=== PATIENT | female | born 1965 | race Caucasian/White ===

== ENCOUNTER → 2020-12-12 14:15 | Outpatient (BNVA) | payer MEDICARE, MEDICAID, SELFPAY | PROVIDERS: PCP Internal Medicine; Visit Provider Internal Medicine Cardiovascular Disease | DX: I48.0 Paroxysmal atrial fibrillation (principal); I50.9 Heart failure, unspecified | CPT/HCPCS: 93005; 99212 ==

== ENCOUNTER → 2021-03-08 13:00 | Outpatient (BNVA) | payer MEDICARE, MEDICAID, SELFPAY | PROVIDERS: PCP Internal Medicine; Visit Provider Nurse Practitioner Family | DX: R00.2 Palpitations (principal); I48.0 Paroxysmal atrial fibrillation; I50.9 Heart failure, unspecified | CPT/HCPCS: 93005; 99212 ==

== ENCOUNTER 2021-05-09 12:01 | Emergency (ER) | payer MEDICARE, MEDICAID, SELFPAY ==
--- NOTE | ~2021-05-09 | XR_ITS ---
EXAMINATION: XR CHEST CLINICAL INFORMATION: Fever. COMPARISON: None TECHNIQUE: Frontal view of the chest was obtained. FINDINGS: No significant abnormality is noted involving the heart, lungs, mediastinum, bony thorax or soft tissues. XR/XR chest 1V IMPRESSION: Unremarkable chest examination.
[2021-05-09 13:03] VITALS: BP 111/55; PULSE 89; RESP 16; TEMP 36.1; O2SAT 98; BMI 25.2
[2021-05-09 13:39] LABS: MANUAL DIFF FLAG NO
[2021-05-09 13:41] LABS: Basophils Percent Auto 0.2 % (0-2); Eosinophils Absolute Auto 0.1 X10*3/uL (0.0-0.4); Hematocrit 41.3 % (37-47); Hemoglobin 13.4 g/dl (12.0-16.0); Imm Gran Abs Auto 0.05 X10*3/uL (0.00-0.03); Imm Gran Pct Auto 0.5 % (0.0-0.4); Lymphocytes Absolute Auto 1.8 X10*3/uL (1.2-4.9); Lymphocytes Percent Auto 18.3 % (20-40); Mean Corpuscular HGB Conc 32.4 g/dl (31.0-35.0); Mean Corpuscular Hemoglobin 31.8 pg (27.0-33.0); Mean Corpuscular Volume 97.9 fL (80-98); Mean Platelet Volume 10.8 fL (9.4-12.3); Monocytes Absolute Auto 0.5 X10*3/uL (0.1-1.2); Monocytes Percent Auto 5.5 % (2-11); Neutrophils Absolute Auto 7.4 X10*3/uL (2.0-8.3); Neutrophils Percent Auto 74.5 % (45-73); Platelet Count 234 X10*3/uL (160-400); Red Blood Count 4.22 X10*6/uL (4.20-5.50); Red Cell Distribution Width 14.5 % (11.0-16.0); White Blood Count 9.9 X10*3/uL (4.8-10.8)
[2021-05-09 14:12] LABS: Anion Gap 14 (12-20); Blood Urea Nitrogen 9 mg/dL (9-16); Calcium 8.9 mg/dL (8.4-10.2); Carbon Dioxide 23 mmol/L (22-29); Chloride 105 mmol/L (96-108); Creatinine Clr Calc Pharmacy 64.6; Estimated Glomerular Filt Rate > 60; Glucose Random 230 mg/dL (60-115); Potassium 4.1 mmol/L (3.3-5.1); Sodium 138 mmol/L (135-145)
[2021-05-09 14:43] LABS: Alanine Aminotransferase 20 U/L (0-31); Albumin Level 3.9 g/dL (3.5-5.0); Alkaline Phosphatase 60 U/L (39-117); Aspartate Amino Transferase 26 U/L (5-31); Bilirubin Direct 0.2 mg/dL (0.0-0.5); Bilirubin Total 0.4 mg/dL (0.0-1.0); Total Protein 7.6 g/dL (6.5-8.0)
--- NOTE | 2021-05-09 15:15 | ED_ITS ---
HPI - Fever General Chief Complaint: Fever Stated Complaint: fever Time Seen by Provider: 05/09/21 14:20 Source: patient Mode of arrival: ambulatory Limitations: no limitations History of Present Illness HPI Narrative: 56 y/o female with history of DM, paroxysmal afib on Xarelto, CHF, hypothyroidism who presents to the ER with on/off fevers for the last 3 weeks. She reports a longstanding cyst on her left upper chest wall for the last 30 years. About 3 weeks ago it got bigger and her was able to squeeze and express large amounts of pus from it. She had low grade fevers for a few days followed by higher grade fevers for the next few days, up to 103.8. She has had no other symptoms other than some fatigue, generalized weakness and generally not feeling well. She has no SOB, chest pain, cough, rash, abdominal pain, N/V/D, or urinary symptoms. She is fully vaccinated against COVID. MD elicited complaint: fever, malaise and weakness Pertinent past history: diabetes Onset (ago): week(s) (3) Exacerbating factors: nothing Relieving factors: acetaminophen and ibuprofen Associated symptoms: denies other symptoms Treatments prior to arrival fever: acetaminophen Related Data Home Medications Medication Instructions Recorded Confirmed albuterol sulfate 90 mcg/actuation 0 mcg INHALATION 12/12/20 03/08/21 aerosol inhaler atenolol 50 mg tablet 50 mg PO BID tab 12/12/20 03/08/21 bupropion HCl 300 mg 24 hr tablet, 300 mg PO DAILY 12/12/20 03/08/21 extended release citalopram 40 mg tablet 40 mg PO DAILY 12/12/20 03/08/21 colestipol 1 gram tablet 1 g PO TID 12/12/20 03/08/21 cyclobenzaprine 10 mg tablet 10 mg PO BID PRN 12/12/20 03/08/21 famotidine 20 mg tablet 20 mg PO BID 12/12/20 03/08/21 fluticasone furoate 200 1 ea PO DAILY 12/12/20 03/08/21 mcg-vilanterol 25 mcg/dose inhalation powder levothyroxine 100 mcg tablet 100 mcg PO DAILY 12/12/20 03/08/21 lorazepam 1 mg tablet 1 mg PO TID PRN 12/12/20 03/08/21 oxycodone 10 mg tablet mg PO 12/12/20 03/08/21 trazodone 50 mg tablet 150 mg PO BEDTIME 12/12/20 03/08/21 potassium chloride 10 mEq 20 meq PO DAILY 03/08/21 03/08/21 capsule,extended release Previous Rx's Medication Instructions Recorded rivaroxaban 20 mg tablet (Xarelto) 20 mg PO DAILY 90 Days #90 tab 08/09/20 flecainide 100 mg tablet 100 mg PO Q12H 90 Days #180 tab 11/04/20 furosemide 40 mg tablet 40 mg PO DAILY 90 Days #110 tab 01/13/21 Allergies Allergy/AdvReac Type Severity Reaction Status Date / Time amoxicillin [From AUGMENTIN] Allergy Mild SWELLING Unverified 06/02/20 16:40 clavulanic acid Allergy Mild SWELLING Unverified 06/02/20 16:40 [From AUGMENTIN] etodolac [From LODINE] Allergy Mild SWELLING Unverified 06/02/20 16:40 gabapentin [GABAPENTIN] Allergy Mild SWELLING Unverified 06/02/20 16:40 pregabalin [From LYRICA] Allergy Mild SWELLING Unverified 06/02/20 16:40 clarithromycin [From Biaxin] Allergy Unknown ANGIOEDEMA Unverified 06/02/20 16:40 Penicillins Allergy Unknown UNKNOWN Unverified 06/02/20 16:40 sulfamethoxazole Allergy Unknown ANAPHYLAXIS Unverified 06/02/20 16:40 [From Bactrim] fluticasone AdvReac Mild MUSCLE PAIN Unverified 06/02/20 16:40 [From FLOVENT DISKUS] Eliquis Allergy Unknown fatigue, Uncoded 03/28/20 00:00 GI, tongue swell Review of Systems Constitutional: Constitutional: Denies chills, Reports fever(s), Denies headache(s), Reports lethargy, Reports malaise, Denies night sweats and Reports poor appetite Eyes: Eyes: Reports no additional eye complaints ENT: Reports Normal hearing present, Denies headache(s), Denies nasal congestion, Denies neck pain and Denies sore throat Cardiovascular: Cardiovascular: Denies chest pain, Denies lightheadedness, Denies dyspnea and Denies dyspnea on exertion Respiratory: Respiratory: Denies chest congestion, Denies cough, Denies dyspnea, Denies dyspnea on exertion and Denies wheezing Gastrointestinal: Gastrointestinal: Denies abdominal pain, Denies diarrhea, Denies nausea and Denies vomiting Genitourinary: Genitourinary: Denies dysuria Musculoskeletal: Musculoskeletal: Denies back pain, Denies myalgias and Denies neck pain Integumentary/Breasts: Skin/Breast: Reports furuncle and Denies rash Neurologic: Reports Normal hearing present and Denies headache(s) Hematologic/Lymphatic: Hematologic/Lymphatic: Denies easy bleeding, Denies easy bruising and Denies lymphadenopathy Allergic/Immunologic: Allergic/Immunologic: Denies urticaria, Denies seasonal rhinorrhea and Denies wheezing PMFSH Past Medical History Attestation statement: The following information was validated with the patient. Medical History Congestive heart failure Diabetes PAF (paroxysmal atrial fibrillation) Surgical History History of back surgery History of radiofrequency ablation (RFA) procedure for cardiac arrhythmia Family History Family History Father No problems noted. Mother CVD (cardiovascular disease) Social History Social History Patient Tobacco Use Status: Current everyday Tobacco user Cigarettes Per Day: 10 Advance Directives: Yes Advance Directives Information Provided: Yes Advance Directives on File: No Patient : No Physical Exam Vital Signs: Vital Signs: Last Vital Signs Temp 97 F 05/09/21 13:03 Pulse 89 05/09/21 13:03 Resp 16 05/09/21 13:03 BP 111/55 L 05/09/21 13:03 Pulse Ox 98 05/09/21 13:03 Body Mass Index 25.2 Appearance: Alert. Oriented X3. No acute distress. Appears chornically ill Eyes: Pupils equal, round and reactive to light. ENT: Pharynx normal. tonsils normal, uvula midline Neck: Normal inspection. Neck supple. No LAD CVS: Normal heart rate and rhythm. Pulses normal. Respiratory: No respiratory distress. Breath sounds normal. Abdomen: Soft and nontender. +BS x4 Skin: Skin warm and dry. Normal skin color. Normal skin turgor. No rash. Left upper chest wall with small area of erythema with induration and ecchymosis surroudning it, no fluctance, no drainage. mildly warm. Extremities: No lower extremity edema. Neuro: Oriented X 3. No motor deficit. No sensory deficit. Neuro: Cranial nerves: Yes Normal hearing present Course Course Course Narrative: 56 yo female presenting with fevers and left chest inflamed c yst for the last 3 weeks. Fevers as high as 103.8 at home about 2 weeks ago. Denies all other complaints aside from some generalized malaise and not feeling well. Will dorado culture, check viral PCR and basic labs. She is currently hemodyanmically stable, afebrile. Chest wall cyst has no area that is amenable to I&D at this time. Reevaluation(s) Reevaluation #1: Lab workup is unremarkable. Lyme and Erlichia sent. Viral PCR p ending. Awaiting UA and lactic acid. Reevaluation #2: Patient eloped. MDM - Fever Lab Data Result diagrams: 05/09/21 13:22 05/09/21 13:22 Labs: Lab Results 05/09/21 05/09/21 05/09/21 Range/Units 13:22 13:22 15:03 WBC 9.9 (4.8-10.8) X10*3/uL RBC 4.22 (4.20-5.50) X10*6/uL Hgb 13.4 (12.0-16.0) g/dl Hct 41.3 (37-47) % MCV 97.9 (80-98) fL MCH 31.8 (27.0-33.0) pg MCHC 32.4 (31.0-35.0) g/dl RDW 14.5 (11.0-16.0) % Plt Count 234 (160-400) X10*3/uL MPV 10.8 (9.4-12.3) fL Immature Gran % (Auto) 0.5 H (0.0-0.4) % Neut % (Auto) 74.5 H (45-73) % Lymph % (Auto) 18.3 L (20-40) % [place] % (Auto) 5.5 (2-11) % Eos % (Auto) 1.0 (0-4) % Baso % (Auto) 0.2 (0-2) % Lymph # (Auto) 1.8 (1.2-4.9) X10*3/uL [place] # (Auto) 0.5 (0.1-1.2) X10*3/uL Eos # (Auto) 0.1 (0.0-0.4) X10*3/uL Baso # (Auto) 0.0 (0.0-0.2) X10*3/uL Abs Immat Gran (auto) 0.05 H (0.00-0.03) X10*3/uL Absolute Neuts (auto) 7.4 (2.0-8.3) X10*3/uL Absolute Nucleated RBC 0.000 (0.0-0.012) X10*3/uL Nucleated RBC % (auto) 0.0 (0.0-0.2) /100WBC Sodium 138 (135-145) mmol/L Potassium 4.1 (3.3-5.1) mmol/L Chloride 105 (96-108) mmol/L Carbon Dioxide 23 (22-29) mmol/L Anion Gap 14 (12-20) BUN 9 (9-16) mg/dL Creatinine 0.91 (0.5-1.4) mg/dL Estim Creat Clear Calc 64.6 Estimated GFR > 60 Random Glucose 230 H (60-115) mg/dL Lactic Acid (0.5-2.0) mmol/L Calcium 8.9 (8.4-10.2) mg/dL Total Bilirubin 0.4 (0.0-1.0) mg/dL Direct Bilirubin 0.2 (0.0-0.5) mg/dL AST 26 (5-31) U/L ALT 20 (0-31) U/L Alkaline Phosphatase 60 (39-117) U/L Total Protein 7.6 (6.5-8.0) g/dL Albumin 3.9 (3.5-5.0) g/dL Coronavirus (PCR) Cancelled Influenza Type A (PCR) Cancelled Influenza Type B (PCR) Cancelled RSV RNA Qual (PCR) Cancelled 05/09/21 05/09/21 Range/Units 15:03 15:22 WBC (4.8-10.8) X10*3/uL RBC (4.20-5.50) X10*6/uL Hgb (12.0-16.0) g/dl Hct (37-47) % MCV (80-98) fL MCH (27.0-33.0) pg MCHC (31.0-35.0) g/dl RDW (11.0-16.0) % Plt Count (160-400) X10*3/uL MPV (9.4-12.3) fL Immature Gran % (Auto) (0.0-0.4) % Neut % (Auto) (45-73) % Lymph % (Auto) (20-40) % [place] % (Auto) (2-11) % Eos % (Auto) (0-4) % Baso % (Auto) (0-2) % Lymph # (Auto) (1.2-4.9) X10*3/uL [place] # (Auto) (0.1-1.2) X10*3/uL Eos # (Auto) (0.0-0.4) X10*3/uL Baso # (Auto) (0.0-0.2) X10*3/uL Abs Immat Gran (auto) (0.00-0.03) X10*3/uL Absolute Neuts (auto) (2.0-8.3) X10*3/uL Absolute Nucleated RBC (0.0-0.012) X10*3/uL Nucleated RBC % (auto) (0.0-0.2) /100WBC Sodium (135-145) mmol/L Potassium (3.3-5.1) mmol/L Chloride (96-108) mmol/L Carbon Dioxide (22-29) mmol/L Anion Gap (12-20) BUN (9-16) mg/dL Creatinine (0.5-1.4) mg/dL Estim Creat Clear Calc Estimated GFR Random Glucose (60-115) mg/dL Lactic Acid 1.4 (0.5-2.0) mmol/L Calcium (8.4-10.2) mg/dL Total Bilirubin (0.0-1.0) mg/dL Direct Bilirubin (0.0-0.5) mg/dL AST (5-31) U/L ALT (0-31) U/L Alkaline Phosphatase (39-117) U/L Total Protein (6.5-8.0) g/dL Albumin (3.5-5.0) g/dL Coronavirus (PCR) NEGATIVE Influenza Type A (PCR) NEGATIVE Influenza Type B (PCR) NEGATIVE RSV RNA Qual (PCR) NEGATIVE Critical Care Time Critical Care Time Critical Care Time: No Discharge Plan Discharge Clinical Impression: Cyst, Cellulitis Patient Disposition: Elopement Prescriptions: No Action Xarelto 20 mg tablet 20 mg PO DAILY 90 Days Qty: 90 RF: 3 flecainide 100 mg tablet 100 mg PO Q12H 90 Days Qty: 180 RF: 0 furosemide 40 mg tablet 40 mg PO DAILY 90 Days Qty: 110 RF: 1 famotidine 20 mg tablet 20 mg PO BID RF: 0 Breo Ellipta 200-25 mcg/dose blister with device 1 ea PO DAILY RF: 0 bupropion HCl 300 mg tablet extended release 24 hr 300 mg PO DAILY RF: 0 citalopram 40 mg tablet 40 mg PO DAILY RF: 0 colestipol 1 gram tablet 1 g PO TID RF: 0 oxycodone 10 mg tablet PO RF: 0 lorazepam 1 mg tablet 1 mg PO TID PRN (Reason: anxiety) RF: 0 cyclobenzaprine 10 mg tablet 10 mg PO BID PRNRF: 0 albuterol sulfate 90 mcg/actuation HFA aerosol inhaler 0 mcg inhalation RF: 0 levothyroxine 100 mcg tablet 100 mcg PO DAILY RF: 0 trazodone 50 mg tablet 150 mg PO BEDTIME RF: 0 atenolol 50 mg tablet 50 mg PO BID RF: 0 potassium chloride 10 mEq capsule, extended release 20 meq PO DAILY RF: 0 Discharge Date/Time: 05/09/21 16:37
[2021-05-09 15:47] LABS: Lactic Acid 1.4 mmol/L (0.5-2.0)
[2021-05-09 16:22] LABS: Influenza A PCR NEGATIVE (Negative); Influenza B PCR NEGATIVE (Negative); Resp Syncy Virus RNA Qual PCR NEGATIVE (Negative); SARS COV2 PCR INHOUSE NEGATIVE (Negative)
--- NOTE | 2021-05-09 16:38 | PC.NURSE ---
pt was instructed to provide a urine spec nad plan was to d/c after po abx and follow up with lab work. pt left urine spec at bedside adn elopued. pt was in no distress, resps were = and nonlabored.
[2021-05-11 01:21] LABS: Lyme Abs Screen <0.90 index
[2021-05-12 06:56] LABS: A. Phagocytophilum Ab IgG <1:64 (<1:64); A. Phagocytophilum Ab IgM <1:20 (<1:20); E. Chaffeensis Ab IgG <1:64 (<1:64); E. Chaffeensis Ab IgM <1:20 (<1:20)
== END 2021-05-09 16:37 | disposition left against medical advice (07) ==
PROVIDERS: Physician Assistant; Emergency Provider Emergency Medicine; PCP Internal Medicine
DX: R22.2 Localized swelling, mass and lump, trunk (principal); L03.313 Cellulitis of chest wall; Z20.822 Contact with and (suspected) exposure to COVID-19; R50.9 Fever, unspecified; E11.9 Type 2 diabetes mellitus without complications; I48.0 Paroxysmal atrial fibrillation; F17.210 Nicotine dependence, cigarettes, uncomplicated; Z79.01 Long term (current) use of anticoagulants; Z79.899 Other long term (current) drug therapy
CPT/HCPCS: 0241U; 36415; 71045; 80048; 80076; 83605; 85025; 86617; 86618; 86666; 87040; 99283

== ENCOUNTER 2021-06-20 19:13 | Emergency (ER) | payer MEDICARE, MEDICAID, SELFPAY ==
--- NOTE | 2021-06-20 | ECG_ITS ---
Test Reason : SOB Blood Pressure : / mmHG Vent. Rate : 085 BPM Atrial Rate : 085 BPM P-R Int : 184 ms QRS Dur : 096 ms QT Int : 414 ms P-R-T Axes : 051 -09 038 degrees QTc Int : 492 ms Normal sinus rhythm Possible Left atrial enlargement Nonspecific T wave abnormality Prolonged QT Abnormal ECG When compared with ECG of 18-DEC-2019 06:04, No significant change was found Referred By: Generic ED Physician Electronically Signed By:MEL HERNANDEZ
--- NOTE | ~2021-06-20 | XR_ITS ---
EXAMINATION: XR CHEST CLINICAL INFORMATION: Shortness of breath. COMPARISON: Chest radiograph dated from 05/09/2021. TECHNIQUE: 2 views of the chest were obtained. FINDINGS: Unchanged appearance of the cardiomediastinal silhouette. Partial visualization of cervical and lumbar fusion hardware. There are hazy and patchy opacities bilaterally within the lower lobes. No pleural effusion. No pneumothorax. No acute osseous findings. XR/XR chest 2V IMPRESSION: Patchy and hazy opacities in the lower lobes bilaterally which could be seen in the setting of an atypical multifocal infection. Correlate clinically and follow-up to ensure resolution.
[2021-06-20 20:04] VITALS: PULSE 86; RESP 20; TEMP 36.8; O2SAT 83; BMI 22.6
[2021-06-20 20:11] VITALS: BP 103/35
--- NOTE | 2021-06-20 20:16 | PC.NURSE ---
PT PLACED ON 2L O2 VIA NC SAO2 INCREASED TO 88% IN TRIAGE. BROUGHT TO RM 1 FOR TREATMENT, PRIMARY RN ROSALINA NOTIFIED. PT HOOKED TO ROOM O2 INCREASED TO 3L.
--- NOTE | 2021-06-20 20:18 | ED.SOB ---
HPI - SOB/Dyspnea General Chief Complaint: Dyspnea <Naveed Nñuez MD - Last Filed: 06/20/21:> Stated Complaint: SOB <Naveed Nuñez MD - Last Filed: 06/20/21:> Time Seen by Provider: 06/20/21 20:18 <Naveed Nuñez MD - Last Filed: 06/20/21:> Source: patient <Naveed Nuñez MD - Last Filed: 06/20/21:> Mode of arrival: ambulatory <Naveed Nuñez MD - Last Filed: 06/20/21:> Limitations: no limitations <Naveed Nuñez MD - Last Filed: 06/20/21:> History of Present Illness HPI Narrative: patient with increasing shortness of breath. she has a history of COPD, she is concerned about pneumonia. Patient is vaccinated against COVID. Patient is still smoking. <Naveed Nuñez MD - Last Filed: 06/20/21:26> MD elicited complaint: shortness of breath and cough <Naveed Nuñez MD - Last Filed: 06/20/21:26> Pertinent past history: COPD <Naveed Nuñez MD - Last Filed: 06/20/21:> Onset (ago): day(s) <aNveed Nuñez MD - Last Filed: 06/20/21:> Timing: intermittent <Naveed Nuñez MD - Last Filed: 06/20/21:> Severity: moderate <Naveed Nuñez MD - Last Filed: 06/20/21:26> Exacerbating factors: exertion and movement <Naveed Nuñez MD - Last Filed: 06/20/21:> Relieving factors: bronchodilators <Naveed Nuñez MD - Last Filed: 06/20/21:> Known history of: COPD <Naveed Nuñez MD - Last Filed: 06/20/21:26> Associated symptoms: cough and wheezing <Naveed Nuñez MD - Last Filed: 06/20/21:26> Treatment prior to arrival: bronchodilator <Navede Nuñez MD - Last Filed: 06/20/21 21:26> Related Data Home Medications: Home Medications Medication Instructions Recorded Confirmed albuterol sulfate 90 mcg/actuation 0 mcg INHALATION 12/12/20 03/08/21 aerosol inhaler atenolol 50 mg tablet 50 mg PO BID tab 12/12/20 03/08/21 bupropion HCl 300 mg 24 hr tablet, 300 mg PO DAILY 12/12/20 03/08/21 extended release citalopram 40 mg tablet 40 mg PO DAILY 12/12/20 03/08/21 colestipol 1 gram tablet 1 g PO TID 12/12/20 03/08/21 cyclobenzaprine 10 mg tablet 10 mg PO BID PRN 12/12/20 03/08/21 famotidine 20 mg tablet 20 mg PO BID 12/12/20 03/08/21 fluticasone furoate 200 1 ea PO DAILY 12/12/20 03/08/21 mcg-vilanterol 25 mcg/dose inhalation powder levothyroxine 100 mcg tablet 100 mcg PO DAILY 12/12/20 03/08/21 lorazepam 1 mg tablet 1 mg PO TID PRN 12/12/20 03/08/21 oxycodone 10 mg tablet mg PO 12/12/20 03/08/21 trazodone 50 mg tablet 150 mg PO BEDTIME 12/12/20 03/08/21 potassium chloride 10 mEq 20 meq PO DAILY 03/08/21 03/08/21 capsule,extended release Previous Rx's Medication Instructions Recorded rivaroxaban 20 mg tablet (Xarelto) 20 mg PO DAILY 90 Days #90 tab 08/09/20 furosemide 40 mg tablet 40 mg PO DAILY 90 Days #110 tab 01/13/21 flecainide 100 mg tablet 100 mg PO Q12H 90 Days #180 tab 05/15/21 levofloxacin 500 mg tablet 500 mg PO DAILY #7 tab 06/20/21 <Naveed Nuñez MD - Last Filed: 06/20/21 21:26> Allergies/Adverse Reactions: Allergies Allergy/AdvReac Type Severity Reaction Status Date / Time amoxicillin [From AUGMENTIN] Allergy Mild SWELLING Verified 06/20/21 21:34 clavulanic acid Allergy Mild SWELLING Verified 06/20/21 21:34 [From AUGMENTIN] etodolac [From LODINE] Allergy Mild SWELLING Verified 06/20/21 21:34 gabapentin [GABAPENTIN] Allergy Mild SWELLING Verified 06/20/21 21:34 pregabalin [From LYRICA] Allergy Mild SWELLING Verified 06/20/21 21:34 clarithromycin [From Biaxin] Allergy Unknown ANGIOEDEMA Verified 06/20/21 21:34 Penicillins Allergy Unknown UNKNOWN Verified 06/20/21 21:34 sulfamethoxazole Allergy Unknown ANAPHYLAXIS Verified 06/20/21 21:34 [From Bactrim] fluticasone AdvReac Mild MUSCLE PAIN Verified 06/20/21 21:34 [From FLOVENT DISKUS] Eliquis Allergy Unknown fatigue, Uncoded 06/20/21 21:34 GI, tongue swell <Naveed Nuñez MD - Last Filed: 06/20/21 21:26> Review of Systems Constitutional: Constitutional: Reports no additional constitutional complaints <Naveed Nuñez MD - Last Filed: 06/20/21 21:26> Eyes: Eyes: Reports no additional eye complaints <Naveed Nuñez MD - Last Filed: 06/20/21 21:26> ENT: Denies dizziness <Naveed Nuñez MD - Last Filed: 06/20/21 21:26> Cardiovascular: Cardiovascular: Reports no additional cardiovascular complaints <Naveed Nuñez MD - Last Filed: 06/20/21 21:26> Respiratory: Respiratory: Reports as per HPI <Naveed Nuñez MD - Last Filed: 06/20/21 21:26> Gastrointestinal: Gastrointestinal: Reports no additional gastrointestinal complaints <Naveed Nuñez MD - Last Filed: 06/20/21 21:26> Genitourinary: Genitourinary: Reports no additional female genitourinary complaints <Naveed Nuñez MD - Last Filed: 06/20/21 21:26> Musculoskeletal: Musculoskeletal: Reports no additional musculoskeletal complaints <Naveed Nuñez MD - Last Filed: 06/20/21 21:26> Integumentary/Breasts: Skin/Breast: Denies rash <Naveed Nuñez MD - Last Filed: 06/20/21 21:26> Neurologic: Reports system reviewed and no additional complaints, except as documented, Denies dizziness and Denies Sensory deficit (Neuro) <Naveed Nuñez MD - Last Filed: 06/20/21 21:26> Psychiatric: Psychiatric: Denies anxiety <Naveed Nuñez MD - Last Filed: 06/20/21 21:26> FOR[facility]LY [facility] Past Medical History Medical History: Medical History Congestive heart failure Diabetes PAF (paroxysmal atrial fibrillation) <Naveed Nuñez MD - Last Filed: 06/20/21 21:26> Surgical History: Surgical History History of back surgery History of radiofrequency ablation (RFA) procedure for cardiac arrhythmia <Naveed Nuñez MD - Last Filed: 06/20/21 21:26> Family History Family History: Family History Father No problems noted. Mother CVD (cardiovascular disease) <Naveed Nuñez MD - Last Filed: 06/20/21 21:26> Social History Social History: Social History Alcohol intake: unknown Patient Tobacco Use Status: Current everyday Tobacco user Cigarettes Per Day: 10 Use of substances other than those prescribed or required for medical reasons: Unknown Advance Directives: No Advance Directives Information Provided: No Patient : No <Naveed Nuñez MD - Last Filed: 06/20/21 21:26> Physical Exam Vital Signs: Vital Signs: Last Vital Signs Temp 98.2 F 06/20/21 20:04 Pulse 86 06/20/21 21:31 Resp 26 H 06/20/21 21:31 BP 112/32 L 06/20/21 21:31 Pulse Ox 92 06/20/21 21:31 Body Mass Index 22.6 <Naveed Nuñez MD - Last Filed: 06/20/21 21:26> Vital Signs: Last Vital Signs Temp 98.2 F 06/20/21 20:04 Pulse 86 06/20/21 21:31 Resp 26 H 06/20/21 21:31 BP 112/32 L 06/20/21 21:31 Pulse Ox 92 06/20/21 21:31 Body Mass Index 22.6 <James Hernandez MD - Last Filed: 06/21/21 00:16> Const: Other: female looking older than stated age <Naveed Nuñez MD - Last Filed: 06/20/21 21:26> Nutritional Appearance: average body habitus <Naveed Nuñez MD - Last Filed: 06/20/21 21:26> Orientation/consciousness: oriented to person and patient oriented x3 <Naveed Nuñez MD - Last Filed: 06/20/21 21:26> Limitations: no limitations <Naveed Nuñez MD - Last Filed: 06/20/21 21:26> HENMT: Head: Yes normal to inspection <Naveed Nuñez MD - Last Filed: 06/20/21 21:26> Ears: external ears normal <Naveed Nuñez MD - Last Filed: 06/20/21 21:26> General nose exam: Normal external nose present <Naveed Nuñez MD - Last Filed: 06/20/21 21:26> Mouth: Normal oral and palatal mucosa present and oropharynx normal <Naveed Nuñez MD - Last Filed: 06/20/21 21:26> Throat: Yes posterior oropharynx normal <Naveed Nuñez MD - Last Filed: 06/20/21 21:26> Eyes: General: appearance normal, both eyes and all related structures <Naveed Nuñez MD - Last Filed: 06/20/21 21:26> Neck: Other: supple <Naveed Nuñez MD - Last Filed: 06/20/21 21:26> Neck: Yes normal visual inspection <Naveed Nuñez MD - Last Filed: 06/20/21 21:26> Chest: Chest palpation & inspection: normal inspection of the chest <Naveed Nuñez MD - Last Filed: 06/20/21 21:26> Resp: Other: no wheezing <Naveed Nuñez MD - Last Filed: 06/20/21 21:26> Auscultation: clear to auscultation bilaterally <Naveed Nuñez MD - Last Filed: 06/20/21 21:26> Cardio: Jugular venous distension: no JVD <Naveed Nuñez MD - Last Filed: 10/05/21 21:26> Rate: regular rate <Naveed Nuñez MD - Last Filed: 06/20/21:> Rhythm: regular rhythm <Naveed Nuñez MD - Last Filed: 06/20/21:> Heart sounds: S1 normal heart sound present and S2 normal heart sound present <Naveed Nuñez MD - Last Filed: 06/20/21:26> GI: Inspection: Yes normal to inspection <Naveed Nuñez MD - Last Filed: 06/20/21:26> Palpation (GI): Soft to palpation, nontender and No hepatosplenomegaly present <Naveed Nuñez MD - Last Filed: 06/20/21:26> Auscultation: normal bowel sounds <Naveed Nuñez MD - Last Filed: 06/20/21:> : General: Yes no CVA tenderness <Naveed Nuñez MD - Last Filed: 06/20/21 21:26> Back/Spine/Pelvis: Back: no CVA tenderness <Naveed Nuñez MD - Last Filed: 06/20/21:26> Skin: General skin exam: no rashes or lesions noted <Naveed Nuñez MD - Last Filed: 06/20/21:26> Neuro: General: oriented to person and patient oriented x3 <Naveed Nuñez MD - Last Filed: 06/20/21:26> Cranial nerves: Yes CN's II-XII intact bilaterally <Naveed Nuñez MD - Last Filed: 06/20/21 21:26> Motor exam (neuro): 5/5 motor strength present throughout <Naveed Nuñez MD - Last Filed: 06/20/21 21:26> Sensory Exam: No Sensory deficit (Neuro) <Naveed Nuñez MD - Last Filed: 06/20/21:26> Extrem: General: Yes normal to inspection <Naveed Nuñez MD - Last Filed: 06/20/21 21:26> Psych: Appearance: grossly normal <Naveed Nuñez MD - Last Filed: 06/20/21 21:26> Course Reevaluation(s) Reevaluation #1: patient afebrile, no tachycardia, no hypoxia, COVID negative. Will give Azithromycin for atypical pneumonia and bring her glucose down and dishcarge <Naveed Nuñez MD - Last Filed: 06/20/21 21:26> Time: 21:26 <Naveed Nuñez MD - Last Filed: 06/20/21 21:26> Reevaluation #2: I assumed care of this patient from my colleague, Dr. Naveed Nuñez at 9:45 a.m. patient's point of care glucose was elevated above 400 and the patient was treated with normal saline x1 L and regular insulin 10 units subQ. Patient's repeat point of care glucose was 301. Patient was discharged home. <James Hernandez MD - Last Filed: 06/21/21 00:16> Time: 00:15 <James Hernandez MD - Last Filed: 06/21/21 00:16> MDM - SOB/Dyspnea Lab Data Result diagrams: : 06/20/21 20:38 06/20/21 20:38 <Naveed Nuñez MD - Last Filed: 06/20/21 21:26> Labs: Lab Results 06/20/21 06/20/21 06/20/21 Range/Units 20:38 20:38 20:38 WBC 12.3 H (4.8-10.8) X10*3/uL RBC 3.70 L (4.20-5.50) X10*6/uL Hgb 12.3 (12.0-16.0) g/dl Hct 36.2 L (37-47) % MCV 97.8 (80-98) fL MCH 33.2 H (27.0-33.0) pg MCHC 34.0 (31.0-35.0) g/dl RDW 14.4 (11.0-16.0) % Plt Count 204 (160-400) X10*3/uL MPV 10.3 (9.4-12.3) fL Immature Gran % (Auto) 0.6 H (0.0-0.4) % Neut % (Auto) 80.1 H (45-73) % Lymph % (Auto) 13.8 L (20-40) % [place] % (Auto) 4.8 (2-11) % Eos % (Auto) 0.6 (0-4) % Baso % (Auto) 0.1 (0-2) % Lymph # (Auto) 1.7 (1.2-4.9) X10*3/uL [place] # (Auto) 0.6 (0.1-1.2) X10*3/uL Eos # (Auto) 0.1 (0.0-0.4) X10*3/uL Baso # (Auto) 0.0 (0.0-0.2) X10*3/uL Abs Immat Gran (auto) 0.07 H (0.00-0.03) X10*3/uL Absolute Neuts (auto) 9.9 H (2.0-8.3) X10*3/uL Absolute Nucleated RBC 0.000 (0.0-0.012) X10*3/uL Nucleated RBC % (auto) 0.0 (0.0-0.2) /100WBC Sodium 135 (135-145) mmol/L Potassium 4.2 (3.3-5.1) mmol/L Chloride 99 (96-108) mmol/L Carbon Dioxide 24 (22-29) mmol/L Anion Gap 16 (12-20) BUN 14 D (9-16) mg/dL Creatinine 1.03 (0.5-1.4) mg/dL Estim Creat Clear Calc 57.0 Estimated GFR 55 POC Glucose (60-115) mg/dL Random Glucose 446 H* (60-115) mg/dL Calcium 8.1 L D (8.4-10.2) mg/dL Total Bilirubin 0.4 (0.0-1.0) mg/dL AST 22 (5-31) U/L ALT 15 (0-31) U/L Alkaline Phosphatase 64 (39-117) U/L Troponin I High Sens (<3.5-17.0) ng/L Total Protein 7.2 (6.5-8.0) g/dL Albumin 3.7 (3.5-5.0) g/dL COVID-19 ([facility]) Negative (Negative) COVID-19 Clin Com See Note 06/20/21 06/20/21 Range/Units 20:38 22:20 WBC (4.8-10.8) X10*3/uL RBC (4.20-5.50) X10*6/uL Hgb (12.0-16.0) g/dl Hct (37-47) % MCV (80-98) fL MCH (27.0-33.0) pg MCHC (31.0-35.0) g/dl RDW (11.0-16.0) % Plt Count (160-400) X10*3/uL MPV (9.4-12.3) fL Immature Gran % (Auto) (0.0-0.4) % Neut % (Auto) (45-73) % Lymph % (Auto) (20-40) % [place] % (Auto) (2-11) % Eos % (Auto) (0-4) % Baso % (Auto) (0-2) % Lymph # (Auto) (1.2-4.9) X10*3/uL [place] # (Auto) (0.1-1.2) X10*3/uL Eos # (Auto) (0.0-0.4) X10*3/uL Baso # (Auto) (0.0-0.2) X10*3/uL Abs Immat Gran (auto) (0.00-0.03) X10*3/uL Absolute Neuts (auto) (2.0-8.3) X10*3/uL Absolute Nucleated RBC (0.0-0.012) X10*3/uL Nucleated RBC % (auto) (0.0-0.2) /100WBC Sodium (135-145) mmol/L Potassium (3.3-5.1) mmol/L Chloride (96-108) mmol/L Carbon Dioxide (22-29) mmol/L Anion Gap (12-20) BUN (9-16) mg/dL Creatinine (0.5-1.4) mg/dL Estim Creat Clear Calc Estimated GFR POC Glucose 429 H* (60-115) mg/dL Random Glucose (60-115) mg/dL Calcium (8.4-10.2) mg/dL Total Bilirubin (0.0-1.0) mg/dL AST (5-31) U/L ALT (0-31) U/L Alkaline Phosphatase (39-117) U/L Troponin I High Sens < 3.5 (<3.5-17.0) ng/L Total Protein (6.5-8.0) g/dL Albumin (3.5-5.0) g/dL COVID-19 ([facility]) (Negative) COVID-19 Clin Com <Naveed Nuñez MD - Last Filed: 06/20/21 21:26> Lab Results 06/20/21 06/20/21 06/20/21 Range/Units 20:38 20:38 20:38 WBC 12.3 H (4.8-10.8) X10*3/uL RBC 3.70 L (4.20-5.50) X10*6/uL Hgb 12.3 (12.0-16.0) g/dl Hct 36.2 L (37-47) % MCV 97.8 (80-98) fL MCH 33.2 H (27.0-33.0) pg MCHC 34.0 (31.0-35.0) g/dl RDW 14.4 (11.0-16.0) % Plt Count 204 (160-400) X10*3/uL MPV 10.3 (9.4-12.3) fL Immature Gran % (Auto) 0.6 H (0.0-0.4) % Neut % (Auto) 80.1 H (45-73) % Lymph % (Auto) 13.8 L (20-40) % [place] % (Auto) 4.8 (2-11) % Eos % (Auto) 0.6 (0-4) % Baso % (Auto) 0.1 (0-2) % Lymph # (Auto) 1.7 (1.2-4.9) X10*3/uL [place] # (Auto) 0.6 (0.1-1.2) X10*3/uL Eos # (Auto) 0.1 (0.0-0.4) X10*3/uL Baso # (Auto) 0.0 (0.0-0.2) X10*3/uL Abs Immat Gran (auto) 0.07 H (0.00-0.03) X10*3/uL Absolute Neuts (auto) 9.9 H (2.0-8.3) X10*3/uL Absolute Nucleated RBC 0.000 (0.0-0.012) X10*3/uL Nucleated RBC % (auto) 0.0 (0.0-0.2) /100WBC Sodium 135 (135-145) mmol/L Potassium 4.2 (3.3-5.1) mmol/L Chloride 99 (96-108) mmol/L Carbon Dioxide 24 (22-29) mmol/L Anion Gap 16 (12-20) BUN 14 D (9-16) mg/dL Creatinine 1.03 (0.5-1.4) mg/dL Estim Creat Clear Calc 57.0 Estimated GFR 55 POC Glucose (60-115) mg/dL Random Glucose 446 H* (60-115) mg/dL Calcium 8.1 L D (8.4-10.2) mg/dL Total Bilirubin 0.4 (0.0-1.0) mg/dL AST 22 (5-31) U/L ALT 15 (0-31) U/L Alkaline Phosphatase 64 (39-117) U/L Troponin I High Sens (<3.5-17.0) ng/L Total Protein 7.2 (6.5-8.0) g/dL Albumin 3.7 (3.5-5.0) g/dL COVID-19 ([facility]) Negative (Negative) COVID-19 Clin Com See Note 06/20/21 06/20/21 Range/Units 20:38 22:20 WBC (4.8-10.8) X10*3/uL RBC (4.20-5.50) X10*6/uL Hgb (12.0-16.0) g/dl Hct (37-47) % MCV (80-98) fL MCH (27.0-33.0) pg MCHC (31.0-35.0) g/dl RDW (11.0-16.0) % Plt Count (160-400) X10*3/uL MPV (9.4-12.3) fL Immature Gran % (Auto) (0.0-0.4) % Neut % (Auto) (45-73) % Lymph % (Auto) (20-40) % [place] % (Auto) (2-11) % Eos % (Auto) (0-4) % Baso % (Auto) (0-2) % Lymph # (Auto) (1.2-4.9) X10*3/uL [place] # (Auto) (0.1-1.2) X10*3/uL Eos # (Auto) (0.0-0.4) X10*3/uL Baso # (Auto) (0.0-0.2) X10*3/uL Abs Immat Gran (auto) (0.00-0.03) X10*3/uL Absolute Neuts (auto) (2.0-8.3) X10*3/uL Absolute Nucleated RBC (0.0-0.012) X10*3/uL Nucleated RBC % (auto) (0.0-0.2) /100WBC Sodium (135-145) mmol/L Potassium (3.3-5.1) mmol/L Chloride (96-108) mmol/L Carbon Dioxide (22-29) mmol/L Anion Gap (12-20) BUN (9-16) mg/dL Creatinine (0.5-1.4) mg/dL Estim Creat Clear Calc Estimated GFR POC Glucose 429 H* (60-115) mg/dL Random Glucose (60-115) mg/dL Calcium (8.4-10.2) mg/dL Total Bilirubin (0.0-1.0) mg/dL AST (5-31) U/L ALT (0-31) U/L Alkaline Phosphatase (39-117) U/L Troponin I High Sens < 3.5 (<3.5-17.0) ng/L Total Protein (6.5-8.0) g/dL Albumin (3.5-5.0) g/dL COVID-19 ([facility]) (Negative) COVID-19 Clin Com <James Hernandez MD - Last Filed: 06/21/21 00:16> Imaging Data Chest x-ray: Radiologist's impression: IMPRESSION: Patchy and hazy opacities in the lower lobes bilaterally which could be seen in the setting of an atypical multifocal infection. Correlate clinically and follow-up to ensure resolution. <Naveed Nuñez MD - Last Filed: 06/20/21 21:26> Discharge Plan Discharge Clinical Impression: Atypical pneumonia, Acute hyperglycemia <Naveed Nuñez MD - Last Filed: 06/20/21 21:26> Patient Disposition: Home, Self-Care <Naveed Nuñez MD - Last Filed: 06/20/21 21:26> Instructions: Pneumonia (ED), Diabetic Hyperglycemia (ED) <Naveed Nuñez MD - Last Filed: 06/20/21 21:26> Prescriptions: New levofloxacin 500 mg tablet 500 mg PO DAILY Qty: 7 RF: 0 No Action Xarelto 20 mg tablet 20 mg PO DAILY 90 Days Qty: 90 RF: 3 furosemide 40 mg tablet 40 mg PO DAILY 90 Days Qty: 110 RF: 1 flecainide 100 mg tablet 100 mg PO Q12H 90 Days Qty: 180 RF: 1 famotidine 20 mg tablet 20 mg PO BID RF: 0 Breo Ellipta 200-25 mcg/dose blister with device 1 ea PO DAILY RF: 0 bupropion HCl 300 mg tablet extended release 24 hr 300 mg PO DAILY RF: 0 citalopram 40 mg tablet 40 mg PO DAILY RF: 0 colestipol 1 gram tablet 1 g PO TID RF: 0 oxycodone 10 mg tablet PO RF: 0 lorazepam 1 mg tablet 1 mg PO TID PRN (Reason: anxiety) RF: 0 cyclobenzaprine 10 mg tablet 10 mg PO BID PRNRF: 0 albuterol sulfate 90 mcg/actuation HFA aerosol inhaler 0 mcg inhalation RF: 0 levothyroxine 100 mcg tablet 100 mcg PO DAILY RF: 0 trazodone 50 mg tablet 150 mg PO BEDTIME RF: 0 atenolol 50 mg tablet 50 mg PO BID RF: 0 potassium chloride 10 mEq capsule, extended release 20 meq PO DAILY RF: 0 <Naveed Nuñez MD - Last Filed: 06/20/21 21:26> Referrals: Toño Newman MD [Primary Care Provider] - 3 days <Naveed Nuñez MD - Last Filed: 06/20/21 21:26>
[2021-06-20 20:46] LABS: MANUAL DIFF FLAG NO
[2021-06-20 20:48] LABS: Basophils Percent Auto 0.1 % (0-2); Eosinophils Absolute Auto 0.1 X10*3/uL (0.0-0.4); Eosinophils Percent Auto 0.6 % (0-4); Hematocrit 36.2 % (37-47); Hemoglobin 12.3 g/dl (12.0-16.0); Imm Gran Abs Auto 0.07 X10*3/uL (0.00-0.03); Imm Gran Pct Auto 0.6 % (0.0-0.4); Lymphocytes Absolute Auto 1.7 X10*3/uL (1.2-4.9); Lymphocytes Percent Auto 13.8 % (20-40); Mean Corpuscular Hemoglobin 33.2 pg (27.0-33.0); Mean Corpuscular Volume 97.8 fL (80-98); Mean Platelet Volume 10.3 fL (9.4-12.3); Monocytes Absolute Auto 0.6 X10*3/uL (0.1-1.2); Monocytes Percent Auto 4.8 % (2-11); Neutrophils Absolute Auto 9.9 X10*3/uL (2.0-8.3); Neutrophils Percent Auto 80.1 % (45-73); Platelet Count 204 X10*3/uL (160-400); Red Cell Distribution Width 14.4 % (11.0-16.0); White Blood Count 12.3 X10*3/uL (4.8-10.8)
[2021-06-20 21:03] LABS: COVID-19 Test Negative (Negative)
[2021-06-20 21:07] LABS: Alanine Aminotransferase 15 U/L (0-31); Albumin Level 3.7 g/dL (3.5-5.0); Alkaline Phosphatase 64 U/L (39-117); Anion Gap 16 (12-20); Aspartate Amino Transferase 22 U/L (5-31); Bilirubin Total 0.4 mg/dL (0.0-1.0); Blood Urea Nitrogen 14 mg/dL (9-16); Calcium 8.1 mg/dL (8.4-10.2); Carbon Dioxide 24 mmol/L (22-29); Chloride 99 mmol/L (96-108); Estimated Glomerular Filt Rate 55; Glucose Random 446 mg/dL (60-115); Potassium 4.2 mmol/L (3.3-5.1); Sodium 135 mmol/L (135-145); Total Protein 7.2 g/dL (6.5-8.0)
[2021-06-20 21:09] LABS: Troponin-I High Sensitivity < 3.5 ng/L (<3.5-17.0)
[2021-06-20 21:31] VITALS: BP 112/32; PULSE 86; RESP 26; O2SAT 92
[2021-06-20] MEDS: Insulin Glargine,Hum.rec.anlog 100 UNIT/ML 10 ML VIAL 10 UNIT SUBCUT (21:34)
[2021-06-20] MEDS: 0.9 % Sodium Chloride 1,000 ML 999 ML IVCONT ×2 (21:35→22:31)
[2021-06-20] MEDS: levoFLOXacin 500 MG TABLET PO (21:45)
[2021-06-20 22:25] LABS: Glucose, Whole Blood 429 mg/dL (60-115)
[2021-06-21 00:16] LABS: Glucose, Whole Blood 301 mg/dL (60-115)
[2021-06-21 00:21] LABS: Glucose, Whole Blood 324 mg/dL (60-115)
[2021-06-22 07:47] LABS: Glucose, Whole Blood 279 mg/dL (60-115)
== END 2021-06-21 00:32 | disposition home or self-care (01) ==
PROVIDERS: Emergency Medicine; Emergency Provider Emergency Medicine Emergency Medical Services; PCP Internal Medicine
DX: J18.9 Pneumonia, unspecified organism (principal); R06.02 Shortness of breath; E11.65 Type 2 diabetes mellitus with hyperglycemia; J44.9 Chronic obstructive pulmonary disease, unspecified; F17.210 Nicotine dependence, cigarettes, uncomplicated; Z20.822 Contact with and (suspected) exposure to COVID-19; Z71.6 Tobacco abuse counseling; Z79.899 Other long term (current) drug therapy; Z79.01 Long term (current) use of anticoagulants
CPT/HCPCS: 36415; 71046; 80053; 82947; 84484; 85025; 87635; 93005; 96360; 99284

== ENCOUNTER 2021-11-09 12:05 | Emergency (ER) | payer MEDICARE, MEDICAID, SELFPAY ==
--- NOTE | ~2021-11-09 | XR_ITS ---
EXAMINATION: XR RIBS, RIGHT CLINICAL INFORMATION: Right rib injury COMPARISON: Chest x-ray of June 20, 2021 TECHNIQUE: PA chest and 3 views of the right ribs FINDINGS: There is no evidence of acute parenchymal disease, pneumothorax, or pleural effusion. Heart normal size. No evidence of pulmonary edema. Status post previous cervical spine surgery. Status post pedicle screw and tigre fixation within the lumbar spine. No acute displaced right rib fractures are identified. There appear to be old healed anterior right seventh and eighth rib fractures. XR/XR ribs RT min 3V w CXR1V IMPRESSION: No acute parenchymal disease. No acute displaced right rib fracture or destructive bony lesion identified.
[2021-11-09 12:38] VITALS: BP 104/33; PULSE 78; RESP 18; TEMP 36; O2SAT 98; BMI 23.3
--- NOTE | 2021-11-09 13:28 | ED_ITS ---
HPI - General Adult General Chief complaint: Extremity Problem Stated complaint: rib pain Time Seen by Provider: 11/09/21 13:28 Source: patient Mode of arrival: ambulatory Limitations: no limitations History of Present Illness HPI narrative: 56 yo female with history of COPD, Afib on Xarelto, chronic pain on chronic opiates, anxiety, COPD, HTN, GERD who presents to the ER with 1 week of persistent posterior right rib pain that started after she was using eye drops. She states she looked up to use her eyedrops she heard a pop in her right middle back and had immediate pain. She states that feels the exact same way when she cracked ribs in the past. She reports pain is worse with deep inspiration, movement and palpation. She also reports pain on her right upper back and fell asleep on a heating pad and sustained some valentin in the area about a week ago as well. She denies any chest pain or shortness of breath. MD complaint: right posterior back pain Onset (ago): week(s) (1) Location: back Radiation: non-radiation Severity: severe Severity scale (1-10): 8 Quality: stabbing and sharp Pain Consistency: constant Relieving factors: none Exacerbating factors: movement Associated symptoms: rash Treatments prior to arrival: none Related Data Home Medications Medication Instructions Recorded Confirmed albuterol sulfate 90 mcg/actuation 0 mcg INHALATION 12/12/20 03/08/21 aerosol inhaler atenolol 50 mg tablet 50 mg PO BID tab 12/12/20 03/08/21 bupropion HCl 300 mg 24 hr tablet, 300 mg PO DAILY 12/12/20 03/08/21 extended release citalopram 40 mg tablet 40 mg PO DAILY 12/12/20 03/08/21 colestipol 1 gram tablet 1 g PO TID 12/12/20 03/08/21 cyclobenzaprine 10 mg tablet 10 mg PO BID PRN 12/12/20 03/08/21 famotidine 20 mg tablet 20 mg PO BID 12/12/20 03/08/21 fluticasone furoate 200 1 ea PO DAILY 12/12/20 03/08/21 mcg-vilanterol 25 mcg/dose inhalation powder levothyroxine 100 mcg tablet 100 mcg PO DAILY 12/12/20 03/08/21 lorazepam 1 mg tablet 1 mg PO TID PRN 12/12/20 03/08/21 oxycodone 10 mg tablet mg PO 12/12/20 03/08/21 trazodone 50 mg tablet 150 mg PO BEDTIME 12/12/20 03/08/21 potassium chloride 10 mEq 20 meq PO DAILY 03/08/21 03/08/21 capsule,extended release Previous Rx's Medication Instructions Recorded flecainide 100 mg tablet 100 mg PO Q12H 90 Days #180 tab 05/15/21 levofloxacin 500 mg tablet 500 mg PO DAILY #7 tab 06/20/21 furosemide 40 mg tablet 40 mg PO DAILY 90 Days #110 tab 09/07/21 rivaroxaban 20 mg tablet (Xarelto) 20 mg PO DAILY 90 Days #90 tab 09/07/21 cyclobenzaprine 10 mg tablet 10 mg PO TID PRN #10 tab 11/09/21 lidocaine 5 % topical patch 1 patch TOPICAL DAILY #15 ea 11/09/21 tramadol 50 mg tablet 50 mg PO Q8H PRN #8 tab 11/09/21 Allergies Allergy/AdvReac Type Severity Reaction Status Date / Time amoxicillin [From AUGMENTIN] Allergy Mild SWELLING Verified 06/20/21 21:34 clavulanic acid Allergy Mild SWELLING Verified 06/20/21 21:34 [From AUGMENTIN] etodolac [From LODINE] Allergy Mild SWELLING Verified 06/20/21 21:34 gabapentin [GABAPENTIN] Allergy Mild SWELLING Verified 06/20/21 21:34 pregabalin [From LYRICA] Allergy Mild SWELLING Verified 06/20/21 21:34 clarithromycin [From Biaxin] Allergy Unknown ANGIOEDEMA Verified 06/20/21 21:34 Penicillins Allergy Unknown UNKNOWN Verified 06/20/21 21:34 sulfamethoxazole Allergy Unknown ANAPHYLAXIS Verified 06/20/21 21:34 [From Bactrim] fluticasone AdvReac Mild MUSCLE PAIN Verified 06/20/21 21:34 [From FLOVENT DISKUS] Eliquis Allergy Unknown fatigue, Uncoded 06/20/21 21:34 GI, tongue swell Review of Systems Review of Systems: Constitutional: No Fever, No Chills Cardiovascular: No Chest Pain, No SOB Respiratory: No Cough, No Sputum Gastrointestinal: No Nausea, No Vomiting, No Diarrhea, No abdominal Pain Musculoskeletal: + joint pain, + Myalgias Skin: + Skin Lesions, No rash Neuro: No Weakness, No Numbness, No Dizziness, No Headache Psych: No Anxiety/Panic, No Depression Heme/Lymph: No Bruising, No Lymphadenopathy [facility] Past Medical History Medical History Congestive heart failure Diabetes PAF (paroxysmal atrial fibrillation) Surgical History History of back surgery History of radiofrequency ablation (RFA) procedure for cardiac arrhythmia Family History Family History Father No problems noted. Mother CVD (cardiovascular disease) Social History Social History Alcohol intake: unknown Patient Tobacco Use Status: Current everyday Tobacco user Cigarettes Per Day: 10 Advance Directives: Yes Advance Directives Information Provided: Yes Advance Directives on File: No Physical Exam ED Vital Signs: Vital Signs - 24 hr 11/09/21 12:38 11/09/21 14:18 Temperature 96.8 F 98.1 F Pulse Rate 78 78 Respiratory Rate 18 16 Blood Pressure 104/33 L 117/54 L Pulse Oximetry 98 97 BMI result Body Mass Index 23.3 Appearance: Alert. Oriented X3. No acute distress. Eyes: Pupils equal, round and reactive to light. ENT: Pharynx normal. Neck: Normal inspection. Neck supple. CVS: Normal heart rate and rhythm. Pulses normal. Respiratory: No respiratory distress. Breath sounds normal. Right middle posterior ribs with tenderness and soft tissue tenderness, palpable spasm in the area over posterior ribs 9-12 Abdomen: Soft and nontender. +BS x4 Skin: Skin warm and dry. Normal skin color. Normal skin turgor. No rashes. Extremities: No lower extremity edema. Right posterior shoulder with 4cm square area with yellowing scab and trace erythema surrounding, no drainage, minimally tender Neuro: Oriented X 3. No motor deficit. No sensory deficit. Course Course Course Narrative: 56-year-old female presenting with bright middle thoracic back pain that started about a week ago after using eyedrops. She reports hearing a ?snap? sensation in it feels just like similar episodes when she broke her ribs. Denies any fall or direct trauma. She reports pain is worse with deep breath, movement and palpation. She has been compliant with her Xarelto and denies any chest pain or shortness of breath. Doubt PE. She is tender in that area with palpable muscle spasm over the lower posterior right ribs. X-rays are pending. Lidoderm patche is applied. Reevaluation(s) Reevaluation #1: X-rays are normal, no acute rib fractures are visible. Pain is most likely due to muscle strain or spasm. Less likely contusion given there was no direct trauma. Will prescribed short course of muscle relaxers and Lidoderm patches as well as alternative for her chronic opiate oxycodone and will give trial of tramadol given her no relief with oxycodone at home. She was encourage follow- up with her primary care doctor for further management. Stable for discharge home. Critical Care Time Critical Care Time Critical Care Time: No Discharge Plan Discharge Clinical Impression: Acute right-sided thoracic back pain, Partial thickness burn of back Patient Disposition: Home, Self-Care Instructions: Muscle Strain (DC), Second Degree Burn (ED), Rib Contusion (ED) Additional Instructions: Your x-rays today were normal. Your pain is most likely due to muscle strain or spasm or possible contusion of the rib. Recommend rest. Continue deep breathing exercises to prevent pneumonia. Take the prescribed medication as needed for severe pain and muscle spasm. Do NOT take your prescribed oxycodone while taking Tramadol - they are the same class and can be dangerous if combined. Recommend Tylenol 975 mg every 6 hours around the clock. Use ice and/or heat several times per day. No bending, lifting or twisting movements. Follow up with your PCP IRENE. If you develop new or worsening symptoms call 911 or come back to the ER for further evaluation. Prescriptions: New tramadol 50 mg tablet 50 mg PO Q8H PRN (Reason: pain) Qty: 8 0RF cyclobenzaprine 10 mg tablet 10 mg PO TID PRN (Reason: muscle spasm) Qty: 10 0RF lidocaine 5 % adhesive patch,medicated 1 patch topical DAILY Qty: 15 0RF Rx Instructions: leave on most painful area for up to 12 hrs No Action flecainide 100 mg tablet 100 mg PO Q12H 90 Days Qty: 180 1RF Xarelto 20 mg tablet 20 mg PO DAILY 90 Days Qty: 90 3RF Rx Instructions: must administer with evening meal furosemide 40 mg tablet 40 mg PO DAILY 90 Days Qty: 110 3RF Rx Instructions: take 1 day, additional tablet if needed for shortness of breath, swelling levofloxacin 500 mg tablet 500 mg PO DAILY Qty: 7 0RF famotidine 20 mg tablet 20 mg PO BID 0RF Breo Ellipta 200-25 mcg/dose blister with device 1 ea PO DAILY 0RF bupropion HCl 300 mg tablet extended release 24 hr 300 mg PO DAILY 0RF citalopram 40 mg tablet 40 mg PO DAILY 0RF colestipol 1 gram tablet 1 g PO TID 0RF oxycodone 10 mg tablet PO 0RF lorazepam 1 mg tablet 1 mg PO TID PRN (Reason: anxiety) 0RF cyclobenzaprine 10 mg tablet 10 mg PO BID PRN0RF albuterol sulfate 90 mcg/actuation HFA aerosol inhaler 0 mcg inhalation 0RF levothyroxine 100 mcg tablet 100 mcg PO DAILY 0RF trazodone 50 mg tablet 150 mg PO BEDTIME 0RF atenolol 50 mg tablet 50 mg PO BID 0RF potassium chloride 10 mEq capsule, extended release 20 meq PO DAILY 0RF Interventions: ED Discharge Assessment Last Done: 11/09/21 15:06 Discharge Date/Time: 11/09/21 15:08
[2021-11-09] MEDS: Lidocaine 4 % Patch ADH..PATCH 1 PATCH TRANSDERMA (14:02)
[2021-11-09 14:18] VITALS: BP 117/54; PULSE 78; RESP 16; TEMP 36.7; O2SAT 97
== END 2021-11-09 15:08 | disposition home or self-care (01) ==
PROVIDERS: Emergency Provider Emergency Medicine; PCP Internal Medicine
DX: M54.6 Pain in thoracic spine (principal); T22.251A Burn of second degree of right shoulder, initial encounter; T31.0 Burns involving less than 10% of body surface; X19.XXXA Contact with other heat and hot substances, initial encounter; Y93.89 Activity, other specified; Y92.019 Unspecified place in single-family (private) house as the place of occurrence of the external cause; Y99.9 Unspecified external cause status
CPT/HCPCS: 71101; 99283; 99284

== ENCOUNTER 2021-11-22 11:34 | Emergency (ER) | payer MEDICARE, MEDICAID, SELFPAY ==
--- NOTE | ~2021-11-22 | XR_ITS ---
EXAMINATION: XR CHEST CLINICAL INFORMATION: Fever COMPARISON: 11/09/2021 TECHNIQUE: Frontal view of the chest was obtained. FINDINGS: Cervical fusion hardware. The lungs are well expanded. There is no focal consolidation, edema, or effusion. No pneumothorax. Mild bronchial wall thickening. The cardiomediastinal silhouette is within normal limits. No acute osseous abnormality. XR/XR chest 1V IMPRESSION: No consolidation. Bronchial wall thickening can be seen with a small airways process such as asthma or atypical/viral infection.
[2021-11-22 11:36] VITALS: BP 105/50; PULSE 89; RESP 15; TEMP 36.9; O2SAT 98; BMI 23.1
[2021-11-22 11:46] VITALS: BP 110/44; PULSE 90; RESP 19; TEMP 37.1; O2SAT 96
--- NOTE | 2021-11-22 11:48 | ED.GENADULT ---
HPI - General Adult General Chief complaint: General Medical Stated complaint: burn on shoulder/fever Time Seen by Provider: 11/22/21 11:47 Source: patient Mode of arrival: ambulatory Limitations: no limitations History of Present Illness HPI narrative: 56 y/o female with the below medical history presenting for evaluation of fever x8 days with a healing burn from a heating pad to her right shoulder that occurred a few weeks ago. She reports when some of the scabbing came off of the wound she noticed there was quan pus that came out. She reports ongoing pain in that area. She states she has been having daily fevers for the last 8 days, up to 102.2. She has been taking tylenol for the fevers with improvement. She has been taking her temperature orally for 5 times per day. She denies any cough, URI symptoms, abdominal pain, nausea, vomiting, diarrhea. No dysuria. She denies any known sick contacts. She is vaccinated for COVID and flu. She reports poor p.o. intake and dizziness. No presyncope or syncope, No chest pain or shortness of breath. MD complaint: fevers x8 days Onset (ago): day(s) (8) Radiation: non-radiation Severity: moderate Quality: aching Pain Consistency: intermittent Relieving factors: medication Exacerbating factors: none Associated symptoms: fever/chills, headaches, malaise and weakness Treatments prior to arrival: none Related Data Home Medications Medication Instructions Recorded Confirmed albuterol sulfate 90 mcg/actuation 0 mcg INHALATION 12/12/20 03/08/21 aerosol inhaler atenolol 50 mg tablet 50 mg PO BID tab 12/12/20 03/08/21 bupropion HCl 300 mg 24 hr tablet, 300 mg PO DAILY 12/12/20 03/08/21 extended release citalopram 40 mg tablet 40 mg PO DAILY 12/12/20 03/08/21 colestipol 1 gram tablet 1 g PO TID 12/12/20 03/08/21 cyclobenzaprine 10 mg tablet 10 mg PO BID PRN 12/12/20 03/08/21 famotidine 20 mg tablet 20 mg PO BID 12/12/20 03/08/21 fluticasone furoate 200 1 ea PO DAILY 12/12/20 03/08/21 mcg-vilanterol 25 mcg/dose inhalation powder levothyroxine 100 mcg tablet 100 mcg PO DAILY 12/12/20 03/08/21 lorazepam 1 mg tablet 1 mg PO TID PRN 12/12/20 03/08/21 oxycodone 10 mg tablet mg PO 12/12/20 03/08/21 trazodone 50 mg tablet 150 mg PO BEDTIME 12/12/20 03/08/21 potassium chloride 10 mEq 20 meq PO DAILY 03/08/21 03/08/21 capsule,extended release Previous Rx's Medication Instructions Recorded levofloxacin 500 mg tablet 500 mg PO DAILY #7 tab 06/20/21 furosemide 40 mg tablet 40 mg PO DAILY 90 Days #110 tab 09/07/21 rivaroxaban 20 mg tablet (Xarelto) 20 mg PO DAILY 90 Days #90 tab 09/07/21 cyclobenzaprine 10 mg tablet 10 mg PO TID PRN #10 tab 11/09/21 lidocaine 5 % topical patch 1 patch TOPICAL DAILY #15 ea 11/09/21 tramadol 50 mg tablet 50 mg PO Q8H PRN #8 tab 11/09/21 flecainide 100 mg tablet 100 mg PO Q12H 90 Days #180 tab 11/13/21 cephalexin 500 mg capsule 500 mg PO QID 7 Days #28 cap 11/22/21 Allergies Allergy/AdvReac Type Severity Reaction Status Date / Time amoxicillin [From AUGMENTIN] Allergy Mild SWELLING Verified 06/20/21 21:34 clavulanic acid Allergy Mild SWELLING Verified 06/20/21 21:34 [From AUGMENTIN] etodolac [From LODINE] Allergy Mild SWELLING Verified 06/20/21 21:34 gabapentin [GABAPENTIN] Allergy Mild SWELLING Verified 06/20/21 21:34 pregabalin [From LYRICA] Allergy Mild SWELLING Verified 06/20/21 21:34 clarithromycin [From Biaxin] Allergy Unknown ANGIOEDEMA Verified 06/20/21 21:34 Penicillins Allergy Unknown UNKNOWN Verified 06/20/21 21:34 sulfamethoxazole Allergy Unknown ANAPHYLAXIS Verified 06/20/21 21:34 [From Bactrim] fluticasone AdvReac Mild MUSCLE PAIN Verified 06/20/21 21:34 [From FLOVENT DISKUS] Eliquis Allergy Unknown fatigue, Uncoded 06/20/21 21:34 GI, tongue swell Review of Systems Review of Systems: Constitutional: No Fever, No Chills ENT/Mouth: No sore throat, No Rhinorrhea Cardiovascular: No Chest Pain, No SOB, No Orthopnea, No Edema Respiratory: No Cough, No Sputum, No Wheezing, No dyspnea Gastrointestinal: No Nausea, No Vomiting, No Diarrhea, No abdominal Pain Genitourinary: No Dysuria, No Urinary Frequency, No Hematuria Musculoskeletal: No joint pain, No Myalgias Skin: + Skin Lesions, No rash Neuro: No Weakness, No Numbness, + Dizziness, +Headache Psych: No Anxiety/Panic, No Depression Heme/Lymph: No Bruising, No Lymphadenopathy Endocrine: No Polyuria, No Polydipsia [facility] Past Medical History Medical History Congestive heart failure Diabetes PAF (paroxysmal atrial fibrillation) Surgical History History of back surgery History of radiofrequency ablation (RFA) procedure for cardiac arrhythmia Family History Family History Father No problems noted. Mother CVD (cardiovascular disease) Social History Social History Alcohol intake: never Patient Tobacco Use Status: Current everyday Tobacco user Cigarettes Per Day: 10 Smoked in Last 30 Days: Yes Use of substances other than those prescribed or required for medical reasons: No Advance Directives: No Advance Directives Information Provided: No Patient : No Physical Exam ED Vital Signs: Vital Signs - 24 hr 11/22/21 11:36 11/22/21 11:46 11/22/21 13:29 Temperature 98.4 F 98.7 F 99.3 F Pulse Rate 89 90 89 Respiratory Rate 15 19 16 Blood Pressure 105/50 L 110/44 L 123/46 L Pulse Oximetry 98 96 98 11/22/21 14:23 Temperature 99.3 F Pulse Rate 86 Respiratory Rate 17 Blood Pressure 135/62 Pulse Oximetry 96 BMI result Body Mass Index 23.1 Appearance: Alert. Oriented X3. No acute distress. Eyes: Pupils equal, round and reactive to light. ENT: Pharynx normal. Neck: Normal inspection. Neck supple. CVS: Normal heart rate and rhythm. Pulses normal. Respiratory: No respiratory distress. Breath sounds normal. Abdomen: Soft and nontender. +BS x4 Skin: Skin warm and dry. Normal skin color. Normal skin turgor. No rashes. Extremities: No lower extremity edema. No calf tenderness. Right posterior shoulder with 4cm square yellowing scab with mild surrounding erythema and tenderness, no fluctuance. Neuro: Oriented X 3. No motor deficit. No sensory deficit. Course Course Course Narrative: 56-year-old female with a history of CHF, diabetes, AFib, lupus, chronic pain on chronic opiates who presents to the ER with reports of fever for the last 8 days at home. She denies any URI symptoms. No nausea, vomiting, diarrhea. She is vaccinated for flu and COVID. She reports pus draining from her burn on her right shoulder and is worried this may be infected. On examination the burn appears to be healing appropriately with very mild surrounding erythema, no drainage of any pus. She is afebrile on arrival and hemodynamically stable. She has not taken any antipyretics yet today. Will check basic workup including cultures and inflammatory markers. Reevaluation(s) Reevaluation #1: Lab workup showing a white blood cell count 11,000. CRP 6.78 which is down from 8.16 back in 2020. Her ESR is 58. Both nonspecific and may be due to her untreated lupus? Initial lactic acid slightly elevated 2.4 which normalized with 1 L of fluid. She still has not had any fevers here. She appears well and is ambulating to the bathroom with her cane. At this time there is no evidence for acute bacterial infection to cause her fevers. May be viral in nature. She reports a year ago she had daily fevers for 6 months with spontaneous resolution and no known case. She has an appointment with her V Belt Finisher next month. Will treat for possible mild cellulitis of the right shoudler burn. Patient agrees with plan and is still stable for discharge home. Medical Decision Making Lab Data Result diagrams: 11/22/21 12:20 11/22/21 12:20 Labs: Lab Results 11/22/21 11/22/21 11/22/21 Range/Units 12:20 12:20 12:20 WBC 11.0 H (4.8-10.8) X10*3/uL RBC 3.66 L (4.20-5.50) X10*6/uL Hgb 11.9 L (12.0-16.0) g/dl Hct 35.9 L (37.0-47.0) % MCV 98.1 H (80.0-98.0) fL MCH 32.5 (27.0-33.0) pg MCHC 33.1 (31.0-35.0) g/dl RDW 14.0 (11.0-16.0) % Plt Count 201 (160-400) X10*3/uL MPV 10.4 (9.4-12.3) fL Immature Gran % (Auto) 0.3 (0.0-0.4) % Neut % (Auto) 72.8 (45-73) % Lymph % (Auto) 20.1 (20-40) % [place] % (Auto) 5.3 (2-11) % Eos % (Auto) 1.3 (0-4) % Baso % (Auto) 0.2 (0-2) % Lymph # (Auto) 2.2 (1.2-4.9) X10*3/uL [place] # (Auto) 0.6 (0.1-1.2) X10*3/uL Eos # (Auto) 0.1 (0.0-0.4) X10*3/uL Baso # (Auto) 0.0 (0.0-0.2) X10*3/uL Abs Immat Gran (auto) 0.03 (0.00-0.03) X10*3/uL Absolute Neuts (auto) 8.0 (2.0-8.3) x10*3/uL Absolute Nucleated RBC 0.000 (0.0-0.012) X10*3/uL Nucleated RBC % (auto) 0.0 (0.0-0.2) /100WBC ESR (0-20) MM/HR Sodium 131 L (135-145) mmol/L Potassium 4.0 (3.3-5.1) mmol/L Chloride 98 (96-108) mmol/L Carbon Dioxide 24 (22-29) mmol/L Anion Gap 13 (12-20) BUN 11 (9-16) mg/dL Creatinine 0.85 (0.5-1.4) mg/dL Estim Creat Clear Calc 69.1 Estimated GFR > 60 POC Glucose (60-115) mg/dL Random Glucose 328 H (60-115) mg/dL Lactic Acid 2.4 H* (0.5-2.0) mmol/L Lactic Acid F/U @ 2Hr (0.5-2.0) mmol/L Calcium 8.8 D (8.4-10.2) mg/dL Magnesium 1.5 L (1.6-2.6) mg/dL Total Bilirubin 0.3 (0.0-1.0) mg/dL Direct Bilirubin < 0.2 (0.0-0.5) mg/dL AST 15 (5-31) U/L ALT 15 (0-31) U/L Alkaline Phosphatase 68 (39-117) U/L C-Reactive Protein 6.78 H (< or = 0.50) mg/dL Total Protein 7.5 (6.5-8.0) g/dL Albumin 3.9 (3.5-5.0) g/dL Urine Color Urine Appearance Urine pH (5.0-8.0) Ur Specific [place] (1.005-1.025) Urine Protein (NEG-TRACE) MG/DL Urine Glucose (UA) (NEG) MG/DL Urine Ketones (NEG) MG/DL Urine Blood (NEG) Urine Nitrite (NEG) Ur Leukocyte Esterase (NEG) COVID-19 (GIRISH) (Negative) COVID-19 Clin Com 11/22/21 11/22/21 11/22/21 Range/Units 12:20 12:20 12:20 WBC (4.8-10.8) X10*3/uL RBC (4.20-5.50) X10*6/uL Hgb (12.0-16.0) g/dl Hct (37.0-47.0) % MCV (80.0-98.0) fL MCH (27.0-33.0) pg MCHC (31.0-35.0) g/dl RDW (11.0-16.0) % Plt Count (160-400) X10*3/uL MPV (9.4-12.3) fL Immature Gran % (Auto) (0.0-0.4) % Neut % (Auto) (45-73) % Lymph % (Auto) (20-40) % [place] % (Auto) (2-11) % Eos % (Auto) (0-4) % Baso % (Auto) (0-2) % Lymph # (Auto) (1.2-4.9) X10*3/uL [place] # (Auto) (0.1-1.2) X10*3/uL Eos # (Auto) (0.0-0.4) X10*3/uL Baso # (Auto) (0.0-0.2) X10*3/uL Abs Immat Gran (auto) (0.00-0.03) X10*3/uL Absolute Neuts (auto) (2.0-8.3) x10*3/uL Absolute Nucleated RBC (0.0-0.012) X10*3/uL Nucleated RBC % (auto) (0.0-0.2) /100WBC ESR 58 H (0-20) MM/HR Sodium (135-145) mmol/L Potassium (3.3-5.1) mmol/L Chloride (96-108) mmol/L Carbon Dioxide (22-29) mmol/L Anion Gap (12-20) BUN (9-16) mg/dL Creatinine (0.5-1.4) mg/dL Estim Creat Clear Calc Estimated GFR POC Glucose (60-115) mg/dL Random Glucose (60-115) mg/dL Lactic Acid (0.5-2.0) mmol/L Lactic Acid F/U @ 2Hr (0.5-2.0) mmol/L Calcium (8.4-10.2) mg/dL Magnesium (1.6-2.6) mg/dL Total Bilirubin (0.0-1.0) mg/dL Direct Bilirubin (0.0-0.5) mg/dL AST (5-31) U/L ALT (0-31) U/L Alkaline Phosphatase (39-117) U/L C-Reactive Protein (< or = 0.50) mg/dL Total Protein (6.5-8.0) g/dL Albumin (3.5-5.0) g/dL Urine Color YELLOW Urine Appearance CLEAR Urine pH 6.0 (5.0-8.0) Ur Specific [place] 1.015 (1.005-1.025) Urine Protein NEG (NEG-TRACE) MG/DL Urine Glucose (UA) 250 H (NEG) MG/DL Urine Ketones NEG (NEG) MG/DL Urine Blood NEG (NEG) Urine Nitrite NEG (NEG) Ur Leukocyte Esterase NEG (NEG) COVID-19 (GIRISH) Negative (Negative) COVID-19 Clin Com See Note 11/22/21 11/22/21 Range/Units 14:54 15:12 WBC (4.8-10.8) X10*3/uL RBC (4.20-5.50) X10*6/uL Hgb (12.0-16.0) g/dl Hct (37.0-47.0) % MCV (80.0-98.0) fL MCH (27.0-33.0) pg MCHC (31.0-35.0) g/dl RDW (11.0-16.0) % Plt Count (160-400) X10*3/uL MPV (9.4-12.3) fL Immature Gran % (Auto) (0.0-0.4) % Neut % (Auto) (45-73) % Lymph % (Auto) (20-40) % [place] % (Auto) (2-11) % Eos % (Auto) (0-4) % Baso % (Auto) (0-2) % Lymph # (Auto) (1.2-4.9) X10*3/uL [place] # (Auto) (0.1-1.2) X10*3/uL Eos # (Auto) (0.0-0.4) X10*3/uL Baso # (Auto) (0.0-0.2) X10*3/uL Abs Immat Gran (auto) (0.00-0.03) X10*3/uL Absolute Neuts (auto) (2.0-8.3) x10*3/uL Absolute Nucleated RBC (0.0-0.012) X10*3/uL Nucleated RBC % (auto) (0.0-0.2) /100WBC ESR (0-20) MM/HR Sodium (135-145) mmol/L Potassium (3.3-5.1) mmol/L Chloride (96-108) mmol/L Carbon Dioxide (22-29) mmol/L Anion Gap (12-20) BUN (9-16) mg/dL Creatinine (0.5-1.4) mg/dL Estim Creat Clear Calc Estimated GFR POC Glucose 184 H (60-115) mg/dL Random Glucose (60-115) mg/dL Lactic Acid (0.5-2.0) mmol/L Lactic Acid F/U @ 2Hr 1.7 (0.5-2.0) mmol/L Calcium (8.4-10.2) mg/dL Magnesium (1.6-2.6) mg/dL Total Bilirubin (0.0-1.0) mg/dL Direct Bilirubin (0.0-0.5) mg/dL AST (5-31) U/L ALT (0-31) U/L Alkaline Phosphatase (39-117) U/L C-Reactive Protein (< or = 0.50) mg/dL Total Protein (6.5-8.0) g/dL Albumin (3.5-5.0) g/dL Urine Color Urine Appearance Urine pH (5.0-8.0) Ur Specific [place] (1.005-1.025) Urine Protein (NEG-TRACE) MG/DL Urine Glucose (UA) (NEG) MG/DL Urine Ketones (NEG) MG/DL Urine Blood (NEG) Urine Nitrite (NEG) Ur Leukocyte Esterase (NEG) COVID-19 (GIRISH) (Negative) COVID-19 Clin Com Critical Care Time Critical Care Time Critical Care Time: No Discharge Plan Discharge Clinical Impression: Cellulitis Patient Disposition: Home, Self-Care Additional Instructions: Your workup today did not show any obvious infection. Take the prescribed antibiotic for your burn on your shoulder. Continue to use bacitracin 1-2 times per day, keep clean and covered. Allow open to air for a few hours per day. Your fevers may be due to your untreated lupus, recommend following up with your die trouble shooter as scheduled. If your blood cultures return positive we will call you. Follow-up with your doctor the next 1 week. If you develop new or worsening symptoms call 911 or come back to the ER for further evaluation. Prescriptions: New cephalexin 500 mg capsule 500 mg PO QID 7 Days Qty: 28 0RF No Action Xarelto 20 mg tablet 20 mg PO DAILY 90 Days Qty: 90 3RF Rx Instructions: must administer with evening meal furosemide 40 mg tablet 40 mg PO DAILY 90 Days Qty: 110 3RF Rx Instructions: take 1 day, additional tablet if needed for shortness of breath, swelling flecainide 100 mg tablet 100 mg PO Q12H 90 Days Qty: 180 0RF Rx Instructions: Please call and schedule cardiology follow-up levofloxacin 500 mg tablet 500 mg PO DAILY Qty: 7 0RF tramadol 50 mg tablet 50 mg PO Q8H PRN (Reason: pain) Qty: 8 0RF cyclobenzaprine 10 mg tablet 10 mg PO TID PRN (Reason: muscle spasm) Qty: 10 0RF lidocaine 5 % adhesive patch,medicated 1 patch topical DAILY Qty: 15 0RF Rx Instructions: leave on most painful area for up to 12 hrs famotidine 20 mg tablet 20 mg PO BID 0RF Breo Ellipta 200-25 mcg/dose blister with device 1 ea PO DAILY 0RF bupropion HCl 300 mg tablet extended release 24 hr 300 mg PO DAILY 0RF citalopram 40 mg tablet 40 mg PO DAILY 0RF colestipol 1 gram tablet 1 g PO TID 0RF oxycodone 10 mg tablet PO 0RF lorazepam 1 mg tablet 1 mg PO TID PRN (Reason: anxiety) 0RF cyclobenzaprine 10 mg tablet 10 mg PO BID PRN0RF albuterol sulfate 90 mcg/actuation HFA aerosol inhaler 0 mcg inhalation 0RF levothyroxine 100 mcg tablet 100 mcg PO DAILY 0RF trazodone 50 mg tablet 150 mg PO BEDTIME 0RF atenolol 50 mg tablet 50 mg PO BID 0RF potassium chloride 10 mEq capsule, extended release 20 meq PO DAILY 0RF
[2021-11-22] MEDS: 0.9 % Sodium Chloride 1,000 ML 999 ML IVCONT (12:26)
[2021-11-22 12:29] LABS: MANUAL DIFF FLAG NO
[2021-11-22 12:32] LABS: Appearance Urine CLEAR; Basophils Percent Auto 0.2 % (0-2); Color Urine YELLOW; Eosinophils Absolute Auto 0.1 X10*3/uL (0.0-0.4); Eosinophils Percent Auto 1.3 % (0-4); Glucose Urine UA 250 MG/DL (NEG); Hematocrit 35.9 % (37.0-47.0); Hemoglobin 11.9 g/dl (12.0-16.0); Imm Gran Abs Auto 0.03 X10*3/uL (0.00-0.03); Imm Gran Pct Auto 0.3 % (0.0-0.4); Leukocyte Esterase Urine NEG (NEG); Lymphocytes Absolute Auto 2.2 X10*3/uL (1.2-4.9); Lymphocytes Percent Auto 20.1 % (20-40); Mean Corpuscular HGB Conc 33.1 g/dl (31.0-35.0); Mean Corpuscular Hemoglobin 32.5 pg (27.0-33.0); Mean Corpuscular Volume 98.1 fL (80.0-98.0); Mean Platelet Volume 10.4 fL (9.4-12.3); Monocytes Absolute Auto 0.6 X10*3/uL (0.1-1.2); Monocytes Percent Auto 5.3 % (2-11); Neutrophils Percent Auto 72.8 % (45-73); Nitrite Urine NEG (NEG); Platelet Count 201 X10*3/uL (160-400); Red Blood Count 3.66 X10*6/uL (4.20-5.50); Specific Gravity - Urine 1.015 (1.005-1.025); Urine Blood NEG (NEG); Urine Ketones NEG (NEG); Urine Protein NEG (NEG-TRACE)
[2021-11-22 12:44] LABS: Lactic Acid 2.4 mmol/L (0.5-2.0)
[2021-11-22 12:45] LABS: COVID-19 Test Negative (Negative)
[2021-11-22 12:50] LABS: Alanine Aminotransferase 15 U/L (0-31); Albumin Level 3.9 g/dL (3.5-5.0); Alkaline Phosphatase 68 U/L (39-117); Anion Gap 13 (12-20); Aspartate Amino Transferase 15 U/L (5-31); Bilirubin Direct < 0.2 mg/dL (0.0-0.5); Bilirubin Total 0.3 mg/dL (0.0-1.0); Blood Urea Nitrogen 11 mg/dL (9-16); C Reactive Protein 6.78 mg/dL (< or = 0.50); Calcium 8.8 mg/dL (8.4-10.2); Carbon Dioxide 24 mmol/L (22-29); Chloride 98 mmol/L (96-108); Creatinine Clr Calc Pharmacy 69.1; Estimated Glomerular Filt Rate > 60; Glucose Random 328 mg/dL (60-115); Magnesium 1.5 mg/dL (1.6-2.6); Sodium 131 mmol/L (135-145); Total Protein 7.5 g/dL (6.5-8.0)
[2021-11-22 13:10] LABS: Erythrocyte Sedimentation Rate 58 MM/HR (0-20)
[2021-11-22 13:29] VITALS: BP 123/46; PULSE 89; RESP 16; TEMP 37.4; O2SAT 98
[2021-11-22 14:23] VITALS: BP 135/62; PULSE 86; RESP 17; TEMP 37.4; O2SAT 96
[2021-11-22] MEDS: Acetaminophen 325 MG TABLET 975 MG PO (14:25)
[2021-11-22 14:26] LABS: Reflex Lactate? Lactic Acid Added
[2021-11-22 15:16] LABS: ~Lactic Acid-LAB USE ONLY 1.7 mmol/L (0.5-2.0)
[2021-11-22 15:16] LABS: Glucose, Whole Blood 184 mg/dL (60-115)
[2021-11-22 15:33] VITALS: BP 133/66; PULSE 88; RESP 18; TEMP 37.4; O2SAT 96
== END 2021-11-22 15:47 | disposition home or self-care (01) ==
PROVIDERS: Physician Assistant; Emergency Provider Emergency Medicine; PCP Internal Medicine
DX: L03.113 Cellulitis of right upper limb (principal); R50.9 Fever, unspecified; I48.91 Unspecified atrial fibrillation; F17.210 Nicotine dependence, cigarettes, uncomplicated; Z71.6 Tobacco abuse counseling; Z20.822 Contact with and (suspected) exposure to COVID-19; Z79.899 Other long term (current) drug therapy
CPT/HCPCS: 36415; 71045; 80048; 80076; 81003; 82947; 83605; 83735; 85025; 85652; 86140; 87040; 87635; 96360; 99284

== ENCOUNTER 2022-02-05 14:06 | Emergency (ER) | payer MEDICARE, MEDICAID, SELFPAY ==
[2022-02-05 14:59] VITALS: BP 111/47; PULSE 89; RESP 18; TEMP 37.2; O2SAT 96; BMI 26.6
[2022-02-05 15:13] LABS: Basophils Percent Auto 0.2 % (0-2); Eosinophils Absolute Auto 0.2 X10*3/uL (0.0-0.4); Eosinophils Percent Auto 1.6 % (0-4); Hematocrit 39.4 % (37.0-47.0); Hemoglobin 12.6 g/dl (12.0-16.0); Imm Gran Abs Auto 0.04 X10*3/uL (0.00-0.03); Imm Gran Pct Auto 0.4 % (0.0-0.4); Lymphocytes Absolute Auto 2.1 X10*3/uL (1.2-4.9); Lymphocytes Percent Auto 20.7 % (20-40); MANUAL DIFF FLAG NO; Mean Corpuscular Hemoglobin 32.1 pg (27.0-33.0); Mean Corpuscular Volume 100.3 fL (80.0-98.0); Mean Platelet Volume 9.4 fL (9.4-12.3); Monocytes Absolute Auto 0.5 X10*3/uL (0.1-1.2); Neutrophils Absolute Auto 7.3 x10*3/uL (2.0-8.3); Neutrophils Percent Auto 72.1 % (45-73); Platelet Count 264 X10*3/uL (160-400); Red Blood Count 3.93 X10*6/uL (4.20-5.50); Red Cell Distribution Width 14.2 % (11.0-16.0); White Blood Count 10.2 X10*3/uL (4.8-10.8)
[2022-02-05 15:28] LABS: Anion Gap 11 (12-20); Blood Urea Nitrogen 14 mg/dL (9-16); Calcium 8.4 mg/dL (8.4-10.2); Carbon Dioxide 25 mmol/L (22-29); Chloride 105 mmol/L (96-108); Creatinine Clr Calc Pharmacy 71.3; Estimated Glomerular Filt Rate > 60; Glucose Random 275 mg/dL (60-115); Potassium 4.5 mmol/L (3.3-5.1); Sodium 136 mmol/L (135-145)
[2022-02-05 15:52] LABS: Influenza A PCR NEGATIVE (Negative); Influenza B PCR NEGATIVE (Negative); Resp Syncy Virus RNA Qual PCR NEGATIVE (Negative); SARS COV2 PCR INHOUSE NEGATIVE (Negative)
== END 2022-02-05 21:32 | disposition left against medical advice (07) ==
PROVIDERS: Emergency Provider Emergency Medicine
DX: R51.9 Headache, unspecified (principal); Z20.822 Contact with and (suspected) exposure to COVID-19
CPT/HCPCS: 0241U; 80048; 85025; 99283

== ENCOUNTER 2022-02-07 09:11 | Emergency (ER) | payer MEDICARE, MEDICAID, SELFPAY ==
[2022-02-07 09:47] VITALS: BP 111/45; PULSE 87; RESP 17; TEMP 36.9; O2SAT 95; BMI 26.6
[2022-02-07 10:04] LABS: MANUAL DIFF FLAG NO
[2022-02-07 10:06] LABS: Basophils Percent Auto 0.2 % (0-2); Eosinophils Absolute Auto 0.2 X10*3/uL (0.0-0.4); Eosinophils Percent Auto 1.4 % (0-4); Hematocrit 39.4 % (37.0-47.0); Hemoglobin 12.8 g/dl (12.0-16.0); Imm Gran Abs Auto 0.05 X10*3/uL (0.00-0.03); Imm Gran Pct Auto 0.4 % (0.0-0.4); Lymphocytes Absolute Auto 1.9 X10*3/uL (1.2-4.9); Lymphocytes Percent Auto 16.6 % (20-40); Mean Corpuscular HGB Conc 32.5 g/dl (31.0-35.0); Mean Corpuscular Hemoglobin 32.5 pg (27.0-33.0); Mean Platelet Volume 9.5 fL (9.4-12.3); Monocytes Absolute Auto 0.6 X10*3/uL (0.1-1.2); Monocytes Percent Auto 4.9 % (2-11); Neutrophils Absolute Auto 8.5 x10*3/uL (2.0-8.3); Neutrophils Percent Auto 76.5 % (45-73); Platelet Count 251 X10*3/uL (160-400); Red Blood Count 3.94 X10*6/uL (4.20-5.50); Red Cell Distribution Width 14.1 % (11.0-16.0); White Blood Count 11.1 X10*3/uL (4.8-10.8)
[2022-02-07 10:25] LABS: Alanine Aminotransferase 26 U/L (0-31); Albumin Level 3.8 g/dL (3.5-5.0); Alkaline Phosphatase 70 U/L (39-117); Anion Gap 13 (12-20); Aspartate Amino Transferase 36 U/L (5-31); Bilirubin Total 0.2 mg/dL (0.0-1.0); Blood Urea Nitrogen 15 mg/dL (9-16); COVID-19 Test Negative (Negative); Calcium 8.9 mg/dL (8.4-10.2); Carbon Dioxide 24 mmol/L (22-29); Chloride 101 mmol/L (96-108); Creatinine Clr Calc Pharmacy 64.3; Estimated Glomerular Filt Rate 57; Glucose Random 321 mg/dL (60-115); IDNOW Serial# 16C4AD1C; Influenza A Negative (Negative); Influenza B2 Negative (Negative); Potassium 4.3 mmol/L (3.3-5.1); Sodium 134 mmol/L (135-145); Total Protein 7.7 g/dL (6.5-8.0)
== END 2022-02-07 16:09 | disposition left against medical advice (07) ==
PROVIDERS: Emergency Provider Emergency Medicine; PCP Internal Medicine
DX: R50.9 Fever, unspecified (principal); R51.9 Headache, unspecified; R25.1 Tremor, unspecified; Z20.822 Contact with and (suspected) exposure to COVID-19; Z79.899 Other long term (current) drug therapy
CPT/HCPCS: 80053; 85025; 87502; 87635; 99283

== ENCOUNTER → 2022-05-16 14:19 | Outpatient (BNVA) | payer MEDICARE, MEDICAID, SELFPAY | PROVIDERS: PCP Internal Medicine; Visit Provider Nurse Practitioner Family | DX: Z01.810 Encounter for preprocedural cardiovascular examination (principal); I48.0 Paroxysmal atrial fibrillation; I50.9 Heart failure, unspecified; R00.2 Palpitations; E11.9 Type 2 diabetes mellitus without complications; Z79.899 Other long term (current) drug therapy | CPT/HCPCS: 93005; 99212 ==

== ENCOUNTER 2022-05-28 14:50 | Emergency (ER) | payer MEDICARE, MEDICAID, SELFPAY ==
--- NOTE | ~2022-05-28 | XR_ITS ---
EXAMINATION: XR FOOT, LEFT CLINICAL INFORMATION: Fall, trauma, pain COMPARISON: None TECHNIQUE: AP, lateral, and oblique views of the left foot. FINDINGS: There is an oblique fracture at the distal shaft and neck fifth metatarsal. There is slight overlap of the fracture fragments and mild medial displacement of the distal fragment. No dislocation or destructive process. The remainder the bony structures appear intact. There is no focal significant joint narrowing and no erosive changes. Bony mineralization appears normal. XR/XR foot LT 2V IMPRESSION: Mildly displaced oblique fracture distal shaft and neck left 5th metatarsal. No dislocation.
[2022-05-28 15:18] VITALS: BP 116/38; PULSE 88; RESP 16; TEMP 36.2; O2SAT 96; BMI 25.8
--- NOTE | 2022-05-28 17:21 | ED_ITS ---
HPI - Extremity Injury (Lower) General Chief Complaint: Extremity Injury, Lower Stated Complaint: l foot inj Time Seen by Provider: 05/28/22 17:21 Source: patient Mode of arrival: ambulatory Limitations: no limitations History of Present Illness HPI Narrative: Patient presents emergency department for evaluation of left foot pain. She reports 2 days ago she tripped on the stairs hitting her foot into the stair. She has subsequently developed pain and bruising. Pain is made worse with weight-bearing. Denies numbness tingling or cold sensation to her foot. Related Data Home Medications Medication Instructions Recorded Confirmed albuterol sulfate 90 mcg/actuation 0 mcg inhalation 12/12/20 05/16/22 aerosol inhaler bupropion HCl 300 mg 24 hr tablet, 300 mg PO DAILY 12/12/20 05/16/22 extended release citalopram 40 mg tablet 40 mg PO DAILY 12/12/20 05/16/22 colestipol 1 gram tablet 1 g PO TID 12/12/20 05/16/22 famotidine 20 mg tablet 20 mg PO BID 12/12/20 05/16/22 fluticasone furoate 200 1 ea PO DAILY 12/12/20 05/16/22 mcg-vilanterol 25 mcg/dose inhalation powder levothyroxine 100 mcg tablet 100 mcg PO DAILY 12/12/20 05/16/22 lorazepam 1 mg tablet 1 mg PO TID PRN anxiety 12/12/20 05/16/22 trazodone 50 mg tablet 150 mg PO BEDTIME 12/12/20 05/16/22 potassium chloride 10 mEq 20 meq PO DAILY 03/08/21 05/16/22 capsule,extended release cyclobenzaprine 10 mg tablet 10 mg PO BID PRN muscle spasm 05/16/22 05/16/22 oxycodone 10 mg tablet 10 mg PO 05/16/22 05/16/22 Previous Rx's Medication Instructions Recorded levofloxacin 500 mg tablet 500 mg PO DAILY #7 tabs 06/20/21 furosemide 40 mg tablet 40 mg PO DAILY 90 days #110 tabs 09/07/21 rivaroxaban 20 mg tablet (Xarelto) 20 mg PO DAILY 90 days #90 tabs 09/07/21 lidocaine 5 % topical patch 1 patch topical DAILY #15 ea 11/09/21 atenolol 50 mg tablet 50 mg PO BID 90 days #180 tabs 05/16/22 flecainide 100 mg tablet 100 mg PO Q12H 90 days #180 tabs 05/16/22 Allergies Allergy/AdvReac Type Severity Reaction Status Date / Time amoxicillin [From AUGMENTIN] Allergy Mild SWELLING Verified 05/16/22 14:48 clavulanic acid Allergy Mild SWELLING Verified 05/16/22 14:48 [From AUGMENTIN] etodolac [From LODINE] Allergy Mild SWELLING Verified 05/16/22 14:48 gabapentin [GABAPENTIN] Allergy Mild SWELLING Verified 05/16/22 14:48 pregabalin [From LYRICA] Allergy Mild SWELLING Verified 05/16/22 14:48 clarithromycin [From Biaxin] Allergy Unknown ANGIOEDEMA Verified 05/16/22 14:48 Penicillins Allergy Unknown UNKNOWN Verified 05/16/22 14:48 sulfamethoxazole Allergy Unknown ANAPHYLAXIS Verified 05/16/22 14:48 [From Bactrim] fluticasone AdvReac Mild MUSCLE PAIN Verified 05/16/22 14:48 [From FLOVENT DISKUS] Eliquis Allergy Unknown fatigue, Uncoded 06/20/21 21:34 GI, tongue swell Review of Systems Review of Systems: Musculoskeletal: Positive foot pain Yes all other systems are reviewed and are negative FOR[facility]LY [facility], [facility] Past Medical History Attestation statement: The following information was validated with the patient. Source: old records reviewed Medical History Congestive heart failure Diabetes PAF (paroxysmal atrial fibrillation) Surgical History History of back surgery History of radiofrequency ablation (RFA) procedure for cardiac arrhythmia Family History Family History Father No problems noted. Mother CVD (cardiovascular disease) Social History Social History Alcohol intake: never Patient Tobacco Use Status: Current everyday Tobacco user Cigarettes Per Day: 10 Advance Directives: No Advance Directives Information Provided: No Physical Exam Vital Signs: Vital Signs: Last Vital Signs Temp 97.1 F 05/28/22 15:18 Pulse 88 05/28/22 15:18 Resp 16 05/28/22 15:18 BP 116/38 L 05/28/22 15:18 Pulse Ox 96 05/28/22 15:18 O2 Del Method 05/28/22 15:18 BMI result Body Mass Index 25.8 Appearance: Alert.?Oriented to person, place and time. No acute distress.?Normal affect. Eyes: Pupils equal, round and reactive to light.? ENT: Pharynx normal.?? Neck: Normal inspection.? Neck supple.?? CVS: Heart sounds normal. Normal heart rate and rhythm.? Pulses normal.?? Respiratory: No respiratory distress.? Lung sounds clear to auscultation bilaterally?? Abdomen: Soft and non-tender. Normoactive bowel sounds. ? Skin: Skin warm and dry.? Normal skin color.? Extremities: No lower extremity edema.? No calf ttp?2+ palpable DP/PT pulse bilaterally. Dorsal left foot with bruising. Neuro: Moves all extremities spontaneously. Sensation intact bilaterally. CN II- XII intact. No focal neuro deficits. Ambulates with normal steady gait. Course Course Course Narrative: Patient is a 57-year-old female with a past medical history of CHF, diabetes, atrial fibrillation, Lupus presents emergency department for evaluation of traumatic left foot pain. Neurovascularly intact distally. XR reveals minimally displaced oblique fracture of the distal shaft and neck of left 5th metatarsal. Discussed these findings with patient. She is already prescribed oxycodone every 4-6 hours. She is unable to take NSAIDs as she is taking Xarelto currently. Discussed plan of care for discharge home, patient to be placed in an offloading boot, and will require outpatient follow-up with Orthopedics. Advised to contact our office to schedule appointment. Reviewed worrisome signs and symptoms to return emergency department for. All questions were answered, and patient discharged home in stable condition. MDM - Extremity Injury (Lower) Medical Records Attestation: I reviewed the patient's medical records. Imaging Data XR foot: Radiologist's impression: XR/XR foot LT 2V IMPRESSION: Mildly displaced oblique fracture distal shaft and neck left 5th metatarsal. No dislocation. Discharge Plan Discharge Clinical Impression: Metatarsal fracture Qualifiers: Encounter type: initial encounter Metatarsal bone: fifth Fracture type: closed Laterality: left Patient Disposition: Home, Self-Care Instructions: Foot Fracture in Adults (ED) Additional Instructions: Be sure to rest, elevate your leg above the level of your chest. You can take Tylenol 500 mg, 2 tablets (1,000mg) every 4-6 hours as needed for pain, but not to exceed 3 doses daily (3,000mg). Wear the walking boot at all times when walking/ bearing weight. ? Contact Orthopedics to arrange for a visit for further evaluation and treatment. Continue taking her oxycodone as currently prescribed. Return to the emergency department with any new or worsening symptoms or concerns. This includes but is not limited to severe worsening pain, swelling, numbness or tingling to the leg/foot, cold sensation to the foot. Prescriptions: No Action Xarelto 20 mg tablet 20 mg PO DAILY 90 Days Qty: 90 3RF Rx Instructions: must administer with evening meal furosemide 40 mg tablet 40 mg PO DAILY 90 Days Qty: 110 3RF Rx Instructions: take 1 day, additional tablet if needed for shortness of breath, swelling levofloxacin 500 mg tablet 500 mg PO DAILY Qty: 7 0RF lidocaine 5 % adhesive patch,medicated 1 patch topical DAILY Qty: 15 0RF Rx Instructions: leave on most painful area for up to 12 hrs famotidine 20 mg tablet 20 mg PO BID Breo Ellipta 200-25 mcg/dose blister with device 1 ea PO DAILY bupropion HCl 300 mg tablet extended release 24 hr 300 mg PO DAILY citalopram 40 mg tablet 40 mg PO DAILY colestipol 1 gram tablet 1 g PO TID lorazepam 1 mg tablet 1 mg PO TID PRN (Reason: anxiety) albuterol sulfate 90 mcg/actuation HFA aerosol inhaler 0 mcg inhalation levothyroxine 100 mcg tablet 100 mcg PO DAILY trazodone 50 mg tablet 150 mg PO BEDTIME oxycodone 10 mg tablet 10 mg PO potassium chloride 10 mEq capsule, extended release 20 meq PO DAILY cyclobenzaprine 10 mg tablet 10 mg PO BID PRN (Reason: muscle spasm) atenolol 50 mg tablet 50 mg PO BID 90 Days Qty: 180 3RF flecainide 100 mg tablet 100 mg PO Q12H 90 Days Qty: 180 3RF Referrals: Carli Germain PA-C [Physician Plug Saw Operator] -
== END 2022-05-28 18:25 | disposition home or self-care (01) ==
PROVIDERS: Emergency Provider Internal Medicine; PCP Internal Medicine
DX: S92.352A Displaced fracture of fifth metatarsal bone, left foot, initial encounter for closed fracture (principal); W22.09XA Striking against other stationary object, initial encounter; E11.9 Type 2 diabetes mellitus without complications; I48.0 Paroxysmal atrial fibrillation; I50.9 Heart failure, unspecified; F17.210 Nicotine dependence, cigarettes, uncomplicated; Y93.89 Activity, other specified; Y92.018 Other place in single-family (private) house as the place of occurrence of the external cause; Y99.9 Unspecified external cause status
CPT/HCPCS: 73620; 99283

== ENCOUNTER → 2022-06-11 15:01 | Outpatient (BNVA) | payer MEDICARE, MEDICAID, SELFPAY | PROVIDERS: PCP Internal Medicine; Visit Provider Physician Assistant | DX: S92.352A Displaced fracture of fifth metatarsal bone, left foot, initial encounter for closed fracture (principal) | CPT/HCPCS: 99202 ==

== ENCOUNTER → 2022-07-11 14:52 | Outpatient (REF) | payer MEDICARE, MEDICAID, SELFPAY ==
--- NOTE | 2022-07-11 14:54 | CA_ITS ---
Transthoracic Echocardiogram Patient (Last, First, Middle): Debra Gaines, Gender: Female Date of : 1965 Age: 57 Procedure Date: 07/11/2022 Procedure Type: Transthoracic Echocardiogram Location: OP Height: 167.64 cm Weight: 74.84 kg BSA: 1.84 m2 Heart Rate: bpm BP: 112 / 60 mmHg School Commissioner: TERESE Referring MD: Jaydon Martínez MD Gas Combustion Engineer: Jaydon Martínez MD Symptoms: I50.9 - Heart failure, unspecified Study Quality: Adequate w contrast ECG Rhythm: Sinus Conclusions: - 1. Normal LV systolic function with impaired relaxation filling pattern 2. Normal cardiac valvular Doppler 3. Normal RV systolic pressure 4. No pericardial effusion Findings Procedure Information Contrast agent, definity, is being given per protocol without apparent complications. Left Ventricle Normal left ventricular size, thickness, and systolic function. The visually estimated ejection fraction is between 60-65%. Spectral Doppler is indicative of an impaired relaxation filling pattern. Right Ventricle Normal right ventricular cavity size and systolic function. Atria Both atria are normal in size. Interatrial shunt cannot be excluded. Aortic Valve The aortic valve structure and function is likely normal. There is no aortic valve stenosis. There is no aortic valve regurgitation. Mitral Valve Likely normal mitral valve structure and function. There is trace mitral valve regurgitation. There is no mitral valve stenosis. Pulmonic Valve The pulmonic valve was not well visualized. Tricuspid Valve Likely normal tricuspid valve structure and function. There is trace tricuspid valve regurgitation. The right ventricular systolic pressure is normal. The right ventricular systolic pressure is 24 mmHg. Normal right atrial pressure. There is no evidence of pulmonary hypertension. Great Vessels All visible segments of the aorta are normal in size. The pulmonary artery was not well visualized. Venous The inferior vena cava is normal in size and collapses greater than 50% with inspiration. Pericardium/Pleural There is no evidence of pericardial effusion. Prior Study Comparison No significant change compared to prior study dated: 02/11/2020. Measurements 2D Linear Measurements IVSd: 0.92 0.6-0.9/0.6-1.0 cm LVIDd: 4.57 3.9-5.3/4.2-5.9 cm LVIDd Index: 2.48 2.4-3.2/2.2-3.1 cm/m2 LVIDs: 3.57 2.0-3.6 cm LVPWd: 0.72 0.7-1.1 cm LA Diam: 3.30 2.7-3.8/3.0-4.0 cm LAIDs Index: 1.79 1.5-2.3 cm/m2 LV Mass: 149.80 67-162/88-224 g LV Mass Index: 81.41 43-95/49-115 g/m2 LVOT Diam: 2.20 3.0+(-)1.3 cm 2D Systolic Function EF 4C: 69.90 >55% EF 2C: 64.20 >55% EF BiP: 66.70 >55% Mitral Valve MV Pk E: 0.49 MV PK A: 0.87 MV Decel Time: 85.00 E/A: 0.60 E'Lateral: 8.92 E'Medial: 4.79 E/E' Med: 10.20 E/E' Lat: 5.50 PHT: 25.00 MVA PHT: 8.80 Decel [place]: 5.75 Aortic Valve AoV Pk Garry: 1.19 AoV Pk Grad: 6.00 TOMAS: 2.97 LVOT LVOT Pk Garry: 0.95 LVOT Mn Garry: 0.72 LVOT VTI: 0.19 LVOT Pk Grad: 4.00 LVOT Mn Grad: 2.00 LVOT Diam: 2.20 LVOT Area: 3.80 Diastolic Function MV Pk E: 0.49 MV Pk A: 0.87 E/A: 0.60 E'Medial: 4.79 E/E' Med: 10.20 E' Laterial: 8.92 E/E' Lat: 5.50 Right Ventricle TAPSE (mm): 15.20 TVS' Garry: 9.50 Tricuspid Valve TR Pk Garry: 2.01 TR Pk Grad: 16.00 RA Press: 8.00 RVSP: 24.00 Great Vessels Aorta Sinus of Valsalva: 2.90 2.0-3.5 cm Ao Asc: 3.20 2.1-3.4 cm Pulmonary Veins Pulm Vein S/D 1.40 Pulmonary Valve PV Pk Garry: 0.83 Peak PV Grad: 3.00 Updated in Other Vendor System with Status of Final Jaydon Martínez MD electronically signed on 07/12/2022 8:33:23 AM with status of Final
== END ==
LOC: HO.CARD 14:52
PROVIDERS: PCP Internal Medicine; Visit Provider Internal Medicine Cardiovascular Disease
DX: I50.9 Heart failure, unspecified (principal)
CPT/HCPCS: 93306; Q9957

== ENCOUNTER 2022-07-13 12:43 | Outpatient (REF) | payer MEDICARE, MEDICAID, SELFPAY ==
--- NOTE | ~2022-07-13 | XR_ITS ---
EXAMINATION: XR FOOT, LEFT CLINICAL INFORMATION: Follow-up metatarsal bone fracture COMPARISON: 05/28/2022. TECHNIQUE: AP, lateral, and oblique views of the left foot. FINDINGS: There is interval healing of undisplaced fracture of the distal metadiaphysis of fifth metatarsal bone with intermittent callus formation and fragments are well aligned. 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 Soft tissues are unremarkable. XR/XR foot LT min 3V IMPRESSION: Interval healing of undisplaced fracture of the distal metadiaphysis of the fifth metatarsal bone.
== END 2022-07-13 12:44 | disposition home or self-care (01) ==
LOC: HO.HOSX 12:43
PROVIDERS: Visit Provider Physician Assistant
DX: S92.352A Displaced fracture of fifth metatarsal bone, left foot, initial encounter for closed fracture (principal)
CPT/HCPCS: 73630

== ENCOUNTER 2022-08-06 15:10 | Outpatient (REF) | payer MEDICARE, MEDICAID, SELFPAY ==
--- NOTE | ~2022-08-06 | XR_ITS ---
EXAMINATION: XR FOOT, LEFT CLINICAL INFORMATION: Pain left foot. Fifth metatarsal fracture, follow-up. COMPARISON: Left foot radiographs 07/13/2022, 05/28/2022 TECHNIQUE: AP, lateral, and oblique views of the left foot. FINDINGS: Posttraumatic changes distal shaft and neck left fifth metatarsal are similar to prior exam 07/13/2022. There is no interval acute or new healing fracture or destructive process. No dislocation. Again, there are degenerative changes first MTP with mild joint narrowing. XR/XR foot LT min 3V IMPRESSION: -Posttraumatic changes distal left fifth metatarsal similar to prior exam 07/13/2022. -Mild degenerative changes first MTP. -No acute fracture or destructive process.
== END 2022-08-06 15:11 | disposition home or self-care (01) ==
LOC: HO.HOSX 15:10
PROVIDERS: Visit Provider Physician Assistant
DX: S92.352A Displaced fracture of fifth metatarsal bone, left foot, initial encounter for closed fracture (principal)
CPT/HCPCS: 73630; 99212

== ENCOUNTER → 2022-08-13 14:56 | Outpatient (BNVA) | payer MEDICARE, MEDICAID, SELFPAY | PROVIDERS: PCP Internal Medicine; Visit Provider Internal Medicine Cardiovascular Disease | DX: I48.91 Unspecified atrial fibrillation (principal); Z79.899 Other long term (current) drug therapy | CPT/HCPCS: 93005 ==

== ENCOUNTER 2022-09-05 15:12 | Outpatient (REF) | payer MEDICARE, MEDICAID, SELFPAY ==
[2022-09-05 16:54] LABS: Anion Gap 12 (12-20); Blood Urea Nitrogen 13 mg/dL (9-16); Calcium 8.7 mg/dL (8.4-10.2); Carbon Dioxide 25 mmol/L (22-29); Chloride 107 mmol/L (96-108); Estimated Glomerular Filt Rate > 60; Glucose Random 175 mg/dL (60-115); Potassium 3.8 mmol/L (3.3-5.1); Sodium 140 mmol/L (135-145)
[2022-09-05 16:56] LABS: B Type Natriuretic Peptide 37 pg/mL (<100)
== END 2022-09-05 15:13 | disposition home or self-care (01) ==
LOC: HO.LAB 15:12
PROVIDERS: PCP Internal Medicine; Visit Provider Internal Medicine Cardiovascular Disease
DX: I48.0 Paroxysmal atrial fibrillation (principal); I50.9 Heart failure, unspecified
CPT/HCPCS: 36415; 80048; 83880; 93005

== ENCOUNTER → 2022-11-06 13:41 | Outpatient (BNVA) | payer MEDICARE, MEDICAID, SELFPAY | PROVIDERS: PCP Internal Medicine; Visit Provider Internal Medicine Cardiovascular Disease | DX: I48.0 Paroxysmal atrial fibrillation (principal); I50.9 Heart failure, unspecified | CPT/HCPCS: 93005; 99212 ==

== ENCOUNTER 2022-11-20 22:28 | Emergency (ER) | payer MEDICARE, MEDICAID, SELFPAY ==
--- NOTE | ~2022-11-20 | XR_ITS ---
EXAMINATION: XR CHEST CLINICAL INFORMATION: Dyspnea COMPARISON: 11/22/2021 TECHNIQUE: Frontal view of the chest was obtained. FINDINGS: No significant abnormality is noted involving the heart, lungs, mediastinum, bony thorax or soft tissues. XR/XR chest 1V IMPRESSION: Unremarkable examination.
--- NOTE | ~2022-11-20 | CT_ITS ---
EXAMINATION: CT ANGIOGRAM OF THE CHEST WITH AND WITHOUT CONTRAST (CT PULMONARY ANGIOGRAM FOR PE) CLINICAL INFORMATION: Reason for Exam svc syndrome/PE COMPARISON: Report from CT dated 10/12/2012 TECHNIQUE: Prior to contrast administration, noncontrast localization images were obtained. Subsequently, multidetector volumetric imaging was performed from the thoracic inlet to below the diaphragms following the administration of 65 mL Omnipaque 350 intravenous contrast. No contrast reaction reported Sagittal, coronal, and MIP oblique sagittal reformatted images were obtained on the CT workstation, uploaded to PACS, and reviewed. This CT examination was performed using dose optimization techniques as appropriate, variously including the following: *Automated exposure control *Adjustment of mA and/or kV according to patient size (this includes techniques or standardized protocols for targeted exams where dose is matched to indication/reason for exam; i.e. extremities or head) *Use of iterative reconstruction technique Total exam dose-length product 269 mGy-cm FINDINGS: QUALITY OF STUDY/CONTRAST BOLUS: Satisfactory. PULMONARY ARTERIES: No central or segmental pulmonary emboli. THORACIC AORTA: No aneurysm or dissection. LUNG: Moderate to severe upper lobe predominant centrilobular and paraseptal emphysema. Diffuse mild bronchial thickening without bronchiectasis. Punctate nodule in left lower lobe. PLEURA: No pleural effusion or pneumothorax. MEDIASTINUM: Normal heart size. No pericardial effusion. No hilar or mediastinal lymphadenopathy. No evidence of septal bowing or right heart strain. CORONARY ARTERY CALCIFICATION: Present. CHEST WALL/AXILLA: No axillary or internal mammary lymphadenopathy. OSSEOUS STRUCTURES: No acute or suspicious osseous abnormality. UPPER ABDOMEN: Bilateral simple renal cysts. No follow-up recommended. No reflux of contrast into the hepatic veins to suggest elevated right heart pressures. CT/CT angio chest PE protocol IMPRESSION: * No evidence of pulmonary embolism. * No aortic aneurysm or dissection. * Moderate to severe upper lobe predominant centrilobular and paraseptal emphysema. * Punctate nodule in the left lower lobe. According to the UPDATED 2017 Fleischner Society recommendations, the advised follow-up imaging for solid nodules < 6 mm is: LOW RISK PATIENT: No routine follow-up. HIGH RISK PATIENT: Optional CT at 12 months. VTE: negative
[2022-11-20 22:32] VITALS: BP 130/51; PULSE 97; RESP 18; TEMP 36.8; O2SAT 97; BMI 28.8
--- NOTE | 2022-11-20 22:36 | ECG_ITS ---
Test Reason : SOB Blood Pressure : / mmHG Vent. Rate : 088 BPM Atrial Rate : 088 BPM P-R Int : 174 ms QRS Dur : 088 ms QT Int : 404 ms P-R-T Axes : 049 -18 048 degrees QTc Int : 488 ms Normal sinus rhythm Prolonged QT Abnormal ECG When compared with ECG of 20-JUN-2021 20:31, No significant change was found Referred By: Generic ED Physician Electronically Signed By:BEULAH PERALES
[2022-11-20 23:00] LABS: MANUAL DIFF FLAG NO
[2022-11-20 23:02] LABS: Basophils Absolute Auto 0.1 X10*3/uL (0.0-0.2); Basophils Percent Auto 0.4 % (0-2); Eosinophils Absolute Auto 0.2 X10*3/uL (0.0-0.4); Eosinophils Percent Auto 1.6 % (0-4); Hematocrit 38.6 % (37.0-47.0); Hemoglobin 12.9 g/dl (12.0-16.0); Imm Gran Abs Auto 0.05 X10*3/uL (0.00-0.03); Imm Gran Pct Auto 0.4 % (0.0-0.4); Lymphocytes Absolute Auto 2.7 X10*3/uL (1.2-4.9); Lymphocytes Percent Auto 22.9 % (20-40); Mean Corpuscular HGB Conc 33.4 g/dl (31.0-35.0); Mean Corpuscular Hemoglobin 32.7 pg (27.0-33.0); Mean Platelet Volume 9.6 fL (9.4-12.3); Monocytes Absolute Auto 0.7 X10*3/uL (0.1-1.2); Monocytes Percent Auto 6.2 % (2-11); Neutrophils Percent Auto 68.5 % (45-73); Platelet Count 238 X10*3/uL (160-400); Red Blood Count 3.94 X10*6/uL (4.20-5.50); Red Cell Distribution Width 14.2 % (11.0-16.0); White Blood Count 11.6 X10*3/uL (4.8-10.8)
--- NOTE | 2022-11-20 23:19 | ED.SOB ---
HPI - SOB/Dyspnea General Chief Complaint: Dyspnea Stated Complaint: SOB/hx of CHF Time Seen by Provider: 11/20/22 23:14 Source: patient Mode of arrival: ambulatory Limitations: no limitations History of Present Illness HPI Narrative: Patient chronic smoker with COPD intermittent prednisone treatment comes here as she feels body is swollen in last few days with an increased weight gain feel puffy in her neck face feels swollen Related Data Home Medications Medication Instructions Recorded Confirmed albuterol sulfate 90 mcg/actuation 0 mcg inhalation 12/12/20 11/06/22 aerosol inhaler bupropion HCl 300 mg 24 hr tablet, 300 mg PO DAILY 12/12/20 11/06/22 extended release citalopram 40 mg tablet 40 mg PO DAILY 12/12/20 11/06/22 colestipol 1 gram tablet 1 g PO TID 12/12/20 11/06/22 famotidine 20 mg tablet 20 mg PO BID 12/12/20 11/06/22 fluticasone furoate 200 1 ea PO DAILY 12/12/20 11/06/22 mcg-vilanterol 25 mcg/dose inhalation powder levothyroxine 100 mcg tablet 100 mcg PO DAILY 12/12/20 11/06/22 lorazepam 1 mg tablet 1 mg PO TID PRN anxiety 12/12/20 11/06/22 trazodone 50 mg tablet 150 mg PO BEDTIME 12/12/20 11/06/22 potassium chloride 10 mEq 20 meq PO DAILY 03/08/21 11/06/22 capsule,extended release cyclobenzaprine 10 mg tablet 10 mg PO BID PRN muscle spasm 05/16/22 11/06/22 oxycodone 10 mg tablet 10 mg PO 05/16/22 11/06/22 blood sugar diagnostic (Feebbouch #10 ea 06/11/22 11/06/22 Verio test strips) insulin glargine 100 unit/mL (3 unit subcut 06/11/22 11/06/22 mL) subcutaneous pen (Lantus Solostar U-100 Insulin) ipratropium 0.5 mg-albuterol 3 mg ml inhalation 06/11/22 11/06/22 (2.5 mg base)/3 mL nebulization soln lancets 30 gauge (FeebboTosonal Parker #100 ea 06/11/22 11/06/22 Plus Lancet) apixaban 5 mg tablet (Eliquis) 5 mg PO BID 11/06/22 11/06/22 Previous Rx's Medication Instructions Recorded furosemide 40 mg tablet 40 mg PO DAILY 90 days #110 tabs 09/07/21 lidocaine 5 % topical patch 1 patch topical DAILY #15 ea 11/09/21 atenolol 50 mg tablet 50 mg PO BID 90 days #180 tabs 05/16/22 flecainide 100 mg tablet 100 mg PO Q12H 90 days #180 tabs 05/16/22 Allergies Allergy/AdvReac Type Severity Reaction Status Date / Time amoxicillin [From AUGMENTIN] Allergy Mild SWELLING Verified 11/20/22 22:31 clavulanic acid Allergy Mild SWELLING Verified 11/20/22 22:31 [From AUGMENTIN] etodolac [From LODINE] Allergy Mild SWELLING Verified 11/20/22 22:31 gabapentin [GABAPENTIN] Allergy Mild SWELLING Verified 11/20/22 22:31 pregabalin [From LYRICA] Allergy Mild SWELLING Verified 11/20/22 22:31 clarithromycin [From Biaxin] Allergy Unknown ANGIOEDEMA Verified 11/20/22 22:31 Penicillins Allergy Unknown UNKNOWN Verified 11/20/22 22:31 sulfamethoxazole Allergy Unknown ANAPHYLAXIS Verified 11/20/22 22:31 [From Bactrim] fluticasone AdvReac Mild MUSCLE PAIN Verified 11/20/22 22:31 [From FLOVENT DISKUS] Review of Systems Review of Systems: Yes all other systems are reviewed and are negative PMFSH Past Medical History Medical History Congestive heart failure COPD (chronic obstructive pulmonary disease) Depression Diabetes PAF (paroxysmal atrial fibrillation) Thyroid disease Surgical History History of back surgery History of radiofrequency ablation (RFA) procedure for cardiac arrhythmia Family History Family History Father No problems noted. Mother CVD (cardiovascular disease) Social History Social History Alcohol intake: never Patient Tobacco Use Status: Current everyday Tobacco user Cigarettes Per Day: 10 Advance Directives: No Advance Directives Information Provided: Yes Current occupational status: disabled Physical Exam Vital Signs: Vital Signs: Last Vital Signs Temp 98.3 F 11/20/22 23:38 Pulse 84 11/20/22 23:38 Resp 15 11/20/22 23:38 BP 120/59 L 11/20/22 23:38 Pulse Ox 94 11/20/22 23:38 O2 Del Method 11/20/22 23:38 BMI result Body Mass Index 28.8 Appearance: Alert. Oriented X3. No acute distress. Eyes: PERRLA, No Nystagmus ENT: Pharynx normal. Oral Mucosa moist Neck: Normal inspection. Neck supple. Soft tissue puffiness and neck area CVS: Normal heart rate and rhythm. Pulses normal. Respiratory: No respiratory distress. Equal air entry bilateral, no rounds prolonged expiration Abdomen: Soft and nontender. Bowel sounds are present, no mass palpable, no CVA tenderness Skin: Skin warm and dry. Normal skin color. Normal skin turgor. Extremities: No lower extremity edema. No calf tenderness Neuro: Oriented X 3. No motor deficit. No sensory deficit.No cerebellar signs , cranial nerves II-XII intact Medications Administered Discontinued Medications Generic Name Dose Route Start Last Admin Trade Name Freq PRN Reason Stop Dose Admin Albuterol Sulfate 5 mg/ 0 mg 11/20/22 23:19 11/20/22 23:33 Ipratropium Fate 0.5 mg INHALE 11/20/22 23:20 1 each ONCE ONE Administration Iohexol 65 ml 11/21/22 00:30 11/21/22 00:31 Iohexol 350 Mg/Ml 100 Ml Infus..Btl IV 11/21/22 00:31 65 ml ONCE ONE Administration Medical Decision Making Medical Decision Making [facility] Narrative: Patient's symptoms secondary to side effect of prednisone use saturating 97% at room air lab workup stable discharge patient home CTA chest done to rule out PE /SVC syndrome which was negative Differential Diagnosis Pulmonary embolism/ SVC Lab Data [facility] Lab Attestation statement: I reviewed the patient's lab results. 11/20/22 22:47 11/20/22 22:47 Labs: Lab Results 11/20/22 11/20/22 11/20/22 Range/Units 22:47 22:47 22:47 WBC 11.6 H (4.8-10.8) X10*3/uL RBC 3.94 L (4.20-5.50) X10*6/uL Hgb 12.9 (12.0-16.0) g/dl Hct 38.6 (37.0-47.0) % MCV 98.0 (80.0-98.0) fL MCH 32.7 (27.0-33.0) pg MCHC 33.4 (31.0-35.0) g/dl RDW 14.2 (11.0-16.0) % Plt Count 238 (160-400) X10*3/uL MPV 9.6 (9.4-12.3) fL Immature Gran % (Auto) 0.4 (0.0-0.4) % Neut % (Auto) 68.5 (45-73) % Lymph % (Auto) 22.9 (20-40) % [place] % (Auto) 6.2 (2-11) % Eos % (Auto) 1.6 (0-4) % Baso % (Auto) 0.4 (0-2) % Lymph # (Auto) 2.7 (1.2-4.9) X10*3/uL [place] # (Auto) 0.7 (0.1-1.2) X10*3/uL Eos # (Auto) 0.2 (0.0-0.4) X10*3/uL Baso # (Auto) 0.1 (0.0-0.2) X10*3/uL Abs Immat Gran (auto) 0.05 H (0.00-0.03) X10*3/uL Absolute Neuts (auto) 8.0 (2.0-8.3) x10*3/uL Absolute Nucleated RBC 0.000 (0.0-0.012) X10*3/uL Nucleated RBC % (auto) 0.0 (0.0-0.2) /100WBC PT (10.0-13.1) SEC INR (0.9-1.1) APTT (26.0-36.4) SEC Sodium 139 (135-145) mmol/L Potassium 4.1 (3.3-5.1) mmol/L Chloride 108 (96-108) mmol/L Carbon Dioxide 23 (22-29) mmol/L Anion Gap 12 (12-20) BUN 21 H (9-16) mg/dL Creatinine 1.09 (0.5-1.4) mg/dL Estim Creat Clear Calc 61.1 Estimated GFR 52 Random Glucose 203 H (60-115) mg/dL Calcium 8.4 (8.4-10.2) mg/dL Total Bilirubin 0.2 (0.0-1.0) mg/dL Direct Bilirubin < 0.2 (0.0-0.5) mg/dL AST 23 (5-31) U/L ALT 24 (0-31) U/L Alkaline Phosphatase 61 (39-117) U/L Troponin I High Sens < 3.5 (<3.5-17.0) ng/L B-Natriuretic Peptide (<100) pg/mL Total Protein 6.7 (6.5-8.0) g/dL Albumin 3.6 (3.5-5.0) g/dL Lipase 34 (8-78) U/L COVID-19 ([facility]) (Negative) COVID-19 Clin Com 11/20/22 11/20/22 11/20/22 Range/Units 22:47 23:42 23:53 WBC (4.8-10.8) X10*3/uL RBC (4.20-5.50) X10*6/uL Hgb (12.0-16.0) g/dl Hct (37.0-47.0) % MCV (80.0-98.0) fL MCH (27.0-33.0) pg MCHC (31.0-35.0) g/dl RDW (11.0-16.0) % Plt Count (160-400) X10*3/uL MPV (9.4-12.3) fL Immature Gran % (Auto) (0.0-0.4) % Neut % (Auto) (45-73) % Lymph % (Auto) (20-40) % Glasscock % (Auto) (2-11) % Eos % (Auto) (0-4) % Baso % (Auto) (0-2) % Lymph # (Auto) (1.2-4.9) X10*3/uL [place] # (Auto) (0.1-1.2) X10*3/uL Eos # (Auto) (0.0-0.4) X10*3/uL Baso # (Auto) (0.0-0.2) X10*3/uL Abs Immat Gran (auto) (0.00-0.03) X10*3/uL Absolute Neuts (auto) (2.0-8.3) x10*3/uL Absolute Nucleated RBC (0.0-0.012) X10*3/uL Nucleated RBC % (auto) (0.0-0.2) /100WBC PT 21.3 H (10.0-13.1) SEC INR 1.8 H (0.9-1.1) APTT 46.6 H (26.0-36.4) SEC Sodium (135-145) mmol/L Potassium (3.3-5.1) mmol/L Chloride (96-108) mmol/L Carbon Dioxide (22-29) mmol/L Anion Gap (12-20) BUN (9-16) mg/dL Creatinine (0.5-1.4) mg/dL Estim Creat Clear Calc Estimated GFR Random Glucose (60-115) mg/dL Calcium (8.4-10.2) mg/dL Total Bilirubin (0.0-1.0) mg/dL Direct Bilirubin (0.0-0.5) mg/dL AST (5-31) U/L ALT (0-31) U/L Alkaline Phosphatase (39-117) U/L Troponin I High Sens (<3.5-17.0) ng/L B-Natriuretic Peptide < 10 (<100) pg/mL Total Protein (6.5-8.0) g/dL Albumin (3.5-5.0) g/dL Lipase (8-78) U/L COVID-19 ([facility]) Negative (Negative) COVID-19 Clin Com See Note Discharge Plan Discharge Clinical Impression: COPD (chronic obstructive pulmonary disease) Patient Disposition: Home, Self-Care Instructions: COPD (Chronic Obstructive Pulmonary Disease) (ED) Additional Instructions: Continue to use your inhaler/nebulizer treatment Swelling of the face is side effect of the prednisone stop Smoking Follow-up with PCP Prescriptions: No Action furosemide 40 mg tablet 40 mg PO DAILY 90 Days Qty: 110 3RF Rx Instructions: take 1 day, additional tablet if needed for shortness of breath, swelling lidocaine 5 % adhesive patch,medicated 1 patch topical DAILY Qty: 15 0RF Rx Instructions: leave on most painful area for up to 12 hrs famotidine 20 mg tablet 20 mg PO BID Breo Ellipta 200-25 mcg/dose blister with device 1 ea PO DAILY bupropion HCl 300 mg tablet extended release 24 hr 300 mg PO DAILY citalopram 40 mg tablet 40 mg PO DAILY colestipol 1 gram tablet 1 g PO TID lorazepam 1 mg tablet 1 mg PO TID PRN (Reason: anxiety) albuterol sulfate 90 mcg/actuation HFA aerosol inhaler 0 mcg inhalation levothyroxine 100 mcg tablet 100 mcg PO DAILY trazodone 50 mg tablet 150 mg PO BEDTIME oxycodone 10 mg tablet 10 mg PO potassium chloride 10 mEq capsule, extended release 20 meq PO DAILY cyclobenzaprine 10 mg tablet 10 mg PO BID PRN (Reason: muscle spasm) atenolol 50 mg tablet 50 mg PO BID 90 Days Qty: 180 3RF flecainide 100 mg tablet 100 mg PO Q12H 90 Days Qty: 180 3RF insulin glargine [Lantus Solostar U-100 Insulin] 100 unit/mL (3 mL) insulin pen subcut (DME) OneTouch Verio test strips Strip See Rx Instructions .ROUTE TID Qty: 10 Rx Instructions: As directed (DME) lancets [OneTouch Delica Plus Lancet] 30 gauge misc See Rx Instructions .ROUTE QID Qty: 100 Rx Instructions: As directed ipratropium-albuterol 0.5 mg-3 mg(2.5 mg base)/3 mL solution for nebulization inhalation Eliquis 5 mg tablet 5 mg PO BID
[2022-11-20 23:28] LABS: Alanine Aminotransferase 24 U/L (0-31); Albumin Level 3.6 g/dL (3.5-5.0); Alkaline Phosphatase 61 U/L (39-117); Anion Gap 12 (12-20); Aspartate Amino Transferase 23 U/L (5-31); Bilirubin Direct < 0.2 mg/dL (0.0-0.5); Bilirubin Total 0.2 mg/dL (0.0-1.0); Blood Urea Nitrogen 21 mg/dL (9-16); Calcium 8.4 mg/dL (8.4-10.2); Carbon Dioxide 23 mmol/L (22-29); Chloride 108 mmol/L (96-108); Creatinine Clr Calc Pharmacy 61.1; Estimated Glomerular Filt Rate 52; Glucose Random 203 mg/dL (60-115); Lipase 34 U/L (8-78); Potassium 4.1 mmol/L (3.3-5.1); Sodium 139 mmol/L (135-145); Total Protein 6.7 g/dL (6.5-8.0)
[2022-11-20 23:31] LABS: B Type Natriuretic Peptide < 10 pg/mL (<100)
[2022-11-20 23:34] VITALS: PULSE 97; RESP 16; O2SAT 97
[2022-11-20 23:38] VITALS: BP 120/59; PULSE 84; RESP 15; TEMP 36.8; O2SAT 94
[2022-11-20 23:40] LABS: Troponin-I High Sensitivity < 3.5 ng/L (<3.5-17.0)
[2022-11-21 00:14] LABS: INTERNATIONAL NORM RATIO 1.8 (0.9-1.1); Prothrombin Time 21.3 SEC (10.0-13.1)
[2022-11-21 00:15] LABS: COVID-19 Test Negative (Negative); IDNOW Serial# 6674DD1D
[2022-11-21 00:17] LABS: Partial Thromboplastin Time 46.6 SEC (26.0-36.4)
[2022-11-21] MEDS: iohexoL 350 MG/ML 100 ML INFUS..BTL 65 ML IV (00:31)
[2022-11-21 02:07] VITALS: BP 137/85; PULSE 88; RESP 17; TEMP 36.8; O2SAT 96
== END 2022-11-21 02:17 | disposition home or self-care (01) ==
PROVIDERS: Emergency Provider Internal Medicine; PCP Internal Medicine
DX: J44.9 Chronic obstructive pulmonary disease, unspecified (principal); R06.02 Shortness of breath; F17.210 Nicotine dependence, cigarettes, uncomplicated; Z20.822 Contact with and (suspected) exposure to COVID-19; Z20.828 Contact with and (suspected) exposure to other viral communicable diseases; Z71.6 Tobacco abuse counseling; Z79.899 Other long term (current) drug therapy
CPT/HCPCS: 36415; 71045; 71275; 80053; 82248; 83690; 83880; 84484; 85025; 85610; 85730; 87635; 93005; 94640; 99284; Q9967

== ENCOUNTER 2022-11-21 12:49 | Outpatient (REF) | payer MEDICARE, MEDICAID, SELFPAY ==
[2022-11-21 14:18] LABS: B Type Natriuretic Peptide 16 pg/mL (<100)
== END 2022-11-21 12:50 | disposition home or self-care (01) ==
LOC: HO.HMGCLDS 12:49
PROVIDERS: Visit Provider Internal Medicine Cardiovascular Disease
DX: I48.0 Paroxysmal atrial fibrillation (principal); I50.9 Heart failure, unspecified
CPT/HCPCS: 36415; 83880

== ENCOUNTER 2023-05-07 14:02 | Outpatient (REF) | payer MEDICARE, MEDICAID, SELFPAY ==
[2023-05-07 17:08] LABS: Alanine Aminotransferase 17 U/L (0-31); Albumin Level 3.5 g/dL (3.5-5.0); Alkaline Phosphatase 66 U/L (39-117); Anion Gap 13 (12-20); Aspartate Amino Transferase 22 U/L (5-31); Bilirubin Total 0.3 mg/dL (0.0-1.0); Blood Urea Nitrogen 7 mg/dL (9-16); Calcium 8.9 mg/dL (8.4-10.2); Carbon Dioxide 24 mmol/L (22-29); Chloride 107 mmol/L (96-108); Estimated Glomerular Filt Rate > 60; Glucose Random 187 mg/dL (60-115); Magnesium 1.6 mg/dL (1.6-2.6); Potassium 3.6 mmol/L (3.3-5.1); Sodium 140 mmol/L (135-145)
== END 2023-05-07 14:03 | disposition home or self-care (01) ==
LOC: HO.LAB 14:02
PROVIDERS: PCP Internal Medicine; Referring Provider Internal Medicine; Visit Provider Nurse Practitioner Family
DX: I48.0 Paroxysmal atrial fibrillation (principal); F17.200 Nicotine dependence, unspecified, uncomplicated; E11.9 Type 2 diabetes mellitus without complications; I50.9 Heart failure, unspecified; M54.9 Dorsalgia, unspecified; Z79.899 Other long term (current) drug therapy
CPT/HCPCS: 36415; 80053; 83735; 93005; 99212

== ENCOUNTER 2023-05-07 14:02 | Outpatient (AMB) | payer MEDICARE, MEDICAID, SELFPAY ==
--- NOTE | 2023-05-07 14:08 | MHC.OFFVIS ---
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 Allergies amoxicillin [From AUGMENTIN] Allergy (Mild, Verified 05/07/23 14:19) SWELLING clavulanic acid [From AUGMENTIN] Allergy (Mild, Verified 05/07/23 14:19) SWELLING etodolac [From LODINE] Allergy (Mild, Verified 05/07/23 14:19) SWELLING gabapentin [GABAPENTIN] Allergy (Mild, Verified 05/07/23 14:19) SWELLING pregabalin [From LYRICA] Allergy (Mild, Verified 05/07/23 14:19) SWELLING clarithromycin [From Biaxin] Allergy (Unknown, Verified 05/07/23 14:19) ANGIOEDEMA Penicillins Allergy (Unknown, Verified 05/07/23 14:19) UNKNOWN sulfamethoxazole [From Bactrim] Allergy (Unknown, Verified 05/07/23 14:19) ANAPHYLAXIS fluticasone [From FLOVENT DISKUS] Adverse Reaction (Mild, Verified 05/07/23 14:19) MUSCLE PAIN Medication List - Last Reconciled 05/07/23 by DOMINGA Saul albuterol sulfate 90 mcg/actuation 0 mcg inhalation atenolol 50 mg PO BID 90 days blood sugar diagnostic (Altavoz Verio test strips) As directed bupropion HCl 300 mg PO DAILY citalopram 40 mg PO DAILY colestipol 1 g PO TID cyclobenzaprine 10 mg PO BID PRN famotidine 20 mg PO BID flecainide 100 mg PO Q12H 90 days fluticasone furoate-vilanterol 200-25 mcg/dose 1 ea PO DAILY furosemide 40 mg PO DAILY 90 days insulin glargine (Lantus Solostar U-100 Insulin) units subcut ipratropium-albuterol 0.5 mg-3 mg(2.5 mg base)/3 mL mL inhalation lancets (Dog Digitaluch Delica Plus Lancet) As directed levothyroxine 100 mcg PO DAILY lidocaine 5% 1 patch topical DAILY lorazepam 1 mg PO TID PRN oxycodone 10 mg PO potassium chloride ER 20 mEq PO DAILY rivaroxaban (Xarelto) 20 mg PO QPM trazodone 150 mg PO BEDTIME HPI 6 mth f/up ns HPI Details Debra is a 58-year-old female with past medical history smoking, diabetes, Congestive heart failure, paroxysmal AFib who presents for follow-up. Today she reports that she has been experiencing chronic low back pain with radiation into her hips and down her legs. She says this is greatly affecting her quality of life at this time. She has undergone back injections and is scheduled again to receive them. She is tearful at this visit. She states she is not able to do very much physically and has been mostly sedentary. She has not felt any heart palpitations consistent with AFib. She has no chest discomfort at rest or with activity. No concerning shortness of breath, presyncope, syncope, PND, orthopnea or edema. No bleeding issues reported. Taking meds as directed. [facility] Medical History Congestive heart failure COPD (chronic obstructive pulmonary disease) Depression Diabetes PAF (paroxysmal atrial fibrillation) Thyroid disease Surgical History History of back surgery History of radiofrequency ablation (RFA) procedure for cardiac arrhythmia Family History Father No problems noted. Mother CVD (cardiovascular disease) Social History Alcohol intake: never Patient Tobacco Use Status: Current everyday Tobacco user Cigarettes Per Day: 10 Current occupational status: disabled Review of Systems Const Details: Chronic back pain with radiation into her hips and legs. All systems reviewed & are unremarkable except as noted in HPI and below ENT Denies dizziness Card Denies chest pain, Denies chest pain at rest, Denies chest pain with activity, Denies rapid heart rate, Denies pedal edema, Denies edema, Denies leg edema, Denies lightheadedness, Denies palpitations, Denies dyspnea, Denies dyspnea on exertion and Denies orthopnea Resp Denies cough, Denies dyspnea and Denies dyspnea on exertion GI Denies hematochezia and Denies change in stool character Musc Denies abnormal gait, Reports limited range of motion, Reports muscle cramps, Denies muscle weakness, Denies numbness, Denies radiating pain into limb, Denies stiffness and Denies tingling Neuro Denies abnormal gait, Denies dizziness, Denies numbness and Denies tingling Endo Denies palpitations Physical Exam Vital Signs: Last Vital Signs Pulse 94 05/07/23 14:10 BP 122/70 05/07/23 14:10 BMI result Body Mass Index 27.8 Const Other: Tearful, reports chronic back pain General: no acute distress Orientation/consciousness: patient oriented x3 Neck Neck: Yes normal visual inspection Resp Effort & Inspection: normal respiratory effort Auscultation: clear to auscultation bilaterally, no crackles, no rales, no rhonchi and no wheezes Cardio Jugular venous distension: no JVD Rate: regular rate Heart sounds: S1 normal heart sound present, S2 normal heart sound present, no gallops, no murmurs and no rubs Neuro General: patient oriented x3 Extrem General: Yes normal to inspection Psych Appearance: grossly normal Mental Status: mental status grossly normal Speech and movement: Normal speech and movement present Office Procedures EKG Details: Today, read by me, sinus rhythm with first-degree AV block, left axis deviation, low-voltage QRS, nonspecific T-wave abnormality, prolonged QT, 500 milliseconds, rate 94. First-degree AV block is new. No significant change with QTC [id number], Complete Assessment & Plan Assessment & Plan (1) PAF (paroxysmal atrial fibrillation): Code(s): I48.0 - Paroxysmal atrial fibrillation Plan: History of paroxysmal atrial fibrillation. Currently suppressed with the use of flecainide 100 mg b.i.d. and atenolol 50 mg b.i.d.. EKG done today is showing sinus rhythm with new first-degree AV block, prolonged QT, QTC 500 milliseconds. When compared to prior EKG QTC similar. Heart rate currently in the 90s. She is upset at this visit and reports being in significant discomfort, which can account for her elevated heart rate. She reports compliance with her medications. She is on Xarelto for anticoagulation. She says this was recently changed from Eliquis. No bleeding issues reported. With prolonged QT interval will have her check labs today including BMP and magnesium. She tells me she has not been eating properly due to her pain. Cardiology follow-up with repeat EKG in 3 months. (2) Congestive heart failure: Code(s): I50.9 - Heart failure, unspecified Plan: No clinical signs of decompensated heart failure on examination today. Last echocardiogram 07/11/2022 showing EF 60-65%, no valve abnormalities. (3) Back pain: Code(s): M54.9 - Dorsalgia, unspecified Plan: Chronic, described as above. She tells me she will be undergoing back injections. Xarelto can be held for 48 hours prior to procedure and restart as soon as provider instructed her to. Stroke risk while off anticoagulation has been reviewed with her Orders: Orders Comprehensive Met. Panel Today I48.0 - Paroxysmal atrial fibrillation Magnesium Today I48.0 - Paroxysmal atrial fibrillation Coding Level of Care Code Est Pt Level 4 (24119) Diagnoses PAF (paroxysmal atrial fibrillation) I48.0 Congestive heart failure I50.9 Back pain M54.9 CPT Codes EKG - CPT: 25514-[id number], Complete ([id number]) Time Spent (min) 28 Comment Chart review, documentation, interview, assessment
[2023-05-07 14:10] VITALS: BP 122/70; PULSE 94; BMI 27.8
== END 2023-05-07 15:06 | disposition home or self-care (01) ==
PROVIDERS: PCP Internal Medicine; Referring Provider Internal Medicine; Visit Provider Nurse Practitioner Family
DX: I48.0 Paroxysmal atrial fibrillation (principal); I50.9 Heart failure, unspecified; M54.9 Dorsalgia, unspecified
CPT/HCPCS: 93010; 99214

== ENCOUNTER 2023-05-26 22:39 | Inpatient (IN) | payer MEDICARE, MEDICAID, SELFPAY ==
--- NOTE | ~2023-05-26 | CT_ITS ---
EXAMINATION: CT ABDOMEN AND PELVIS WITH CONTRAST CLINICAL INFORMATION: Abdominal pain COMPARISON: Previous CT of the abdomen and pelvis most recent 05/27/2023 TECHNIQUE: Multidetector volumetric images were obtained from the superior aspect of the liver through the pubic symphysis following administration 85 mL of Omnipaque 350 intravenous contrast. Sagittal and coronal reformatted images were obtained on the technologist's workstation. Oral contrast: Yes This CT examination was performed using dose optimization techniques as appropriate, variously including the following: *Automated exposure control *Adjustment of mA and/or kV according to patient size (this includes techniques or standardized protocols for targeted exams where dose is matched to indication/reason for exam; i.e. extremities or head) *Use of iterative reconstruction technique DLP: 600 mGy-cm FINDINGS: LUNG BASES: Increased peripheral interstitial markings at the lung bases questionable for interstitial lung disease. LIVER, GALLBLADDER, AND BILIARY TREE: The liver is normal in size, shape, and attenuation. No focal hepatic lesion. The gallbladder is upper normal in size. No gallstones are seen. There is no intrahepatic biliary duct dilatation. The common bile duct is slightly dilated measuring up to 1 cm in the head of the pancreas. No stone is seen. This is increased from 05/27/2023 exam. PANCREAS: Unremarkable. SPLEEN: Unremarkable. ADRENAL GLANDS: Unremarkable. KIDNEYS AND URETERS: The kidneys are normal in size, shape, and attenuation. No hydronephrosis, hydroureter, or calculi seen. No perinephric stranding. Multiple bilateral renal cysts. No imaging follow-up recommended. 1.3 x 1.6 cm low-attenuation lesion exophytic to the left lateral midpole. Hounsfield units postcontrast measure 70 axial image 34 series 3. This is not compatible with a simple cyst. Comparison with older exams for example April 2020 is represented a simple cyst and measured 2 cm. This may represent a complex involuting cyst. Solid renal lesion cannot be excluded and ultrasound follow-up recommended. BLADDER: Unremarkable. GASTROINTESTINAL TRACT: There are inflammatory changes of the fat just deep to the left anterior abdominal wall just to the left of midline. This is unchanged from 05/27/2023 exam. This is new from April 2020 exam. This may represent fat necrosis of the greater omentum. There are inflammatory changes seen in the right lower quadrant. There is a dilated tubular structure measuring 1.4 cm in diameter. This has a low-attenuation thickened wall. There is stranding of the adjacent fat for example axial image 59 series 3. Appearance is again questionable for appendicitis. There is mild wall thickening of the adjacent terminal ileum. It is uncertain whether this is reactive. Small and large bowel is otherwise normal. ABDOMINAL WALL: No significant hernia is appreciated. LYMPH NODES: Normal. VASCULAR: Atherosclerotic disease. No aneurysm. PELVIC VISCERA: The uterus appears to have been removed. There is a small amount of fluid in the right pelvis increased from previous exam. OSSEOUS STRUCTURES: Extensive postsurgical changes to the lumbar spine. There is posterior fusion hardware with rods and bilateral transpedicular screws at L1, L3 and L4. There are anterior disc cages at L4-L5 and L5-S1. There are degenerative changes of the spine and hip joints. CT/CT abdomen pelvis w IV con IMPRESSION: Inflammatory changes in the right lower quadrant. Appearance is again concerning for acute appendicitis. There is wall thickening of the adjacent terminal ileum and terminal ileitis is a consideration as well. Increasing small amount of fluid in the pelvis. Inflammatory changes of the fat just deep to the left lower anterior abdominal wall probably representing fat necrosis of the greater omentum. Upper normal-size gallbladder. Slightly dilated common bile duct measuring 1 cm. No stone seen by CT. 1.3 x 1.6 cm indeterminate low-attenuation lesion in the lateral mid left kidney. Differential would include a complex cyst and solid lesion. Complex cyst is favored as described above. Follow-up renal ultrasound recommended. Findings will be communicated by the [place] work flow model artists'. Fleischner guidelines were followed.
--- NOTE | ~2023-05-26 | CT_ITS ---
EXAMINATION: CT ABDOMEN AND PELVIS WITH CONTRAST CLINICAL INFORMATION: Abdominal pain. COMPARISON: None available. TECHNIQUE: Multidetector volumetric images were obtained from the superior aspect of the liver through the pubic symphysis following administration 85 mL of Omnipaque 350 intravenous contrast. Sagittal and coronal reformatted images were obtained on the technologist's workstation. Oral contrast: No This CT examination was performed using dose optimization techniques as appropriate, variously including the following: *Automated exposure control *Adjustment of mA and/or kV according to patient size (this includes techniques or standardized protocols for targeted exams where dose is matched to indication/reason for exam; i.e. extremities or head) *Use of iterative reconstruction technique DLP: 608 mGy-cm FINDINGS: LUNG BASES: The visualized lung bases are unremarkable. LIVER, GALLBLADDER, AND BILIARY TREE: The liver is irregular in contour. No focal liver lesions are seen. There is no intrahepatic biliary duct dilatation. The gallbladder is unremarkable with no evidence of radiopaque gallstones, gallbladder wall thickening, or obvious pericholecystic inflammatory changes. PANCREAS: Unremarkable. SPLEEN: Unremarkable. ADRENAL GLANDS: Unremarkable. KIDNEYS AND URETERS: The kidneys are normal in size, shape, and attenuation. No hydronephrosis, hydroureter, or calculi seen. No perinephric stranding. Bilateral renal cysts are noted measuring up to 3 cm mid pole right kidney. BLADDER: Unremarkable. GASTROINTESTINAL TRACT: There is a tubular structure arising from the expected location of the appendix measuring up to 1.2 cm extending to the level of the right ovary and abutting the right ovary with some infiltrative change in the region of the distal portion of the structure/right ovary. ABDOMINAL WALL: No significant hernia is appreciated. LYMPH NODES: Normal. VASCULAR: There is mild atherosclerotic plaque of the abdominal aorta and proximal branches. PELVIC VISCERA: Unremarkable. OSSEOUS STRUCTURES: There is again seen postoperative and degenerative change throughout the thoracolumbar spine. There is mild loss of height inferior endplate of T12 and superior endplate of L1. CT/CT abdomen pelvis w IV con IMPRESSION: There is a 1.2 cm structure arising from the expected location of the appendix extending to abut the right ovary with infiltrative change in the right lower quadrant. A normal appendix is not seen. Appendicitis is a consideration. Correlation is needed. Liver is slightly irregular in contour possibly hepatocellular disease. Mild endplate loss of height T12-L1 uncertain acuity. Fleischner guidelines were followed.
[2023-05-26 22:47] VITALS: BP 128/49; PULSE 91; RESP 18; TEMP 36; O2SAT 97; BMI 26.8
[2023-05-26 23:05] LABS: MANUAL DIFF FLAG NO
[2023-05-26 23:06] LABS: Basophils Absolute Auto 0.1 X10*3/uL (0.0-0.2); Basophils Percent Auto 0.5 % (0-2); Eosinophils Absolute Auto 0.2 X10*3/uL (0.0-0.4); Eosinophils Percent Auto 1.9 % (0-4); Hematocrit 39.7 % (37.0-47.0); Hemoglobin 13.5 g/dl (12.0-16.0); Imm Gran Abs Auto 0.03 X10*3/uL (0.00-0.03); Imm Gran Pct Auto 0.3 % (0.0-0.4); Lymphocytes Absolute Auto 2.6 X10*3/uL (1.2-4.9); Lymphocytes Percent Auto 24.3 % (20-40); Mean Corpuscular Hemoglobin 34.1 pg (27.0-33.0); Mean Corpuscular Volume 100.3 fL (80.0-98.0); Monocytes Absolute Auto 0.8 X10*3/uL (0.1-1.2); Monocytes Percent Auto 7.2 % (2-11); Neutrophils Absolute Auto 7.1 x10*3/uL (2.0-8.3); Neutrophils Percent Auto 65.8 % (45-73); Platelet Count 248 X10*3/uL (160-400); Red Blood Count 3.96 X10*6/uL (4.20-5.50); Red Cell Distribution Width 13.2 % (11.0-16.0); White Blood Count 10.8 X10*3/uL (4.8-10.8)
[2023-05-26 23:21] LABS: Alanine Aminotransferase 12 U/L (0-31); Albumin Level 3.5 g/dL (3.5-5.0); Alkaline Phosphatase 65 U/L (39-117); Anion Gap 13 (12-20); Aspartate Amino Transferase 18 U/L (5-31); Bilirubin Total 0.3 mg/dL (0.0-1.0); Blood Urea Nitrogen 9 mg/dL (9-16); Calcium 9.2 mg/dL (8.4-10.2); Carbon Dioxide 22 mmol/L (22-29); Chloride 107 mmol/L (96-108); Creatinine Clr Calc Pharmacy 87.1; Estimated Glomerular Filt Rate > 60; Glucose Random 143 mg/dL (60-115); Lipase 20 U/L (8-78); Potassium 4.1 mmol/L (3.3-5.1); Sodium 138 mmol/L (135-145); Total Protein 7.3 g/dL (6.5-8.0)
--- NOTE | 2023-05-26 23:34 | MHC.EDTECH ---
PATIENT SAID SHE IS UNABLE TO GIVE URINE SAMPLE AT THIS TIME .
[2023-05-26 23:50] VITALS: BP 138/61; PULSE 90; RESP 16; O2SAT 98
--- NOTE | 2023-05-26 23:56 | PC.NURSE ---
Assumed care of patient at 2345, patient resting on stretcher, reporting increased abdominal pain since [place] after having a bowel movement. Pt reporting that the pain is diffuse across the abdomen and is tender to the touch. Bowel sounds auscultated in all four quadrants, soft and tender.
[2023-05-27] VITALS (9 sets, daily range): BP systolic 111–132; BP diastolic 45–71; PULSE 72–97; RESP 16–20; TEMP 35.7–37.6; O2SAT 92–98
--- NOTE | 2023-05-27 00:40 | ED_ITS ---
HPI - Abdominal Pain General Chief Complaint: Abdominal Pain Stated Complaint: abd pain Time Seen by Provider: 05/27/23 00:33 History of Present Illness HPI narrative: Patient is a 58-year-old female with a history of diabetes, history of atrial fibrillation currently on Xarelto. Presented today with having constipation abdominal pain generalized malaise. Patient from home. No fever no chills. No chest pain or shortness of breath no diaphoresis. She is from home. No history of abdominal surgery in the past. Related Data Home Medications Medication Instructions Recorded Confirmed albuterol sulfate 90 mcg/actuation 0 mcg inhalation 12/12/20 05/07/23 aerosol inhaler bupropion HCl 300 mg 24 hr tablet, 300 mg PO DAILY 12/12/20 05/07/23 extended release citalopram 40 mg tablet 40 mg PO DAILY 12/12/20 05/07/23 colestipol 1 gram tablet 1 g PO TID 12/12/20 05/07/23 famotidine 20 mg tablet 20 mg PO BID 12/12/20 05/07/23 fluticasone furoate 200 1 ea PO DAILY 12/12/20 05/07/23 mcg-vilanterol 25 mcg/dose inhalation powder levothyroxine 100 mcg tablet 100 mcg PO DAILY 12/12/20 05/07/23 lorazepam 1 mg tablet 1 mg PO TID PRN anxiety 12/12/20 05/07/23 trazodone 50 mg tablet 150 mg PO BEDTIME 12/12/20 05/07/23 potassium chloride 10 mEq 20 meq PO DAILY 03/08/21 05/07/23 capsule,extended release cyclobenzaprine 10 mg tablet 10 mg PO BID PRN muscle spasm 05/16/22 05/07/23 oxycodone 10 mg tablet 10 mg PO 05/16/22 05/07/23 blood sugar diagnostic ([employer] [facility] ea 06/11/22 05/07/23 Verio test strips) insulin glargine 100 unit/mL (3 unit subcut 06/11/22 05/07/23 mL) subcutaneous pen (Lantus Solostar U-100 Insulin) ipratropium 0.5 mg-albuterol 3 mg ml inhalation 06/11/22 05/07/23 (2.5 mg base)/3 mL nebulization soln lancets 30 gauge (Carluch Delica #100 ea 06/11/22 05/07/23 Plus Lancet) rivaroxaban 20 mg tablet (Xarelto) 20 mg PO QPM 05/07/23 05/07/23 Previous Rx's Medication Instructions Recorded furosemide 40 mg tablet 40 mg PO DAILY 90 days #110 tabs 09/07/21 lidocaine 5 % topical patch 1 patch topical DAILY #15 ea 11/09/21 atenolol 50 mg tablet 50 mg PO BID 90 days #180 tabs 04/29/23 flecainide 100 mg tablet 100 mg PO Q12H 90 days #180 tabs 04/29/23 Allergies Allergy/AdvReac Type Severity Reaction Status Date / Time amoxicillin [From AUGMENTIN] Allergy Mild SWELLING Verified 05/26/23 22:47 clavulanic acid Allergy Mild SWELLING Verified 05/26/23 22:47 [From AUGMENTIN] etodolac [From LODINE] Allergy Mild SWELLING Verified 05/26/23 22:47 gabapentin [GABAPENTIN] Allergy Mild SWELLING Verified 05/26/23 22:47 pregabalin [From LYRICA] Allergy Mild SWELLING Verified 05/26/23 22:47 clarithromycin [From Biaxin] Allergy Unknown ANGIOEDEMA Verified 05/26/23 22:47 Penicillins Allergy Unknown UNKNOWN Verified 05/26/23 22:47 sulfamethoxazole Allergy Unknown ANAPHYLAXIS Verified 05/26/23 22:47 [From Bactrim] fluticasone AdvReac Mild MUSCLE PAIN Verified 05/26/23 22:47 [From FLOVENT DISKUS] Review of Systems Review of Systems Positive abdominal pain Yes all other systems are reviewed and are negative PMFSH Past Medical History Attestation statement: The following information was validated with the patient. Medical History Depression Thyroid disease COPD (chronic obstructive pulmonary disease) Congestive heart failure Diabetes PAF (paroxysmal atrial fibrillation) Surgical History History of back surgery History of radiofrequency ablation (RFA) procedure for cardiac arrhythmia Family History Family History Father No problems noted. Mother CVD (cardiovascular disease) Social History Social History Alcohol intake: never Patient Tobacco Use Status: Current everyday Tobacco user Cigarettes Per Day: 10 Smoked in Last 30 Days: Yes Use of substances other than those prescribed or required for medical reasons: No Advance Directives: No Advance Directives Information Provided: Yes Patient : No Current occupational status: disabled Physical Exam ED Vital Signs: Vital Signs - 24 hr 05/26/23 22:47 05/26/23 23:50 05/27/23 01:39 Temperature 96.8 F Pulse Rate 91 90 93 Respiratory Rate 18 16 20 Blood Pressure 128/49 L 138/61 124/51 L Pulse Oximetry 97 98 94 Oxygen Delivery Method Room Air Room Air Room Air 05/27/23 02:10 Temperature Pulse Rate 79 Respiratory Rate 18 Blood Pressure 128/60 Pulse Oximetry 97 Oxygen Delivery Method Room Air BMI result Body Mass Index 26.8 Appearance: Alert. Oriented X3. No acute distress. Eyes: Pupils equal, round and reactive to light. ENT: Pharynx normal. Neck: Normal inspection. Neck supple. No lymph nodes noted. No crepitus CVS: Normal heart rate and rhythm. Pulses normal. Normal S1 and S2 Respiratory: No respiratory distress. Breath sounds normal. No Wheezing. No rales Abdomen: Soft and nontender. No rigidity. No distention. good BS x4 Skin: Skin warm and dry. Normal skin color. Normal skin turgor. Extremities: No lower extremity edema. Neurovascular intact to all extremities. No Lacerations. No Rash Neuro: Oriented X 3. No motor deficit. No sensory deficit. Moving all extermities. No slurred speech Medical Decision Making Medical Decision Making [facility] Narrative: Positive abdominal pain. History of paroxysmal AFib. Currently on Xarelto. Patient's pain is diffuse. White count is normal at 10. No signs of anemia. Patient's LFT are normal. Lipase is normal. Less likely biliary in origin. No evidence for pancreatitis. CT scan of the abdomen is currently pending. Differential Diagnosis Gastritis, diverticulitis, appendicitis, obstruction, abscess, abdominal aortic aneurysm Lab Data [facility] Lab Attestation statement: I reviewed the patient's lab results. 05/26/23 23:00 05/26/23 23:01 Labs: Lab Results 05/26/23 05/26/23 Range/Units 23:00 23:01 WBC 10.8 (4.8-10.8) X10*3/uL RBC 3.96 L (4.20-5.50) X10*6/uL Hgb 13.5 (12.0-16.0) g/dl Hct 39.7 (37.0-47.0) % MCV 100.3 H (80.0-98.0) fL MCH 34.1 H (27.0-33.0) pg MCHC 34.0 (31.0-35.0) g/dl RDW 13.2 (11.0-16.0) % Plt Count 248 (160-400) X10*3/uL MPV 10.0 (9.4-12.3) fL Immature Gran % (Auto) 0.3 (0.0-0.4) % Neut % (Auto) 65.8 (45-73) % Lymph % (Auto) 24.3 (20-40) % [place] % (Auto) 7.2 (2-11) % Eos % (Auto) 1.9 (0-4) % Baso % (Auto) 0.5 (0-2) % Lymph # (Auto) 2.6 (1.2-4.9) X10*3/uL [place] # (Auto) 0.8 (0.1-1.2) X10*3/uL Eos # (Auto) 0.2 (0.0-0.4) X10*3/uL Baso # (Auto) 0.1 (0.0-0.2) X10*3/uL Abs Immat Gran (auto) 0.03 (0.00-0.03) X10*3/uL Absolute Neuts (auto) 7.1 (2.0-8.3) x10*3/uL Absolute Nucleated RBC 0.000 (0.0-0.012) X10*3/uL Nucleated RBC % (auto) 0.0 (0.0-0.2) /100WBC Sodium 138 (135-145) mmol/L Potassium 4.1 (3.3-5.1) mmol/L Chloride 107 (96-108) mmol/L Carbon Dioxide 22 (22-29) mmol/L Anion Gap 13 (12-20) BUN 9 (9-16) mg/dL Creatinine 0.73 (0.5-1.4) mg/dL Estim Creat Clear Calc 87.1 Estimated GFR > 60 Random Glucose 143 H (60-115) mg/dL Calcium 9.2 (8.4-10.2) mg/dL Total Bilirubin 0.3 (0.0-1.0) mg/dL AST 18 (5-31) U/L ALT 12 (0-31) U/L Alkaline Phosphatase 65 (39-117) U/L Total Protein 7.3 (6.5-8.0) g/dL Albumin 3.5 (3.5-5.0) g/dL Lipase 20 (8-78) U/L External Record Review External record reviewed: Office record Cardiology records reviewed Medications Administered Discontinued Medications Generic Name Dose Route Start Last Admin Trade Name Freq PRN Reason Stop Dose Admin Hydromorphone HCl 0.5 mg 05/27/23 00:39 05/27/23 01:05 Hydromorphone Hcl 0.5 Mg/0.5 Ml Syringe IVPUSH 05/27/23 00:40 0.5 mg ONCE ONE Administration Protocol Hydromorphone HCl 0.5 mg 05/27/23 02:03 05/27/23 02:05 Hydromorphone Hcl 0.5 Mg/0.5 Ml Syringe IVPUSH 05/27/23 02:04 0.5 mg ONCE ONE Administration Protocol Sodium Chloride 1,000 mls @ 999 mls/hr 05/27/23 00:45 05/27/23 02:11 Ns IV 05/27/23 01:45 Infused .Q1H1M MARINO Infusion Iohexol 85 ml 05/27/23 01:43 05/27/23 01:44 Iohexol 350 Mg/Ml 100 Ml Infus..Btl IV 05/27/23 01:44 85 ml ONCE ONE Administration Ondansetron HCl 4 mg 05/27/23 00:39 05/27/23 01:05 Ondansetron Hcl 4 Mg/2 Ml Vial IVPUSH 05/27/23 00:40 4 mg ONCE ONE Administration Discharge Plan Discharge Clinical Impression: PAF (paroxysmal atrial fibrillation), Abdominal pain Patient Disposition: Still a Patient Prescriptions: No Action furosemide 40 mg tablet 40 mg PO DAILY 90 Days Qty: 110 3RF Rx Instructions: take 1 day, additional tablet if needed for shortness of breath, swelling atenolol 50 mg tablet 50 mg PO BID 90 Days Qty: 180 3RF flecainide 100 mg tablet 100 mg PO Q12H 90 Days Qty: 180 3RF lidocaine 5 % adhesive patch,medicated 1 patch topical DAILY Qty: 15 0RF Rx Instructions: leave on most painful area for up to 12 hrs famotidine 20 mg tablet 20 mg PO BID Breo Ellipta 200-25 mcg/dose blister with device 1 ea PO DAILY bupropion HCl 300 mg tablet extended release 24 hr 300 mg PO DAILY citalopram 40 mg tablet 40 mg PO DAILY colestipol 1 gram tablet 1 g PO TID lorazepam 1 mg tablet 1 mg PO TID PRN (Reason: anxiety) albuterol sulfate 90 mcg/actuation HFA aerosol inhaler 0 mcg inhalation levothyroxine 100 mcg tablet 100 mcg PO DAILY trazodone 50 mg tablet 150 mg PO BEDTIME oxycodone 10 mg tablet 10 mg PO potassium chloride 10 mEq capsule, extended release 20 meq PO DAILY cyclobenzaprine 10 mg tablet 10 mg PO BID PRN (Reason: muscle spasm) insulin glargine [Lantus Solostar U-100 Insulin] 100 unit/mL (3 mL) insulin pen subcut (DME) OneTouch Verio test strips Strip See Rx Instructions .ROUTE TID Qty: 10 Rx Instructions: As directed (DME) lancets [OneTouch Delica Plus Lancet] 30 gauge misc See Rx Instructions .ROUTE QID Qty: 100 Rx Instructions: As directed ipratropium-albuterol 0.5 mg-3 mg(2.5 mg base)/3 mL solution for nebulization inhalation Xarelto 20 mg tablet 20 mg PO QPM
[2023-05-27] MEDS: HYDROmorphone HCl 0.5 MG/0.5 ML SYRINGE IVPUSH ×2 (01:05→02:05)
[2023-05-27] MEDS: ondansetron HCL 4 MG/2 ML VIAL IVPUSH ×2 (01:05→17:12)
[2023-05-27] MEDS: 0.9 % Sodium Chloride 1,000 ML 999 ML IV ×2 (01:06→05:15)
--- NOTE | 2023-05-27 01:09 | PC.NURSE ---
20g IV placed in LFA, medications administered per MAR
[2023-05-27] MEDS: iohexoL 350 MG/ML 100 ML INFUS..BTL 85 ML IV (01:44)
--- NOTE | 2023-05-27 02:10 | PC.NURSE ---
pt ambulating to bathroom with steady gait, respirations even and unlabored, no apparent distress at this time. Providing us with urine sample
[2023-05-27 02:28] LABS: Appearance Urine Clear; Color Urine Yellow; Glucose Urine UA Negative (Negative); Leukocyte Esterase Urine Negative (Negative); Nitrite Urine Negative (Negative); Specific Gravity - Urine >= 1.030 (1.005-1.025); Urine Blood Negative (Negative); Urine Ketones Negative (Negative); Urine Protein Negative (Neg-Trace)
--- NOTE | 2023-05-27 03:11 | PC.NURSE ---
patient reports decreased pain at this time, ambulating independently to bathroom with no issues
[2023-05-27] MEDS: Morphine Sulfate 4 MG/ML CARTRIDGE IVPUSH ×5 (04:26→23:43)
[2023-05-27 04:33] LABS: C Reactive Protein 8.25 mg/dL (< or = 0.50)
[2023-05-27 04:39] LABS: Glucose, Whole Blood 88 mg/dL (60-115)
--- NOTE | 2023-05-27 04:42 | PC.NURSE ---
pt medicated per NOV for pain, patient reports feeling like her blood glucose is low, this RN took it and resulted 88 MD aware
[2023-05-27] MEDS: levoFLOXacin/D5W 500 MG/100 ML PIGGYBACK 100 MG IV (05:15)
[2023-05-27] MEDS: 0.9 % Sodium Chloride 1,000 ML 125 ML IVCONT ×3 (05:19→20:25)
[2023-05-27 05:23] LABS: Lactic Acid 1.2 mmol/L (0.5-2.0)
[2023-05-27] MEDS: metroNIDAZOLE/NS 500 MG/100 ML PIGGYBACK 100 MG IV ×3 (06:21→22:54)
[2023-05-27] MEDS: Morphine Sulfate 4 MG/ML CARTRIDGE 3 MG IVPUSH ×2 (06:24→10:15)
[2023-05-27 07:42] LABS: Glucose, Whole Blood 103 mg/dL (60-115)
--- NOTE | 2023-05-27 08:07 | P.HPGS_ITS ---
History of Present Illness History of Present Illness Date of Service: 06/05/23 Chief complaint: abd pain Narrative: Debra Gaines is a 58 year old female with multiple medical problems including DM, SLE, CHF, atrial fibrillation on anticoagulation, admitted early this morning for abdominal pain. She says this started which is about 4 days ago. She describes this as diffuse and crampy. She actually points to the left side as where this seems to be worse. She says she had bowel movements on Saturday and she thought that the pain was worse after her BMs. She says she has had low grade fevers up to 100.2 at home. She had a little bit iof nausea without vomitting. She had good BMs yesterday. She says in view of the persistence of pain, she came to the ED last night. She has been on oxycodone for a long time in view of her chronic back pain. As per Cardiology notes, her EF was 60% last year. She denies diarrhea but admits to some constipation. She ambulates with a cane. Review of Systems Constitutional: Constitutional: Denies chills and Reports fever(s) (low grade temp) Cardiovascular: Cardiovascular: Denies chest pain, Denies dyspnea and Denies dyspnea on exertion Respiratory: Respiratory: Denies cough, Denies dyspnea and Denies dyspnea on exertion Gastrointestinal: Gastrointestinal: Denies hematochezia and Denies change in bowel habits Genitourinary: Genitourinary: Denies hematuria Musculoskeletal: Musculoskeletal: Reports back pain, Reports myalgias and Denies limited range of motion Neurologic: Denies focal weakness and Denies convulsions Psychiatric: Psychiatric: Denies depression and Denies mood swings PENDING SALE TO [facility] Past Medical History Medical History (Updated 06/03/23 @ 12:13 by Roosevelt Olsen MD) Abdominal pain SLE (systemic lupus erythematosus) Depression Thyroid disease COPD (chronic obstructive pulmonary disease) Congestive heart failure Diabetes PAF (paroxysmal atrial fibrillation) Family History Family History Father No problems noted. Mother CVD (cardiovascular disease) Surgical History Surgical History History of back surgery History of radiofrequency ablation (RFA) procedure for cardiac arrhythmia Social History Social History Household Members: Family Housing: House Do you presently have visiting nurse or other home services: No Alcohol intake: never Patient Tobacco Use Status: Current everyday Tobacco user Cigarette Packs Per Day: 1 Cigarettes Per Day: 20.0 Smoked in Last 30 Days: Yes Use of substances other than those prescribed or required for medical reasons: No Currently Displaying Signs/Symptoms of Drug Intoxication Withdrawal: No Have you been hit, kicked, punched, or otherwise hurt by someone within the past year? If so, by whom?: No Do you feel safe in your current relationship?: Yes Is there a partner from a previous relationship who is making you feel unsafe now?: No Are you made to feel afraid or neglected: No Advance Directives: Yes Advance Directives on File: Yes Advance Directives Date on File: 05/27/23 Do you have thoughts of harming others: None Do you have a plan to hurt others: No Plan Recently lost weight without trying: No Nutrition Risks: Difficulty chewing Patient : No : No Poor oral hygiene: No service: No Current occupational status: disabled Meds Allergies Allergy/AdvReac Type Severity Reaction Status Date / Time amoxicillin [From AUGMENTIN] Allergy Mild SWELLING Verified 05/26/23 22:47 clavulanic acid Allergy Mild SWELLING Verified 05/26/23 22:47 [From AUGMENTIN] etodolac [From LODINE] Allergy Mild SWELLING Verified 05/26/23 22:47 gabapentin [GABAPENTIN] Allergy Mild SWELLING Verified 05/26/23 22:47 pregabalin [From LYRICA] Allergy Mild SWELLING Verified 05/26/23 22:47 clarithromycin [From Biaxin] Allergy Unknown ANGIOEDEMA Verified 05/26/23 22:47 Penicillins Allergy Unknown UNKNOWN Verified 05/26/23 22:47 sulfamethoxazole Allergy Unknown ANAPHYLAXIS Verified 05/26/23 22:47 [From Bactrim] piperacillin [From Zosyn] Allergy Itching Verified 05/27/23 05:06 tazobactam [From Zosyn] Allergy Itching Verified 05/27/23 05:06 fluticasone AdvReac Mild MUSCLE PAIN Verified 05/26/23 22:47 [From FLOVENT DISKUS] Active Medications: Current Medications Sodium Chloride (Ns) 1,000 mls @ 125 mls/hr IVCONT .Q8H MARINO Last Admin: 05/27/23 05:19 Dose: 125 mls/hr Levofloxacin (Levaquin) 500 mg in 100 mls @ 100 mls/hr IV Q24H MARINO Metronidazole (Flagyl) 500 mg in 100 mls @ 100 mls/hr IV Q8H MARINO Morphine Sulfate (Morphine Sulfate 4 Mg/Ml Cartridge) 3 mg IVPUSH Q4H PRN; Protocol PRN Reason: Pain, Severe (Pain Scale 7-10) Last Admin: 05/27/23 06:24 Dose: 3 mg Sodium Chloride (0.9 % Sodium Chloride Flush 3 Ml Syringe) 3 ml IVFLUSH QSHIFT MARINO Last Admin: 05/27/23 07:29 Dose: Not Given Home Medications Medication Instructions Recorded Confirmed Last Taken Type bupropion HCl 300 mg 24 hr tablet, 300 mg PO DAILY 12/12/20 06/02/23 05/25/23 History extended release citalopram 40 mg tablet 40 mg PO DAILY 12/12/20 06/02/23 05/25/23 History famotidine 20 mg tablet 20 mg PO BID 12/12/20 06/02/23 05/25/23 History levothyroxine 100 mcg tablet 100 mcg PO DAILY 12/12/20 06/02/23 05/26/23 History lorazepam 1 mg tablet 1 mg PO TID PRN anxiety 12/12/20 06/02/23 Unknown History trazodone 50 mg tablet 150 mg PO BEDTIME 12/12/20 06/02/23 05/25/23 History cyclobenzaprine 10 mg tablet 20 mg PO BEDTIME PRN muscle spasm 05/16/22 06/02/23 05/25/23 History oxycodone 10 mg tablet 10 mg PO Q4H PRN Pain, Moderate 05/16/22 06/02/23 Unknown History blood sugar diagnostic ([employer] #10 ea 06/11/22 06/02/23 Unknown History Verio test strips) insulin glargine 100 unit/mL (3 26 unit subcut BID 06/11/22 06/02/23 05/26/23 History mL) subcutaneous pen (Lantus Solostar U-100 Insulin) lancets 30 gauge ([employer]ingoTouch Keith #100 ea 06/11/22 06/02/23 Unknown History Plus Lancet) rivaroxaban 20 mg tablet (Xarelto) 20 mg PO DAILY@1700 05/07/23 06/02/23 05/25/23 History acetaminophen 325 mg tablet 975 mg PO TID 05/27/23 06/02/23 Unknown History albuterol sulfate 90 mcg/actuation 1 puff inhalation QID PRN wheezing 05/27/23 06/02/23 05/26/23 History aerosol inhaler colestipol 1 gram tablet 1 g PO TID 05/27/23 06/02/23 Unknown History dulaglutide 0.75 mg/0.5 mL 0.75 mg subcut WHITE 05/27/23 06/02/23 05/26/23 History subcutaneous pen injector (Trulicity) fluticasone fur. 100 mcg-umeclid 1 ea inhalation DAILY 05/27/23 06/02/23 Unknown History 62.5 mcg-vilant 25 mcg inhalat.powder (Trelegy Ellipta) hydroxychloroquine 200 mg tablet 200 mg PO BID 05/27/23 06/02/23 Unknown History insulin lispro 100 unit/mL 1 sliding scale dose subcut 05/27/23 06/02/23 Unknown History subcutaneous solution (Humalog USEASDIRECTD U-100 Insulin) potassium chloride 10 mEq 20 meq PO DAILY 05/27/23 06/02/23 Unknown History capsule,extended release Physical Exam Vital Signs: Vital Signs: Last Vital Signs Temp 99.6 F 05/27/23 06:19 Pulse 94 05/27/23 06:19 Resp 17 05/27/23 06:19 BP 122/45 L 05/27/23 06:19 Pulse Ox 98 05/27/23 06:19 O2 Del Method Room Air 05/27/23 06:19 BMI result Body Mass Index 26.8 Const: General: comfortable and no acute distress Orientation/cons ciousness: patient oriented x3 Neck: Neck: Yes no lymphadenopathy Resp: Auscultation: clear to auscultation bilaterally Cardio: Rhythm: regular rhythm GI: Other: mild tenderness diffusely, mostly on left side Palpation (GI): Soft to palpation, Tenderness to palpation present (GI), no guarding and not rigid Neuro: General: patient oriented x3 Results Results Labs: Short CBC 05/26/23 Range/Units 23:00 WBC 10.8 (4.8-10.8) X10*3/uL Hgb 13.5 (12.0-16.0) g/dl Hct 39.7 (37.0-47.0) % Plt Count 248 (160-400) X10*3/uL BMP 05/26/23 23:01 Sodium 138 Potassium 4.1 Chloride 107 Carbon Dioxide 22 BUN 9 Creatinine 0.73 Calcium 9.2 Liver Function 05/26/23 Range/Units 23:01 Total Bilirubin 0.3 (0.0-1.0) mg/dL AST 18 (5-31) U/L ALT 12 (0-31) U/L Alkaline Phosphatase 65 (39-117) U/L Albumin 3.5 (3.5-5.0) g/dL Urine 05/27/23 Range/Units 02:16 Urine Color Yellow Urine Appearance Clear Urine pH 6.0 (5.0-9.0) Ur Specific [place] >= 1.030 H (1.005-1.025) Urine Protein Negative (Neg-Trace) mg/dL Urine Glucose (UA) Negative (Negative) mg/dL Assessment and Plan (1) Abdominal pain: Status: Acute Her overall clinical presentation is atypical for acute appendicitis. Her pain and tenderness is mostly on the left side. Her last intake of Xarelto was Saturday night. We will keep holding this. We will continue with IV abx for now and serial abdominal exam. She is currently on Levaquin and Flagyl. Her exam is otherwise very benign. I am going to review her CT scan with the radiologist. We will have the Hospitalist consulted as well in view of her multiple medical problems. She has otherwise been stable and does to be clinically septic. She apparently had a colonoscopy about 4 years ago with multiple tubular adenomas removed from the transverse colon. Time Spent With Patient Time: Total time managing care of this patient today ____ minutes. Quality Stroke Does the patient have a stroke diagnosis?: No VTE Prior VTE?: No VTE Risk Level:: Surgical - low VTE Device Contraindication: N/A - Device Ordered VTE Drug Contraindication: Treatment Not Indicated Procedures Date of Service Date of Service: 06/05/23
--- NOTE | 2023-05-27 08:47 | PHA.MEDREC ---
Pharmacy Consult ? Medication Reconciliation Pharmacy has completed the medication reconciliation. Spoke with patient at bedside. Says she is still taking colestipol TID however has not been filled since 12/06; also states takes a sliding scale humalog PRN but not in claim history. Patient states she gets some medications from [facility] pharmacy, however when I called they stated they have not filled anything for her since 2016.
--- NOTE | 2023-05-27 09:06 | PC.NURSE ---
patient resting in bed, states she has a headache, reached out to admitting provider for pain control. resp equal and unlabored.
[2023-05-27] MEDS: Acetaminophen 325 MG TABLET 650 MG PO ×2 (10:14→16:49)
--- NOTE | 2023-05-27 10:18 | PC.NURSE ---
medicated for 8/10 abd pain and headache.
[2023-05-27 11:17] LABS: Glucose, Whole Blood 109 mg/dL (60-115)
--- NOTE | 2023-05-27 14:59 | PC.NURSE ---
Pt c/o bilateral Jaw Pain, MD notified.
--- NOTE | 2023-05-27 16:11 | P.CONHOSP_ITS ---
History of Present Illness Data of Consult Service Date: 05/27/23 Primary Care Provider: Renetta Chew MD HPI 50-year-old woman with history of diabetes mellitus, congestive heart failure, atrial fibrillation admitted by general surgery to with abdominal, diffuse and crampy pain. She was diagnosed with acute appendicitis. She was started on IV antibiotics and will be monitored as she last had her Xarelto on Saturday night. Her vital signs are stable, labs within acceptable limits. Review of Systems 2 Review of Systems: Denies any recent fever chills or decrease in appetite respiratory denies any shortness of breath coverage production cardiovascular denies chest pain gastrointestinal see HPI genitourinary denies any dysuria frequency or hematuria musculoskeletal denies any joint pain or swelling neuropsych denies any weakness or seizures all other systems reviewed are negative [facility] Medical History (Updated 05/27/23 @ 08:14 by Favian Ramirez MD) Abdominal pain SLE (systemic lupus erythematosus) Depression Thyroid disease COPD (chronic obstructive pulmonary disease) Congestive heart failure Diabetes PAF (paroxysmal atrial fibrillation) Family History Father No problems noted. Mother CVD (cardiovascular disease) Surgical History History of back surgery History of radiofrequency ablation (RFA) procedure for cardiac arrhythmia Social History Household Members: Family Housing: House Do you presently have visiting nurse or other home services: No Alcohol intake: never Patient Tobacco Use Status: Current everyday Tobacco user Cigarette Packs Per Day: 1 Cigarettes Per Day: 20.0 Smoked in Last 30 Days: Yes Use of substances other than those prescribed or required for medical reasons: No Currently Displaying Signs/Symptoms of Drug Intoxication Withdrawal: No Have you been hit, kicked, punched, or otherwise hurt by someone within the past year? If so, by whom?: No Do you feel safe in your current relationship?: Yes Is there a partner from a previous relationship who is making you feel unsafe now?: No Are you made to feel afraid or neglected: No Advance Directives: Yes Advance Directives on File: Yes Advance Directives Date on File: 05/27/23 Do you have thoughts of harming others: None Do you have a plan to hurt others: No Plan Recently lost weight without trying: No How much weight loss: Not applicable Eating poorly because of decreased appetite: No Nutrition screen score: 0 Nutrition Risks: No Nutritional Risk Patient : No : No Poor oral hygiene: No service: No Current occupational status: disabled Meds Allergies Allergy/AdvReac Type Severity Reaction Status Date / Time amoxicillin [From AUGMENTIN] Allergy Mild SWELLING Verified 05/26/23 22:47 clavulanic acid Allergy Mild SWELLING Verified 05/26/23 22:47 [From AUGMENTIN] etodolac [From LODINE] Allergy Mild SWELLING Verified 05/26/23 22:47 gabapentin [GABAPENTIN] Allergy Mild SWELLING Verified 05/26/23 22:47 pregabalin [From LYRICA] Allergy Mild SWELLING Verified 05/26/23 22:47 clarithromycin [From Biaxin] Allergy Unknown ANGIOEDEMA Verified 05/26/23 22:47 Penicillins Allergy Unknown UNKNOWN Verified 05/26/23 22:47 sulfamethoxazole Allergy Unknown ANAPHYLAXIS Verified 05/26/23 22:47 [From Bactrim] piperacillin [From Zosyn] Allergy Itching Verified 05/27/23 05:06 tazobactam [From Zosyn] Allergy Itching Verified 05/27/23 05:06 fluticasone AdvReac Mild MUSCLE PAIN Verified 05/26/23 22:47 [From FLOVENT DISKUS] Active Medications: Current Medications Acetaminophen (Acetaminophen 325 Mg Tablet) 650 mg PO Q6H PRN PRN Reason: Headache Last Admin: 05/27/23 10:14 Dose: 650 mg Sodium Chloride (Ns) 1,000 mls @ 125 mls/hr IVCONT .Q8H MARINO Last Admin: 05/27/23 12:28 Dose: 125 mls/hr Levofloxacin (Levaquin) 500 mg in 100 mls @ 100 mls/hr IV Q24H MARINO Metronidazole (Flagyl) 500 mg in 100 mls @ 100 mls/hr IV Q8H MARINO Last Infusion: 05/27/23 14:38 Dose: Infused Morphine Sulfate (Morphine Sulfate 4 Mg/Ml Cartridge) 4 mg IVPUSH Q3H PRN; Protocol PRN Reason: Pain, Severe (Pain Scale 7-10) Last Admin: 05/27/23 13:15 Dose: 4 mg Sodium Chloride (0.9 % Sodium Chloride Flush 3 Ml Syringe) 3 ml IVFLUSH QSHIFT REPLACED BY [facility] Last Admin: 05/27/23 13:06 Dose: Not Given Home Medications Medication Instructions Recorded Confirmed Last Taken Type bupropion HCl 300 mg 24 hr tablet, 300 mg PO DAILY 12/12/20 05/27/23 05/25/23 History extended release citalopram 40 mg tablet 40 mg PO DAILY 12/12/20 05/27/23 05/25/23 History famotidine 20 mg tablet 20 mg PO BID 12/12/20 05/27/23 05/25/23 History levothyroxine 100 mcg tablet 100 mcg PO DAILY 12/12/20 05/27/23 05/26/23 History lorazepam 1 mg tablet 1 mg PO TID PRN anxiety 12/12/20 05/27/23 Unknown History trazodone 50 mg tablet 150 mg PO BEDTIME 12/12/20 05/27/23 05/25/23 History cyclobenzaprine 10 mg tablet 20 mg PO BEDTIME PRN muscle spasm 05/16/22 05/27/23 05/25/23 History oxycodone 10 mg tablet 10 mg PO Q4H PRN Pain, Moderate 05/16/22 05/27/23 Unknown History blood sugar diagnostic (GenSight BiologicsTouch #10 ea 06/11/22 05/07/23 Unknown History Verio test strips) insulin glargine 100 unit/mL (3 26 unit subcut BID 06/11/22 05/27/23 05/26/23 History mL) subcutaneous pen (Lantus Solostar U-100 Insulin) lancets 30 gauge ([employer]Sight BiologicsTouch Delica #100 ea 06/11/22 05/07/23 Unknown History Plus Lancet) rivaroxaban 20 mg tablet (Xarelto) 20 mg PO DAILY@1700 05/07/23 05/27/23 05/25/23 History acetaminophen 325 mg tablet 975 mg PO TID 05/27/23 05/27/23 Unknown History albuterol sulfate 90 mcg/actuation 1 puff inhalation QID PRN wheezing 05/27/23 05/27/23 05/26/23 History aerosol inhaler colestipol 1 gram tablet 1 g PO TID 05/27/23 05/27/23 Unknown History dulaglutide 0.75 mg/0.5 mL 0.75 mg subcut WHITE 05/27/23 05/27/23 05/26/23 History subcutaneous pen injector (Trulicity) fluticasone fur. 100 mcg-umeclid 1 ea inhalation DAILY 05/27/23 05/27/23 Unknown History 62.5 mcg-vilant 25 mcg inhalat.powder (Trelegy Ellipta) hydroxychloroquine 200 mg tablet 200 mg PO BID 05/27/23 05/27/23 Unknown History insulin lispro 100 unit/mL 1 sliding scale dose subcut 05/27/23 05/27/23 Unknown History subcutaneous solution (Humalog USEASDIRECTD U-100 Insulin) potassium chloride 10 mEq 20 meq PO DAILY 05/27/23 05/27/23 Unknown History capsule,extended release Physical Exam 2 Vital Signs and Narrative: Vital Signs: Last Vital Signs Temp 96.3 F L 05/27/23 15:24 Pulse 92 05/27/23 15:24 Resp 18 05/27/23 15:24 BP 111/54 L 05/27/23 15:24 Pulse Ox 93 05/27/23 15:24 O2 Del Method Room Air 05/27/23 15:24 BMI result Body Mass Index 26.8 Appearing in no acute distress head is normocephalic atraumatic eyes pupils are PERRLA sclera is anicteric mouth throat mucous membranes are intact and moist neck is supple no lymphadenopathy, no JVD noted lung sounds are clear to auscultation heart regular rate rhythm, clear S1, S2 positive bowel sounds, abdomen is soft, nontender neuro patient is alert x3, no focal deficits Results Labs 05/28/23 05:23 05/28/23 05:23 Labs: Laboratory Results - last 24 hr 05/26/23 05/26/23 05/27/23 23:00 23:01 02:16 MCV 100.3 H MCH 34.1 H MCHC 34.0 RDW 13.2 Plt Count 248 MPV 10.0 Immature Gran % (Auto) 0.3 Neut % (Auto) 65.8 Lymph % (Auto) 24.3 Loup % (Auto) 7.2 Eos % (Auto) 1.9 Baso % (Auto) 0.5 Lymph # (Auto) 2.6 [place]oup # (Auto) 0.8 Eos # (Auto) 0.2 Baso # (Auto) 0.1 Abs Immat Gran (auto) 0.03 Absolute Neuts (auto) 7.1 Absolute Nucleated RBC 0.000 Nucleated RBC % (auto) 0.0 Anion Gap 13 Estim Creat Clear Calc 87.1 Estimated GFR > 60 POC Glucose Random Glucose 143 H Lactic Acid Calcium 9.2 Total Bilirubin 0.3 AST 18 ALT 12 Alkaline Phosphatase 65 C-Reactive Protein 8.25 H Total Protein 7.3 Albumin 3.5 Lipase 20 Urine Color Yellow Urine Appearance Clear Urine pH 6.0 Ur Specific Dale >= 1.030 H Urine Protein Negative Urine Glucose (UA) Negative Urine Ketones Negative Urine Blood Negative Urine Nitrite Negative Ur Leukocyte Esterase Negative 05/27/23 05/27/23 05/27/23 04:34 05:05 07:38 MCV MCH MCHC RDW Plt Count MPV Immature Gran % (Auto) Neut % (Auto) Lymph % (Auto) Loup % (Auto) Eos % (Auto) Baso % (Auto) Lymph # (Auto) Loup # (Auto) Eos # (Auto) Baso # (Auto) Abs Immat Gran (auto) Absolute Neuts (auto) Absolute Nucleated RBC Nucleated RBC % (auto) Anion Gap Estim Creat Clear Calc Estimated GFR POC Glucose 88 103 Random Glucose Lactic Acid 1.2 Calcium Total Bilirubin AST ALT Alkaline Phosphatase C-Reactive Protein Total Protein Albumin Lipase Urine Color Urine Appearance Urine pH Ur Specific Dale Urine Protein Urine Glucose (UA) Urine Ketones Urine Blood Urine Nitrite Ur Leukocyte Esterase 05/27/23 11:13 MCV MCH MCHC RDW Plt Count MPV Immature Gran % (Auto) Neut % (Auto) Lymph % (Auto) Loup % (Auto) Eos % (Auto) Baso % (Auto) Lymph # (Auto) [place]oup # (Auto) Eos # (Auto) Baso # (Auto) Abs Immat Gran (auto) Absolute Neuts (auto) Absolute Nucleated RBC Nucleated RBC % (auto) Anion Gap Estim Creat Clear Calc Estimated GFR POC Glucose 109 Random Glucose Lactic Acid Calcium Total Bilirubin AST ALT Alkaline Phosphatase C-Reactive Protein Total Protein Albumin Lipase Urine Color Urine Appearance Urine pH Ur Specific Dale Urine Protein Urine Glucose (UA) Urine Ketones Urine Blood Urine Nitrite Ur Leukocyte Esterase Imaging Radiologist's Impressions: Impressions Abdomen/Pelvis CT 05/27/23 01:44 IMPRESSION: There is a 1.2 cm structure arising from the expected location of the appendix extending to abut the right ovary with infiltrative change in the right lower quadrant. A normal appendix is not seen. Appendicitis is a consideration. Correlation is needed. Liver is slightly irregular in contour possibly hepatocellular disease. Mild endplate loss of height T12-L1 uncertain acuity. Fleischner guidelines were followed. Assessment and Plan (1) Abdominal pain: Status: Acute Plan 58-year-old woman admitted with acute appendicitis Acute appendicitis Started on IV antibiotics Management as per surgical team History of heart failure with preserved ejection fraction No exacerbation Sees [facility] [place] Cardiology Continue atenolol Diabetes mellitus type 2 Sliding scale NPO for now Mental health Continue home medications Asthma No exacerbation Continue albuterol Hypothyroidism Continue levothyroxine DVT prophylaxis as per surgical team Full code Time Spent With Patient Time: Total time managing care of this patient today ____ minutes.
--- NOTE | 2023-05-27 16:19 | PM.EVENT ---
Event Note Date of Service: 05/28/23 Event Note: Seen on afternoon rounds Says she still has pain Again, mostly on the left side No nausea or vomiting at this time No fever Abdomen remained soft and very benign She also complained of jaw pain - she points to the TMJ area on both the left and right side Looks well overall Hospitalist following multiple medical problems Continue IV antibiotics Check labs tomorrow Clinically atypical for acute appendicitis Vague inflammatory changes in the right lower quadrant surrounding the ovary as well Cannot rule out pelvic pathology or other neoplastic processes Time Spent With Patient Time: Total time managing care of this patient today ____ minutes.
[2023-05-27 16:21] LABS: Glucose, Whole Blood 77 mg/dL (60-115)
--- NOTE | 2023-05-27 16:53 | PC.NURSE ---
Pt c/o low sugar, previous was 77, new re check 84.
[2023-05-27 16:55] LABS: Glucose, Whole Blood 84 mg/dL (60-115)
[2023-05-27] MEDS: LORazepam 1 MG TABLET PO (18:03)
[2023-05-27] MEDS: traZODone HCL 50 MG TABLET 150 MG PO (20:24)
[2023-05-27] MEDS: Famotidine 20 MG TABLET PO (20:25)
[2023-05-27] MEDS: Flecainide Acetate 50 MG TABLET 100 MG PO (20:25)
[2023-05-27] MEDS: atenoloL 50 MG TABLET PO (20:25)
[2023-05-27] MEDS: Hydroxychloroquine Sulfate 200 MG TABLET PO (20:25)
[2023-05-27] MEDS: Cyclobenzaprine HCl 10 MG TABLET 20 MG PO (20:33)
[2023-05-27] MEDS: Nicotine 14 MG PATCH.TD24 TRANSDERMA (21:42)
[2023-05-28] MEDS: LORazepam 1 MG TABLET PO ×4 (00:17→20:23)
[2023-05-28 00:27] LABS: Glucose, Whole Blood 87 mg/dL (60-115)
[2023-05-28] MEDS: Morphine Sulfate 4 MG/ML CARTRIDGE IVPUSH ×6 (02:47→20:24)
[2023-05-28 03:19] VITALS: BP 135/63; PULSE 94; RESP 20; TEMP 36.2; O2SAT 93
[2023-05-28] MEDS: 0.9 % Sodium Chloride 1,000 ML 125 ML IVCONT ×3 (03:59→22:24)
[2023-05-28] MEDS: Acetaminophen 325 MG TABLET 650 MG PO ×3 (05:16→19:23)
[2023-05-28] MEDS: oxyCODONE HCl Immed Release 5 MG TABLET 10 MG PO ×3 (05:16→19:23)
[2023-05-28] MEDS: levoFLOXacin/D5W 500 MG/100 ML PIGGYBACK 100 MG IV (05:19)
[2023-05-28] MEDS: metroNIDAZOLE/NS 500 MG/100 ML PIGGYBACK 100 MG IV ×3 (06:32→22:22)
[2023-05-28 06:41] LABS: Hematocrit 38.5 % (37.0-47.0); Hemoglobin 12.8 g/dl (12.0-16.0); Mean Corpuscular HGB Conc 33.2 g/dl (31.0-35.0); Mean Corpuscular Volume 102.4 fL (80.0-98.0); Mean Platelet Volume 10.4 fL (9.4-12.3); Platelet Count 222 X10*3/uL (160-400); Red Blood Count 3.76 X10*6/uL (4.20-5.50); Red Cell Distribution Width 13.3 % (11.0-16.0); White Blood Count 7.3 X10*3/uL (4.8-10.8)
[2023-05-28 06:58] LABS: Anion Gap 11 (12-20); Blood Urea Nitrogen 4 mg/dL (9-16); Calcium 8.5 mg/dL (8.4-10.2); Carbon Dioxide 24 mmol/L (22-29); Chloride 110 mmol/L (96-108); Creatinine Clr Calc Pharmacy 102.5; Estimated Glomerular Filt Rate > 60; Glucose Random 93 mg/dL (60-115); Potassium 3.7 mmol/L (3.3-5.1); Sodium 141 mmol/L (135-145)
[2023-05-28 07:27] VITALS: BP 120/60; PULSE 66; RESP 16; TEMP 36.8; O2SAT 90
[2023-05-28 07:29] LABS: Glucose, Whole Blood 86 mg/dL (60-115)
[2023-05-28] MEDS: Fluticasone/Umeclidinium/Vilanterol 100/62.5/25 BLST.W.DEV 1 PUFF INHALE (07:43)
[2023-05-28 07:45] VITALS: PULSE 105; RESP 18; O2SAT 95
[2023-05-28] MEDS: Escitalopram Oxalate 20 MG TABLET PO (08:00)
[2023-05-28] MEDS: Nicotine 14 MG PATCH.TD24 TRANSDERMA (08:00)
[2023-05-28] MEDS: atenoloL 50 MG TABLET PO ×2 (08:01→20:24)
[2023-05-28] MEDS: buPROPion HCl XL 300 MG TAB.ER.24H PO (08:01)
[2023-05-28] MEDS: Famotidine 20 MG TABLET PO (08:01)
[2023-05-28] MEDS: Hydroxychloroquine Sulfate 200 MG TABLET PO ×2 (08:01→20:24)
[2023-05-28] MEDS: Flecainide Acetate 50 MG TABLET 100 MG PO ×2 (08:01→20:24)
[2023-05-28] MEDS: Levothyroxine Sodium 100 MCG TABLET PO (08:01)
[2023-05-28] MEDS: Potassium Chloride ER 10 MEQ TABLET.ER 20 MEQ PO (08:01)
--- NOTE | 2023-05-28 09:11 | P.PNIM_ITS ---
Subjective Subjective Date of Service: 05/28/23 Review of Systems Follow up consult, abd pain still with nausea and epigastric pain pain with bowel movement, rectal pain Physical Exam 2 Vital Signs: Vital Signs: Last Vital Signs Temp 98.3 F 05/28/23 07:27 Pulse 105 H 05/28/23 07:45 Resp 18 05/28/23 07:45 BP 120/60 05/28/23 07:27 Pulse Ox 90 L 05/28/23 07:27 O2 Del Method Room Air 05/28/23 07:27 BMI result Body Mass Index 26.8 Appearing in no acute distress lung sounds are clear to auscultation heart regular rate rhythm, clear S1, S2 positive bowel sounds, abdomen is soft, nontender neuro patient is alert x3, no focal deficits Objective Data Active Medications Acetaminophen (Acetaminophen 325 Mg Tablet) 650 mg PO Q6H PRN PRN Reason: Headache Last Admin: 05/28/23 05:16 Dose: 650 mg Documented By: MELVIN Albuterol Sulfate (Albuterol Sulfate 90 Mcg 8 Gm Inhaler) 1 puff INHALE QID PRN PRN Reason: wheezing Atenolol (Atenolol 50 Mg Tablet) 50 mg PO BID [facility]; Protocol Last Admin: 05/28/23 08:01 Dose: 50 mg Documented By: SADA Bupropion HCl (Bupropion Hcl Xl 300 Mg Tab.Er.24h) 300 mg PO DAILY [facility] Last Admin: 05/28/23 08:01 Dose: 300 mg Documented By: SADA Cyclobenzaprine HCl (Cyclobenzaprine Hcl 10 Mg Tablet) 20 mg PO BEDTIME PRN PRN Reason: muscle spasm Last Admin: 05/27/23 20:33 Dose: 20 mg Documented By: MELVIN Dextrose (Dextrose 50 % 25 Gm/50 Ml Syringe) 25 gm IVPUSH Q15M PRN; Protocol PRN Reason: per Hypoglycemia Standing Ord. Escitalopram Oxalate (Escitalopram Oxalate 20 Mg Tablet) 20 mg PO DAILY [facility] Last Admin: 05/28/23 08:00 Dose: 20 mg Documented By: SADA Famotidine (Famotidine/Pf 20 Mg/2 Ml Vial) 20 mg IVPUSH BID [facility] Last Admin: 05/28/23 09:09 Dose: Not Given Documented By: SADA Non-Admin Reason: given PO Flecainide Acetate (Flecainide Acetate 50 Mg Tablet) 100 mg PO Q12H [facility] Last Admin: 05/28/23 08:01 Dose: 100 mg Documented By: SADA Fluticasone/Umeclidinium/Vilanterol (Fluticasone/Umeclidinium/Vilanterol 100/62.5/25 Blst.W.Dev) 1 puff INHALE RDAILY [facility] Last Admin: 05/28/23 07:43 Dose: 1 puff Documented By: ANGELICA Furosemide (Furosemide 40 Mg Tablet) 40 mg PO DAILY [facility]; Protocol Glucose (Glucose Gel 15 Gm Gel..Gram.) 15 gm PO Q15M PRN; Protocol PRN Reason: per Hypoglycemia Standing Ord. Hydroxychloroquine Sulfate (Hydroxychloroquine Sulfate 200 Mg Tablet) 200 mg PO BID [facility] Last Admin: 05/28/23 08:01 Dose: 200 mg Documented By: SADA Sodium Chloride (Ns) 1,000 mls @ 125 mls/hr IVCONT .Q8H [facility] Last Admin: 05/28/23 03:59 Dose: 125 mls/hr Documented By: MELVIN Levofloxacin (Levaquin) 500 mg in 100 mls @ 100 mls/hr IV Q24H [facility] Last Infusion: 05/28/23 06:35 Dose: Infused Documented By: MELVIN Metronidazole (Flagyl) 500 mg in 100 mls @ 100 mls/hr IV Q8H [facility] Last Infusion: 05/28/23 07:40 Dose: Infused Documented By: SADA Insulin Human Lispro (Insulin Lispro 100 Unit/Ml 3 Ml Vial) 0 unit SUBCUT QIDACHS [facility]; Protocol Last Admin: 05/28/23 07:24 Dose: Not Given Documented By: SADA Non-Admin Reason: No Insulin Coverage Levothyroxine Sodium (Levothyroxine Sodium 100 Mcg Tablet) 100 mcg PO DAILY [facility] Last Admin: 05/28/23 08:01 Dose: 100 mcg Documented By: SADA Lorazepam (Lorazepam 1 Mg Tablet) 1 mg PO TID PRN PRN Reason: anxiety Last Admin: 05/28/23 07:16 Dose: 1 mg Documented By: SADA Morphine Sulfate (Morphine Sulfate 4 Mg/Ml Cartridge) 4 mg IVPUSH Q3H PRN; Protocol PRN Reason: Pain, Severe (Pain Scale 7-10) Last Admin: 05/28/23 06:07 Dose: 4 mg Documented By: MELVIN Nicotine (Nicotine 14 Mg Patch.Td24) 14 mg TRANSDERMA DAILY [facility] Last Admin: 05/28/23 08:00 Dose: 14 mg Documented By: SADA Non-Formulary Medication (Colestipol) 1 gm PO TID [facility] Ondansetron HCl (Ondansetron Hcl 4 Mg/2 Ml Vial) 4 mg IVPUSH Q6H PRN PRN Reason: Nausea and Vomiting Last Admin: 05/27/23 17:12 Dose: 4 mg Documented By: SADA Oxycodone HCl (Oxycodone Hcl Immed Release 5 Mg Tablet) 10 mg PO Q4H PRN PRN Reason: Pain, Moderate Last Admin: 05/28/23 05:16 Dose: 10 mg Documented By: MELVIN Potassium Chloride (Potassium Chloride Er 10 Meq Tablet.Er) 20 meq PO DAILY [facility] Last Admin: 05/28/23 08:01 Dose: 20 meq Documented By: SADA Sodium Chloride (0.9 % Sodium Chloride Flush 3 Ml Syringe) 3 ml IVFLUSH QSHIFT [facility] Last Admin: 05/28/23 07:52 Dose: Not Given Documented By: SADA Non-Admin Reason: IV Running Trazodone HCl (Trazodone Hcl 50 Mg Tablet) 150 mg PO BEDTIME [facility] Last Admin: 05/27/23 20:24 Dose: 150 mg Documented By: MELVIN Labs 05/28/23 05:23 05/28/23 05:23 Labs: Laboratory Results - last 24 hr 05/27/23 05/27/23 05/27/23 11:13 16:16 16:50 MCV MCH MCHC RDW Plt Count MPV Absolute Nucleated RBC Nucleated RBC % (auto) Anion Gap Estim Creat Clear Calc Estimated GFR POC Glucose 109 77 84 Random Glucose Calcium 05/27/23 05/28/23 05/28/23 20:49 05:23 07:20 MCV 102.4 H MCH 34.0 H MCHC 33.2 RDW 13.3 Plt Count 222 MPV 10.4 Absolute Nucleated RBC 0.000 Nucleated RBC % (auto) 0.0 Anion Gap 11 L Estim Creat Clear Calc 102.5 Estimated GFR > 60 POC Glucose 87 86 Random Glucose 93 Calcium 8.5 D Microbiology Microbiology Results: Microbiology 05/27/23 05:05 Blood Culture - Preliminary Blood - Venous No growth after 24 hours. 05/27/23 05:05 Blood Culture - Preliminary Blood - Venous No growth after 24 hours. Assessment and Plan (1) Abdominal pain: Status: Acute Plan 58-year-old woman admitted with possible acute appy possible Acute appendicitis IV antibiotics Management as per surgical team> no OR at this time, start clear liquids epigastric pain IV pepcid GI consultation pending History of heart failure with preserved ejection fraction No exacerbation Sees [facility] [place] Cardiology Continue atenolol Diabetes mellitus type 2 Sliding scale clear liquids Mental health Continue home medications Asthma No exacerbation Continue albuterol Hypothyroidism Continue levothyroxine DVT prophylaxis as per surgical team Attending Dr. Villareal Full code Time Spent With Patient Time: Total time managing care of this patient today ____ minutes. Quality Stroke Does the patient have a stroke diagnosis?: No VTE Prior VTE?: No VTE Risk Level:: Surgical - low VTE Device Contraindication: N/A - Device Ordered VTE Drug Contraindication: Treatment Not Indicated
[2023-05-28] MEDS: Furosemide 40 MG TABLET PO (09:19)
--- NOTE | 2023-05-28 09:21 | MHC.CM.PN ---
pt lives with hires private help for housekeeping has own ride home dc plan home no services
--- NOTE | 2023-05-28 10:36 | P.PNGS_ITS ---
Subjective Subjective Date of Service: 05/28/23 Interval history: still has pain on the abdomen but says this is better today no nausea or vomiting no fever since admission passing flatus Physical Exam 2 Vital Signs: Vital Signs: Last Vital Signs Temp 98.3 F 05/28/23 07:27 Pulse 105 H 05/28/23 07:45 Resp 18 05/28/23 07:45 BP 120/60 05/28/23 07:27 Pulse Ox 90 L 05/28/23 07:27 O2 Del Method Room Air 05/28/23 07:27 BMI result Body Mass Index 26.8 Const: General: comfortable and no acute distress Resp: Effort & Inspection: normal respiratory effort Cardio: Rhythm: abnormal rhythm GI: Inspection: No distended Palpation (GI): Soft to palpation, not firm, Tenderness to palpation present (GI) ( vague mild diffuse tenderness) and no guarding Objective Data Active Medications Acetaminophen (Acetaminophen 325 Mg Tablet) 650 mg PO Q6H PRN PRN Reason: Headache Last Admin: 05/28/23 05:16 Dose: 650 mg Documented By: MELVIN Albuterol Sulfate (Albuterol Sulfate 90 Mcg 8 Gm Inhaler) 1 puff INHALE QID PRN PRN Reason: wheezing Atenolol (Atenolol 50 Mg Tablet) 50 mg PO BID [facility]; Protocol Last Admin: 05/28/23 08:01 Dose: 50 mg Documented By: SADA Bupropion HCl (Bupropion Hcl Xl 300 Mg Tab.Er.24h) 300 mg PO DAILY [facility] Last Admin: 05/28/23 08:01 Dose: 300 mg Documented By: SADA Cyclobenzaprine HCl (Cyclobenzaprine Hcl 10 Mg Tablet) 20 mg PO BEDTIME PRN PRN Reason: muscle spasm Last Admin: 05/27/23 20:33 Dose: 20 mg Documented By: MELVIN Dextrose (Dextrose 50 % 25 Gm/50 Ml Syringe) 25 gm IVPUSH Q15M PRN; Protocol PRN Reason: per Hypoglycemia Standing Ord. Escitalopram Oxalate (Escitalopram Oxalate 20 Mg Tablet) 20 mg PO DAILY [facility] Last Admin: 05/28/23 08:00 Dose: 20 mg Documented By: SADA Famotidine (Famotidine/Pf 20 Mg/2 Ml Vial) 20 mg IVPUSH BID [facility] Last Admin: 05/28/23 09:09 Dose: Not Given Documented By: SADA Non-Admin Reason: given PO Flecainide Acetate (Flecainide Acetate 50 Mg Tablet) 100 mg PO Q12H [facility] Last Admin: 05/28/23 08:01 Dose: 100 mg Documented By: SADA Fluticasone/Umeclidinium/Vilanterol (Fluticasone/Umeclidinium/Vilanterol 100/62.5/25 Blst.W.Dev) 1 puff INHALE RDAILY [facility] Last Admin: 05/28/23 07:43 Dose: 1 puff Documented By: ANGELICA Furosemide (Furosemide 40 Mg Tablet) 40 mg PO DAILY [facility]; Protocol Last Admin: 05/28/23 09:19 Dose: 40 mg Documented By: SADA Glucose (Glucose Gel 15 Gm Gel..Gram.) 15 gm PO Q15M PRN; Protocol PRN Reason: per Hypoglycemia Standing Ord. Hydroxychloroquine Sulfate (Hydroxychloroquine Sulfate 200 Mg Tablet) 200 mg PO BID [facility] Last Admin: 05/28/23 08:01 Dose: 200 mg Documented By: SADA Sodium Chloride (Ns) 1,000 mls @ 125 mls/hr IVCONT .Q8H [facility] Last Admin: 05/28/23 03:59 Dose: 125 mls/hr Documented By: MELVIN Levofloxacin (Levaquin) 500 mg in 100 mls @ 100 mls/hr IV Q24H [facility] Last Infusion: 05/28/23 06:35 Dose: Infused Documented By: MELVIN Metronidazole (Flagyl) 500 mg in 100 mls @ 100 mls/hr IV Q8H [facility] Last Infusion: 05/28/23 07:40 Dose: Infused Documented By: SADA Insulin Human Lispro (Insulin Lispro 100 Unit/Ml 3 Ml Vial) 0 unit SUBCUT QIDACHS [facility]; Protocol Last Admin: 05/28/23 07:24 Dose: Not Given Documented By: SADA Non-Admin Reason: No Insulin Coverage Levothyroxine Sodium (Levothyroxine Sodium 100 Mcg Tablet) 100 mcg PO DAILY [facility] Last Admin: 05/28/23 08:01 Dose: 100 mcg Documented By: SADA Lorazepam (Lorazepam 1 Mg Tablet) 1 mg PO TID PRN PRN Reason: anxiety Last Admin: 05/28/23 07:16 Dose: 1 mg Documented By: SADA Morphine Sulfate (Morphine Sulfate 4 Mg/Ml Cartridge) 4 mg IVPUSH Q3H PRN; Protocol PRN Reason: Pain, Severe (Pain Scale 7-10) Last Admin: 05/28/23 09:19 Dose: 4 mg Documented By: SADA Nicotine (Nicotine 14 Mg Patch.Td24) 14 mg TRANSDERMA DAILY [facility] Last Admin: 05/28/23 08:00 Dose: 14 mg Documented By: SADA Non-Formulary Medication (Colestipol) 1 gm PO TID [facility] Ondansetron HCl (Ondansetron Hcl 4 Mg/2 Ml Vial) 4 mg IVPUSH Q6H PRN PRN Reason: Nausea and Vomiting Last Admin: 05/27/23 17:12 Dose: 4 mg Documented By: SADA Oxycodone HCl (Oxycodone Hcl Immed Release 5 Mg Tablet) 10 mg PO Q4H PRN PRN Reason: Pain, Moderate Last Admin: 05/28/23 05:16 Dose: 10 mg Documented By: MELVIN Potassium Chloride (Potassium Chloride Er 10 Meq Tablet.Er) 20 meq PO DAILY [facility] Last Admin: 05/28/23 08:01 Dose: 20 meq Documented By: SADA Sodium Chloride (0.9 % Sodium Chloride Flush 3 Ml Syringe) 3 ml IVFLUSH QSHIFT [facility] Last Admin: 05/28/23 07:52 Dose: Not Given Documented By: SADA Non-Admin Reason: IV Running Trazodone HCl (Trazodone Hcl 50 Mg Tablet) 150 mg PO BEDTIME [facility] Last Admin: 05/27/23 20:24 Dose: 150 mg Documented By: MELVIN Labs 05/28/23 05:23 05/28/23 05:23 Labs: Laboratory Results - last 24 hr 05/27/23 05/27/23 05/27/23 11:13 16:16 16:50 MCV MCH MCHC RDW Plt Count MPV Absolute Nucleated RBC Nucleated RBC % (auto) Anion Gap Estim Creat Clear Calc Estimated GFR POC Glucose 109 77 84 Random Glucose Calcium 05/27/23 05/28/23 05/28/23 20:49 05:23 07:20 MCV 102.4 H MCH 34.0 H MCHC 33.2 RDW 13.3 Plt Count 222 MPV 10.4 Absolute Nucleated RBC 0.000 Nucleated RBC % (auto) 0.0 Anion Gap 11 L Estim Creat Clear Calc 102.5 Estimated GFR > 60 POC Glucose 87 86 Random Glucose 93 Calcium 8.5 D Microbiology Microbiology Results: Microbiology 05/27/23 05:05 Blood Culture - Preliminary Blood - Venous No growth after 24 hours. 05/27/23 05:05 Blood Culture - Preliminary Blood - Venous No growth after 24 hours. Procedures Date of Service Date of Service: 05/28/23 Progress Note: A&P Assessment and plan (1) Abdominal pain: Status: Acute Assessment and Plan: clinically not consistent with acute appendicitis pain and tenderness not maximal on the right lower quadrant WBC down no nausea or vomiting no fever exam remains benign okay to try clear liquids today encouraged to get out of bed she is on chronic pain meds with narcotics for back pain appreciate hospitalist follow-up Time Spent With Patient Time: Total time managing care of this patient today ____ minutes. Quality Stroke Does the patient have a stroke diagnosis?: No VTE Prior VTE?: No VTE Risk Level:: Surgical - low VTE Device Contraindication: N/A - Device Ordered VTE Drug Contraindication: Treatment Not Indicated
[2023-05-28 11:19] LABS: Glucose, Whole Blood 111 mg/dL (60-115)
--- NOTE | 2023-05-28 12:19 | PM.GICN ---
History of Present Illness Data of Consult Service Date: 05/28/23 Primary Care Provider: Renetta Chew MD [facility] Reason for consult: Abdominal pain This is a 58-year-old female with past medical history of paroxysmal atrial fibrillation on Xarelto, SLE, COPD, history of tubular adenoma, who presented to the hospital for severe abdominal pain. Patient reports that on Saturday, she developed lower abdominal pain and cramping associated with multiple bowel movements. This was associated with fevers and chills that persisted for more than 48 hours that prompted her to come to the emergency room. On initial presentation, she was noted to be vitally stable. Labs showed normal white count and H&H. No significant abnormality on Chem 7 or LFTs. CRP elevated to 8.25. She underwent a CT abdomen pelvis with IV contrast that shows 1.2 cm structure in the expected location of the appendix extending to right adnexal region with surrounding fatty stranding. Currently, patient continues to remain in significant discomfort which gets better on lying still in worsens on any movement. Nauseous, but able to tolerate clears. Pain is now more localized to right side of the abdomen and flank. Last EGD/colonoscopy 2019 (Dr. Marvin) Ind- iron deficiency anemia: Hiatal hernia, esophagitis, gastritis, duodenitis, x2 tubular adenoma including a 12 mm polyp, diverticulosis. No H pylori. No Bales's. Review of Systems Review of Systems: Yes all other systems are reviewed and are negative REPLACED BY [facility] Past Medical History Medical History (Updated 05/28/23 @ 15:34 by Yuli Shin MD) Abdominal pain SLE (systemic lupus erythematosus) Depression Thyroid disease COPD (chronic obstructive pulmonary disease) Congestive heart failure Diabetes PAF (paroxysmal atrial fibrillation) Family History Family History Father No problems noted. Mother CVD (cardiovascular disease) Surgical History Surgical History History of back surgery History of radiofrequency ablation (RFA) procedure for cardiac arrhythmia Social History Social History Household Members: Family Housing: House Do you presently have visiting nurse or other home services: No Alcohol intake: never Patient Tobacco Use Status: Current everyday Tobacco user Cigarette Packs Per Day: 1 Cigarettes Per Day: 20.0 Smoked in Last 30 Days: Yes Use of substances other than those prescribed or required for medical reasons: No Currently Displaying Signs/Symptoms of Drug Intoxication Withdrawal: No Have you been hit, kicked, punched, or otherwise hurt by someone within the past year? If so, by whom?: No Do you feel safe in your current relationship?: Yes Is there a partner from a previous relationship who is making you feel unsafe now?: No Are you made to feel afraid or neglected: No Advance Directives: Yes Advance Directives on File: Yes Advance Directives Date on File: 05/27/23 Do you have thoughts of harming others: None Do you have a plan to hurt others: No Plan Recently lost weight without trying: No How much weight loss: Not applicable Eating poorly because of decreased appetite: No Nutrition screen score: 0 Nutrition Risks: No Nutritional Risk Patient : No : No Poor oral hygiene: No service: No Current occupational status: disabled Meds Allergies Allergy/AdvReac Type Severity Reaction Status Date / Time amoxicillin [From AUGMENTIN] Allergy Mild SWELLING Verified 05/26/23 22:47 clavulanic acid Allergy Mild SWELLING Verified 05/26/23 22:47 [From AUGMENTIN] etodolac [From LODINE] Allergy Mild SWELLING Verified 05/26/23 22:47 gabapentin [GABAPENTIN] Allergy Mild SWELLING Verified 05/26/23 22:47 pregabalin [From LYRICA] Allergy Mild SWELLING Verified 05/26/23 22:47 clarithromycin [From Biaxin] Allergy Unknown ANGIOEDEMA Verified 05/26/23 22:47 Penicillins Allergy Unknown UNKNOWN Verified 05/26/23 22:47 sulfamethoxazole Allergy Unknown ANAPHYLAXIS Verified 05/26/23 22:47 [From Bactrim] piperacillin [From Zosyn] Allergy Itching Verified 05/27/23 05:06 tazobactam [From Zosyn] Allergy Itching Verified 05/27/23 05:06 fluticasone AdvReac Mild MUSCLE PAIN Verified 05/26/23 22:47 [From FLOVENT DISKUS] Active Medications: Current Medications Acetaminophen (Acetaminophen 325 Mg Tablet) 650 mg PO Q6H PRN PRN Reason: Headache Last Admin: 05/28/23 05:16 Dose: 650 mg Albuterol Sulfate (Albuterol Sulfate 90 Mcg 8 Gm Inhaler) 1 puff INHALE QID PRN PRN Reason: wheezing Atenolol (Atenolol 50 Mg Tablet) 50 mg PO BID [facility]; Protocol Last Admin: 05/28/23 08:01 Dose: 50 mg Bupropion HCl (Bupropion Hcl Xl 300 Mg Tab.Er.24h) 300 mg PO DAILY [facility] Last Admin: 05/28/23 08:01 Dose: 300 mg Cyclobenzaprine HCl (Cyclobenzaprine Hcl 10 Mg Tablet) 20 mg PO BEDTIME PRN PRN Reason: muscle spasm Last Admin: 05/27/23 20:33 Dose: 20 mg Dextrose (Dextrose 50 % 25 Gm/50 Ml Syringe) 25 gm IVPUSH Q15M PRN; Protocol PRN Reason: per Hypoglycemia Standing Ord. Escitalopram Oxalate (Escitalopram Oxalate 20 Mg Tablet) 20 mg PO DAILY [facility] Last Admin: 05/28/23 08:00 Dose: 20 mg Famotidine (Famotidine/Pf 20 Mg/2 Ml Vial) 20 mg IVPUSH BID [facility] Last Admin: 05/28/23 09:09 Dose: Not Given Flecainide Acetate (Flecainide Acetate 50 Mg Tablet) 100 mg PO Q12H [facility] Last Admin: 05/28/23 08:01 Dose: 100 mg Fluticasone/Umeclidinium/Vilanterol (Fluticasone/Umeclidinium/Vilanterol 100/62.5/25 Blst.W.Dev) 1 puff INHALE RDAILY [facility] Last Admin: 05/28/23 07:43 Dose: 1 puff Furosemide (Furosemide 40 Mg Tablet) 40 mg PO DAILY [facility]; Protocol Last Admin: 05/28/23 09:19 Dose: 40 mg Glucose (Glucose Gel 15 Gm Gel..Gram.) 15 gm PO Q15M PRN; Protocol PRN Reason: per Hypoglycemia Standing Ord. Hydroxychloroquine Sulfate (Hydroxychloroquine Sulfate 200 Mg Tablet) 200 mg PO BID [facility] Last Admin: 05/28/23 08:01 Dose: 200 mg Sodium Chloride (Ns) 1,000 mls @ 125 mls/hr IVCONT .Q8H [facility] Last Admin: 05/28/23 03:59 Dose: 125 mls/hr Levofloxacin (Levaquin) 500 mg in 100 mls @ 100 mls/hr IV Q24H [facility] Last Infusion: 05/28/23 06:35 Dose: Infused Metronidazole (Flagyl) 500 mg in 100 mls @ 100 mls/hr IV Q8H [facility] Last Infusion: 05/28/23 07:40 Dose: Infused Insulin Human Lispro (Insulin Lispro 100 Unit/Ml 3 Ml Vial) 0 unit SUBCUT QIDACHS [facility]; Protocol Last Admin: 05/28/23 11:48 Dose: Not Given Levothyroxine Sodium (Levothyroxine Sodium 100 Mcg Tablet) 100 mcg PO DAILY [facility] Last Admin: 05/28/23 08:01 Dose: 100 mcg Lorazepam (Lorazepam 1 Mg Tablet) 1 mg PO TID PRN PRN Reason: anxiety Last Admin: 05/28/23 07:16 Dose: 1 mg Morphine Sulfate (Morphine Sulfate 4 Mg/Ml Cartridge) 4 mg IVPUSH Q3H PRN; Protocol PRN Reason: Pain, Severe (Pain Scale 7-10) Last Admin: 05/28/23 09:19 Dose: 4 mg Nicotine (Nicotine 14 Mg Patch.Td24) 14 mg TRANSDERMA DAILY [facility] Last Admin: 05/28/23 08:00 Dose: 14 mg Non-Formulary Medication (Colestipol) 1 gm PO TID [facility] Ondansetron HCl (Ondansetron Hcl 4 Mg/2 Ml Vial) 4 mg IVPUSH Q6H PRN PRN Reason: Nausea and Vomiting Last Admin: 05/27/23 17:12 Dose: 4 mg Oxycodone HCl (Oxycodone Hcl Immed Release 5 Mg Tablet) 10 mg PO Q4H PRN PRN Reason: Pain, Moderate Last Admin: 05/28/23 05:16 Dose: 10 mg Potassium Chloride (Potassium Chloride Er 10 Meq Tablet.Er) 20 meq PO DAILY [facility] Last Admin: 05/28/23 08:01 Dose: 20 meq Sodium Chloride (0.9 % Sodium Chloride Flush 3 Ml Syringe) 3 ml IVFLUSH QSHIFT [facility] Last Admin: 05/28/23 07:52 Dose: Not Given Trazodone HCl (Trazodone Hcl 50 Mg Tablet) 150 mg PO BEDTIME [facility] Last Admin: 05/27/23 20:24 Dose: 150 mg Home Medications Medication Instructions Recorded Confirmed Last Taken Type bupropion HCl 300 mg 24 hr tablet, 300 mg PO DAILY 12/12/20 05/27/23 05/25/23 History extended release citalopram 40 mg tablet 40 mg PO DAILY 12/12/20 05/27/23 05/25/23 History famotidine 20 mg tablet 20 mg PO BID 12/12/20 05/27/23 05/25/23 History levothyroxine 100 mcg tablet 100 mcg PO DAILY 12/12/20 05/27/23 05/26/23 History lorazepam 1 mg tablet 1 mg PO TID PRN anxiety 12/12/20 05/27/23 Unknown History trazodone 50 mg tablet 150 mg PO BEDTIME 12/12/20 05/27/23 05/25/23 History cyclobenzaprine 10 mg tablet 20 mg PO BEDTIME PRN muscle spasm 05/16/22 05/27/23 05/25/23 History oxycodone 10 mg tablet 10 mg PO Q4H PRN Pain, Moderate 05/16/22 05/27/23 Unknown History blood sugar diagnostic (Submittableuch #10 ea 06/11/22 05/07/23 Unknown History Verio test strips) insulin glargine 100 unit/mL (3 26 unit subcut BID 06/11/22 05/27/23 05/26/23 History mL) subcutaneous pen (Lantus Solostar U-100 Insulin) lancets 30 gauge (Hubba Delica #100 ea 06/11/22 05/07/23 Unknown History Plus Lancet) rivaroxaban 20 mg tablet (Xarelto) 20 mg PO DAILY@1700 05/07/23 05/27/23 05/25/23 History acetaminophen 325 mg tablet 975 mg PO TID 05/27/23 05/27/23 Unknown History albuterol sulfate 90 mcg/actuation 1 puff inhalation QID PRN wheezing 05/27/23 05/27/23 05/26/23 History aerosol inhaler colestipol 1 gram tablet 1 g PO TID 05/27/23 05/27/23 Unknown History dulaglutide 0.75 mg/0.5 mL 0.75 mg subcut WHITE 05/27/23 05/27/23 05/26/23 History subcutaneous pen injector (Trulicity) fluticasone fur. 100 mcg-umeclid 1 ea inhalation DAILY 05/27/23 05/27/23 Unknown History 62.5 mcg-vilant 25 mcg inhalat.powder (Trelegy Ellipta) hydroxychloroquine 200 mg tablet 200 mg PO BID 05/27/23 05/27/23 Unknown History insulin lispro 100 unit/mL 1 sliding scale dose subcut 05/27/23 05/27/23 Unknown History subcutaneous solution (Humalog USEASDIRECTD U-100 Insulin) potassium chloride 10 mEq 20 meq PO DAILY 05/27/23 05/27/23 Unknown History capsule,extended release Physical Exam Vital Signs: Vital Signs: Last Vital Signs Temp 98.3 F 05/28/23 07:27 Pulse 105 H 05/28/23 07:45 Resp 18 05/28/23 07:45 BP 120/60 05/28/23 07:27 Pulse Ox 90 L 05/28/23 07:27 O2 Del Method Room Air 05/28/23 07:27 BMI result Body Mass Index 26.8 General appearance: Nontoxic appearing HEENT: Nonicteric Chest: No overt respiratory distress Abdomen: Soft, diffusely tender, voluntary guarding Neuro: Alert, oriented x3 Extremities: Mild pitting edema around ankles Results Labs 05/28/23 05:23 05/28/23 05:23 Labs: Short CBC 05/28/23 Range/Units 05:23 WBC 7.3 (4.8-10.8) X10*3/uL Hgb 12.8 (12.0-16.0) g/dl Hct 38.5 (37.0-47.0) % Plt Count 222 (160-400) X10*3/uL BMP 05/28/23 05:23 Sodium 141 Potassium 3.7 Chloride 110 H Carbon Dioxide 24 BUN 4 L Creatinine 0.62 Calcium 8.5 D Microbiology Microbiology Results: Microbiology 05/27/23 05:05 Blood - Venous Blood Culture - Preliminary No growth after 24 hours. 05/27/23 05:05 Blood - Venous Blood Culture - Preliminary No growth after 24 hours. Assessment and Plan (1) Abdominal pain: Status: Acute (2) Abnormal CT of the abdomen: Status: Acute Plan Exam and imaging not characteristic of acute appendicitis however, given persistent symptoms which are now more localised to R side, will benefit from interval imaging. This was reviewed with surgery team as well. Ddx apart from acute appendicitis include abscess or neoplasm. Recommendations: - Cont CLD - Serial abd exams - Cont to hold Xarelto for now - Consider repeat CT abd/pel with IV contrast tmrw if no clinical improvement Thank you for allowing me to participate in her care. Please do not hesitate to reach out for any questions or concerns. Time Spent With Patient Time: Total time managing care of this patient today ____ minutes. Procedures Date of Service Date of Service: 05/28/23
--- NOTE | 2023-05-28 15:04 | PM.EVENT ---
Event Note Date of Service: 05/29/23 Event Note: Seen on afternoon rounds Abdominal pain better controlled although she admits that she still has this pain No nausea or vomiting Abdomen remained soft Some diffuse tenderness Clinically benign In view of uncertainty of diagnosis, consider follow-up CT scan tomorrow Reviewed with Gastroenterology Tolerating clear liquids Remains afebrile Time Spent With Patient Time: Total time managing care of this patient today ____ minutes.
[2023-05-28 15:38] VITALS: BP 105/51; PULSE 94; RESP 16; TEMP 36.1; O2SAT 92
[2023-05-28 16:14] LABS: Glucose, Whole Blood 128 mg/dL (60-115)
[2023-05-28 18:48] VITALS: BP 129/62; PULSE 99; RESP 18; TEMP 36.3; O2SAT 96
[2023-05-28] MEDS: polyethylene glycoL 3350 17 GM POWD.PACK PO (20:23)
[2023-05-28 20:24] LABS: Glucose, Whole Blood 195 mg/dL (60-115)
[2023-05-28] MEDS: Famotidine/PF 20 MG/2 ML VIAL IVPUSH (20:24)
[2023-05-28] MEDS: Cyclobenzaprine HCl 10 MG TABLET 20 MG PO (20:24)
[2023-05-28] MEDS: traZODone HCL 50 MG TABLET 150 MG PO (20:24)
[2023-05-28] MEDS: Insulin Lispro 100 UNIT/ML 3 ML VIAL SUBCUT (20:37)
[2023-05-29] VITALS (7 sets, daily range): BP systolic 119–130; BP diastolic 56–58; PULSE 96–102; RESP 16–20; TEMP 36.1–37.1; O2SAT 92–98
[2023-05-29] MEDS: Morphine Sulfate 4 MG/ML CARTRIDGE IVPUSH ×6 (01:18→21:55)
[2023-05-29] MEDS: Acetaminophen 325 MG TABLET 650 MG PO ×3 (01:50→20:39)
[2023-05-29] MEDS: oxyCODONE HCl Immed Release 5 MG TABLET 10 MG PO ×4 (03:40→19:53)
[2023-05-29] MEDS: levoFLOXacin/D5W 500 MG/100 ML PIGGYBACK 100 MG IV (05:09)
[2023-05-29] MEDS: metroNIDAZOLE/NS 500 MG/100 ML PIGGYBACK 100 MG IV ×3 (06:10→21:55)
[2023-05-29 07:32] LABS: Glucose, Whole Blood 166 mg/dL (60-115)
--- NOTE | 2023-05-29 07:53 | P.PNGS_ITS ---
Subjective Subjective Date of Service: 05/30/23 Interval history: states she slept well last night feels better, although still with some abdl pain tolerating clears passing flatus no N/V says he has jaw pain - on TMJ Physical Exam 2 Vital Signs: Vital Signs: Last Vital Signs Temp 98.8 F 05/29/23 07:21 Pulse 98 05/29/23 07:21 Resp 20 05/29/23 07:21 BP 123/56 L 05/29/23 07:21 Pulse Ox 92 05/29/23 07:21 O2 Del Method Room Air 05/29/23 07:21 BMI result Body Mass Index 26.8 Const: General: comfortable and no acute distress Resp: Effort & Inspection: normal respiratory effort Cardio: Rhythm: abnormal rhythm GI: Inspection: No distended Palpation (GI): Soft to palpation, not firm, Tenderness to palpation present (GI) (mild diffuse tenderness) and no guarding Objective Data Active Medications Acetaminophen (Acetaminophen 325 Mg Tablet) 650 mg PO Q6H PRN PRN Reason: Headache Last Admin: 05/29/23 01:50 Dose: 650 mg Documented By: MELVIN Albuterol Sulfate (Albuterol Sulfate 90 Mcg 8 Gm Inhaler) 1 puff INHALE QID PRN PRN Reason: wheezing Atenolol (Atenolol 50 Mg Tablet) 50 mg PO BID [facility]; Protocol Last Admin: 05/28/23 20:24 Dose: 50 mg Documented By: MELVIN Bupropion HCl (Bupropion Hcl Xl 300 Mg Tab.Er.24h) 300 mg PO DAILY [facility] Last Admin: 05/28/23 08:01 Dose: 300 mg Documented By: SADA Cyclobenzaprine HCl (Cyclobenzaprine Hcl 10 Mg Tablet) 20 mg PO BEDTIME PRN PRN Reason: muscle spasm Last Admin: 05/28/23 20:24 Dose: 20 mg Documented By: MELVIN Dextrose (Dextrose 50 % 25 Gm/50 Ml Syringe) 25 gm IVPUSH Q15M PRN; Protocol PRN Reason: per Hypoglycemia Standing Ord. Escitalopram Oxalate (Escitalopram Oxalate 20 Mg Tablet) 20 mg PO DAILY [facility] Last Admin: 05/28/23 08:00 Dose: 20 mg Documented By: SADA Famotidine (Famotidine/Pf 20 Mg/2 Ml Vial) 20 mg IVPUSH BID [facility] Last Admin: 05/28/23 20:24 Dose: 20 mg Documented By: MELVIN Flecainide Acetate (Flecainide Acetate 50 Mg Tablet) 100 mg PO Q12H [facility] Last Admin: 05/28/23 20:24 Dose: 100 mg Documented By: MELVIN Fluticasone/Umeclidinium/Vilanterol (Fluticasone/Umeclidinium/Vilanterol 100/62.5/25 Blst.W.Dev) 1 puff INHALE RDAILY [facility] Last Admin: 05/28/23 07:43 Dose: 1 puff Documented By: ANGELICA Furosemide (Furosemide 40 Mg Tablet) 40 mg PO DAILY [facility]; Protocol Last Admin: 05/28/23 09:19 Dose: 40 mg Documented By: SADA Glucose (Glucose Gel 15 Gm Gel..Gram.) 15 gm PO Q15M PRN; Protocol PRN Reason: per Hypoglycemia Standing Ord. Hydroxychloroquine Sulfate (Hydroxychloroquine Sulfate 200 Mg Tablet) 200 mg PO BID [facility] Last Admin: 05/28/23 20:24 Dose: 200 mg Documented By: MELVIN Levofloxacin (Levaquin) 500 mg in 100 mls @ 100 mls/hr IV Q24H [facility] Last Infusion: 05/29/23 06:13 Dose: Infused Documented By: MELVIN Metronidazole (Flagyl) 500 mg in 100 mls @ 100 mls/hr IV Q8H [facility] Last Admin: 05/29/23 06:10 Dose: 100 mls/hr Documented By: MELVIN Insulin Human Lispro (Insulin Lispro 100 Unit/Ml 3 Ml Vial) 0 unit SUBCUT QIDACHS [facility]; Protocol Last Admin: 05/28/23 20:37 Dose: 2 unit Documented By: MELVIN Levothyroxine Sodium (Levothyroxine Sodium 100 Mcg Tablet) 100 mcg PO DAILY [facility] Last Admin: 05/28/23 08:01 Dose: 100 mcg Documented By: SADA Lorazepam (Lorazepam 1 Mg Tablet) 1 mg PO TID PRN PRN Reason: anxiety Last Admin: 05/28/23 20:23 Dose: 1 mg Documented By: MELVIN Morphine Sulfate (Morphine Sulfate 4 Mg/Ml Cartridge) 4 mg IVPUSH Q3H PRN; Protocol PRN Reason: Pain, Severe (Pain Scale 7-10) Last Admin: 05/29/23 05:08 Dose: 4 mg Documented By: MELVIN Nicotine (Nicotine 14 Mg Patch.Td24) 14 mg TRANSDERMA DAILY [facility] Last Admin: 05/28/23 08:00 Dose: 14 mg Documented By: SADA Non-Formulary Medication (Colestipol) 1 gm PO TID [facility] Ondansetron HCl (Ondansetron Hcl 4 Mg/2 Ml Vial) 4 mg IVPUSH Q6H PRN PRN Reason: Nausea and Vomiting Last Admin: 05/27/23 17:12 Dose: 4 mg Documented By: SADA Oxycodone HCl (Oxycodone Hcl Immed Release 5 Mg Tablet) 10 mg PO Q4H PRN PRN Reason: Pain, Moderate Last Admin: 05/29/23 03:40 Dose: 10 mg Documented By: MELVIN Potassium Chloride (Potassium Chloride Er 10 Meq Tablet.Er) 20 meq PO DAILY [facility] Last Admin: 05/28/23 08:01 Dose: 20 meq Documented By: SADA Sodium Chloride (0.9 % Sodium Chloride Flush 3 Ml Syringe) 3 ml IVFLUSH QSHIFT [facility] Last Admin: 05/28/23 22:33 Dose: Not Given Documented By: MELVIN Non-Admin Reason: IV Running Trazodone HCl (Trazodone Hcl 50 Mg Tablet) 150 mg PO BEDTIME [facility] Last Admin: 05/28/23 20:24 Dose: 150 mg Documented By: MELVIN Labs 05/28/23 05:23 05/28/23 05:23 Labs: Laboratory Results - last 24 hr 05/28/23 05/28/23 05/28/23 11:11 16:09 20:12 POC Glucose 111 128 H 195 H 05/29/23 07:24 POC Glucose 166 H Microbiology Microbiology Results: Microbiology 05/27/23 05:05 Blood Culture - Preliminary Blood - Venous No growth after 48 hours. 05/27/23 05:05 Blood Culture - Preliminary Blood - Venous No growth after 48 hours. Procedures Date of Service Date of Service: 05/30/23 Progress Note: A&P Assessment and plan (1) Abdominal pain: Status: Acute Assessment and Plan: not c/w acute appendicitis clinically much improved looks well and remains soft and benign in view of uncertainty with etiology - ffup CT today Time Spent With Patient Time: Total time managing care of this patient today ____ minutes. Quality Stroke Does the patient have a stroke diagnosis?: No VTE Prior VTE?: No VTE Risk Level:: Surgical - low VTE Device Contraindication: N/A - Device Ordered VTE Drug Contraindication: Treatment Not Indicated
[2023-05-29] MEDS: Fluticasone/Umeclidinium/Vilanterol 100/62.5/25 BLST.W.DEV 1 PUFF INHALE (08:28)
[2023-05-29] MEDS: Insulin Lispro 100 UNIT/ML 3 ML VIAL SUBCUT ×2 (08:32→20:40)
[2023-05-29] MEDS: Escitalopram Oxalate 20 MG TABLET PO (08:33)
[2023-05-29] MEDS: Famotidine/PF 20 MG/2 ML VIAL IVPUSH ×2 (08:33→20:40)
[2023-05-29] MEDS: Flecainide Acetate 50 MG TABLET 100 MG PO ×2 (08:33→20:40)
[2023-05-29] MEDS: buPROPion HCl XL 300 MG TAB.ER.24H PO (08:36)
[2023-05-29] MEDS: Potassium Chloride ER 10 MEQ TABLET.ER 20 MEQ PO (08:36)
[2023-05-29] MEDS: Hydroxychloroquine Sulfate 200 MG TABLET PO ×2 (08:36→20:40)
[2023-05-29] MEDS: atenoloL 50 MG TABLET PO ×2 (08:36→20:40)
[2023-05-29] MEDS: Levothyroxine Sodium 100 MCG TABLET PO (08:36)
[2023-05-29] MEDS: Nicotine 14 MG PATCH.TD24 TRANSDERMA (08:38)
[2023-05-29] MEDS: Furosemide 40 MG TABLET PO (09:15)
[2023-05-29] MEDS: LORazepam 1 MG TABLET PO ×2 (09:52→20:40)
--- NOTE | 2023-05-29 10:27 | HO.PM.IMPN ---
Subjective Subjective Date of Service: 05/29/23 Review of Systems Follow up consult, abd pain Abd pain not resolved but less no nausea or vomiting Physical Exam Vital Signs: Vital Signs: Last Vital Signs Temp 98.8 F 05/29/23 07:21 Pulse 102 H 05/29/23 08:28 Resp 20 05/29/23 08:28 BP 123/56 L 05/29/23 07:21 Pulse Ox 92 05/29/23 07:21 O2 Del Method Room Air 05/29/23 07:21 BMI result Body Mass Index 26.8 Appearing in no acute distress head is normocephalic atraumatic eyes pupils are PERRLA sclera is anicteric mouth throat mucous membranes are intact and moist neck is supple no lymphadenopathy, no JVD noted lung sounds are clear to auscultation heart regular rate rhythm, clear S1, S2 positive bowel sounds, abdomen is soft, nontender neuro patient is alert x3, no focal deficits Objective Data Active Medications Acetaminophen (Acetaminophen 325 Mg Tablet) 650 mg PO Q6H PRN PRN Reason: Headache Last Admin: 05/29/23 01:50 Dose: 650 mg Documented By: MELVIN Albuterol Sulfate (Albuterol Sulfate 90 Mcg 8 Gm Inhaler) 1 puff INHALE QID PRN PRN Reason: wheezing Atenolol (Atenolol 50 Mg Tablet) 50 mg PO BID [facility]; Protocol Last Admin: 05/29/23 08:36 Dose: 50 mg Documented By: BETO Bupropion HCl (Bupropion Hcl Xl 300 Mg Tab.Er.24h) 300 mg PO DAILY [facility] Last Admin: 05/29/23 08:36 Dose: 300 mg Documented By: BETO Cyclobenzaprine HCl (Cyclobenzaprine Hcl 10 Mg Tablet) 20 mg PO BEDTIME PRN PRN Reason: muscle spasm Last Admin: 05/28/23 20:24 Dose: 20 mg Documented By: MELVIN Dextrose (Dextrose 50 % 25 Gm/50 Ml Syringe) 25 gm IVPUSH Q15M PRN; Protocol PRN Reason: per Hypoglycemia Standing Ord. Escitalopram Oxalate (Escitalopram Oxalate 20 Mg Tablet) 20 mg PO DAILY [facility] Last Admin: 05/29/23 08:33 Dose: 20 mg Documented By: BETO Famotidine (Famotidine/Pf 20 Mg/2 Ml Vial) 20 mg IVPUSH BID [facility] Last Admin: 05/29/23 08:33 Dose: 20 mg Documented By: BETO Flecainide Acetate (Flecainide Acetate 50 Mg Tablet) 100 mg PO Q12H [facility] Last Admin: 05/29/23 08:33 Dose: 100 mg Documented By: BETO Fluticasone/Umeclidinium/Vilanterol (Fluticasone/Umeclidinium/Vilanterol 100/62.5/25 Blst.W.Dev) 1 puff INHALE RDAILY [facility] Last Admin: 05/29/23 08:28 Dose: 1 puff Documented By: MARIANA Furosemide (Furosemide 40 Mg Tablet) 40 mg PO DAILY [facility]; Protocol Last Admin: 05/29/23 09:15 Dose: 40 mg Documented By: BETO Glucose (Glucose Gel 15 Gm Gel..Gram.) 15 gm PO Q15M PRN; Protocol PRN Reason: per Hypoglycemia Standing Ord. Hydroxychloroquine Sulfate (Hydroxychloroquine Sulfate 200 Mg Tablet) 200 mg PO BID [facility] Last Admin: 05/29/23 08:36 Dose: 200 mg Documented By: BETO Levofloxacin (Levaquin) 500 mg in 100 mls @ 100 mls/hr IV Q24H [facility] Last Infusion: 05/29/23 06:13 Dose: Infused Documented By: MELVIN Metronidazole (Flagyl) 500 mg in 100 mls @ 100 mls/hr IV Q8H [facility] Last Infusion: 05/29/23 08:50 Dose: Infused Documented By: BETO Insulin Human Lispro (Insulin Lispro 100 Unit/Ml 3 Ml Vial) 0 unit SUBCUT QIDACHS [facility]; Protocol Last Admin: 05/29/23 08:32 Dose: 2 unit Documented By: BETO Levothyroxine Sodium (Levothyroxine Sodium 100 Mcg Tablet) 100 mcg PO DAILY [facility] Last Admin: 05/29/23 08:36 Dose: 100 mcg Documented By: BETO Lorazepam (Lorazepam 1 Mg Tablet) 1 mg PO TID PRN PRN Reason: anxiety Last Admin: 05/29/23 09:52 Dose: 1 mg Documented By: BETO Morphine Sulfate (Morphine Sulfate 4 Mg/Ml Cartridge) 4 mg IVPUSH Q3H PRN; Protocol PRN Reason: Pain, Severe (Pain Scale 7-10) Last Admin: 05/29/23 09:51 Dose: 4 mg Documented By: BETO Nicotine (Nicotine 14 Mg Patch.Td24) 14 mg TRANSDERMA DAILY [facility] Last Admin: 05/29/23 08:38 Dose: 14 mg Documented By: BETO Non-Formulary Medication (Colestipol) 1 gm PO TID [facility] Ondansetron HCl (Ondansetron Hcl 4 Mg/2 Ml Vial) 4 mg IVPUSH Q6H PRN PRN Reason: Nausea and Vomiting Last Admin: 05/27/23 17:12 Dose: 4 mg Documented By: SADA Oxycodone HCl (Oxycodone Hcl Immed Release 5 Mg Tablet) 10 mg PO Q4H PRN PRN Reason: Pain, Moderate Last Admin: 05/29/23 08:37 Dose: 10 mg Documented By: BETO Potassium Chloride (Potassium Chloride Er 10 Meq Tablet.Er) 20 meq PO DAILY [facility] Last Admin: 05/29/23 08:36 Dose: 20 meq Documented By: BETO Sodium Chloride (0.9 % Sodium Chloride Flush 3 Ml Syringe) 3 ml IVFLUSH QSHIFT [facility] Last Admin: 05/29/23 08:38 Dose: Not Given Documented By: BETO Non-Admin Reason: IV Running Trazodone HCl (Trazodone Hcl 50 Mg Tablet) 150 mg PO BEDTIME [facility] Last Admin: 05/28/23 20:24 Dose: 150 mg Documented By: MELVIN Labs 05/28/23 05:23 05/28/23 05:23 Labs: Laboratory Results - last 24 hr 05/28/23 05/28/23 05/28/23 11:11 16:09 20:12 POC Glucose 111 128 H 195 H 05/29/23 07:24 POC Glucose 166 H Microbiology Microbiology Results: Microbiology 05/27/23 05:05 Blood Culture - Preliminary Blood - Venous No growth after 48 hours. 05/27/23 05:05 Blood Culture - Preliminary Blood - Venous No growth after 48 hours. Assessment and Plan (1) Abdominal pain: Status: Acute Plan 58-year-old woman admitted with possible acute appy No Acute appendicitis abd ct initially thought was acute appy continue IV antibiotics for now Management as per surgical team> no OR at this time, start clear liquids, gen surg to advance diet repeat abd CT with contrast pending epigastric pain IV pepcid GI consultation? no need for GI intervention at this time History of heart failure with preserved ejection fraction No exacerbation Sees [facility] Cardiology Continue atenolol Diabetes mellitus type 2 Sliding scale clear liquids Mental health Continue home medications Asthma No exacerbation Continue albuterol Hypothyroidism Continue levothyroxine DVT prophylaxis as per surgical team Attending Dr. Villareal Full code Medical consult complete, will sign off, please contact the hospitalist service for further medical issues Time Spent With Patient Time: Total time managing care of this patient today ____ minutes. Quality Stroke Does the patient have a stroke diagnosis?: No VTE Prior VTE?: No VTE Risk Level:: Surgical - low VTE Device Contraindication: N/A - Device Ordered VTE Drug Contraindication: Treatment Not Indicated
[2023-05-29 11:13] LABS: Glucose, Whole Blood 115 mg/dL (60-115)
[2023-05-29] MEDS: iohexoL 350 MG/ML 100 ML INFUS..BTL IV (14:18)
[2023-05-29] MEDS: 0.9 % Sodium Chloride Flush 3 ML SYRINGE IVFLUSH ×2 (15:42→20:41)
[2023-05-29 15:53] LABS: Glucose, Whole Blood 137 mg/dL (60-115)
[2023-05-29] MEDS: ondansetron HCL 4 MG/2 ML VIAL IVPUSH (16:14)
[2023-05-29 16:17] LABS: Appearance Urine Clear; Color Urine Yellow; Glucose Urine UA Negative (Negative); Leukocyte Esterase Urine Trace (Negative); Nitrite Urine Negative (Negative); PH 5.5 (5.0-9.0); Specific Gravity - Urine >= 1.030 (1.005-1.025); UMIC TRIGGER UACC YES; Urine Blood Negative (Negative); Urine Ketones Negative (Negative); Urine Protein Negative (Neg-Trace)
--- NOTE | 2023-05-29 16:19 | PM.EVENT ---
Event Note Date of Service: 05/30/23 Event Note: pt seen on afternoon rounds CT reviewed - inflammatory changes in RLQ - differentials including appendicitis, ileitis neoplastic process unlikely no appendicolith on CT explained above to pt and Emile at bedside exam remains benign abd soft states she has been improving - he did state that they would like to avoid surgery as best as possible in ivew of her multiple medical issues will continue with current treatment for now keep on clear liquids - patient asking about advancing her diet Time Spent With Patient Time: Total time managing care of this patient today ____ minutes.
[2023-05-29 17:29] LABS: Bacteria Urine 1+ (None Seen); Hyaline Casts Urine 0-2 /LPF (0-2); RBC Urine 0-2 /HPF (0-2); UACC Culture Trigger YES
[2023-05-29 20:12] LABS: Glucose, Whole Blood 166 mg/dL (60-115)
[2023-05-29] MEDS: traZODone HCL 50 MG TABLET 150 MG PO (20:40)
[2023-05-30] MEDS: Morphine Sulfate 4 MG/ML CARTRIDGE IVPUSH ×5 (02:54→20:02)
[2023-05-30 03:19] VITALS: BP 116/54; PULSE 92; RESP 16; TEMP 36.2; O2SAT 96
[2023-05-30] MEDS: levoFLOXacin/D5W 500 MG/100 ML PIGGYBACK 100 MG IV (04:26)
[2023-05-30] MEDS: oxyCODONE HCl Immed Release 5 MG TABLET 10 MG PO ×5 (05:23→23:18)
[2023-05-30] MEDS: Acetaminophen 325 MG TABLET 650 MG PO ×3 (05:23→23:18)
[2023-05-30] MEDS: metroNIDAZOLE/NS 500 MG/100 ML PIGGYBACK 100 MG IV ×3 (05:24→21:51)
[2023-05-30] MEDS: LORazepam 1 MG TABLET PO ×2 (05:41→21:14)
[2023-05-30] MEDS: Fluticasone/Umeclidinium/Vilanterol 100/62.5/25 BLST.W.DEV 1 PUFF INHALE (07:38)
[2023-05-30 07:39] VITALS: PULSE 92; RESP 16
[2023-05-30 07:44] LABS: Glucose, Whole Blood 186 mg/dL (60-115)
[2023-05-30 07:46] VITALS: BP 127/60; PULSE 98; RESP 18; TEMP 36.2; O2SAT 92
--- NOTE | 2023-05-30 07:50 | PM.PNGS ---
Subjective Subjective Date of Service: 05/31/23 Interval history: c/o heartburn this AM with some nausea passing good flatus had BMs no fever still asking for pain meds - she says she gets round the clock oxycodone at home says she generally stays in bed at home due to chronic pain says she still has abdominal pain, not worse,and generally feels better Physical Exam Vital Signs: Vital Signs: Last Vital Signs Temp 97.1 F 05/30/23 07:46 Pulse 98 05/30/23 07:46 Resp 18 05/30/23 07:46 BP 127/60 05/30/23 07:46 Pulse Ox 92 05/30/23 07:46 O2 Del Method Room Air 05/30/23 07:46 BMI result Body Mass Index 26.8 Const: General: comfortable and no acute distress Resp: Effort & Inspection: normal respiratory effort Cardio: Rate: regular rate GI: Other: mild diffuse tenderness Inspection: No distended Palpation (GI): Soft to palpation, not firm and no guarding Objective Data Active Medications Acetaminophen (Acetaminophen 325 Mg Tablet) 650 mg PO Q6H PRN PRN Reason: Headache Last Admin: 05/30/23 05:23 Dose: 650 mg Documented By: CONTRERAS Albuterol Sulfate (Albuterol Sulfate 90 Mcg 8 Gm Inhaler) 1 puff INHALE QID PRN PRN Reason: wheezing Atenolol (Atenolol 50 Mg Tablet) 50 mg PO BID [facility]; Protocol Last Admin: 05/29/23 20:40 Dose: 50 mg Documented By: CONTRERAS Bupropion HCl (Bupropion Hcl Xl 300 Mg Tab.Er.24h) 300 mg PO DAILY [facility] Last Admin: 05/29/23 08:36 Dose: 300 mg Documented By: BETO Cyclobenzaprine HCl (Cyclobenzaprine Hcl 10 Mg Tablet) 20 mg PO BEDTIME PRN PRN Reason: muscle spasm Last Admin: 05/28/23 20:24 Dose: 20 mg Documented By: MELVIN Dextrose (Dextrose 50 % 25 Gm/50 Ml Syringe) 25 gm IVPUSH Q15M PRN; Protocol PRN Reason: per Hypoglycemia Standing Ord. Escitalopram Oxalate (Escitalopram Oxalate 20 Mg Tablet) 20 mg PO DAILY [facility] Last Admin: 05/29/23 08:33 Dose: 20 mg Documented By: BETO Famotidine (Famotidine/Pf 20 Mg/2 Ml Vial) 20 mg IVPUSH BID [facility] Last Admin: 05/29/23 20:40 Dose: 20 mg Documented By: CONTRERAS Flecainide Acetate (Flecainide Acetate 50 Mg Tablet) 100 mg PO Q12H [facility] Last Admin: 05/29/23 20:40 Dose: 100 mg Documented By: CONTRERAS Fluticasone/Umeclidinium/Vilanterol (Fluticasone/Umeclidinium/Vilanterol 100/62.5/25 Blst.W.Dev) 1 puff INHALE RDAILY [facility] Last Admin: 05/30/23 07:38 Dose: 1 puff Documented By: SUKHDEEP Furosemide (Furosemide 40 Mg Tablet) 40 mg PO DAILY [facility]; Protocol Last Admin: 05/29/23 09:15 Dose: 40 mg Documented By: BETO Glucose (Glucose Gel 15 Gm Gel..Gram.) 15 gm PO Q15M PRN; Protocol PRN Reason: per Hypoglycemia Standing Ord. Hydroxychloroquine Sulfate (Hydroxychloroquine Sulfate 200 Mg Tablet) 200 mg PO BID [facility] Last Admin: 05/29/23 20:40 Dose: 200 mg Documented By: CONTRERAS Levofloxacin (Levaquin) 500 mg in 100 mls @ 100 mls/hr IV Q24H [facility] Last Infusion: 05/30/23 05:27 Dose: Infused Documented By: CONTRERAS Metronidazole (Flagyl) 500 mg in 100 mls @ 100 mls/hr IV Q8H [facility] Last Infusion: 05/30/23 06:31 Dose: Infused Documented By: CONTRERAS Insulin Human Lispro (Insulin Lispro 100 Unit/Ml 3 Ml Vial) 0 unit SUBCUT QIDACHS [facility]; Protocol Last Admin: 05/29/23 20:40 Dose: 2 unit Documented By: CONTRERAS Levothyroxine Sodium (Levothyroxine Sodium 100 Mcg Tablet) 100 mcg PO DAILY [facility] Last Admin: 05/29/23 08:36 Dose: 100 mcg Documented By: BETO Lorazepam (Lorazepam 1 Mg Tablet) 1 mg PO TID PRN PRN Reason: anxiety Last Admin: 05/30/23 05:41 Dose: 1 mg Documented By: CONTRERAS Morphine Sulfate (Morphine Sulfate 4 Mg/Ml Cartridge) 4 mg IVPUSH Q3H PRN; Protocol PRN Reason: Pain, Severe (Pain Scale 7-10) Last Admin: 05/30/23 02:54 Dose: 4 mg Documented By: CONTRERAS Nicotine (Nicotine 14 Mg Patch.Td24) 14 mg TRANSDERMA DAILY [facility] Last Admin: 05/29/23 08:38 Dose: 14 mg Documented By: BETO Non-Formulary Medication (Colestipol) 1 gm PO TID [facility] Ondansetron HCl (Ondansetron Hcl 4 Mg/2 Ml Vial) 4 mg IVPUSH Q6H PRN PRN Reason: Nausea and Vomiting Last Admin: 05/29/23 16:14 Dose: 4 mg Documented By: STEVE Oxycodone HCl (Oxycodone Hcl Immed Release 5 Mg Tablet) 10 mg PO Q4H PRN PRN Reason: Pain, Moderate Last Admin: 05/30/23 05:23 Dose: 10 mg Documented By: CONTRERAS Potassium Chloride (Potassium Chloride Er 10 Meq Tablet.Er) 20 meq PO DAILY [facility] Last Admin: 05/29/23 08:36 Dose: 20 meq Documented By: BETO Sodium Chloride (0.9 % Sodium Chloride Flush 3 Ml Syringe) 3 ml IVFLUSH QSHIFT [facility] Last Admin: 05/29/23 20:41 Dose: 3 ml Documented By: CONTRERAS Trazodone HCl (Trazodone Hcl 50 Mg Tablet) 150 mg PO BEDTIME [facility] Last Admin: 05/29/23 20:40 Dose: 150 mg Documented By: CONTRERAS Labs 05/28/23 05:23 05/28/23 05:23 Labs: Laboratory Results - last 24 hr 05/29/23 05/29/23 05/29/23 11:07 15:29 16:02 POC Glucose 115 137 H Urine Color Yellow Urine Appearance Clear Urine pH 5.5 Ur Specific [place] >= 1.030 H Urine Protein Negative Urine Glucose (UA) Negative Urine Ketones Negative Urine Blood Negative Urine Nitrite Negative Ur Leukocyte Esterase Trace H Urine RBC 0-2 Urine WBC 6-10 H Ur Squamous Epith Cells 3-5 Urine Bacteria 1+ Hyaline Casts 0-2 05/29/23 05/30/23 20:07 07:06 POC Glucose 166 H 186 H Urine Color Urine Appearance Urine pH Ur Specific [place] Urine Protein Urine Glucose (UA) Urine Ketones Urine Blood Urine Nitrite Ur Leukocyte Esterase Urine RBC Urine WBC Ur Squamous Epith Cells Urine Bacteria Hyaline Casts Microbiology Microbiology Results: Microbiology 05/27/23 05:05 Blood Culture - Preliminary Blood - Venous No growth after 48 hours. 05/27/23 05:05 Blood Culture - Preliminary Blood - Venous No growth after 48 hours. Procedures Date of Service Date of Service: 05/31/23 Progress Note: A&P Assessment and plan (1) Abdominal pain: Status: Acute Assessment and Plan: CT scan reviewed - still wth inflammatory changes in RLQ, cannot rule appendicitis, ileitis no abscess no neoplastic process no fecaliths overall better - no fever, WBC down, good flatus and BMs still c/o abdl pain - she takes round the clock narcotics at home and frequently asks plan to try full liquids later exam benign will continue with curent care for now - dw pt's pt asking if she can be restarted on her oral pain meds Time Spent With Patient Time: Total time managing care of this patient today ____ minutes. Quality Stroke Does the patient have a stroke diagnosis?: No VTE Prior VTE?: No VTE Risk Level:: Surgical - low VTE Device Contraindication: N/A - Device Ordered VTE Drug Contraindication: Treatment Not Indicated
[2023-05-30] MEDS: Insulin Lispro 100 UNIT/ML 3 ML VIAL SUBCUT ×3 (08:05→20:05)
[2023-05-30] MEDS: Flecainide Acetate 50 MG TABLET 100 MG PO ×2 (08:07→20:02)
[2023-05-30] MEDS: Famotidine/PF 20 MG/2 ML VIAL IVPUSH ×2 (08:07→20:02)
[2023-05-30] MEDS: Escitalopram Oxalate 20 MG TABLET PO (08:08)
[2023-05-30] MEDS: atenoloL 50 MG TABLET PO ×2 (08:08→20:03)
[2023-05-30] MEDS: buPROPion HCl XL 300 MG TAB.ER.24H PO (08:08)
[2023-05-30] MEDS: Hydroxychloroquine Sulfate 200 MG TABLET PO ×2 (08:08→20:03)
[2023-05-30] MEDS: Levothyroxine Sodium 100 MCG TABLET PO (08:08)
[2023-05-30] MEDS: Potassium Chloride ER 10 MEQ TABLET.ER 20 MEQ PO (08:08)
[2023-05-30] MEDS: Furosemide 40 MG TABLET PO (08:09)
[2023-05-30] MEDS: 0.9 % Sodium Chloride Flush 3 ML SYRINGE IVFLUSH ×2 (08:09→20:04)
[2023-05-30] MEDS: Nicotine 14 MG PATCH.TD24 TRANSDERMA (08:16)
[2023-05-30 11:30] LABS: Glucose, Whole Blood 94 mg/dL (60-115)
[2023-05-30] MEDS: Fluconazole 150 MG TABLET PO (12:32)
--- NOTE | 2023-05-30 12:43 | PM.EVENT ---
Event Note Date of Service: 05/30/23 Event Note: c/o vaginal itchiness consistent prior instances of yeast infection, is deferring exam so will prescribed Diflucan 150 mg PO x 1 and repeat in 3 days Time Spent With Patient Time: Total time managing care of this patient today ____ minutes.
[2023-05-30 15:29] VITALS: BP 109/51; PULSE 93; RESP 18; TEMP 36.9; O2SAT 94
[2023-05-30 16:28] LABS: Glucose, Whole Blood 197 mg/dL (60-115)
[2023-05-30 19:51] LABS: Glucose, Whole Blood 202 mg/dL (60-115)
[2023-05-30 20:00] VITALS: BP 119/56; PULSE 98; RESP 17; TEMP 36.4; O2SAT 94
[2023-05-30] MEDS: traZODone HCL 50 MG TABLET 150 MG PO (20:04)
[2023-05-30] MEDS: Albuterol Sulfate 90 MCG 8 GM INHALER 1 PUFF INHALE (21:50)
[2023-05-31] VITALS (9 sets, daily range): BP systolic 110–120; BP diastolic 53–67; PULSE 65–96; RESP 16–20; TEMP 36.3–37.3; O2SAT 91–96
[2023-05-31] MEDS: Morphine Sulfate 4 MG/ML CARTRIDGE IVPUSH ×5 (02:12→20:01)
[2023-05-31] MEDS: levoFLOXacin/D5W 500 MG/100 ML PIGGYBACK 100 MG IV (04:30)
[2023-05-31] MEDS: oxyCODONE HCl Immed Release 5 MG TABLET 10 MG PO ×3 (04:33→13:28)
[2023-05-31] MEDS: metroNIDAZOLE/NS 500 MG/100 ML PIGGYBACK 100 MG IV ×3 (06:03→21:32)
[2023-05-31 07:23] LABS: Glucose, Whole Blood 163 mg/dL (60-115)
[2023-05-31] MEDS: Fluticasone/Umeclidinium/Vilanterol 100/62.5/25 BLST.W.DEV 1 PUFF INHALE (07:48)
[2023-05-31] MEDS: Escitalopram Oxalate 20 MG TABLET PO (07:49)
[2023-05-31] MEDS: Potassium Chloride ER 10 MEQ TABLET.ER 20 MEQ PO (07:49)
[2023-05-31] MEDS: buPROPion HCl XL 300 MG TAB.ER.24H PO (07:49)
[2023-05-31] MEDS: Furosemide 40 MG TABLET PO (07:49)
[2023-05-31] MEDS: Hydroxychloroquine Sulfate 200 MG TABLET PO ×2 (07:49→19:52)
[2023-05-31] MEDS: atenoloL 50 MG TABLET PO ×2 (07:49→19:52)
[2023-05-31] MEDS: Levothyroxine Sodium 100 MCG TABLET PO (07:49)
[2023-05-31] MEDS: Flecainide Acetate 50 MG TABLET 100 MG PO ×2 (07:50→19:52)
[2023-05-31] MEDS: Famotidine/PF 20 MG/2 ML VIAL IVPUSH ×2 (07:50→19:51)
[2023-05-31] MEDS: Insulin Lispro 100 UNIT/ML 3 ML VIAL SUBCUT ×4 (07:50→20:08)
[2023-05-31] MEDS: Nicotine 14 MG PATCH.TD24 TRANSDERMA (07:50)
[2023-05-31] MEDS: 0.9 % Sodium Chloride Flush 3 ML SYRINGE IVFLUSH ×3 (07:50→19:52)
--- NOTE | 2023-05-31 08:34 | P.PNGS_ITS ---
Subjective Subjective Date of Service: 06/05/23 Interval history: tolerating full liquids has flatus and BMs still with abdl pain, improving Physical Exam 2 Vital Signs: Vital Signs: Last Vital Signs Temp 97.4 F 05/31/23 07:27 Pulse 92 05/31/23 08:03 Resp 16 05/31/23 08:03 BP 110/53 L 05/31/23 07:27 Pulse Ox 96 05/31/23 07:27 O2 Del Method Room Air 05/31/23 07:27 BMI result Body Mass Index 26.8 Const: General: comfortable and no acute distress Resp: Effort & Inspection: normal respiratory effort Cardio: Rhythm: abnormal rhythm GI: Other: mild diffuse tenderness, no Ceron's sign Palpation (GI): Soft to palpation, not firm, no guarding and not rigid Objective Data Active Medications Acetaminophen (Acetaminophen 325 Mg Tablet) 650 mg PO Q6H PRN PRN Reason: Headache Last Admin: 05/30/23 23:18 Dose: 650 mg Documented By: CONTRERAS Albuterol Sulfate (Albuterol Sulfate 90 Mcg 8 Gm Inhaler) 1 puff INHALE QID PRN PRN Reason: wheezing Last Admin: 05/30/23 21:50 Dose: 1 puff Documented By: CONTRERAS Atenolol (Atenolol 50 Mg Tablet) 50 mg PO BID [facility]; Protocol Last Admin: 05/31/23 07:49 Dose: 50 mg Documented By: ANGELES Bupropion HCl (Bupropion Hcl Xl 300 Mg Tab.Er.24h) 300 mg PO DAILY [facility] Last Admin: 05/31/23 07:49 Dose: 300 mg Documented By: ANGELES Cyclobenzaprine HCl (Cyclobenzaprine Hcl 10 Mg Tablet) 20 mg PO BEDTIME PRN PRN Reason: muscle spasm Last Admin: 05/28/23 20:24 Dose: 20 mg Documented By: MELVIN Dextrose (Dextrose 50 % 25 Gm/50 Ml Syringe) 25 gm IVPUSH Q15M PRN; Protocol PRN Reason: per Hypoglycemia Standing Ord. Escitalopram Oxalate (Escitalopram Oxalate 20 Mg Tablet) 20 mg PO DAILY [facility] Last Admin: 05/31/23 07:49 Dose: 20 mg Documented By: ANGELES Famotidine (Famotidine/Pf 20 Mg/2 Ml Vial) 20 mg IVPUSH BID [facility] Last Admin: 05/31/23 07:50 Dose: 20 mg Documented By: ANGELES Flecainide Acetate (Flecainide Acetate 50 Mg Tablet) 100 mg PO Q12H [facility] Last Admin: 05/31/23 07:50 Dose: 100 mg Documented By: ANGELES Fluticasone/Umeclidinium/Vilanterol (Fluticasone/Umeclidinium/Vilanterol 100/62.5/25 Blst.W.Dev) 1 puff INHALE RDAILY [facility] Last Admin: 05/31/23 07:48 Dose: 1 puff Documented By: ARABELLA Furosemide (Furosemide 40 Mg Tablet) 40 mg PO DAILY [facility]; Protocol Last Admin: 05/31/23 07:49 Dose: 40 mg Documented By: ANGELES Glucose (Glucose Gel 15 Gm Gel..Gram.) 15 gm PO Q15M PRN; Protocol PRN Reason: per Hypoglycemia Standing Ord. Hydroxychloroquine Sulfate (Hydroxychloroquine Sulfate 200 Mg Tablet) 200 mg PO BID [facility] Last Admin: 05/31/23 07:49 Dose: 200 mg Documented By: ANGELES Levofloxacin (Levaquin) 500 mg in 100 mls @ 100 mls/hr IV Q24H [facility] Last Infusion: 05/31/23 06:07 Dose: Infused Documented By: CONTRERAS Metronidazole (Flagyl) 500 mg in 100 mls @ 100 mls/hr IV Q8H [facility] Last Infusion: 05/31/23 07:43 Dose: Infused Documented By: ANGELES Insulin Human Lispro (Insulin Lispro 100 Unit/Ml 3 Ml Vial) 0 unit SUBCUT QIDACHS [facility]; Protocol Last Admin: 05/31/23 07:50 Dose: 2 unit Documented By: ANGELES Levothyroxine Sodium (Levothyroxine Sodium 100 Mcg Tablet) 100 mcg PO DAILY [facility] Last Admin: 05/31/23 07:49 Dose: 100 mcg Documented By: ANGELES Lorazepam (Lorazepam 1 Mg Tablet) 1 mg PO TID PRN PRN Reason: anxiety Last Admin: 05/30/23 21:14 Dose: 1 mg Documented By: CONTRERAS Morphine Sulfate (Morphine Sulfate 4 Mg/Ml Cartridge) 4 mg IVPUSH Q3H PRN; Protocol PRN Reason: Pain, Severe (Pain Scale 7-10) Last Admin: 05/31/23 06:06 Dose: 4 mg Documented By: CONTRERAS Nicotine (Nicotine 14 Mg Patch.Td24) 14 mg TRANSDERMA DAILY [facility] Last Admin: 05/31/23 07:50 Dose: 14 mg Documented By: ANGELES Non-Formulary Medication (Colestipol) 1 gm PO TID [facility] Ondansetron HCl (Ondansetron Hcl 4 Mg/2 Ml Vial) 4 mg IVPUSH Q6H PRN PRN Reason: Nausea and Vomiting Last Admin: 05/29/23 16:14 Dose: 4 mg Documented By: STEVE Oxycodone HCl (Oxycodone Hcl Immed Release 5 Mg Tablet) 10 mg PO Q4H PRN PRN Reason: Pain, Moderate Last Admin: 05/31/23 04:33 Dose: 10 mg Documented By: CONTRERAS Potassium Chloride (Potassium Chloride Er 10 Meq Tablet.Er) 20 meq PO DAILY [facility] Last Admin: 05/31/23 07:49 Dose: 20 meq Documented By: ANGELES Sodium Chloride (0.9 % Sodium Chloride Flush 3 Ml Syringe) 3 ml IVFLUSH QSHIFT [facility] Last Admin: 05/31/23 07:50 Dose: 3 ml Documented By: ANGELES Trazodone HCl (Trazodone Hcl 50 Mg Tablet) 150 mg PO BEDTIME [facility] Last Admin: 05/30/23 20:04 Dose: 150 mg Documented By: CONTRERAS Labs 05/28/23 05:23 05/28/23 05:23 Labs: Laboratory Results - last 24 hr 05/30/23 05/30/23 05/30/23 11:22 16:23 19:42 POC Glucose 94 197 H 202 H 05/31/23 07:00 POC Glucose 163 H Microbiology Microbiology Results: Microbiology 05/29/23 Unknown Urine Culture - Preliminary Urine clean catch - Urine beebe top No growth to date. Procedures Date of Service Date of Service: 06/05/23 Progress Note: A&P Assessment and plan (1) Abdominal pain: Status: Acute Assessment and Plan: inflammatory changes in RLQ appendix not identified ?ileitis,appendicitis no neoplastic process has remained benign on exam WBC normal, no fever advance diet today and reevaluate later - pt says she would like to go home she is on high dose chronic pain meds says she has her own hospital bed at home Time Spent With Patient Time: Total time managing care of this patient today ____ minutes. Quality Stroke Does the patient have a stroke diagnosis?: No VTE Prior VTE?: No VTE Risk Level:: Surgical - low VTE Device Contraindication: N/A - Device Ordered VTE Drug Contraindication: Treatment Not Indicated
[2023-05-31] MEDS: LORazepam 1 MG TABLET PO ×2 (08:52→20:02)
[2023-05-31 11:31] LABS: Glucose, Whole Blood 180 mg/dL (60-115)
--- NOTE | 2023-05-31 12:55 | MHC.CM.PN ---
pts dc plan reMAINS HOME WHEN DCD BY SURGERY
[2023-05-31] MEDS: ondansetron HCL 4 MG/2 ML VIAL IVPUSH (15:47)
[2023-05-31] MEDS: Albuterol Sulfate 90 MCG 8 GM INHALER 1 PUFF INHALE (16:07)
[2023-05-31 16:09] LABS: Glucose, Whole Blood 188 mg/dL (60-115)
[2023-05-31] MEDS: traZODone HCL 50 MG TABLET 150 MG PO (19:52)
[2023-05-31] MEDS: Cyclobenzaprine HCl 10 MG TABLET 20 MG PO (20:01)
[2023-05-31 20:09] LABS: Glucose, Whole Blood 262 mg/dL (60-115)
[2023-06-01 04:00] VITALS: BP 120/60; PULSE 91; RESP 18; TEMP 36.2; O2SAT 92
[2023-06-01] MEDS: levoFLOXacin/D5W 500 MG/100 ML PIGGYBACK 100 MG IV (04:55)
[2023-06-01] MEDS: Morphine Sulfate 4 MG/ML CARTRIDGE IVPUSH ×3 (05:03→11:13)
[2023-06-01] MEDS: metroNIDAZOLE/NS 500 MG/100 ML PIGGYBACK 100 MG IV ×2 (06:03→13:08)
[2023-06-01 07:35] LABS: Glucose, Whole Blood 134 mg/dL (60-115)
[2023-06-01 07:55] VITALS: BP 109/55; PULSE 90; RESP 20; TEMP 36.6; O2SAT 92
[2023-06-01] MEDS: Escitalopram Oxalate 20 MG TABLET PO (08:00)
[2023-06-01] MEDS: Furosemide 40 MG TABLET PO (08:00)
[2023-06-01] MEDS: 0.9 % Sodium Chloride Flush 3 ML SYRINGE IVFLUSH ×2 (08:00→13:12)
[2023-06-01] MEDS: Potassium Chloride ER 10 MEQ TABLET.ER 20 MEQ PO (08:00)
[2023-06-01] MEDS: Famotidine/PF 20 MG/2 ML VIAL IVPUSH (08:00)
[2023-06-01] MEDS: Flecainide Acetate 50 MG TABLET 100 MG PO (08:00)
[2023-06-01] MEDS: buPROPion HCl XL 300 MG TAB.ER.24H PO (08:00)
[2023-06-01] MEDS: LORazepam 1 MG TABLET PO (08:01)
[2023-06-01] MEDS: Hydroxychloroquine Sulfate 200 MG TABLET PO (08:01)
[2023-06-01] MEDS: atenoloL 50 MG TABLET PO (08:01)
[2023-06-01] MEDS: Levothyroxine Sodium 100 MCG TABLET PO (08:01)
[2023-06-01] MEDS: Fluticasone/Umeclidinium/Vilanterol 100/62.5/25 BLST.W.DEV 1 PUFF INHALE (08:27)
[2023-06-01 08:29] VITALS: PULSE 87; RESP 18; O2SAT 89
[2023-06-01] MEDS: Nicotine 14 MG PATCH.TD24 TRANSDERMA (08:38)
--- NOTE | 2023-06-01 09:23 | PC.NURSE ---
Dressing CDI, scant bloody drainage when dressing removed, 7 day supply of dressing change given to take home. Educated on wound care, pt states understanding and follow up care when discharged.
[2023-06-01] MEDS: Insulin Lispro 100 UNIT/ML 3 ML VIAL SUBCUT (11:13)
[2023-06-01 11:14] LABS: Glucose, Whole Blood 200 mg/dL (60-115)
[2023-06-01 12:07] LABS: CDiff Gene PCR NEGATIVE (Negative)
[2023-06-01] MEDS: oxyCODONE HCl Immed Release 5 MG TABLET 10 MG PO (13:15)
[2023-06-01] MEDS: Acetaminophen 325 MG TABLET 650 MG PO (13:15)
--- NOTE | 2023-06-01 14:42 | P.PNGS_ITS ---
Subjective Subjective Date of Service: 06/01/23 Interval history: Patient feeling somewhat better. Tolerating a diet. Having some loose stool. Abdominal symptoms are status quo. Patient wishes to go home. Physical Exam 2 Vital Signs: Vital Signs: Last Vital Signs Temp 98 F 06/01/23 07:55 Pulse 87 06/01/23 08:29 Resp 18 06/01/23 08:29 BP 109/55 L 06/01/23 07:55 Pulse Ox 92 06/01/23 07:55 O2 Del Method Room Air 06/01/23 07:55 O2 Flow Rate 92 06/01/23 04:00 BMI result Body Mass Index 26.8 GI: Other: Abdomen soft, nontender. Periumbilical tenderness but without any evidence of guarding, rebound, rigidity. Objective Data Active Medications Acetaminophen (Acetaminophen 325 Mg Tablet) 650 mg PO Q6H PRN PRN Reason: Headache Last Admin: 06/01/23 13:15 Dose: 650 mg Documented By: SADA Albuterol Sulfate (Albuterol Sulfate 90 Mcg 8 Gm Inhaler) 1 puff INHALE QID PRN PRN Reason: wheezing Last Admin: 05/31/23 16:07 Dose: 1 puff Documented By: ARABELLA Atenolol (Atenolol 50 Mg Tablet) 50 mg PO BID [facility]; Protocol Last Admin: 06/01/23 08:01 Dose: 50 mg Documented By: SADA Bupropion HCl (Bupropion Hcl Xl 300 Mg Tab.Er.24h) 300 mg PO DAILY [facility] Last Admin: 06/01/23 08:00 Dose: 300 mg Documented By: SADA Cyclobenzaprine HCl (Cyclobenzaprine Hcl 10 Mg Tablet) 20 mg PO BEDTIME PRN PRN Reason: muscle spasm Last Admin: 05/31/23 20:01 Dose: 20 mg Documented By: MANDEEP Dextrose (Dextrose 50 % 25 Gm/50 Ml Syringe) 25 gm IVPUSH Q15M PRN; Protocol PRN Reason: per Hypoglycemia Standing Ord. Escitalopram Oxalate (Escitalopram Oxalate 20 Mg Tablet) 20 mg PO DAILY [facility] Last Admin: 06/01/23 08:00 Dose: 20 mg Documented By: SADA Famotidine (Famotidine/Pf 20 Mg/2 Ml Vial) 20 mg IVPUSH BID [facility] Last Admin: 06/01/23 08:00 Dose: 20 mg Documented By: SADA Flecainide Acetate (Flecainide Acetate 50 Mg Tablet) 100 mg PO Q12H [facility] Last Admin: 06/01/23 08:00 Dose: 100 mg Documented By: SADA Fluticasone/Umeclidinium/Vilanterol (Fluticasone/Umeclidinium/Vilanterol 100/62.5/25 Blst.W.Dev) 1 puff INHALE RDAILY [facility] Last Admin: 06/01/23 08:27 Dose: 1 puff Documented By: ANGELICA Furosemide (Furosemide 40 Mg Tablet) 40 mg PO DAILY [facility]; Protocol Last Admin: 06/01/23 08:00 Dose: 40 mg Documented By: SADA Glucose (Glucose Gel 15 Gm Gel..Gram.) 15 gm PO Q15M PRN; Protocol PRN Reason: per Hypoglycemia Standing Ord. Hydroxychloroquine Sulfate (Hydroxychloroquine Sulfate 200 Mg Tablet) 200 mg PO BID [facility] Last Admin: 06/01/23 08:01 Dose: 200 mg Documented By: SADA Levofloxacin (Levaquin) 500 mg in 100 mls @ 100 mls/hr IV Q24H [facility] Last Infusion: 06/01/23 06:08 Dose: Infused Documented By: MANDEEP Metronidazole (Flagyl) 500 mg in 100 mls @ 100 mls/hr IV Q8H [facility] Last Infusion: 06/01/23 14:08 Dose: Infused Documented By: SADA Insulin Human Lispro (Insulin Lispro 100 Unit/Ml 3 Ml Vial) 0 unit SUBCUT QIDACHS [facility]; Protocol Last Admin: 06/01/23 11:13 Dose: 2 unit Documented By: SADA Levothyroxine Sodium (Levothyroxine Sodium 100 Mcg Tablet) 100 mcg PO DAILY [facility] Last Admin: 06/01/23 08:01 Dose: 100 mcg Documented By: SADA Lorazepam (Lorazepam 1 Mg Tablet) 1 mg PO TID PRN PRN Reason: anxiety Last Admin: 06/01/23 08:01 Dose: 1 mg Documented By: SADA Nicotine (Nicotine 14 Mg Patch.Td24) 14 mg TRANSDERMA DAILY [facility] Last Admin: 06/01/23 08:38 Dose: 14 mg Documented By: SADA Non-Formulary Medication (Colestipol) 1 gm PO TID [facility] Ondansetron HCl (Ondansetron Hcl 4 Mg/2 Ml Vial) 4 mg IVPUSH Q6H PRN PRN Reason: Nausea and Vomiting Last Admin: 05/31/23 15:47 Dose: 4 mg Documented By: ANA Oxycodone HCl (Oxycodone Hcl Immed Release 5 Mg Tablet) 10 mg PO Q4H PRN PRN Reason: Pain, Moderate Last Admin: 06/01/23 13:15 Dose: 10 mg Documented By: SADA Potassium Chloride (Potassium Chloride Er 10 Meq Tablet.Er) 20 meq PO DAILY [facility] Last Admin: 06/01/23 08:00 Dose: 20 meq Documented By: SADA Sodium Chloride (0.9 % Sodium Chloride Flush 3 Ml Syringe) 3 ml IVFLUSH QSHIFT [facility] Last Admin: 06/01/23 13:12 Dose: 3 ml Documented By: SADA Trazodone HCl (Trazodone Hcl 50 Mg Tablet) 150 mg PO BEDTIME [facility] Last Admin: 05/31/23 19:52 Dose: 150 mg Documented By: MANDEEP Labs 05/28/23 05:23 05/28/23 05:23 Labs: Laboratory Results - last 24 hr 05/31/23 05/31/23 06/01/23 16:01 20:05 07:31 POC Glucose 188 H 262 H 134 H C. difficile Tox B Gene 06/01/23 06/01/23 10:47 11:09 POC Glucose 200 H C. difficile Tox B Gene NEGATIVE Microbiology Microbiology Results: Microbiology 05/27/23 05:05 Blood Culture - Final Blood - Venous No growth after 5 days. 05/27/23 05:05 Blood Culture - Final Blood - Venous No growth after 5 days. 05/29/23 Unknown Urine Culture - Final Urine clean catch - Urine beebe top Procedures Date of Service Date of Service: 06/01/23 Progress Note: A&P Assessment and plan (1) Abdominal pain: Status: Acute Plan Current plan is to discharge patient home with follow-up with Dr. Doll as an outpatient. Time Spent With Patient Time: Total time managing care of this patient today ____ minutes. Quality Stroke Does the patient have a stroke diagnosis?: No VTE Prior VTE?: No VTE Risk Level:: Surgical - low VTE Device Contraindication: N/A - Device Ordered VTE Drug Contraindication: Treatment Not Indicated
--- NOTE | 2023-06-01 14:55 | MHC.CM.PN ---
PT WILL DC HOME TODAY WITH NO SERVICES VIA PRIVATE TRANSPORT
--- NOTE | 2023-06-05 15:01 | PM.DS ---
DS: Providers Provider Date of Service: 06/01/23 Date of admission: 05/27/23 04:56 Primary care physician: Renetta Chew MD Consults: 05/27/23 08:16 Consult to Hospitalist Routine Comment: Consulting Provider: Hospitalist Reason For Exam: DM, CHF, SLE, atrial fib 05/28/23 09:07 Consult to Gastroenterology Routine Consulting Provider: Yuli Shin Reason for consultation: epigastric pain DS: Diagnosis Discharge Diagnosis (1) Abdominal pain: Status: Acute DS: Summary Hospital Course Hospital Course: [age] year old female with multiple medical problems including CHF, atrial fibrillation, on anticoagulation, SLE, admitted because of abdominal pain. CT scan had shown we inflammatory age is on the right side her abdomen although her appendix was not clearly visualized. Her initial exam showed her tenderness to be mostly on the left side however. Ileitis and acute appendicitis were differential so we kept her on IV antibiotics. She was initially placed NPO. I repeated her CT scan on May 29 and this showed persistence of inflammatory changes. However, there was no abscess or any neoplastic masses noted. Clinically, she was improving and her abdomen soft and benign. She denied of any fever nor leukocytosis. I started to advance her diet slowly. She continued to do well was tolerating this. Had some diarrhea on May 31 so I kept her in the hospital. She however continued to improve and was discharged by the covering surgeon on 06/01/2023. At the time of her discharge, she was tolerating regular diet, was afebrile and had a benign exam.. Time Spent with Patient Time attestation: Total time managing care of this patient today ____ minutes. Discharge coordination time: Less than 30 minutes Quality: Safe Use of Opioids Does Pt have an Active Cancer Diagnosis on the Problem List?: No Quality: Stroke Does the patient have a stroke diagnosis?: No Physical Exam Vital Signs: Vital Signs: Last Vital Signs Temp 98 F 06/01/23 07:55 Pulse 87 06/01/23 08:29 Resp 18 06/01/23 08:29 BP 109/55 L 06/01/23 07:55 Pulse Ox 92 06/01/23 07:55 O2 Del Method Room Air 06/01/23 07:55 O2 Flow Rate 92 06/01/23 04:00 BMI result Body Mass Index 26.8 Const: General: comfortable and no acute distress Orientation/consciousness: patient oriented x3 Neck: Neck: Yes no lymphadenopathy Resp: Auscultation: clear to auscultation bilaterally Cardio: Rhythm: regular rhythm GI: Palpation (GI): Soft to palpation, nontender and no guarding Neuro: General: patient oriented x3 Discharge Plan Discharge Anticipated Discharge Date/Time: 05/29/23 12:53 Patient Disposition: Home, Self-Care Discharge Diagnosis: abdominal pain Referrals: Favian Ramirez MD [Physician] - 1 Week Discharge Medications: New levofloxacin 500 mg tablet 500 mg PO DAILY 5 Days Qty: 5 0RF metronidazole 500 mg tablet 500 mg PO BID Qty: 10 0RF Continued atenolol 50 mg tablet 50 mg PO BID 90 Days Qty: 180 3RF flecainide 100 mg tablet 100 mg PO Q12H 90 Days Qty: 180 3RF albuterol sulfate 90 mcg/actuation HFA aerosol inhaler 1 puff inhalation QID PRN (Reason: wheezing) potassium chloride 10 mEq capsule, extended release 20 meq PO DAILY hydroxychloroquine 200 mg tablet 200 mg PO BID acetaminophen 325 mg Tablet 975 mg PO TID insulin lispro [Humalog U-100 Insulin] 100 unit/mL Solution 1 sliding scale dose SUBCUT USEASDIRECTD Protocol: Insulin Correction Scale Less than or equal to 110 ---- Give (units): 0 111 to 150 Give (units): 0 151 to 200 Give (units): 2 201 to 250 Give (units): 4 251 to 300 Give (units): 6 301 to 350 Give (units): 8 Greater than 350 Give (units): 10 Call if Blood Glucose > : 350 colestipol 1 gram tablet 1 g PO TID Trulicity 0.75 mg/0.5 mL pen injector 0.75 mg subcut WHITE Trelegy Ellipta 100-62.5-25 mcg blister with device 1 ea INHALATION DAILY famotidine 20 mg tablet 20 mg PO BID bupropion HCl 300 mg tablet extended release 24 hr 300 mg PO DAILY citalopram 40 mg tablet 40 mg PO DAILY lorazepam 1 mg tablet 1 mg PO TID PRN (Reason: anxiety) levothyroxine 100 mcg tablet 100 mcg PO DAILY trazodone 50 mg tablet 150 mg PO BEDTIME oxycodone 10 mg tablet 10 mg PO Q4H PRN (Reason: Pain, Moderate) cyclobenzaprine 10 mg tablet 20 mg PO BEDTIME PRN (Reason: muscle spasm) insulin glargine [Lantus Solostar U-100 Insulin] 100 unit/mL (3 mL) insulin pen 26 unit subcut BID (DME) OneTouch Verio test strips Strip See Rx Instructions .ROUTE TID Qty: 10 Rx Instructions: As directed (DME) lancets [OneTouch Delica Plus Lancet] 30 gauge misc See Rx Instructions .ROUTE QID Qty: 100 Rx Instructions: As directed Xarelto 20 mg tablet 20 mg PO DAILY@1700 No Action hydrocodone-acetaminophen 5-325 mg tablet 1 tab PO Q4-6H PRN (Reason: pain) Qty: 30 0RF Rx Instructions: Partial Fill upon patient request. Discharge Orders: Discharge Order (Routine); Ordered 06/01/23 Ordered By: Kirill Colmenares Diet: Advance to usual diet Activity on Discharge: As tolerated Stand Alone Forms: Patient Portal Discharge page Activity Restrictions/Additional Instructions: Follow up with your primary care provider. Resume activities as tolerated. Call Your Doctor If: ? ? -Your temperature exceeds 101.5? F? ? ? -You experience excessive pain or swelling ? ? -You have an unexpected reaction to medication ? ? -You experience continued vomiting/nausea Care Plan Goals: Return to baseline health and resume normal activities. Resolution of abdominal pain. Health Concerns: Abdominal pain PAF on xarelto Plan of Treatment: Observation, antibiotics F/u in office with PCP Assessment: Improved Discharge Date/Time: 06/01/23 15:49
== END 2023-06-01 15:49 | disposition home or self-care (01) | DRG 392 ==
LOC: HO.ED 05-27 02:26 → HO.EDOVER 05-27 05:11 → HO.S3 05-27 09:58
PROVIDERS: Internal Medicine; Nurse Practitioner Acute Care; Surgery; Admitting Provider Surgery; Emergency Provider Emergency Medicine Emergency Medical Services; PCP Internal Medicine; Visit Provider Surgery
DX: K52.9 Noninfective gastroenteritis and colitis, unspecified (principal); K35.80 Unspecified acute appendicitis; I50.32 Chronic diastolic (congestive) heart failure; M32.9 Systemic lupus erythematosus, unspecified; F17.210 Nicotine dependence, cigarettes, uncomplicated; E11.9 Type 2 diabetes mellitus without complications; J45.909 Unspecified asthma, uncomplicated; E03.9 Hypothyroidism, unspecified; F32.A Depression, unspecified; I48.0 Paroxysmal atrial fibrillation; Z71.6 Tobacco abuse counseling; Z79.4 Long term (current) use of insulin; Z79.01 Long term (current) use of anticoagulants; Z79.890 Hormone replacement therapy; Z79.899 Other long term (current) drug therapy
CPT/HCPCS: 36415; 74177; 80048; 80053; 81001; 81003; 82947; 83605; 83690; 85025; 85027; 86140; 87040; 87086; 87493; 94640; 97161; 99285; J1170; J1956; J2270; J2405; Q9967

== ENCOUNTER → 2023-05-27 04:56 | Outpatient (BNV) | payer MEDICARE, MEDICAID, SELFPAY | PROVIDERS: Admitting Provider Surgery; Emergency Provider Emergency Medicine Emergency Medical Services; PCP Internal Medicine; Visit Provider Internal Medicine | DX: R10.9 Unspecified abdominal pain (principal); R93.5 Abnormal findings on diagnostic imaging of other abdominal regions, including retroperitoneum | CPT/HCPCS: 99222 ==

== ENCOUNTER → 2023-05-27 04:56 | Outpatient (BNV) | payer MEDICARE, MEDICAID, SELFPAY | PROVIDERS: Admitting Provider Surgery; Emergency Provider Emergency Medicine Emergency Medical Services; PCP Internal Medicine; Visit Provider Surgery | DX: R10.9 Unspecified abdominal pain (principal) | CPT/HCPCS: 99222; 99232; 99238; 99499 ==

== ENCOUNTER → 2023-05-27 04:56 | Outpatient (BNV) | payer MEDICARE, MEDICAID, SELFPAY | PROVIDERS: Admitting Provider Surgery; Emergency Provider Emergency Medicine Emergency Medical Services; PCP Internal Medicine; Visit Provider Nurse Practitioner Acute Care | DX: R10.9 Unspecified abdominal pain (principal) | CPT/HCPCS: 99223; 99232; 99499 ==

== ENCOUNTER 2023-06-01 23:55 | Inpatient (IN) | payer MEDICARE, MEDICAID, SELFPAY ==
--- NOTE | ~2023-06-01 | XR_ITS ---
EXAMINATION: XR chest 1V CLINICAL INFORMATION: Reason for Exam Hypoxia COMPARISON: 06/06/2023 TECHNIQUE: XR chest 1V, 2 Views Lungs and Diane: Progression of Diffuse increased interstitial lung marking and peribronchial cuffing might be a small airway disease such as bronchiolitis or interstitial pneumonitis, versus interstitial lung disease versus interstitial edema. No dense focal consolidation pneumonia. Pleura: Normal. Costophrenic angles are sharp. No pneumothorax. Heart: The heart is normal in size. Mediastinum: The mediastinum is within normal limits.. Bones: Skeletal structures included are normal for patient's age. XR/XR chest 1V IMPRESSION: Progression of severe diffuse increased interstitial lung marking and peribronchial cuffing might be a small airway disease such as bronchiolitis or interstitial pneumonitis, versus interstitial lung disease versus interstitial edema.
--- NOTE | ~2023-06-01 | XR_ITS ---
EXAMINATION: XR CHEST CLINICAL INFORMATION: Postop hypoxia. COMPARISON: Chest radiograph done on 11/20/2022. TECHNIQUE: Frontal view of the chest was obtained. FINDINGS: Interval development of diffuse reticular interstitial changes noted bilaterally, may represent interstitial edema versus infiltrate, interstitial spread of neoplasm, fibrosis or combination thereof. No evidence of any dense airspace consolidation. The heart size is within normal limit. No evidence of any pleural or pericardial effusion. XR/XR chest 1V IMPRESSION: Bilateral diffuse nonspecific reticular interstitial changes, of indeterminate etiology, new since 11/20/2022.
--- NOTE | ~2023-06-01 | CT_ITS ---
EXAMINATION: CT ABDOMEN AND PELVIS WITH CONTRAST CLINICAL INFORMATION: Lower abdominal pain, diarrhea, rule out colitis. COMPARISON: CT abdomen 05/29/2023. CT abdomen 05/27/2023. TECHNIQUE: Multidetector volumetric images were obtained from the superior aspect of the liver through the pubic symphysis following administration 85 mL of Omnipaque 350 intravenous contrast. Sagittal and coronal reformatted images were obtained on the technologist's workstation. Oral contrast: No. This CT examination was performed using dose optimization techniques as appropriate, variously including the following: *Automated exposure control *Adjustment of mA and/or kV according to patient size (this includes techniques or standardized protocols for targeted exams where dose is matched to indication/reason for exam; i.e. extremities or head) *Use of iterative reconstruction technique DLP: 600 mGy-cm FINDINGS: LUNG BASES: Prominent areas of interstitial prominence and ground-glass opacities in the visualized right middle lobe and bilateral lower lobes, new as compared to the prior study of 05/27/2023. This has been evaluated on the chest CT study obtained today. See chest CT report. LIVER, GALLBLADDER, AND BILIARY TREE: Slightly low-attenuation of the liver with respect to spleen, could be related to phase of enhancement versus mild hepatic steatosis. No focal hepatic lesion. No intrahepatic biliary duct dilatation. As seen on the recent study, the CBD is slightly dilated measuring up to 1 cm in the head of the pancreas. No intraluminal radiopaque calculi are identified by CT. PANCREAS: Unremarkable. No acute inflammatory changes seen. SPLEEN: Unremarkable. ADRENAL GLANDS: Unremarkable. KIDNEYS AND URETERS: The kidneys are normal in size, shape, and attenuation. No hydronephrosis, hydroureter, or calculi seen. Multiple bilateral renal cysts. No imaging follow up recommended. As described on the CT report of 05/29/2023, is a 1.3 x 1.6 cm low-attenuation lesion exophytic to the left lateral mid pole renal lesion. Hounsfield measurement is 76. This is not compatible with a simple cyst. A solid renal lesion cannot be excluded, and ultrasound follow up evaluation is recommended. BLADDER: Unremarkable. GASTROINTESTINAL TRACT: Abnormal as seen on the prior CT of 05/29/[address] of 05/27/2023, are abnormal findings redemonstrated in the right lower quadrant. Redemonstrated are inflammatory changes in the right lower quadrant, similar or questionably more prominent as compared to previous. Again seen is a dilated tubular structure measuring up to approximately 1.6 cm. The wall of this structure is thickened, hypoattenuated. Findings again questionable for appendicitis. No definite extraluminal air is identified. No loculated fluid collection or abscess is identified. The cecum is nondistended. As seen on the recent CT scan, there is mild thickening of the wall of the terminal ileum and terminal ileitis could be present. As seen on the CT of 05/29/2023, is an inflammatory change of the fat just deep to the left anterior abdominal wall, left of the midline. This is unchanged from the prior CT of 05/29/2023. This could reflect fat necrosis of the greater omentum. No findings to suggest bowel obstruction. The stomach is nondistended. ABDOMINAL WALL: No significant hernia is appreciated. LYMPH NODES: No pathologically enlarged lymph nodes are seen. VASCULAR: Normal caliber aorta. PELVIC VISCERA: The uterus is not visualized. Question trace fluid within the pelvis. OSSEOUS STRUCTURES: Redemonstrated are extensive postsurgical changes in the lumbar spine. Posterior spinal fusion hardware with rods and bilateral transpedicular screws at L1, L3 and L4. Intervertebral devices at L4-L5, L5-S1. Multilevel degenerative changes in the spine. Mild bilateral hip joint arthritis. CT/CT abdomen pelvis w IV con IMPRESSION: Prior CT of 05/29/2023 and 05/27/2023 had abnormal findings, with reports documenting concern for acute appendicitis. Abnormal findings are again seen on today's CT 06/02/2023. The appearance again raises concern for acute appendicitis. Trace free fluid in the pelvis. No loculated or drainable fluid collection/abscess is identified. Redemonstrated is wall thickening of the adjacent terminal ileum and terminal ileitis is a consideration. Recommend surgical consultation. Redemonstrated is inflammatory changes of the fat just deep to the left lower anterior abdominal wall, probably reflecting fat necrosis of the greater omentum, unchanged from 05/29/2023. Stable, dilated CBD measuring 1 cm. No radiopaque calculi seen within the CBD. Correlate with liver function tests. Further evaluation with MRI/MRCP as clinically warranted. Indeterminate 1.3 x 1.6 cm low-attenuation lesion in the lateral midpole left kidney. Differential considerations include complex cyst, solid lesion. Recommend further workup with follow up renal ultrasound. Fleischner guidelines were followed. The report will be called to the ordering clinician by a [facility] Gardening Manager.
--- NOTE | ~2023-06-01 | XR_ITS ---
EXAMINATION: XR CHEST CLINICAL INFORMATION: Hypoxia COMPARISON: 06/02/2023 TECHNIQUE: Frontal view of the chest was obtained. FINDINGS: Lobe lung volumes are present, likely contributing to progressive diffuse increased reticular interstitial markings involving upper and lower lobes. No focal consolidations or effusions. No definite findings to suggest vascular congestion. Heart and mediastinum within normal limits. Mild right hemidiaphragmatic elevation is unchanged. Lower cervical surgical hardware again noted. XR/XR chest 1V IMPRESSION: Likely progression of indeterminate bilateral interstitial lung pattern. .
--- NOTE | ~2023-06-01 | CT_ITS ---
EXAMINATION: CT ANGIOGRAM OF THE CHEST WITH AND WITHOUT CONTRAST (CT PULMONARY ANGIOGRAM FOR PE) CLINICAL INFORMATION: Reason for Exam Shortness of breath, hypoxic, rule out PE COMPARISON: CT chest 11/21/2022 TECHNIQUE: Prior to contrast administration, noncontrast localization images were obtained. Subsequently, multidetector volumetric imaging was performed from the thoracic inlet to below the diaphragms following the administration of 85wmL Omnipaque 350 intravenous contrast. No contrast reaction reported Sagittal, coronal, and MIP oblique sagittal reformatted images were obtained on the CT workstation, uploaded to PACS, and reviewed. This CT examination was performed using dose optimization techniques as appropriate, variously including the following: *Automated exposure control *Adjustment of mA and/or kV according to patient size (this includes techniques or standardized protocols for targeted exams where dose is matched to indication/reason for exam; i.e. extremities or head) *Use of iterative reconstruction technique Total exam dose-length product 969 mGy-cm FINDINGS: QUALITY OF STUDY/CONTRAST BOLUS: Satisfactory. PULMONARY ARTERIES: No evidence of filling defects to suggest central or proximal segmental pulmonary emboli. . THORACIC AORTA: No aneurysm. No findings to suggest dissection. LUNG: Moderate to severe upper lobe predominant centrilobular and paraseptal emphysema. There is bronchial wall thickening, septal thickening and ground glass opacities extensively in bilateral upper lobes, right middle lobe, lingula, and multifocal areas in the bilateral lower lobes. These findings are new/more prominent as compared to previous CT of 11/21/2022. Differential consideration include infectious, inflammatory etiologies. Evaluation for nodules limited given the extensive lung disease. PLEURA: No pleural effusion or pneumothorax. MEDIASTINUM: Normal heart size. No pericardial effusion. Large mediastinal lymph nodes, with including enlarged lymph nodes measuring 1.1 cm and 1.3 cm in short axis. No hilar lymphadenopathy. No evidence of septal bowing or right heart strain. CORONARY ARTERY CALCIFICATION: Present CHEST WALL/AXILLA: No axillary or internal mammary lymphadenopathy. OSSEOUS STRUCTURES: No acute or suspicious osseous abnormality. Multilevel degenerative changes spine. UPPER ABDOMEN: No reflux of contrast into the hepatic veins to suggest elevated right heart pressures. CT/CT angio chest PE protocol IMPRESSION: 1. No evidence of filling defects to suggest central or segmental pulmonary emboli. 2. Moderate to severe upper lobe predominant centrilobular and paraseptal emphysema. 3. Marked abnormal lung findings. There is bronchial wall thickening, septal thickening and groundglass opacities extensively in bilateral upper lobes, right middle lobe, lingula, and multifocal areas in bilateral lower lobes. Findings are new/more prominent as compared to prior study of 11/21/2022. Differential considerations include and is not limited to, infectious, inflammatory etiologies. Recommend follow-up imaging to ensure resolution of these findings. 4. Mediastinal lymphadenopathy, new as compared to the prior study. 5. Additional findings and details as above. VTE: negative
--- NOTE | ~2023-06-01 | CT_ITS ---
EXAMINATION: CT ANGIOGRAM OF THE CHEST WITH AND WITHOUT CONTRAST (CT PULMONARY ANGIOGRAM FOR PE) CLINICAL INFORMATION: Reason for Exam hypoxia COMPARISON: 06/02/2023 TECHNIQUE: Prior to contrast administration, noncontrast localization images were obtained. Subsequently, multidetector volumetric imaging was performed from the thoracic inlet to below the diaphragms following the administration of 65 mL Omnipaque 350 intravenous contrast. No contrast reaction reported Sagittal, coronal, and MIP oblique sagittal reformatted images were obtained on the CT workstation, uploaded to PACS, and reviewed. This CT examination was performed using dose optimization techniques as appropriate, variously including the following: *Automated exposure control *Adjustment of mA and/or kV according to patient size (this includes techniques or standardized protocols for targeted exams where dose is matched to indication/reason for exam; i.e. extremities or head) *Use of iterative reconstruction technique Total exam dose-length product 177 mGy-cm FINDINGS: QUALITY OF STUDY/CONTRAST BOLUS: Satisfactory. PULMONARY ARTERIES: No pulmonary emboli. THORACIC AORTA: No aneurysm. LUNG: Diffuse bilateral bronchial/septal thickening and diffuse bilateral infiltrates are again seen with interval progression compared to previous. PLEURA: There is a trace right pleural effusion. MEDIASTINUM: Normal heart size. No pericardial effusion. No hilar or mediastinal lymphadenopathy. No evidence of septal bowing or right heart strain. CORONARY ARTERY CALCIFICATION: Mild. CHEST WALL/AXILLA: No axillary or internal mammary lymphadenopathy. OSSEOUS STRUCTURES: There is a partially imaged upper lumbar fusion. There is endplate sclerosis at T12-L1 with mild loss of inferior T12 height. UPPER ABDOMEN: Unremarkable. No reflux of contrast into the hepatic veins to suggest elevated right heart pressures. CT/CT angio chest PE protocol IMPRESSION: No evidence for pulmonary embolism. Progressing bilateral infiltrates. VTE: Negative for pulmonary embolism.
--- NOTE | ~2023-06-01 | XR_ITS ---
EXAMINATION: XR CHEST CLINICAL INFORMATION: Dyspnea COMPARISON: 06/04/2023 TECHNIQUE: Frontal view of the chest was obtained. FINDINGS: Lung volumes are symmetric. Heterogeneous haziness throughout the lungs appears similar to minimally improved from prior. No evidence of pneumothorax or significant pleural effusion. The cardiomediastinal contour is unremarkable. No acute osseous findings are seen. Fusion hardware noted in the lower cervical spine. XR/XR chest 1V IMPRESSION: Heterogeneous haziness throughout the lungs appears similar to minimally improved from 06/04/2023.
[2023-06-02] VITALS (31 sets, daily range): BP systolic 62–132; BP diastolic 31–72; PULSE 85–102; RESP 12–24; TEMP 35.8–37.1; O2SAT 87–98; BMI 32.3; BMI 27.9
[2023-06-02 01:36] LABS: MANUAL DIFF FLAG NO
[2023-06-02 01:37] LABS: Basophils Percent Auto 0.3 % (0-2); Eosinophils Absolute Auto 0.1 X10*3/uL (0.0-0.4); Eosinophils Percent Auto 0.4 % (0-4); Hematocrit 37.2 % (37.0-47.0); Hemoglobin 12.6 g/dl (12.0-16.0); Imm Gran Abs Auto 0.08 X10*3/uL (0.00-0.03); Imm Gran Pct Auto 0.5 % (0.0-0.4); Lymphocytes Absolute Auto 1.2 X10*3/uL (1.2-4.9); Lymphocytes Percent Auto 7.6 % (20-40); Mean Corpuscular HGB Conc 33.9 g/dl (31.0-35.0); Mean Corpuscular Volume 100.3 fL (80.0-98.0); Mean Platelet Volume 10.3 fL (9.4-12.3); Monocytes Absolute Auto 0.9 X10*3/uL (0.1-1.2); Monocytes Percent Auto 5.4 % (2-11); Neutrophils Absolute Auto 13.6 x10*3/uL (2.0-8.3); Neutrophils Percent Auto 85.8 % (45-73); Platelet Count 215 X10*3/uL (160-400); Red Blood Count 3.71 X10*6/uL (4.20-5.50); Red Cell Distribution Width 13.5 % (11.0-16.0); White Blood Count 15.8 X10*3/uL (4.8-10.8)
[2023-06-02 02:00] LABS: Alanine Aminotransferase 12 U/L (0-31); Albumin Level 3.1 g/dL (3.5-5.0); Alkaline Phosphatase 59 U/L (39-117); Anion Gap 17 (12-20); Aspartate Amino Transferase 33 U/L (5-31); Bilirubin Total 0.3 mg/dL (0.0-1.0); Blood Urea Nitrogen 9 mg/dL (9-16); Calcium 8.7 mg/dL (8.4-10.2); Carbon Dioxide 21 mmol/L (22-29); Chloride 100 mmol/L (96-108); Creatinine Clr Calc Pharmacy 60.9; Estimated Glomerular Filt Rate 49; Glucose Random 267 mg/dL (60-115); Lipase 7 U/L (8-78); Potassium 4.5 mmol/L (3.3-5.1); Sodium 133 mmol/L (135-145); Total Protein 7.2 g/dL (6.5-8.0)
--- NOTE | 2023-06-02 05:20 | ED_ITS ---
HPI - Abdominal Pain General Chief Complaint: Abdominal Pain Stated Complaint: abdominal pain Time Seen by Provider: 06/02/23 04:31 Source: patient Mode of arrival: EMS Limitations: no limitations History of Present Illness HPI narrative: 58-year-old female history of atrial fibrillation, congestive heart failure, diabetes mellitus, lupus, who was admitted to the hospital on 05/27/2023 and discharged on 06/01/2023 for abdominal pain of unclear etiology. The patient was experiencing abdominal pain since 05/23/2023-located in her lower abdomen, severe, associated with multiple loose bowel movements per day with associated fever and chills and was seen in the emergency department on 05/27/2023. Patient's CT scan reviewed 1.2 cm structure in the expected location of the appendix extending to right adnexal region with surrounding fatty stranding. Patient was admitted to the surgical service and also had at GI consult. Patient had a repeat CT scan on 05/29/2023 with radiology impression as follows: Inflammatory changes in the right lower quadrant. Appearance is again concerning for acute appendicitis. There is wall thickening of the adjacent terminal ileum and terminal ileitis is a consideration as well. Increasing small amount of fluid in the pelvis. Patient states that her pain did improve and she was feeling better at the time of discharge but she did have for loose nonbloody bowel movements. She states that when she was home she also had 4 loose bowel movements at home, the pain came back, she points to her umbilical area and lower abdomen when asked to localize the pain, the pain is a cramping sensation and 5/10, associated with nausea. That she got dizzy, lightheaded, shaky and weak and was unable to walk therefore she called an ambulance was brought back to the emergency department. Patient's O2 saturation was noted to be 88% on room air, she denied chest pain or shortness of breath, she was placed on 4 L via nasal cannula. Related Data Home Medications Medication Instructions Recorded Confirmed bupropion HCl 300 mg 24 hr tablet, 300 mg PO DAILY 12/12/20 05/27/23 extended release citalopram 40 mg tablet 40 mg PO DAILY 12/12/20 05/27/23 famotidine 20 mg tablet 20 mg PO BID 12/12/20 05/27/23 levothyroxine 100 mcg tablet 100 mcg PO DAILY 12/12/20 05/27/23 lorazepam 1 mg tablet 1 mg PO TID PRN anxiety 12/12/20 05/27/23 trazodone 50 mg tablet 150 mg PO BEDTIME 12/12/20 05/27/23 cyclobenzaprine 10 mg tablet 20 mg PO BEDTIME PRN muscle spasm 05/16/22 05/27/23 oxycodone 10 mg tablet 10 mg PO Q4H PRN Pain, Moderate 05/16/22 05/27/23 blood sugar [facility] 05/07/23 Verio test strips) insulin glargine 100 unit/mL (3 26 unit subcut BID 06/11/22 05/27/23 mL) subcutaneous pen (Lantus Solostar U-100 Insulin) lancets 30 gauge (formerly [facility] #100 ea 06/11/22 05/07/23 Plus Lancet) rivaroxaban 20 mg tablet (Xarelto) 20 mg PO DAILY@1700 05/07/23 05/27/23 acetaminophen 325 mg tablet 975 mg PO TID 05/27/23 05/27/23 albuterol sulfate 90 mcg/actuation 1 puff inhalation QID PRN wheezing 05/27/23 05/27/23 aerosol inhaler colestipol 1 gram tablet 1 g PO TID 05/27/23 05/27/23 dulaglutide 0.75 mg/0.5 mL 0.75 mg subcut WHITE 05/27/23 05/27/23 subcutaneous pen injector (Trulicity) fluticasone fur. 100 mcg-umeclid 1 ea inhalation DAILY 05/27/23 05/27/23 62.5 mcg-vilant 25 mcg inhalat.powder (Trelegy Ellipta) hydroxychloroquine 200 mg tablet 200 mg PO BID 05/27/23 05/27/23 insulin lispro 100 unit/mL 1 sliding scale dose subcut 05/27/23 05/27/23 subcutaneous solution (Humalog USEASDIRECTD U-100 Insulin) potassium chloride 10 mEq 20 meq PO DAILY 05/27/23 05/27/23 capsule,extended release Previous Rx's Medication Instructions Recorded atenolol 50 mg tablet 50 mg PO BID 90 days #180 tabs 04/29/23 flecainide 100 mg tablet 100 mg PO Q12H 90 days #180 tabs 04/29/23 levofloxacin 500 mg tablet 500 mg PO DAILY 5 days #5 tabs 05/31/23 metronidazole 500 mg tablet 500 mg PO BID #10 tabs 05/31/23 Allergies Allergy/AdvReac Type Severity Reaction Status Date / Time amoxicillin [From AUGMENTIN] Allergy Mild SWELLING Verified 05/26/23 22:47 clavulanic acid Allergy Mild SWELLING Verified 05/26/23 22:47 [From AUGMENTIN] etodolac [From LODINE] Allergy Mild SWELLING Verified 05/26/23 22:47 gabapentin [GABAPENTIN] Allergy Mild SWELLING Verified 05/26/23 22:47 pregabalin [From LYRICA] Allergy Mild SWELLING Verified 05/26/23 22:47 clarithromycin [From Biaxin] Allergy Unknown ANGIOEDEMA Verified 05/26/23 22:47 Penicillins Allergy Unknown UNKNOWN Verified 05/26/23 22:47 sulfamethoxazole Allergy Unknown ANAPHYLAXIS Verified 05/26/23 22:47 [From Bactrim] piperacillin [From Zosyn] Allergy Itching Verified 05/27/23 05:06 tazobactam [From Zosyn] Allergy Itching Verified 05/27/23 05:06 fluticasone AdvReac Mild MUSCLE PAIN Verified 05/26/23 22:47 [From FLOVENT DISKUS] PMFSH Past Medical History Medical History (Updated 06/02/23 @ 06:55 by James Hernandez MD) Abdominal pain SLE (systemic lupus erythematosus) Depression Thyroid disease COPD (chronic obstructive pulmonary disease) Congestive heart failure Diabetes PAF (paroxysmal atrial fibrillation) Surgical History History of back surgery History of radiofrequency ablation (RFA) procedure for cardiac arrhythmia Family History Family History Father No problems noted. Mother CVD (cardiovascular disease) Social History Social History Household Members: Family Housing: House Do you presently have visiting nurse or other home services: No Alcohol intake: never Patient Tobacco Use Status: Current everyday Tobacco user Cigarette Packs Per Day: 1 Cigarettes Per Day: 20.0 Smoked in Last 30 Days: Yes Use of substances other than those prescribed or required for medical reasons: No Advance Directives: Yes Advance Directives on File: Yes Advance Directives Date on File: 05/27/23 Patient : No service: No Current occupational status: disabled Physical Exam ED Vital Signs: Vital Signs - 24 hr 06/02/23 01:34 06/02/23 03:31 06/02/23 05:48 Temperature 97.9 F 98.7 F 98.0 F Pulse Rate 85 85 89 Respiratory Rate 12 22 H 19 Blood Pressure 90/51 L 102/48 L 97/37 L Pulse Oximetry 96 97 95 Oxygen Delivery Method Nasal Cannula Nasal Cannula Nasal Cannula Oxygen Flow Rate 4 4 4 06/02/23 05:56 Temperature Pulse Rate 86 Respiratory Rate 22 H Blood Pressure 101/31 L Pulse Oximetry 96 Oxygen Delivery Method Nasal Cannula Oxygen Flow Rate 4 BMI result Body Mass Index 32.3 Vital signs revealed an low blood pressure of 90/51 and an O2 saturation of 88 % on room air, 97% on 4 L via nasal cannula Exam: General: Awake, alert, female patient, does not appear to be in distress Head: Normocephalic, atraumatic EENT: PERRL, Lids normal, sclera normal, conjunctiva normal, nose normal , ears normal, throat without erythema or exudates Neck: Supple, no adenopathy, trachea midline and nontender Lung: breath sounds symmetric, no wheezing, rales or rhonchi Chest: symmetric movement, nontender Heart: regular rate and rhythm, normal S1, S2 no murmurs or rubs Abdomen: Obese, moderate periumbilical tenderness, mild to moderate right lower and left lower quadrant tenderness, moderate suprapubic tenderness Back: no vertebral tenderness, no CVAT Extremities: no deformities, moves all extremities symmetrically Skin: no rashes, no lesion, normal color and warmth Neuro: Awake, alert, oriented, normal speech, cranial nerves intact, moves all extremities symmetrically Psych: Pleasant, cooperative Medical Decision Making Medical Decision Making MDM Narrative: 58-year-old female history of atrial fibrillation on Xarelto, congestive heart failure, diabetes mellitus, lupus, who was admitted to the hospital on 05/27/2023 and discharged on 06/01/2023 for abdominal pain of unclear etiology (right lower quadrant abdominal mass with inflammatory change) who discharged on 06/01/2023 and returns to the emergency department with similar lower abdominal pain, weakness, lightheaded dizziness and persistent diarrhea. On presentation the patient's O2 saturation was 88% on room air and this did improve with 4 L via nasal cannula, she had a low systolic. Abdominal exam did reveal periumbilical and lower abdominal tenderness. The following evaluation was ordered: CBC, CMP, lipase, CT pulmonary angiogram PE protocol, CT scan of the abdomen pelvis with IV and oral contrast. I ordered normal saline x1 L IV, morphine 4 mg IV, Zofran 4 mg IV. Patient will be treated with Levaquin 500 mg IV and metronidazole 500 mg IV for possible intra-abdominal infectious process. 0609: I did discuss the patient's presentation with the covering surgeon, Dr. Colmenares who did take care of the patient over the last several days His impression was that this is not a surgical process and he felt that unless there was something significantly different on the repeat CT scans today, he would recommend that the patient be admitted to the surgical service. Patient did have a negative C difficile test yesterday and I do not think it is worth repeating but I did order a GI panel to evaluate the patient's diarrhea 0700: Patient is feeling better after receiving the morphine Patient is drinking her contrast without any difficulty At the end of my shift, patient's care was turned over to my colleague, Dr. Kimberly Robles Differential Diagnosis Differential Diagnoses: The differential diagnosis associated with the presentation includes Differential diagnosis includes but is not limited to acute appendicitis, inflammatory bowel disease (Crohn's versus ulcerative colitis), abscess, pancreatitis, pulmonary embolism, pneumonia Admission/Observation Consideration of admission/observation: Escalation of care including admission/observation considered Consult Healthcare Provider Management of the patient was discussed with: Disciplinary Hearing Officer (Dr. Colmenares) Lab Data MDM Lab Attestation statement: I reviewed the patient's lab results. My interpretation of patient's laboratory evaluation is as follows: Elevated WBC 56431, low sodium 130, low bicarb 21, elevated glucose 267. C diff was negative prior to discharge at 10:47 hours on 06/01/2023. PTT elevated 33.7, INR elevated 2.8, PTT elevated 42.0-most likely secondary to Xarelto. Lactic acid was normal at 1.8. Lipase was normal. 06/02/23 01:25 06/02/23 01:25 Labs: Lab Results 06/02/23 06/02/23 Range/Units 01:25 06:06 WBC 15.8 H (4.8-10.8) X10*3/uL RBC 3.71 L (4.20-5.50) X10*6/uL Hgb 12.6 (12.0-16.0) g/dl Hct 37.2 (37.0-47.0) % MCV 100.3 H (80.0-98.0) fL MCH 34.0 H (27.0-33.0) pg MCHC 33.9 (31.0-35.0) g/dl RDW 13.5 (11.0-16.0) % Plt Count 215 (160-400) X10*3/uL MPV 10.3 (9.4-12.3) fL Immature Gran % (Auto) 0.5 H (0.0-0.4) % Neut % (Auto) 85.8 H (45-73) % Lymph % (Auto) 7.6 L (20-40) % [place] % (Auto) 5.4 (2-11) % Eos % (Auto) 0.4 (0-4) % Baso % (Auto) 0.3 (0-2) % Lymph # (Auto) 1.2 (1.2-4.9) X10*3/uL [place] # (Auto) 0.9 (0.1-1.2) X10*3/uL Eos # (Auto) 0.1 (0.0-0.4) X10*3/uL Baso # (Auto) 0.0 (0.0-0.2) X10*3/uL Abs Immat Gran (auto) 0.08 H (0.00-0.03) X10*3/uL Absolute Neuts (auto) 13.6 H (2.0-8.3) x10*3/uL Absolute Nucleated RBC 0.000 (0.0-0.012) X10*3/uL Nucleated RBC % (auto) 0.0 (0.0-0.2) /100WBC PT 33.7 H (11.1-13.3) SEC INR 2.8 H (0.9-1.1) APTT 42.0 H (26.0-36.4) SEC Sodium 133 L (135-145) mmol/L Potassium 4.5 D (3.3-5.1) mmol/L Chloride 100 (96-108) mmol/L Carbon Dioxide 21 L (22-29) mmol/L Anion Gap 17 (12-20) BUN 9 (9-16) mg/dL Creatinine 1.14 (0.5-1.4) mg/dL Estim Creat Clear Calc 60.9 Estimated GFR 49 Random Glucose 267 H (60-115) mg/dL Lactic Acid 1.8 (0.5-2.0) mmol/L Calcium 8.7 (8.4-10.2) mg/dL Total Bilirubin 0.3 (0.0-1.0) mg/dL AST 33 H (5-31) U/L ALT 12 (0-31) U/L Alkaline Phosphatase 59 (39-117) U/L Total Protein 7.2 (6.5-8.0) g/dL Albumin 3.1 L (3.5-5.0) g/dL Lipase 7 L 6 L (8-78) U/L COVID-19 (GIRISH) Negative (Negative) COVID-19 Clin Com See Note External Record Review External record reviewed: Inpatient record Chronic Conditions Patient?s care impacted by: Diabetes and Other (Atrial fibrillator) Medications Administered Generic Name Dose Route Start Last Admin Trade Name Freq PRN Reason Stop Dose Admin Levofloxacin 500 mg in 100 mls @ 100 mls/hr 06/02/23 05:46 06/02/23 06:17 Levaquin IV 06/02/23 06:45 100 mls/hr ONCE ONE Administration Metronidazole 500 mg in 100 mls @ 100 mls/hr 06/02/23 05:46 06/02/23 06:17 Flagyl IV 06/02/23 06:45 100 mls/hr ONCE ONE Administration Discontinued Medications Generic Name Dose Route Start Last Admin Trade Name Freq PRN Reason Stop Dose Admin Diatrizoate Meglum/Diatrizoate Sod 30 ml 06/02/23 06:12 06/02/23 06:12 Diatrizoate Meglumine, Sodium 30 Ml Solution PO 06/02/23 06:13 30 ml ONCE ONE Administration Sodium Chloride 1,000 mls @ 999 mls/hr 06/02/23 05:33 06/02/23 06:18 Ns IV 06/02/23 06:33 999 mls/hr .Q1H1M STA Administration Morphine Sulfate 4 mg 06/02/23 05:33 06/02/23 06:17 Morphine Sulfate 4 Mg/Ml Cartridge IVPUSH 06/02/23 05:34 4 mg ONCE STA Administration Protocol Ondansetron HCl 4 mg 06/02/23 05:33 06/02/23 06:17 Ondansetron Hcl 4 Mg/2 Ml Vial IVPUSH 06/02/23 05:34 4 mg ONCE ONE Administration Discharge Plan Discharge Clinical Impression: Weakness, Hypoxia, Diarrhea Abdominal pain Qualifiers: Abdominal location: lower abdomen, unspecified Qualified Code(s): R10.30 - Lower abdominal pain, unspecified Patient Disposition: Still a Patient Prescriptions: No Action atenolol 50 mg tablet 50 mg PO BID 90 Days Qty: 180 3RF flecainide 100 mg tablet 100 mg PO Q12H 90 Days Qty: 180 3RF albuterol sulfate 90 mcg/actuation HFA aerosol inhaler 1 puff inhalation QID PRN (Reason: wheezing) potassium chloride 10 mEq capsule, extended release 20 meq PO DAILY hydroxychloroquine 200 mg tablet 200 mg PO BID acetaminophen 325 mg Tablet 975 mg PO TID insulin lispro [Humalog U-100 Insulin] 100 unit/mL Solution 1 sliding scale dose SUBCUT USEASDIRECTD Protocol: Insulin Correction Scale Less than or equal to 110 ---- Give (units): 0 111 to 150 Give (units): 0 151 to 200 Give (units): 2 201 to 250 Give (units): 4 251 to 300 Give (units): 6 301 to 350 Give (units): 8 Greater than 350 Give (units): 10 Call MD if Blood Glucose > : 350 colestipol 1 gram tablet 1 g PO TID Trulicity 0.75 mg/0.5 mL pen injector 0.75 mg subcut WHITE Trelegy Ellipta 100-62.5-25 mcg blister with device 1 ea INHALATION DAILY levofloxacin 500 mg tablet 500 mg PO DAILY 5 Days Qty: 5 0RF metronidazole 500 mg tablet 500 mg PO BID Qty: 10 0RF famotidine 20 mg tablet 20 mg PO BID bupropion HCl 300 mg tablet extended release 24 hr 300 mg PO DAILY citalopram 40 mg tablet 40 mg PO DAILY lorazepam 1 mg tablet 1 mg PO TID PRN (Reason: anxiety) levothyroxine 100 mcg tablet 100 mcg PO DAILY trazodone 50 mg tablet 150 mg PO BEDTIME oxycodone 10 mg tablet 10 mg PO Q4H PRN (Reason: Pain, Moderate) cyclobenzaprine 10 mg tablet 20 mg PO BEDTIME PRN (Reason: muscle spasm) insulin glargine [Lantus Solostar U-100 Insulin] 100 unit/mL (3 mL) insulin pen 26 unit subcut BID (DME) OneTouch Verio test strips Strip See Rx Instructions .ROUTE TID Qty: 10 Rx Instructions: As directed (DME) lancets [OneTouch Delica Plus Lancet] 30 gauge misc See Rx Instructions .ROUTE QID Qty: 100 Rx Instructions: As directed Xarelto 20 mg tablet 20 mg PO DAILY@1700
[2023-06-02] MEDS: Diatrizoate Meglumine, Sodium 30 ML SOLUTION PO (06:12)
[2023-06-02] MEDS: levoFLOXacin/D5W 500 MG/100 ML PIGGYBACK 100 MG IV (06:17)
[2023-06-02] MEDS: Morphine Sulfate 4 MG/ML CARTRIDGE IVPUSH (06:17)
[2023-06-02] MEDS: ondansetron HCL 4 MG/2 ML VIAL IVPUSH (06:17)
[2023-06-02] MEDS: metroNIDAZOLE/NS 500 MG/100 ML PIGGYBACK 100 MG IV (06:17)
[2023-06-02] MEDS: 0.9 % Sodium Chloride 1,000 ML 999 ML IV (06:18)
[2023-06-02 06:23] LABS: INTERNATIONAL NORM RATIO 2.8 (0.9-1.1); Prothrombin Time 33.7 SEC (11.1-13.3)
[2023-06-02 06:28] LABS: Lactic Acid 1.8 mmol/L (0.5-2.0)
[2023-06-02 06:30] LABS: Lipase 6 U/L (8-78)
[2023-06-02 06:31] LABS: COVID-19 Test Negative (Negative); IDNOW Serial# BCCEAD1C
[2023-06-02 08:26] LABS: Appearance Urine Clear; Color Urine Yellow; Glucose Urine UA Negative (Negative); Leukocyte Esterase Urine Moderate (2+) (Negative); Nitrite Urine Negative (Negative); PH 5.5 (5.0-9.0); Specific Gravity - Urine 1.015 (1.005-1.025); UMIC TRIGGER UACC YES; Urine Blood Negative (Negative); Urine Ketones Negative (Negative); Urine Protein Trace mg/dL (Neg-Trace)
[2023-06-02 08:32] LABS: Bacteria Urine Trace (None Seen); RBC Urine 0-2 /HPF (0-2); UACC Culture Trigger YES
[2023-06-02] MEDS: iohexoL 350 MG/ML 100 ML INFUS..BTL 85 ML IV (09:09)
--- NOTE | 2023-06-02 09:19 | PC.NURSE ---
assumed care of pt at 0700. pt a&o x4, pleasant, calm, and cooperative. reporting 7/10 RLQ abdominal pain. pt medicated at 0615 and sts some pain relief. pt also reporting 9/10 lower back pain from laying in the stretcher. IV drips completed. pt resting quietly on stretcher in no apparent distress. call mabry within pt reach. all needs met elisabeth.
--- NOTE | 2023-06-02 09:31 | PC.NURSE ---
pt assisted to the bathroom by wellington Barahona. pt desated to 84% on 4L nc and sob from exertion when brought back to bed. pt placed on 5L nc and encouraged to take slow deep breaths through nose. O2 up to 94%.
[2023-06-02] MEDS: oxyCODONE HCl Immed Release 5 MG TABLET PO (09:44)
--- NOTE | 2023-06-02 10:36 | PC.NURSE ---
pt sating at 98% on 5L O2 nc. O2 decreased to 4L.
--- NOTE | 2023-06-02 12:26 | PC.NURSE ---
pt scheduled to go to OR for 1300.
[2023-06-02 12:32] LABS: Glucose, Whole Blood 136 mg/dL (60-115)
[2023-06-02] MEDS: Albuterol/Iprat 2.5/0.5MG 3 ML AMPUL.NEB INHALE (12:43)
[2023-06-02 12:54] LABS: INTERNATIONAL NORM RATIO 1.8 (0.9-1.1); Prothrombin Time 21.4 SEC (11.1-13.3)
[2023-06-02 12:56] LABS: Partial Thromboplastin Time 35.9 SEC (26.0-36.4)
--- NOTE | 2023-06-02 13:24 | PC.NURSE ---
this rn at bedside to double verify kcentra with ofelia greenberg.
--- NOTE | 2023-06-02 13:26 | PM.HPGS ---
History of Present Illness History of Present Illness Date of Service: 06/02/23 Chief complaint: abdominal pain Narrative: Debra Gaines is a 58 year old female who was recently discharged from hospitalization of several days because of nonspecific lower abdominal pain. Upon discharge yesterday, patient was afebrile with normal white count and was tolerating a diet although having some loose stool which was C diff negative. She wished to be discharged home. Patient returns today because for aggression of her lower abdominal in particular right lower quadrant symptoms. Chart was reviewed patient evaluated. Patient has a plethora of medical problems. She has atrial fibrillation taking Xarelto among other comorbidities. CT scan demonstrated findings suggestive of acute appendicitis/right lower quadrant inflammatory process. FOR[facility]LY [facility] Past Medical History Medical History (Updated 06/02/23 @ 12:01 by Cheryl Robles MD) Abdominal pain SLE (systemic lupus erythematosus) Depression Thyroid disease COPD (chronic obstructive pulmonary disease) Congestive heart failure Diabetes PAF (paroxysmal atrial fibrillation) Family History Family History Father No problems noted. Mother CVD (cardiovascular disease) Surgical History Surgical History History of back surgery History of radiofrequency ablation (RFA) procedure for cardiac arrhythmia Social History Social History Household Members: Family Housing: House Do you presently have visiting nurse or other home services: No Alcohol intake: never Patient Tobacco Use Status: Current everyday Tobacco user Cigarette Packs Per Day: 1 Cigarettes Per Day: 20.0 Smoked in Last 30 Days: Yes Use of substances other than those prescribed or required for medical reasons: No Advance Directives: Yes Advance Directives on File: Yes Advance Directives Date on File: 05/27/23 Patient : No service: No Current occupational status: disabled Meds Allergies Allergy/AdvReac Type Severity Reaction Status Date / Time amoxicillin [From AUGMENTIN] Allergy Mild SWELLING Verified 05/26/23 22:47 clavulanic acid Allergy Mild SWELLING Verified 05/26/23 22:47 [From AUGMENTIN] etodolac [From LODINE] Allergy Mild SWELLING Verified 05/26/23 22:47 gabapentin [GABAPENTIN] Allergy Mild SWELLING Verified 05/26/23 22:47 pregabalin [From LYRICA] Allergy Mild SWELLING Verified 05/26/23 22:47 clarithromycin [From Biaxin] Allergy Unknown ANGIOEDEMA Verified 05/26/23 22:47 Penicillins Allergy Unknown UNKNOWN Verified 05/26/23 22:47 sulfamethoxazole Allergy Unknown ANAPHYLAXIS Verified 05/26/23 22:47 [From Bactrim] piperacillin [From Zosyn] Allergy Itching Verified 05/27/23 05:06 tazobactam [From Zosyn] Allergy Itching Verified 05/27/23 05:06 fluticasone AdvReac Mild MUSCLE PAIN Verified 05/26/23 22:47 [From FLOVENT DISKUS] Active Medications: Current Medications Prothrombin Complex Concent (Human) (Hum Prothrombin Cplx(Pcc)4fact 500 Unit/20 Ml Vial) 2,000 unit IV ONCE ONE Stop: 06/02/23 13:31 Last Admin: 06/02/23 13:22 Dose: 2,000 unit Home Medications Medication Instructions Recorded Confirmed Last Taken Type bupropion HCl 300 mg 24 hr tablet, 300 mg PO DAILY 12/12/20 05/27/23 05/25/23 History extended release citalopram 40 mg tablet 40 mg PO DAILY 12/12/20 05/27/23 05/25/23 History famotidine 20 mg tablet 20 mg PO BID 12/12/20 05/27/23 05/25/23 History levothyroxine 100 mcg tablet 100 mcg PO DAILY 12/12/20 05/27/23 05/26/23 History lorazepam 1 mg tablet 1 mg PO TID PRN anxiety 12/12/20 05/27/23 Unknown History trazodone 50 mg tablet 150 mg PO BEDTIME 12/12/20 05/27/23 05/25/23 History cyclobenzaprine 10 mg tablet 20 mg PO BEDTIME PRN muscle spasm 05/16/22 05/27/23 05/25/23 History oxycodone 10 mg tablet 10 mg PO Q4H PRN Pain, Moderate 05/16/22 05/27/23 Unknown History blood sugar diagnostic (OneTouch #10 ea 06/11/22 05/07/23 Unknown History Verio test strips) insulin glargine 100 unit/mL (3 26 unit subcut BID 06/11/22 05/27/23 05/26/23 History mL) subcutaneous pen (Lantus Solostar U-100 Insulin) lancets 30 gauge (OneTouch [employer]ica #100 ea 06/11/22 05/07/23 Unknown History Plus Lancet) rivaroxaban 20 mg tablet (Xarelto) 20 mg PO DAILY@1700 05/07/23 05/27/23 05/25/23 History acetaminophen 325 mg tablet 975 mg PO TID 05/27/23 05/27/23 Unknown History albuterol sulfate 90 mcg/actuation 1 puff inhalation QID PRN wheezing 05/27/23 05/27/23 05/26/23 History aerosol inhaler colestipol 1 gram tablet 1 g PO TID 05/27/23 05/27/23 Unknown History dulaglutide 0.75 mg/0.5 mL 0.75 mg subcut WHITE 05/27/23 05/27/23 05/26/23 History subcutaneous pen injector ([facility]) fluticasone fur. 100 mcg-umeclid 1 ea inhalation DAILY 05/27/23 05/27/23 Unknown History 62.5 mcg-vilant 25 mcg inhalat.powder (Trelegy Ellipta) hydroxychloroquine 200 mg tablet 200 mg PO BID 05/27/23 05/27/23 Unknown History insulin lispro 100 unit/mL 1 sliding scale dose subcut 05/27/23 05/27/23 Unknown History subcutaneous solution (Humalog USEASDIRECTD U-100 Insulin) potassium chloride 10 mEq 20 meq PO DAILY 05/27/23 05/27/23 Unknown History capsule,extended release Physical Exam Vital Signs: Vital Signs: Last Vital Signs Temp 98.3 F 06/02/23 13:23 Pulse 97 06/02/23 13:23 Resp 19 06/02/23 13:23 BP 99/45 L 06/02/23 13:23 Pulse Ox 94 06/02/23 13:23 O2 Del Method Nasal Cannula 06/02/23 13:23 O2 Flow Rate 4 06/02/23 13:23 BMI result Body Mass Index 32.3 Chest: Other: Chest breath sounds bilaterally, HS 1 in 2 GI: Other: Moderately corpulent abdomen. Marked right lower quadrant tenderness although tenderness throughout the lower abdomen. Results Results Labs: Short CBC 06/02/23 Range/Units 01:25 WBC 15.8 H (4.8-10.8) X10*3/uL Hgb 12.6 (12.0-16.0) g/dl Hct 37.2 (37.0-47.0) % Plt Count 215 (160-400) X10*3/uL BMP 06/02/23 01:25 Sodium 133 L Potassium 4.5 D Chloride 100 Carbon Dioxide 21 L BUN 9 Creatinine 1.14 Calcium 8.7 Liver Function 06/02/23 Range/Units 01:25 Total Bilirubin 0.3 (0.0-1.0) mg/dL AST 33 H (5-31) U/L ALT 12 (0-31) U/L Alkaline Phosphatase 59 (39-117) U/L Albumin 3.1 L (3.5-5.0) g/dL Urine 06/02/23 Range/Units 08:12 Urine Color Yellow Urine Appearance Clear Urine pH 5.5 (5.0-9.0) Ur Specific [place] 1.015 (1.005-1.025) Urine Protein Trace (Neg-Trace) mg/dL Urine Glucose (UA) Negative (Negative) mg/dL Assessment and Plan (1) Acute appendicitis: Status: Acute Plan I discussed at length with the patient that she has had persistent symptoms, increase in her white count to 15, and CT scan findings highly suggestive of acute appendicitis. Current recommendation is for diagnostic laparoscopy and laparoscopic possible open appendectomy/laparotomy. Risks, benefits, alternatives of procedure were reviewed the patient and included but not limited to bleeding, infection, recurrence of symptoms, numbness, pain, scarring the patient was to proceed. All questions were answered . Arrangements were made for this for today. Patient will be getting infusion of Kcentra secondary to her is Xarelto use Time Spent With Patient Time: Total time managing care of this patient today ____ minutes. Quality Stroke Does the patient have a stroke diagnosis?: No VTE Prior VTE?: No VTE Risk Level:: Surgical - low VTE Device Contraindication: N/A - Device Ordered VTE Drug Contraindication: Treatment Not Indicated Procedures Date of Service Date of Service: 06/02/23
--- NOTE | 2023-06-02 13:40 | HO.ANESPROP2 ---
[facility] Active Problems Active Problems: All Active Problems (Updated 06/02/23 @ 12:01 by Cheryl Robles MD) Acute appendicitis (Acute) Diarrhea (Acute) Hypoxia (Acute) Weakness (Acute) Abnormal CT of the abdomen (Acute) Abdominal pain (Acute) SLE (systemic lupus erythematosus) (Acute) Acute appendicitis (Acute) Back pain (Acute) Fracture of fifth metatarsal bone of left foot (Acute) Preop cardiovascular exam (Acute) Palpitations (Acute) Congestive heart failure (Acute) Diabetes (Acute) PAF (paroxysmal atrial fibrillation) (Acute) Past Medical History Medical History Abdominal pain SLE (systemic lupus erythematosus) Depression Thyroid disease COPD (chronic obstructive pulmonary disease) Congestive heart failure Diabetes PAF (paroxysmal atrial fibrillation) Family History Family History Father No problems noted. Mother CVD (cardiovascular disease) Family history of problems with anesthesia: Yes Surgical History Surgical History History of back surgery History of radiofrequency ablation (RFA) procedure for cardiac arrhythmia History of Problems with Anesthesia: No Social History Social History Household Members: Family Housing: House Do you presently have visiting nurse or other home services: No Alcohol intake: never Patient Tobacco Use Status: Current everyday Tobacco user Cigarette Packs Per Day: 1 Cigarettes Per Day: 20.0 Smoked in Last 30 Days: Yes Use of substances other than those prescribed or required for medical reasons: No Advance Directives: Yes Advance Directives on File: Yes Advance Directives Date on File: 05/27/23 Patient : No service: No Current occupational status: disabled Meds Allergies Allergy/AdvReac Type Severity Reaction Status Date / Time amoxicillin [From AUGMENTIN] Allergy Mild SWELLING Verified 05/26/23 22:47 clavulanic acid Allergy Mild SWELLING Verified 05/26/23 22:47 [From AUGMENTIN] etodolac [From LODINE] Allergy Mild SWELLING Verified 05/26/23 22:47 gabapentin [GABAPENTIN] Allergy Mild SWELLING Verified 05/26/23 22:47 pregabalin [From LYRICA] Allergy Mild SWELLING Verified 05/26/23 22:47 clarithromycin [From Biaxin] Allergy Unknown ANGIOEDEMA Verified 05/26/23 22:47 Penicillins Allergy Unknown UNKNOWN Verified 05/26/23 22:47 sulfamethoxazole Allergy Unknown ANAPHYLAXIS Verified 05/26/23 22:47 [From Bactrim] piperacillin [From Zosyn] Allergy Itching Verified 05/27/23 05:06 tazobactam [From Zosyn] Allergy Itching Verified 05/27/23 05:06 fluticasone AdvReac Mild MUSCLE PAIN Verified 05/26/23 22:47 [From FLOVENT DISKUS] Home Medications Medication Instructions Recorded Confirmed Last Taken Type bupropion HCl 300 mg 24 hr tablet, 300 mg PO DAILY 12/12/20 06/02/23 05/25/23 History extended release citalopram 40 mg tablet 40 mg PO DAILY 12/12/20 06/02/23 05/25/23 History famotidine 20 mg tablet 20 mg PO BID 12/12/20 06/02/23 05/25/23 History levothyroxine 100 mcg tablet 100 mcg PO DAILY 12/12/20 06/02/23 05/26/23 History lorazepam 1 mg tablet 1 mg PO TID PRN anxiety 12/12/20 06/02/23 Unknown History trazodone 50 mg tablet 150 mg PO BEDTIME 12/12/20 06/02/23 05/25/23 History cyclobenzaprine 10 mg tablet 20 mg PO BEDTIME PRN muscle spasm 05/16/22 06/02/23 05/25/23 History oxycodone 10 mg tablet 10 mg PO Q4H PRN Pain, Moderate 05/16/22 06/02/23 Unknown History blood sugar diagnostic ([employer]Touch #10 ea 06/11/22 06/02/23 Unknown History Verio test strips) insulin glargine 100 unit/mL (3 26 unit subcut BID 06/11/22 06/02/23 05/26/23 History mL) subcutaneous pen (Lantus Solostar U-100 Insulin) lancets 30 gauge ([employer]Touch Delabel #100 ea 06/11/22 06/02/23 Unknown History Plus Lancet) rivaroxaban 20 mg tablet (Xarelto) 20 mg PO DAILY@1700 05/07/23 06/02/23 05/25/23 History acetaminophen 325 mg tablet 975 mg PO TID 05/27/23 06/02/23 Unknown History albuterol sulfate 90 mcg/actuation 1 puff inhalation QID PRN wheezing 05/27/23 06/02/23 05/26/23 History aerosol inhaler colestipol 1 gram tablet 1 g PO TID 05/27/23 06/02/23 Unknown History dulaglutide 0.75 mg/0.5 mL 0.75 mg subcut WHITE 05/27/23 06/02/23 05/26/23 History subcutaneous pen injector ([employer]ul[employer]) fluticasone fur. 100 mcg-umeclid 1 ea inhalation DAILY 05/27/23 06/02/23 Unknown History 62.5 mcg-vilant 25 mcg inhalat.powder (Trelegy Ellipta) hydroxychloroquine 200 mg tablet 200 mg PO BID 05/27/23 06/02/23 Unknown History insulin lispro 100 unit/mL 1 sliding scale dose subcut 05/27/23 06/02/23 Unknown History subcutaneous solution (Humalog USEASDIRECTD U-100 Insulin) potassium chloride 10 mEq 20 meq PO DAILY 05/27/23 06/02/23 Unknown History capsule,extended release Exam Exam Date and Time: June 02, 2023 1340 Height,Weight and Vital Signs: Height 5 ft 6 in Weight 90.718 kg Last Vital Signs Temp 98.3 F 06/02/23 13:23 Pulse 96 06/02/23 13:37 Resp 24 H 06/02/23 13:37 BP 101/32 L 06/02/23 13:37 Pulse Ox 95 06/02/23 13:37 O2 Del Method Nasal Cannula 06/02/23 13:37 O2 Flow Rate 4 06/02/23 13:37 Pertinent Lab Results Pertinent Lab Results: Laboratory Tests 06/02/23 06/02/23 06/02/23 01:25 06:06 08:12 WBC 15.8 H RBC 3.71 L Hgb 12.6 Hct 37.2 MCV 100.3 H MCH 34.0 H MCHC 33.9 RDW 13.5 Plt Count 215 MPV 10.3 Immature Gran % (Auto) 0.5 H Neut % (Auto) 85.8 H Lymph % (Auto) 7.6 L Moca % (Auto) 5.4 Eos % (Auto) 0.4 Baso % (Auto) 0.3 Lymph # (Auto) 1.2 Moca # (Auto) 0.9 Eos # (Auto) 0.1 Baso # (Auto) 0.0 Abs Immat Gran (auto) 0.08 H Absolute Neuts (auto) 13.6 H Absolute Nucleated RBC 0.000 Nucleated RBC % (auto) 0.0 PT 33.7 H INR 2.8 H APTT 42.0 H Sodium 133 L Potassium 4.5 D Chloride 100 Carbon Dioxide 21 L Anion Gap 17 BUN 9 Creatinine 1.14 Estim Creat Clear Calc 60.9 Estimated GFR 49 POC Glucose Random Glucose 267 H Lactic Acid 1.8 Calcium 8.7 Total Bilirubin 0.3 AST 33 H ALT 12 Alkaline Phosphatase 59 Total Protein 7.2 Albumin 3.1 L Lipase 7 L 6 L Urine Color Yellow Urine Appearance Clear Urine pH 5.5 Ur Specific [place] 1.015 Urine Protein Trace Urine Glucose (UA) Negative Urine Ketones Negative Urine Blood Negative Urine Nitrite Negative Ur Leukocyte Esterase Moderate (2+) H Urine RBC 0-2 Urine WBC 11-20 H Ur Squamous Epith Cells 3-5 Urine Bacteria Trace Hyaline Casts 3-5 COVID-19 (GIRISH) Negative COVID-19 Clin Com See Note 06/02/23 12:19 WBC RBC Hgb Hct MCV MCH MCHC RDW Plt Count MPV Immature Gran % (Auto) Neut % (Auto) Lymph % (Auto) Moca % (Auto) Eos % (Auto) Baso % (Auto) Lymph # (Auto) [place]oca # (Auto) Eos # (Auto) Baso # (Auto) Abs Immat Gran (auto) Absolute Neuts (auto) Absolute Nucleated RBC Nucleated RBC % (auto) PT INR APTT Sodium Potassium Chloride Carbon Dioxide Anion Gap BUN Creatinine Estim Creat Clear Calc Estimated GFR POC Glucose 136 H Random Glucose Lactic Acid Calcium Total Bilirubin AST ALT Alkaline Phosphatase Total Protein Albumin Lipase Urine Color Urine Appearance Urine pH Ur Specific [place] Urine Protein Urine Glucose (UA) Urine Ketones Urine Blood Urine Nitrite Ur Leukocyte Esterase Urine RBC Urine WBC Ur Squamous Epith Cells Urine Bacteria Hyaline Casts COVID-19 (GIRISH) COVID-19 Clin Com Airway Mallampati Class: III TM Dist: >3cm Neck ROM: Full Denture: Upper and Lower Heart: RRR Lungs: CTA Assessment and Plan Assessment Anesthesia Assessment: Anesthesia Plan Discussed and Smoking Cess. Discussed Final Anesthetic Review Family History of Problems with Anesthesia: Yes History of Problems with Anesthesia: No NPO: Yes ASA Class: III and Emergency Final Preanesthetic Review: Meds/Allgs Chart Reviewed, Consent Obtained/Reviewed and Anes Risks/Benef Reviewed Patient Risk: Intermediate Procedure Risk: Low Anesthetic Plan Anesthetic Plan: GA Disposition: Standard PACU
--- NOTE | 2023-06-02 15:20 | P.OP_ITS ---
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 CT scan showing acute appendicitis. Marked right lower quadrant tenderness Intraoperative findings demonstrated an inflamed phlegmonous appendix. There appeared to be a mass at the base of the appendix. Patient also had miliary type seeding of almost the entire peritoneal cavity and some of the small bowel. Photos were taken. This is highly suggestive of pseudomyxoma peritonei . Findings: [] Patient brought to the operating room, placed on operating table in the supine position, and after adequate level of general anesthesia was induced, the patient's abdomen was prepped and draped in usual sterile fashion. Using a supraumbilical curvilinear incision, Klein technique was used to insu fflate the abdominal cavity to 15 mm of CO2. Lower midline and suprapubic ports were placed under direct laparoscopic view, and the patient was placed in Trendelenburg position, and tilted to the left. Findings were as noted above. A markedly turgid , phlegmonous appendix was identified and brought onto the field. Its mesentery was sequentially taken down using double firing of ligature device. Appendix was then transected into the cecum because there appeared to be a mass in the base of the appendix. Specimen was placed in an Endo-Catch bag, a retrieved through the umbilical port. Three separate areas of peritoneal biopsies were obtained of the miliary type lesions. These were sent to pathology as well. Abdominal cavity was copiously irrigated and secured hemostasis. All ports were removed under direct laparoscopic view. Wounds were closed in the following manner; umbilical wound is fascia reapproximated using interrupted 0 Vicryl sutures. Skin wounds were closed using subcuticular 4-0 Vicryl sutures followed by Steri-Strips and sterile dressings. Wounds were infiltrated 0.5% Marcaine/1% lidocaine at completion. Sponge, needle, instrument counts reported correct. Patient tolerated the procedure well emerged anesthesia stable condition. EBL minimal
[2023-06-02] MEDS: Acetaminophen 1,000 MG/100 ML PIGGYBACK 400 MG IV (15:29)
[2023-06-02] MEDS: fentaNYL citrate/PF 100 MCG/2 ML VIAL 25 MCG IVPUSH ×4 (15:44→16:05)
--- NOTE | 2023-06-02 18:19 | HO.PM.IMCN ---
History of Present Illness Data of Consult Service Date: 06/02/23 Requesting physician: Kirill Colmenares Primary Care Provider: Unknown Physician HPI Reason for consult: medical management 50-year-old female with severe COPD not on home O2, paroxysmal atrial fibrillation anticoagulated with Xarelto, insulin-dependent type 2 diabetes, congestive heart failure, hypothyroidism, SLE, chronic low back pain s/p lumbar fusion admitted to general surgery with consult placed to hospitalist service for medical management. The patient underwent laparoscopic appendectomy earlier today and remains on supplemental O2. She is reporting intermittent shortness of breath. Denies any wheezing, chest pain, lightheadedness, palpitations. She was discharged from PACU about 60 minutes ago. On arrival to the floor, vitals stable, oximetry 97% on 2L via NC with ETCO. She was given Kcentra prior to surgery for Xarelto reversal. Surgery was uncomplicated. She is afebrile, no hypotension. She has no other complaints at this time. Review of Systems Review of Systems: Yes all other systems are reviewed and are negative [facility] Medical History Abdominal pain SLE (systemic lupus erythematosus) Depression Thyroid disease COPD (chronic obstructive pulmonary disease) Congestive heart failure Diabetes PAF (paroxysmal atrial fibrillation) Family History Father No problems noted. Mother CVD (cardiovascular disease) Surgical History History of back surgery History of radiofrequency ablation (RFA) procedure for cardiac arrhythmia Social History Household Members: Family Housing: House Do you presently have visiting nurse or other home services: No Alcohol intake: never Patient Tobacco Use Status: Current everyday Tobacco user Cigarette Packs Per Day: 1 Cigarettes Per Day: 20.0 Smoked in Last 30 Days: Yes Use of substances other than those prescribed or required for medical reasons: No Have you been hit, kicked, punched, or otherwise hurt by someone within the past year? If so, by whom?: No Do you feel safe in your current relationship?: Yes Is there a partner from a previous relationship who is making you feel unsafe now?: No Are you made to feel afraid or neglected: No Advance Directives: Yes Advance Directives on File: Yes Advance Directives Date on File: 05/27/23 Do you have thoughts of harming others: None Do you have a plan to hurt others: No Plan Recently lost weight without trying: No Nutrition Risks: Difficulty chewing Patient : No : No Poor oral hygiene: No service: No Current occupational status: disabled Meds Allergies Allergy/AdvReac Type Severity Reaction Status Date / Time amoxicillin [From AUGMENTIN] Allergy Mild SWELLING Verified 05/26/23 22:47 clavulanic acid Allergy Mild SWELLING Verified 05/26/23 22:47 [From AUGMENTIN] etodolac [From LODINE] Allergy Mild SWELLING Verified 05/26/23 22:47 gabapentin [GABAPENTIN] Allergy Mild SWELLING Verified 05/26/23 22:47 pregabalin [From LYRICA] Allergy Mild SWELLING Verified 05/26/23 22:47 clarithromycin [From Biaxin] Allergy Unknown ANGIOEDEMA Verified 05/26/23 22:47 Penicillins Allergy Unknown UNKNOWN Verified 05/26/23 22:47 sulfamethoxazole Allergy Unknown ANAPHYLAXIS Verified 05/26/23 22:47 [From Bactrim] piperacillin [From Zosyn] Allergy Itching Verified 05/27/23 05:06 tazobactam [From Zosyn] Allergy Itching Verified 05/27/23 05:06 fluticasone AdvReac Mild MUSCLE PAIN Verified 05/26/23 22:47 [From FLOVENT DISKUS] Active Medications: Current Medications Acetaminophen (Acetaminophen 325 Mg Tablet) 650 mg PO Q6H PRN PRN Reason: Pain, Mild (Pain Scale 1-3) Hydrocodone Bitart/Acetaminophen (Hydrocodone Bit/Acetam 5/325 Tablet) 1 tab PO Q4H PRN PRN Reason: Pain, Moderate(Pain Scale 4-6) Al Hydroxide/Mg Hydroxide (Magnesium Hydrox/Alum Hydrox 30 Ml Oral.Susp) 30 ml PO Q4H PRN PRN Reason: Heartburn/Nausea Docusate Sodium (Docusate Sodium 100 Mg Capsule) 100 mg PO DAILY PRN PRN Reason: Constipation Hydromorphone HCl (Hydromorphone Hcl 1 Mg/Ml Syringe) 0.5 mg IVPUSH Q4H PRN; Protocol PRN Reason: Pain, Severe (Pain Scale 7-10) Magnesium Hydroxide (Milk Of Magnesia 30 Ml Oral.Susp) 30 ml PO DAILY PRN PRN Reason: Constipation Ondansetron HCl (Ondansetron Hcl 4 Mg/2 Ml Vial) 4 mg IVPUSH ONCE PRN PRN Reason: Nausea and Vomiting Ondansetron HCl (Ondansetron Hcl 4 Mg/2 Ml Vial) 4 mg IVPUSH Q8H PRN PRN Reason: Nausea and Vomiting Sodium Chloride (0.9 % Sodium Chloride Flush 3 Ml Syringe) 3 ml IVFLUSH [facility] Zolpidem Tartrate (Zolpidem Tartrate 5 Mg Tablet) 5 mg PO BEDTIME PRN PRN Reason: Insomnia Home Medications Medication Instructions Recorded Confirmed Last Taken Type bupropion HCl 300 mg 24 hr tablet, 300 mg PO DAILY 12/12/20 06/02/23 05/25/23 History extended release citalopram 40 mg tablet 40 mg PO DAILY 12/12/20 06/02/23 05/25/23 History famotidine 20 mg tablet 20 mg PO BID 12/12/20 06/02/23 05/25/23 History levothyroxine 100 mcg tablet 100 mcg PO DAILY 12/12/20 06/02/23 05/26/23 History lorazepam 1 mg tablet 1 mg PO TID PRN anxiety 12/12/20 06/02/23 Unknown History trazodone 50 mg tablet 150 mg PO BEDTIME 12/12/20 06/02/23 05/25/23 History cyclobenzaprine 10 mg tablet 20 mg PO BEDTIME PRN muscle spasm 05/16/22 06/02/23 05/25/23 History oxycodone 10 mg tablet 10 mg PO Q4H PRN Pain, Moderate 05/16/22 06/02/23 Unknown History blood sugar diagnostic (OneTouch #10 ea 06/11/22 06/02/23 Unknown History Verio test strips) insulin glargine 100 unit/mL (3 26 unit subcut BID 06/11/22 06/02/23 05/26/23 History mL) subcutaneous pen (Lantus Solostar U-100 Insulin) lancets 30 gauge (OneTouch Delica #100 ea 06/11/22 06/02/23 Unknown History Plus Lancet) rivaroxaban 20 mg tablet (Xarelto) 20 mg PO DAILY@1700 05/07/23 06/02/23 05/25/23 History acetaminophen 325 mg tablet 975 mg PO TID 05/27/23 06/02/23 Unknown History albuterol sulfate 90 mcg/actuation 1 puff inhalation QID PRN wheezing 05/27/23 06/02/23 05/26/23 History aerosol inhaler colestipol 1 gram tablet 1 g PO TID 05/27/23 06/02/23 Unknown History dulaglutide 0.75 mg/0.5 mL 0.75 mg subcut WHITE 05/27/23 06/02/23 05/26/23 History subcutaneous pen injector (Trulicity) fluticasone fur. 100 mcg-umeclid 1 ea inhalation DAILY 05/27/23 06/02/23 Unknown History 62.5 mcg-vilant 25 mcg inhalat.powder (Trelegy Ellipta) hydroxychloroquine 200 mg tablet 200 mg PO BID 05/27/23 06/02/23 Unknown History insulin lispro 100 unit/mL 1 sliding scale dose subcut 05/27/23 06/02/23 Unknown History subcutaneous solution (Humalog USEASDIRECTD U-100 Insulin) potassium chloride 10 mEq 20 meq PO DAILY 05/27/23 06/02/23 Unknown History capsule,extended release Physical Exam Vital Signs and Narrative: Vital Signs: Last Vital Signs Temp 97.6 F 06/02/23 17:31 Pulse 97 06/02/23 17:31 Resp 17 06/02/23 17:31 BP 116/54 L 06/02/23 17:31 Pulse Ox 97 06/02/23 17:31 O2 Del Method Nasal Cannula wit h Capnography 06/02/23 17:31 O2 Flow Rate 2 06/02/23 17:31 BMI result Body Mass Index 27.9 Constitutional - Awake and Alert, No apparent distress Eyes - PERRLA, EOMI Cardiovascular - S1S2, RRR, No edema Respiratory - Normal lung expansion, Normal respiratory effort, No respiratory distress, diminished RLL, otherwise CTA Gastrointestinal - NT / ND; +BS; No rebound or guarding Extremities - no calf tenderness bilaterally, no swelling Skin - Warm/Dry Neurological - Alert & oriented x3 Psychological - Appropriate affect Results Labs 06/02/23 01:25 06/02/23 01:25 Labs: Laboratory Results - last 24 hr 06/02/23 06/02/23 06/02/23 01:25 06:06 08:12 MCV 100.3 H MCH 34.0 H MCHC 33.9 RDW 13.5 Plt Count 215 MPV 10.3 Immature Gran % (Auto) 0.5 H Neut % (Auto) 85.8 H Lymph % (Auto) 7.6 L [place] % (Auto) 5.4 Eos % (Auto) 0.4 Baso % (Auto) 0.3 Lymph # (Auto) 1.2 [place] # (Auto) 0.9 Eos # (Auto) 0.1 Baso # (Auto) 0.0 Abs Immat Gran (auto) 0.08 H Absolute Neuts (auto) 13.6 H Absolute Nucleated RBC 0.000 Nucleated RBC % (auto) 0.0 PT 33.7 H INR 2.8 H APTT 42.0 H Anion Gap 17 Estim Creat Clear Calc 60.9 Estimated GFR 49 POC Glucose Random Glucose 267 H Lactic Acid 1.8 Calcium 8.7 Total Bilirubin 0.3 AST 33 H ALT 12 Alkaline Phosphatase 59 Total Protein 7.2 Albumin 3.1 L Lipase 7 L 6 L Urine Color Yellow Urine Appearance Clear Urine pH 5.5 Ur Specific [place] 1.015 Urine Protein Trace Urine Glucose (UA) Negative Urine Ketones Negative Urine Blood Negative Urine Nitrite Negative Ur Leukocyte Esterase Moderate (2+) H Urine RBC 0-2 Urine WBC 11-20 H Ur Squamous Epith Cells 3-5 Urine Bacteria Trace Hyaline Casts 3-5 COVID-19 ([facility]) Negative COVID-19 Clin Com See Note 06/02/23 06/02/23 12:19 12:23 MCV MCH MCHC RDW Plt Count MPV Immature Gran % (Auto) Neut % (Auto) Lymph % (Auto) [place] % (Auto) Eos % (Auto) Baso % (Auto) Lymph # (Auto) [place] # (Auto) Eos # (Auto) Baso # (Auto) Abs Immat Gran (auto) Absolute Neuts (auto) Absolute Nucleated RBC Nucleated RBC % (auto) PT 21.4 H D INR 1.8 H APTT 35.9 Anion Gap Estim Creat Clear Calc Estimated GFR POC Glucose 136 H Random Glucose Lactic Acid Calcium Total Bilirubin AST ALT Alkaline Phosphatase Total Protein Albumin Lipase Urine Color Urine Appearance Urine pH Ur Specific [place] Urine Protein Urine Glucose (UA) Urine Ketones Urine Blood Urine Nitrite Ur Leukocyte Esterase Urine RBC Urine WBC Ur Squamous Epith Cells Urine Bacteria Hyaline Casts COVID-19 ([facility]) COVID-19 Clin Com Imaging Radiologist's Impressions: Impressions Abdomen/Pelvis CT 06/02/23 09:18 IMPRESSION: Prior CT of 05/29/2023 and 05/27/2023 had abnormal findings, with reports documenting concern for acute appendicitis. Abnormal findings are again seen on today's CT 06/02/2023. The appearance again raises concern for acute appendicitis. Trace free fluid in the pelvis. No loculated or drainable fluid collection/abscess is identified. Redemonstrated is wall thickening of the adjacent terminal ileum and terminal ileitis is a consideration. Recommend surgical consultation. Redemonstrated is inflammatory changes of the fat just deep to the left lower anterior abdominal wall, probably reflecting fat necrosis of the greater omentum, unchanged from 05/29/2023. Stable, dilated CBD measuring 1 cm. No radiopaque calculi seen within the CBD. Correlate with liver function tests. Further evaluation with MRI/MRCP as clinically warranted. Indeterminate 1.3 x 1.6 cm low-attenuation lesion in the lateral midpole left kidney. Differential considerations include complex cyst, solid lesion. Recommend further workup with follow up renal ultrasound. Fleischner guidelines were followed. The report will be called to the ordering clinician by a [facility] Physician Export Administrator. Chest CTA 06/02/23 09:18 IMPRESSION: 1. No evidence of filling defects to suggest central or segmental pulmonary emboli. 2. Moderate to severe upper lobe predominant centrilobular and paraseptal emphysema. 3. Marked abnormal lung findings. There is bronchial wall thickening, septal thickening and groundglass opacities extensively in bilateral upper lobes, right middle lobe, lingula, and multifocal areas in bilateral lower lobes. Findings are new/more prominent as compared to prior study of 11/21/2022. Differential considerations include and is not limited to, infectious, inflammatory etiologies. Recommend follow-up imaging to ensure resolution of these findings. 4. Mediastinal lymphadenopathy, new as compared to the prior study. 5. Additional findings and details as above. VTE: negative Assessment and Plan (1) Acute appendicitis: Status: Acute Plan 50-year-old female with severe COPD not on home O2, paroxysmal atrial fibrillation anticoagulated with Xarelto, insulin-dependent type 2 diabetes, congestive heart failure, hypothyroidism, SLE, chronic low back pain s/p lumbar fusion admitted to general surgery with consult placed to hospitalist service for medical management. #Acute appendicitis -plan for oral surgery -pain management per General surgery # postoperative hypoxia/SOB -right lower lobe diminished, suspect atelectasis -CXR ordered -continue supplemental O2 to maintain oximetry greater than 92% -encourage IS # COPD -no acute exacerbation -continue maintenance inhalers, albuterol p.r.n. -not on home o2 #HFpEF -no acute exacerbation -not on p.o. diuretics # paroxysmal atrial fibrillation -resume Xarelto tomorrow (06/03) -continue flecainide, atenolol # insulin-dependent type 2 diabetes -POC glucose -diabetic diet per General surgery -Humalog on sliding scale -continue basal insulin # hypertension -blood pressure soft -hold antihypertensives at this time, resume as appropriate # SLE -no acute flare-up -continue hydroxychloroquine #Chronic low back pain -old home narcotics -pain meds per general surgery -continue flexeril # mood disorder -continue home meds Will continue following, thank you for this consult Time Spent With Patient Time: Total time managing care of this patient today ____ minutes.
[2023-06-02 19:49] LABS: Glucose, Whole Blood 330 mg/dL (60-115)
[2023-06-02] MEDS: traZODone HCL 50 MG TABLET 150 MG PO (20:37)
[2023-06-02] MEDS: Flecainide Acetate 50 MG TABLET 100 MG PO (20:37)
[2023-06-02] MEDS: Hydroxychloroquine Sulfate 200 MG TABLET PO (20:38)
[2023-06-02] MEDS: HYDROcodone Bit/Acetam 5/325 TABLET 1 TAB PO (20:38)
[2023-06-02] MEDS: Famotidine 20 MG TABLET PO (20:38)
[2023-06-02] MEDS: atenoloL 50 MG TABLET PO (20:38)
[2023-06-02] MEDS: Insulin Lispro 100 UNIT/ML 3 ML VIAL SUBCUT (20:39)
[2023-06-02] MEDS: Insulin Glargine,Hum.rec.anlog 100 UNIT/ML 10 ML VIAL 19 UNIT SUBCUT (20:39)
[2023-06-02] MEDS: Nicotine 21 MG PATCH.TD24 TRANSDERMA (20:40)
[2023-06-02 21:14] LABS: Glucose, Whole Blood 354 mg/dL (60-115)
[2023-06-02] MEDS: 0.9 % Sodium Chloride Flush 3 ML SYRINGE IVFLUSH (23:46)
[2023-06-03] VITALS (11 sets, daily range): BP systolic 113–150; BP diastolic 53–61; PULSE 82–91; RESP 17–24; TEMP 36–36.6; O2SAT 88–95
[2023-06-03] MEDS: HYDROmorphone HCl 1 MG/ML SYRINGE 0.5 MG IVPUSH ×7 (01:03→23:29)
[2023-06-03] MEDS: Loperamide HCl 2 MG CAPSULE PO (01:41)
[2023-06-03] MEDS: LORazepam 1 MG TABLET PO ×3 (01:45→23:33)
[2023-06-03] MEDS: HYDROcodone Bit/Acetam 5/325 TABLET 1 TAB PO ×2 (03:15→10:25)
[2023-06-03] MEDS: Levothyroxine Sodium 100 MCG TABLET PO (05:34)
--- NOTE | 2023-06-03 07:11 | PHA.MEDREC ---
Pharmacy Consult ? Medication Reconciliation Pharmacy has completed the medication reconciliation.
[2023-06-03 07:34] LABS: Glucose, Whole Blood 90 mg/dL (60-115)
[2023-06-03 07:34] LABS: Glucose, Whole Blood 56 mg/dL (60-115)
[2023-06-03] MEDS: Fluticasone/Umeclidinium/Vilanterol 100/62.5/25 BLST.W.DEV 1 PUFF INHALE (07:42)
[2023-06-03 08:04] LABS: Anion Gap 10 (12-20); Blood Urea Nitrogen 7 mg/dL (9-16); Calcium 9.2 mg/dL (8.4-10.2); Carbon Dioxide 25 mmol/L (22-29); Chloride 109 mmol/L (96-108); Creatinine Clr Calc Pharmacy 99.6; Estimated Glomerular Filt Rate > 60; Glucose Random 43 mg/dL (60-115); Potassium 3.1 mmol/L (3.3-5.1); Sodium 141 mmol/L (135-145)
--- NOTE | 2023-06-03 08:18 | PC.RT ---
20 min update. Patient was placed on Kay nasal cannula at 8L to maintain on oxygen saturation goal of 88-92% due to her Hx of COPD. As previously stated, I had gone into the patients room after she had been transferred from the bed to the chair and her oxygen saturation was 63%. Patient was instructed to try and focus on nasal breathing, along with consistent incentive use to maximize aeration. RN and tech are aware of these changes
[2023-06-03 08:32] LABS: Adenovirus F 40/41 Not Detected (Not Detect.); Astrovirus Not Detected (Not Detect.); Campylobacter Not Detected (Not Detect.); Cryptosporidium Not Detected (Not Detect.); Cyclospora cayetanensis Not Detected (Not Detect.); E. coli EAEC Not Detected (Not Detect.); E. coli EPEC Not Detected (Not Detect.); E. coli ETEC Not Detected (Not Detect.); E. coli STEC Not Detected (Not Detect.); Entamoeba histolytica Not Detected (Not Detect.); Giardia lamblia Not Detected (Not Detect.); Norovirus GI/GII Not Detected (Not Detect.); Plesiomonas shigelloides Not Detected (Not Detect.); Rotavirus A Not Detected (Not Detect.); Salmonella Not Detected (Not Detect.); Sapovirus Not Detected (Not Detect.); Shigella sp./EIEC Not Detected (Not Detect.); Vibrio Not Detected (Not Detect.); Vibrio Cholerae Not Detected (Not Detect.); Yersinia enterocolitica Not Detected (Not Detect.)
[2023-06-03] MEDS: Famotidine 20 MG TABLET PO ×2 (08:33→19:44)
[2023-06-03] MEDS: buPROPion HCl XL 300 MG TAB.ER.24H PO (08:33)
[2023-06-03] MEDS: Potassium Chloride ER 20 MEQ TAB.ER.PRT PO (08:34)
[2023-06-03] MEDS: Hydroxychloroquine Sulfate 200 MG TABLET PO ×2 (08:34→19:49)
[2023-06-03] MEDS: Escitalopram Oxalate 20 MG TABLET PO (08:37)
[2023-06-03] MEDS: Flecainide Acetate 50 MG TABLET 100 MG PO ×2 (08:37→19:44)
[2023-06-03] MEDS: atenoloL 50 MG TABLET PO (08:37)
[2023-06-03] MEDS: 0.9 % Sodium Chloride Flush 3 ML SYRINGE IVFLUSH ×3 (08:40→19:44)
[2023-06-03] MEDS: Nicotine 21 MG PATCH.TD24 TRANSDERMA (08:41)
[2023-06-03] MEDS: Insulin Glargine,Hum.rec.anlog 100 UNIT/ML 10 ML VIAL 19 UNIT SUBCUT (08:41)
--- NOTE | 2023-06-03 09:01 | P.PNGS_ITS ---
Subjective Subjective Date of Service: 06/03/23 Interval history: Has persistent right sided abdominal pain. Minimal pain at incision sites. Tolerating diet. Has been OOB to bathroom. Physical Exam 2 Vital Signs: Vital Signs: Last Vital Signs Temp 98 F 06/03/23 07:07 Pulse 86 06/03/23 07:49 Resp 18 06/03/23 07:49 BP 115/56 L 06/03/23 07:07 Pulse Ox 90 L 06/03/23 07:07 O2 Del Method Nasal Cannula 06/03/23 07:07 O2 Flow Rate 3 06/03/23 07:07 BMI result Body Mass Index 27.9 Const: General: comfortable, no acute distress and alert O rientation/consciousness: patient oriented x3 Resp: Effort & Inspection: normal respiratory effort GI: Inspection: No distended and Yes incision (dressing intact) Palpation (GI): Soft to palpation, Tenderness to palpation present (GI) (incisional) in the RLQ, no guarding and not rigid Percussion: Yes normal to percussion Skin: General skin exam: no rashes or lesions noted Neuro: General: patient oriented x3 and moves all extremities Objective Data Active Medications Acetaminophen (Acetaminophen 325 Mg Tablet) 650 mg PO Q6H PRN PRN Reason: Pain, Mild (Pain Scale 1-3) Hydrocodone Bitart/Acetaminophen (Hydrocodone Bit/Acetam 5/325 Tablet) 1 tab PO Q4H PRN PRN Reason: Pain, Moderate(Pain Scale 4-6) Last Admin: 06/03/23 03:15 Dose: 1 tab Documented By: SAM Al Hydroxide/Mg Hydroxide (Magnesium Hydrox/Alum Hydrox 30 Ml Oral.Susp) 30 ml PO Q4H PRN PRN Reason: Heartburn/Nausea Albuterol Sulfate (Albuterol Sulfate 90 Mcg 8 Gm Inhaler) 1 puff INHALE QID PRN PRN Reason: wheezing Atenolol (Atenolol 50 Mg Tablet) 50 mg PO BID [facility]; Protocol Last Admin: 06/03/23 08:37 Dose: 50 mg Documented By: ALEXIS Bupropion HCl (Bupropion Hcl Xl 300 Mg Tab.Er.24h) 300 mg PO DAILY [facility] Last Admin: 06/03/23 08:33 Dose: 300 mg Documented By: ALEXIS Cyclobenzaprine HCl (Cyclobenzaprine Hcl 10 Mg Tablet) 20 mg PO BEDTIME PRN PRN Reason: muscle spasm Dextrose (Dextrose 50 % 25 Gm/50 Ml Syringe) 25 gm IVPUSH Q15M PRN; Protocol PRN Reason: per Hypoglycemia Standing Ord. Escitalopram Oxalate (Escitalopram Oxalate 20 Mg Tablet) 20 mg PO DAILY [facility] Last Admin: 06/03/23 08:37 Dose: 20 mg Documented By: ALEXIS Famotidine (Famotidine 20 Mg Tablet) 20 mg PO BID [facility] Last Admin: 06/03/23 08:33 Dose: 20 mg Documented By: ALEXIS Flecainide Acetate (Flecainide Acetate 50 Mg Tablet) 100 mg PO Q12H [facility] Last Admin: 06/03/23 08:37 Dose: 100 mg Documented By: ALEXIS Fluticasone/Umeclidinium/Vilanterol (Fluticasone/Umeclidinium/Vilanterol 100/62.5/25 Blst.W.Dev) 1 puff INHALE RDAILY [facility] Last Admin: 06/03/23 07:42 Dose: 1 puff Documented By: ARABELLA Glucose (Glucose Gel 15 Gm Gel..Gram.) 15 gm PO Q15M PRN; Protocol PRN Reason: per Hypoglycemia Standing Ord. Hydromorphone HCl (Hydromorphone Hcl 1 Mg/Ml Syringe) 0.5 mg IVPUSH Q4H PRN; Protocol PRN Reason: Pain, Severe (Pain Scale 7-10) Last Admin: 06/03/23 08:32 Dose: 0.5 mg Documented By: ALEXIS Hydroxychloroquine Sulfate (Hydroxychloroquine Sulfate 200 Mg Tablet) 200 mg PO BID [facility] Last Admin: 06/03/23 08:34 Dose: 200 mg Documented By: ALEXIS Insulin Glargine (Insulin Glargine,Hum.Rec.Anlog 100 Unit/Ml 10 Ml Vial) 19 unit SUBCUT BID [facility] Last Admin: 06/03/23 08:41 Dose: 19 unit Documented By: ALEXIS Insulin Human Lispro (Insulin Lispro 100 Unit/Ml 3 Ml Vial) 0 unit SUBCUT QIDACHS [facility]; Protocol Last Admin: 06/03/23 07:38 Dose: Not Given Documented By: ALEXIS Non-Admin Reason: No Insulin Coverage Levothyroxine Sodium (Levothyroxine Sodium 100 Mcg Tablet) 100 mcg PO DAILY@0600 [facility] Last Admin: 06/03/23 05:34 Dose: 100 mcg Documented By: SAM Loperamide HCl (Loperamide Hcl 2 Mg Capsule) 4 mg PO Q4H PRN PRN Reason: diarrhea Lorazepam (Lorazepam 1 Mg Tablet) 1 mg PO TID PRN PRN Reason: anxiety Last Admin: 06/03/23 01:45 Dose: 1 mg Documented By: SAM Nicotine (Nicotine 21 Mg Patch.Td24) 21 mg TRANSDERMA DAILY [facility] Last Admin: 06/03/23 08:41 Dose: 21 mg Documented By: ALEXIS Non-Formulary Medication (Colestipol) 1 gm PO TID [facility] Ondansetron HCl (Ondansetron Hcl 4 Mg/2 Ml Vial) 4 mg IVPUSH ONCE PRN PRN Reason: Nausea and Vomiting Ondansetron HCl (Ondansetron Hcl 4 Mg/2 Ml Vial) 4 mg IVPUSH Q8H PRN PRN Reason: Nausea and Vomiting Potassium Chloride (Potassium Chloride Er 20 Meq Tab.Er.Prt) 20 meq PO DAILY [facility] Last Admin: 06/03/23 08:34 Dose: 20 meq Documented By: ALEXIS Rivaroxaban (Rivaroxaban 20 Mg Tablet) 20 mg PO DAILY@1700 [facility] Sodium Chloride (0.9 % Sodium Chloride Flush 3 Ml Syringe) 3 ml IVFLUSH QSHIFT [facility] Last Admin: 06/03/23 08:40 Dose: 3 ml Documented By: ALEXIS Trazodone HCl (Trazodone Hcl 50 Mg Tablet) 150 mg PO BEDTIME [facility] Last Admin: 06/02/23 20:37 Dose: 150 mg Documented By: SAM Zolpidem Tartrate (Zolpidem Tartrate 5 Mg Tablet) 5 mg PO BEDTIME PRN PRN Reason: Insomnia Labs 06/02/23 01:25 06/03/23 05:45 Labs: Laboratory Results - last 24 hr 06/02/23 06/02/23 06/02/23 12:19 12:23 12:45 PT 21.4 H D INR 1.8 H APTT 35.9 Anion Gap Estim Creat Clear Calc Estimated GFR POC Glucose 136 H Random Glucose Calcium Stl C. cayetanensis PCR Not Detected Stool Rotavirus A PCR Not Detected Stl Adenov F 40/41 PCR Not Detected Stool Astrovirus (PCR) Not Detected Stool Campylobacter PCR Not Detected Stool Cryptosporidium PCR Not Detected Stl Sh Tox Pr E STEC PCR Not Detected Stool E coli O157 PCR Not applicable Stl Enterotoxigenic E PCR Not Detected Stool EPEC (PCR) Not Detected Stool EAEC (PCR) Not Detected Stl E. histolytica PCR Not Detected Stool Giardia Lamblia PCR Not Detected Stl P. shigelloides PCR Not Detected Stool Salmonella PCR Not Detected Stool Sapovirus (PCR) Not Detected Stl Shigella/EIEC PCR Not Detected St Y.enterocolitica PCR Not Detected Stool Vibrio (PCR) Not Detected Stl Vibrio cholerae PCR Not Detected Stl Norovirus GI/GII PCR Not Detected 06/02/23 06/02/23 06/03/23 19:44 21:10 05:45 PT INR APTT Anion Gap 10 L Estim Creat Clear Calc 99.6 Estimated GFR > 60 POC Glucose 330 H 354 H* Random Glucose 43 L* Calcium 9.2 Stl C. cayetanensis PCR Stool Rotavirus A PCR Stl Adenov F 40/41 PCR Stool Astrovirus (PCR) Stool Campylobacter PCR Stool Cryptosporidium PCR Stl Sh Tox Pr E STEC PCR Stool E coli O157 PCR Stl Enterotoxigenic E PCR Stool EPEC (PCR) Stool EAEC (PCR) Stl E. histolytica PCR Stool Giardia Lamblia PCR Stl P. shigelloides PCR Stool Salmonella PCR Stool Sapovirus (PCR) Stl Shigella/EIEC PCR St Y.enterocolitica PCR Stool Vibrio (PCR) Stl Vibrio cholerae PCR Stl Norovirus GI/GII PCR 06/03/23 06/03/23 07:05 07:30 PT INR APTT Anion Gap Estim Creat Clear Calc Estimated GFR POC Glucose 56 L* 90 Random Glucose Calcium Stl C. cayetanensis PCR Stool Rotavirus A PCR Stl Adenov F 40/41 PCR Stool Astrovirus (PCR) Stool Campylobacter PCR Stool Cryptosporidium PCR Stl Sh Tox Pr E STEC PCR Stool E coli O157 PCR Stl Enterotoxigenic E PCR Stool EPEC (PCR) Stool EAEC (PCR) Stl E. histolytica PCR Stool Giardia Lamblia PCR Stl P. shigelloides PCR Stool Salmonella PCR Stool Sapovirus (PCR) Stl Shigella/EIEC PCR St Y.enterocolitica PCR Stool Vibrio (PCR) Stl Vibrio cholerae PCR Stl Norovirus GI/GII PCR Microbiology Microbiology Results: Microbiology 06/02/23 06:06 Blood Culture - Preliminary Blood - Venous No growth after 24 hours. 06/02/23 06:06 Blood Culture - Preliminary Blood - Venous No growth after 24 hours. Procedures Date of Service Date of Service: 06/03/23 Progress Note: A&P Assessment and plan (1) Acute appendicitis: Status: Acute (2) Diarrhea: Status: Acute Plan 58 year old female readmitted for persistent progressive right lower quadrant pain with CT scan showing acute appendicitis. Now POD #1 s/p lap appy. Intraoperative findings demonstrated an inflamed phlegmonous appendix, with a mass at the base of the appendix with miliary type seeding of almost the entire peritoneal cavity and some of the small bowel. Highly suggestive of pseudomyxoma peritonei. Doing fairly well from surgical standpoint. Abd is benign with appropriate post op tenderness, dressings intact. Will await pathology, further plan dependent on results. Diet as tolerated. C diff negative on 06/01. Imodium for diarrhea. Encouraged OOB/ambulation and IS use. Time Spent With Patient Time: Total time managing care of this patient today ____ minutes. Quality Stroke Does the patient have a stroke diagnosis?: No VTE Prior VTE?: No VTE Risk Level:: Surgical - low VTE Device Contraindication: N/A - Device Ordered VTE Drug Contraindication: Treatment Not Indicated
--- NOTE | 2023-06-03 09:02 | MHC.CM.PN ---
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
[2023-06-03] MEDS: Acetaminophen 325 MG TABLET 650 MG PO (10:26)
[2023-06-03 11:16] LABS: Glucose, Whole Blood 92 mg/dL (60-115)
[2023-06-03] MEDS: Furosemide 40 MG/4 ML VIAL IVPUSH (11:34)
[2023-06-03] MEDS: Potassium Chloride ER 20 MEQ TAB.ER.PRT 40 MEQ PO (11:36)
[2023-06-03] MEDS: Doxycycline Hyclate 100 MG in 0.9 % Sodium Chloride 250 ML 166.67 MG IV (11:45)
--- NOTE | 2023-06-03 12:09 | P.CONPL_ITS ---
History of Present Illness History of Present Illness Consult date: 06/03/23 Chief complaint: s/p lap appy, advanced COPD Narrative: 58-year-old lady, active 40+ pack-year smoker, with advanced COPD followed by [facility] pulmonary, normally on Trelegy/albuterol MDI/ duo nebsophy, and not on home oxygen, also SLE, AFib, and congestive heart failure readmitted on 06/02/2023 with acute appendicitis, now status post laparoscopic appendectomy with hospital course further complicated by acute hypoxic respiratory failure, now on 4-6 L of supplemental oxygen, with CT chest showing upper lobe predominant emphysema and ground-glass opacities. Patient is complaining of dyspnea on exertion and some orthopnea, but denies cough or sputum production. Review of Systems 2 Constitutional: Constitutional: Denies daytime sleepiness, Denies excessive sweating, Denies fatigue, Denies fever(s), Denies lethargy, Denies malaise, Denies night sweats, Denies snoring and Denies weight loss Eyes: Eyes: Denies blurry vision and Denies itchy eyes ENT: Denies nasal congestion, Denies post nasal drip, Denies sinus pain, Denies sinus pressure and Denies other ( Thrush) Cardiovascular: Cardiovascular: Denies chest pain, Denies pedal edema, Denies dyspnea, Reports dyspnea on exertion, Reports orthopnea and Denies paroxysmal nocturnal dyspnea Respiratory: Respiratory: Denies cough, Denies hemoptysis, Denies excessive phlegm production, Denies dyspnea, Reports dyspnea on exertion, Denies snoring and Denies wheezing Gastrointestinal: Gastrointestinal: Reports abdominal pain ( Post surgical) Musculoskeletal: Musculoskeletal: Denies myalgias, Denies arthralgias and Denies joint swelling Integumentary/Breasts: Skin/Breast: Denies rash Neurologic: Denies memory loss and Denies seizure-like activity Psychiatric: Psychiatric: Denies abnormal sleep pattern, Denies anxiety and Denies memory loss Endocrine: Endocrine: Denies excessive sweating, Denies fatigue and Denies heat intolerance Hematologic/Lymphatic: Hematologic/Lymphatic: Denies easy bruising Allergic/Immunologic: Allergic/Immunologic: Denies itchy eyes, Denies seasonal rhinorrhea and Denies wheezing PMFSH Past Medical History Medical History (Updated 06/03/23 @ 12:13 by Roosevelt Olsen MD) Abdominal pain SLE (systemic lupus erythematosus) Depression Thyroid disease COPD (chronic obstructive pulmonary disease) Congestive heart failure Diabetes PAF (paroxysmal atrial fibrillation) Family History Family History Father No problems noted. Mother CVD (cardiovascular disease) Surgical History Surgical History History of back surgery History of radiofrequency ablation (RFA) procedure for cardiac arrhythmia Social History Social History Household Members: Family Housing: House Do you presently have visiting nurse or other home services: No Alcohol intake: never Patient Tobacco Use Status: Current everyday Tobacco user Cigarette Packs Per Day: 1 Cigarettes Per Day: 20.0 Smoked in Last 30 Days: Yes Use of substances other than those prescribed or required for medical reasons: No Have you been hit, kicked, punched, or otherwise hurt by someone within the past year? If so, by whom?: No Do you feel safe in your current relationship?: Yes Is there a partner from a previous relationship who is making you feel unsafe now?: No Are you made to feel afraid or neglected: No Advance Directives: Yes Advance Directives on File: Yes Advance Directives Date on File: 05/27/23 Do you have thoughts of harming others: None Do you have a plan to hurt others: No Plan Recently lost weight without trying: No Nutrition Risks: Difficulty chewing Patient : No : No Poor oral hygiene: No service: No Current occupational status: disabled Meds Allergies Allergy/AdvReac Type Severity Reaction Status Date / Time amoxicillin [From AUGMENTIN] Allergy Mild SWELLING Verified 05/26/23 22:47 clavulanic acid Allergy Mild SWELLING Verified 05/26/23 22:47 [From AUGMENTIN] etodolac [From LODINE] Allergy Mild SWELLING Verified 05/26/23 22:47 gabapentin [GABAPENTIN] Allergy Mild SWELLING Verified 05/26/23 22:47 pregabalin [From LYRICA] Allergy Mild SWELLING Verified 05/26/23 22:47 clarithromycin [From Biaxin] Allergy Unknown ANGIOEDEMA Verified 05/26/23 22:47 Penicillins Allergy Unknown UNKNOWN Verified 05/26/23 22:47 sulfamethoxazole Allergy Unknown ANAPHYLAXIS Verified 05/26/23 22:47 [From Bactrim] piperacillin [From Zosyn] Allergy Itching Verified 05/27/23 05:06 tazobactam [From Zosyn] Allergy Itching Verified 05/27/23 05:06 fluticasone AdvReac Mild MUSCLE PAIN Verified 05/26/23 22:47 [From FLOVENT DISKUS] Active Medications: Current Medications Acetaminophen (Acetaminophen 325 Mg Tablet) 650 mg PO Q6H PRN PRN Reason: Pain, Mild (Pain Scale 1-3) Last Admin: 06/03/23 10:26 Dose: 650 mg Hydrocodone Bitart/Acetaminophen (Hydrocodone Bit/Acetam 5/325 Tablet) 1 tab PO Q4H PRN PRN Reason: Pain, Moderate(Pain Scale 4-6) Last Admin: 06/03/23 10:25 Dose: 1 tab Al Hydroxide/Mg Hydroxide (Magnesium Hydrox/Alum Hydrox 30 Ml Oral.Susp) 30 ml PO Q4H PRN PRN Reason: Heartburn/Nausea Albuterol Sulfate (Albuterol Sulfate 90 Mcg 8 Gm Inhaler) 1 puff INHALE QID PRN PRN Reason: wheezing Atenolol (Atenolol 50 Mg Tablet) 50 mg PO BID [facility]; Protocol Last Admin: 06/03/23 08:37 Dose: 50 mg Bupropion HCl (Bupropion Hcl Xl 300 Mg Tab.Er.24h) 300 mg PO DAILY [facility] Last Admin: 06/03/23 08:33 Dose: 300 mg Cyclobenzaprine HCl (Cyclobenzaprine Hcl 10 Mg Tablet) 20 mg PO BEDTIME PRN PRN Reason: muscle spasm Dextrose (Dextrose 50 % 25 Gm/50 Ml Syringe) 25 gm IVPUSH Q15M PRN; Protocol PRN Reason: per Hypoglycemia Standing Ord. Escitalopram Oxalate (Escitalopram Oxalate 20 Mg Tablet) 20 mg PO DAILY [facility] Last Admin: 06/03/23 08:37 Dose: 20 mg Famotidine (Famotidine 20 Mg Tablet) 20 mg PO BID [facility] Last Admin: 06/03/23 08:33 Dose: 20 mg Flecainide Acetate (Flecainide Acetate 50 Mg Tablet) 100 mg PO Q12H [facility] Last Admin: 06/03/23 08:37 Dose: 100 mg Fluticasone/Umeclidinium/Vilanterol (Fluticasone/Umeclidinium/Vilanterol 100/62.5/25 Blst.W.Dev) 1 puff INHALE RDAILY [facility] Last Admin: 06/03/23 07:42 Dose: 1 puff Furosemide (Furosemide 40 Mg/4 Ml Vial) 40 mg IVPUSH DAILY [facility]; Protocol Last Admin: 06/03/23 11:34 Dose: 40 mg Glucose (Glucose Gel 15 Gm Gel..Gram.) 15 gm PO Q15M PRN; Protocol PRN Reason: per Hypoglycemia Standing Ord. Hydromorphone HCl (Hydromorphone Hcl 1 Mg/Ml Syringe) 0.5 mg IVPUSH Q4H PRN; Protocol PRN Reason: Pain, Severe (Pain Scale 7-10) Last Admin: 06/03/23 11:35 Dose: 0.5 mg Hydroxychloroquine Sulfate (Hydroxychloroquine Sulfate 200 Mg Tablet) 200 mg PO BID [facility] Last Admin: 06/03/23 08:34 Dose: 200 mg Doxycycline Hyclate 100 mg/ (Sodium Chloride) 250 mls @ 166.67 mls/hr IV Q12H [facility] Insulin Human Lispro (Insulin Lispro 100 Unit/Ml 3 Ml Vial) 0 unit SUBCUT QIDACHS [facility]; Protocol Last Admin: 06/03/23 07:38 Dose: Not Given Levothyroxine Sodium (Levothyroxine Sodium 100 Mcg Tablet) 100 mcg PO DAILY@0600 [facility] Last Admin: 06/03/23 05:34 Dose: 100 mcg Loperamide HCl (Loperamide Hcl 2 Mg Capsule) 4 mg PO Q4H PRN PRN Reason: diarrhea Lorazepam (Lorazepam 1 Mg Tablet) 1 mg PO TID PRN PRN Reason: anxiety Last Admin: 06/03/23 01:45 Dose: 1 mg Nicotine (Nicotine 21 Mg Patch.Td24) 21 mg TRANSDERMA DAILY [facility] Last Admin: 06/03/23 08:41 Dose: 21 mg Non-Formulary Medication (Colestipol) 1 gm PO TID [facility] Ondansetron HCl (Ondansetron Hcl 4 Mg/2 Ml Vial) 4 mg IVPUSH ONCE PRN PRN Reason: Nausea and Vomiting Ondansetron HCl (Ondansetron Hcl 4 Mg/2 Ml Vial) 4 mg IVPUSH Q8H PRN PRN Reason: Nausea and Vomiting Potassium Chloride (Potassium Chloride Er 20 Meq Tab.Er.Prt) 20 meq PO DAILY [facility] Last Admin: 06/03/23 08:34 Dose: 20 meq Potassium Chloride (Potassium Chloride Er 20 Meq Tab.Er.Prt) 40 meq PO DAILY [facility] Last Admin: 06/03/23 11:36 Dose: 40 meq Rivaroxaban (Rivaroxaban 20 Mg Tablet) 20 mg PO DAILY@1700 [facility] Sodium Chloride (0.9 % Sodium Chloride Flush 3 Ml Syringe) 3 ml IVFLUSH QSHIFT [facility] Last Admin: 06/03/23 08:40 Dose: 3 ml Trazodone HCl (Trazodone Hcl 50 Mg Tablet) 150 mg PO BEDTIME [facility] Last Admin: 06/02/23 20:37 Dose: 150 mg Zolpidem Tartrate (Zolpidem Tartrate 5 Mg Tablet) 5 mg PO BEDTIME PRN PRN Reason: Insomnia Home Medications Medication Instructions Recorded Confirmed Last Taken Type bupropion HCl 300 mg 24 hr tablet, 300 mg PO DAILY 12/12/20 06/02/23 05/25/23 History extended release citalopram 40 mg tablet 40 mg PO DAILY 12/12/20 06/02/23 05/25/23 History famotidine 20 mg tablet 20 mg PO BID 12/12/20 06/02/23 05/25/23 History levothyroxine 100 mcg tablet 100 mcg PO DAILY 12/12/20 06/02/23 05/26/23 History lorazepam 1 mg tablet 1 mg PO TID PRN anxiety 12/12/20 06/02/23 Unknown History trazodone 50 mg tablet 150 mg PO BEDTIME 12/12/20 06/02/23 05/25/23 History cyclobenzaprine 10 mg tablet 20 mg PO BEDTIME PRN muscle spasm 05/16/22 06/02/23 05/25/23 History oxycodone 10 mg tablet 10 mg PO Q4H PRN Pain, Moderate 05/16/22 06/02/23 Unknown History blood sugar diagnostic (Wipebookuch #10 ea 06/11/22 06/02/23 Unknown History Verio test strips) insulin glargine 100 unit/mL (3 26 unit subcut BID 06/11/22 06/02/23 05/26/23 History mL) subcutaneous pen (Lantus Solostar U-100 Insulin) lancets 30 gauge (Wipebookuch Keith #100 ea 06/11/22 06/02/23 Unknown History Plus Lancet) rivaroxaban 20 mg tablet (Xarelto) 20 mg PO DAILY@1700 05/07/23 06/02/23 05/25/23 History acetaminophen 325 mg tablet 975 mg PO TID 05/27/23 06/02/23 Unknown History albuterol sulfate 90 mcg/actuation 1 puff inhalation QID PRN wheezing 05/27/23 06/02/23 05/26/23 History aerosol inhaler colestipol 1 gram tablet 1 g PO TID 05/27/23 06/02/23 Unknown History dulaglutide 0.75 mg/0.5 mL 0.75 mg subcut WHITE 05/27/23 06/02/23 05/26/23 History subcutaneous pen injector (Trulicity) fluticasone fur. 100 mcg-umeclid 1 ea inhalation DAILY 05/27/23 06/02/23 Unknown History 62.5 mcg-vilant 25 mcg inhalat.powder (Trelegy Ellipta) hydroxychloroquine 200 mg tablet 200 mg PO BID 05/27/23 06/02/23 Unknown History insulin lispro 100 unit/mL 1 sliding scale dose subcut 05/27/23 06/02/23 Unknown History subcutaneous solution (Humalog USEASDIRECTD U-100 Insulin) potassium chloride 10 mEq 20 meq PO DAILY 05/27/23 06/02/23 Unknown History capsule,extended release Physical Exam 2 Vital Signs: Vital Signs: Last Vital Signs Temp 98 F 06/03/23 07:07 Pulse 86 06/03/23 07:49 Resp 18 06/03/23 07:49 BP 115/56 L 06/03/23 07:07 Pulse Ox 90 L 06/03/23 07:07 O2 Del Method Nasal Cannula 06/03/23 07:07 O2 Flow Rate 3 06/03/23 07:07 BMI result Body Mass Index 27.9 Const: General: no acute distress and alert HEENT: Head: Yes atraumatic Eyes: General: appearance normal, both eyes and all related structures S clerae: sclerae normal EOM: EOMs intact bilaterally Neck: Neck: Yes supple Lymphatic: no lymphadenopathy noted Resp: Effort & Inspection: normal respiratory effort and no use of accessory muscles Auscultation: crackles ( mild basilar) Cardio: Rate: regular rate Rhythm: regular rhythm Heart sounds: no gallops, no murmurs and no rubs Skin: General skin exam: other ( warm) Extrem: General: No clubbing, No cyanosis and Yes edema ( trace bilateral) Results Laboratory Findings 06/02/23 01:25 06/03/23 05:45 ABG, PT/INR, D-dimer: PT/INR, D-dimer PT 21.4 SEC (11.1-13.3) H D 06/02/23 12:23 INR 1.8 (0.9-1.1) H 06/02/23 12:23 Abnormal lab findings: Abnormal Labs 06/02/23 06/02/23 06/02/23 01:25 06:06 08:12 WBC 15.8 H RBC 3.71 L MCV 100.3 H MCH 34.0 H Immature Gran % (Auto) 0.5 H Neut % (Auto) 85.8 H Lymph % (Auto) 7.6 L Abs Immat Gran (auto) 0.08 H Absolute Neuts (auto) 13.6 H PT 33.7 H INR 2.8 H APTT 42.0 H Sodium 133 L Potassium Chloride Carbon Dioxide 21 L Anion Gap BUN POC Glucose Random Glucose 267 H AST 33 H Albumin 3.1 L Lipase 7 L 6 L Ur Leukocyte Esterase Moderate (2+) H Urine WBC 11-20 H 06/02/23 06/02/23 06/02/23 12:19 12:23 19:44 WBC RBC MCV MCH Immature Gran % (Auto) Neut % (Auto) Lymph % (Auto) Abs Immat Gran (auto) Absolute Neuts (auto) PT 21.4 H D INR 1.8 H APTT Sodium Potassium Chloride Carbon Dioxide Anion Gap BUN POC Glucose 136 H 330 H Random Glucose AST Albumin Lipase Ur Leukocyte Esterase Urine WBC 06/02/23 06/03/23 06/03/23 21:10 05:45 07:05 WBC RBC MCV MCH Immature Gran % (Auto) Neut % (Auto) Lymph % (Auto) Abs Immat Gran (auto) Absolute Neuts (auto) PT INR APTT Sodium Potassium 3.1 L D Chloride 109 H Carbon Dioxide Anion Gap 10 L BUN 7 L POC Glucose 354 H* 56 L* Random Glucose 43 L* AST Albumin Lipase Ur Leukocyte Esterase Urine WBC Microbiology: Microbiology 06/02/23 06:06 Blood - Venous Blood Culture - Preliminary No growth after 24 hours. 06/02/23 06:06 Blood - Venous Blood Culture - Preliminary No growth after 24 hours. Assessment and Plan (1) COPD (chronic obstructive pulmonary disease): Status: Acute (2) Acute respiratory failure with hypoxia: Status: Acute Plan Impression: 58-year-old lady with underlying advanced COPD congestive heart failure, and AFib admitted with acute appendicitis, now status post appendectomy with postop course complicated by acute hypoxic per failure that appears to be secondary to pulmonary edema /intravascular volume overload. Recommendations: Agree with resume in diuretic regimen at double the home dose. Continue Trelegy and duo nebs. Titrate off supplemental oxygen as tolerated. Time Spent With Patient Time: Total time managing care of this patient today ____ minutes. Procedures Date of Service Date of Service: 06/03/23
--- NOTE | 2023-06-03 12:24 | HO.PM.IMPN ---
Subjective Subjective Date of Service: 06/03/23 Interval History: Complained of mild shortness of breath this morning, not on home oxygen currently on 4 L of FiO2 finger oximetry 94% denies chest pain, no palpitation denies nausea, no vomiting complaining of discomfort at site of abdominal surgery, tolerating diet, no other acute issues overnight, later early afternoon patient walk to the commode fell March headache oxygenation dropped to 70s therefore placed on non-rebreather mask and subsequently to high-flow patient denies chest pain, no palpitations, complaining of shortness of breath, lightheadedness resolved after being placed in bed, CTA chest done yesterday that showed no PE. Review of Systems All other system reviewed and negative Physical Exam Vital Signs: Vital Signs: Last Vital Signs Temp 98 F 06/03/23 07:07 Pulse 86 06/03/23 07:49 Resp 18 06/03/23 07:49 BP 115/56 L 06/03/23 07:07 Pulse Ox 90 L 06/03/23 07:07 O2 Del Method Nasal Cannula 06/03/23 07:07 O2 Flow Rate 3 06/03/23 07:07 BMI result Body Mass Index 27.9 Const: Other: General awake alert, pale,weak , in no acute distress. Neck supple no JVD. CVS regular rate rhythm, Respiratory lungs bibasilar dry crackles, no respiratory distress, no wheeze, no rhonchi. Gastrointestinal abdomen soft, non tender, bowel sounds audible, no no guarding , no rigidity. Extremities no clubbing cyanosis or edema. Neuro nonfocal patient moving all 4 extremity speech clear. Skin no rash Objective Data Active Medications Acetaminophen (Acetaminophen 325 Mg Tablet) 650 mg PO Q6H PRN PRN Reason: Pain, Mild (Pain Scale 1-3) Last Admin: 06/03/23 10:26 Dose: 650 mg Documented By: ALEXIS Hydrocodone Bitart/Acetaminophen (Hydrocodone Bit/Acetam 5/325 Tablet) 1 tab PO Q4H PRN PRN Reason: Pain, Moderate(Pain Scale 4-6) Last Admin: 06/03/23 10:25 Dose: 1 tab Documented By: ALEXIS Al Hydroxide/Mg Hydroxide (Magnesium Hydrox/Alum Hydrox 30 Ml Oral.Susp) 30 ml PO Q4H PRN PRN Reason: Heartburn/Nausea Albuterol Sulfate (Albuterol Sulfate 90 Mcg 8 Gm Inhaler) 1 puff INHALE QID PRN PRN Reason: wheezing Albuterol/Ipratropium (Albuterol/Iprat 2.5/0.5mg 3 Ml Ampul.Neb) 3 ml INHALE QID [facility] Atenolol (Atenolol 50 Mg Tablet) 50 mg PO BID [facility]; Protocol Last Admin: 06/03/23 08:37 Dose: 50 mg Documented By: ALEXIS Bupropion HCl (Bupropion Hcl Xl 300 Mg Tab.Er.24h) 300 mg PO DAILY [facility] Last Admin: 06/03/23 08:33 Dose: 300 mg Documented By: ALEXIS Cyclobenzaprine HCl (Cyclobenzaprine Hcl 10 Mg Tablet) 20 mg PO BEDTIME PRN PRN Reason: muscle spasm Dextrose (Dextrose 50 % 25 Gm/50 Ml Syringe) 25 gm IVPUSH Q15M PRN; Protocol PRN Reason: per Hypoglycemia Standing Ord. Escitalopram Oxalate (Escitalopram Oxalate 20 Mg Tablet) 20 mg PO DAILY [facility] Last Admin: 06/03/23 08:37 Dose: 20 mg Documented By: ALEXIS Famotidine (Famotidine 20 Mg Tablet) 20 mg PO BID [facility] Last Admin: 06/03/23 08:33 Dose: 20 mg Documented By: ALEXIS Flecainide Acetate (Flecainide Acetate 50 Mg Tablet) 100 mg PO Q12H [facility] Last Admin: 06/03/23 08:37 Dose: 100 mg Documented By: ALEXIS Fluticasone/Umeclidinium/Vilanterol (Fluticasone/Umeclidinium/Vilanterol 100/62.5/25 Blst.W.Dev) 1 puff INHALE RDAILY [facility] Last Admin: 06/03/23 07:42 Dose: 1 puff Documented By: ARABELLA Furosemide (Furosemide 40 Mg/4 Ml Vial) 40 mg IVPUSH DAILY [facility]; Protocol Last Admin: 06/03/23 11:34 Dose: 40 mg Documented By: ALEXIS Glucose (Glucose Gel 15 Gm Gel..Gram.) 15 gm PO Q15M PRN; Protocol PRN Reason: per Hypoglycemia Standing Ord. Hydromorphone HCl (Hydromorphone Hcl 1 Mg/Ml Syringe) 0.5 mg IVPUSH Q4H PRN; Protocol PRN Reason: Pain, Severe (Pain Scale 7-10) Last Admin: 06/03/23 11:35 Dose: 0.5 mg Documented By: ALEXIS Hydroxychloroquine Sulfate (Hydroxychloroquine Sulfate 200 Mg Tablet) 200 mg PO BID [facility] Last Admin: 06/03/23 08:34 Dose: 200 mg Documented By: ALEXIS Doxycycline Hyclate 100 mg/ (Sodium Chloride) 250 mls @ 166.67 mls/hr IV Q12H [facility] Insulin Human Lispro (Insulin Lispro 100 Unit/Ml 3 Ml Vial) 0 unit SUBCUT QIDACHS [facility]; Protocol Last Admin: 06/03/23 07:38 Dose: Not Given Documented By: ALEXIS Non-Admin Reason: No Insulin Coverage Levothyroxine Sodium (Levothyroxine Sodium 100 Mcg Tablet) 100 mcg PO DAILY@0600 [facility] Last Admin: 06/03/23 05:34 Dose: 100 mcg Documented By: SAM Loperamide HCl (Loperamide Hcl 2 Mg Capsule) 4 mg PO Q4H PRN PRN Reason: diarrhea Lorazepam (Lorazepam 1 Mg Tablet) 1 mg PO TID PRN PRN Reason: anxiety Last Admin: 06/03/23 01:45 Dose: 1 mg Documented By: SAM Nicotine (Nicotine 21 Mg Patch.Td24) 21 mg TRANSDERMA DAILY [facility] Last Admin: 06/03/23 08:41 Dose: 21 mg Documented By: ALEXIS Non-Formulary Medication (Colestipol) 1 gm PO TID [facility] Ondansetron HCl (Ondansetron Hcl 4 Mg/2 Ml Vial) 4 mg IVPUSH ONCE PRN PRN Reason: Nausea and Vomiting Ondansetron HCl (Ondansetron Hcl 4 Mg/2 Ml Vial) 4 mg IVPUSH Q8H PRN PRN Reason: Nausea and Vomiting Potassium Chloride (Potassium Chloride Er 20 Meq Tab.Er.Prt) 20 meq PO DAILY [facility] Last Admin: 06/03/23 08:34 Dose: 20 meq Documented By: ALEXIS Potassium Chloride (Potassium Chloride Er 20 Meq Tab.Er.Prt) 40 meq PO DAILY [facility] Last Admin: 06/03/23 11:36 Dose: 40 meq Documented By: ALEXIS Rivaroxaban (Rivaroxaban 20 Mg Tablet) 20 mg PO DAILY@1700 [facility] Sodium Chloride (0.9 % Sodium Chloride Flush 3 Ml Syringe) 3 ml IVFLUSH QSHIFT [facility] Last Admin: 06/03/23 08:40 Dose: 3 ml Documented By: ALEXIS Trazodone HCl (Trazodone Hcl 50 Mg Tablet) 150 mg PO BEDTIME [facility] Last Admin: 06/02/23 20:37 Dose: 150 mg Documented By: SAM Zolpidem Tartrate (Zolpidem Tartrate 5 Mg Tablet) 5 mg PO BEDTIME PRN PRN Reason: Insomnia Labs 06/02/23 01:25 06/03/23 05:45 Labs: Laboratory Results - last 24 hr 06/02/23 06/02/23 06/02/23 12:19 12:23 12:45 PT 21.4 H D INR 1.8 H APTT 35.9 Anion Gap Estim Creat Clear Calc Estimated GFR POC Glucose 136 H Random Glucose Calcium Stl C. cayetanensis PCR Not Detected Stool Rotavirus A PCR Not Detected Stl Adenov F PCR Not Detected Stool Astrovirus (PCR) Not Detected Stool Campylobacter PCR Not Detected Stool Cryptosporidium PCR Not Detected Stl Sh Tox Pr E STEC PCR Not Detected Stool E coli O157 PCR Not applicable Stl Enterotoxigenic E PCR Not Detected Stool EPEC (PCR) Not Detected Stool EAEC (PCR) Not Detected Stl E. histolytica PCR Not Detected Stool Giardia Lamblia PCR Not Detected Stl P. shigelloides PCR Not Detected Stool Salmonella PCR Not Detected Stool Sapovirus (PCR) Not Detected Stl Shigella/EIEC PCR Not Detected St Y.enterocolitica PCR Not Detected Stool Vibrio (PCR) Not Detected Stl Vibrio cholerae PCR Not Detected Stl Norovirus GI/GII PCR Not Detected 06/02/23 06/02/23 06/03/23 19:44 21:10 05:45 PT INR APTT Anion Gap 10 L Estim Creat Clear Calc 99.6 Estimated GFR > 60 POC Glucose 330 H 354 H* Random Glucose 43 L* Calcium 9.2 Stl C. cayetanensis PCR Stool Rotavirus A PCR Stl Adenov F 40/ PCR Stool Astrovirus (PCR) Stool Campylobacter PCR Stool Cryptosporidium PCR Stl Sh Tox Pr E STEC PCR Stool E coli O157 PCR Stl Enterotoxigenic E PCR Stool EPEC (PCR) Stool EAEC (PCR) Stl E. histolytica PCR Stool Giardia Lamblia PCR Stl P. shigelloides PCR Stool Salmonella PCR Stool Sapovirus (PCR) Stl Shigella/EIEC PCR St Y.enterocolitica PCR Stool Vibrio (PCR) Stl Vibrio cholerae PCR Stl Norovirus GI/GII PCR 06/03/23 06/03/23 06/03/23 07:05 07:30 11:04 PT INR APTT Anion Gap Estim Creat Clear Calc Estimated GFR POC Glucose 56 L* 90 92 Random Glucose Calcium Stl C. cayetanensis PCR Stool Rotavirus A PCR Stl Adenov F 40/41 PCR Stool Astrovirus (PCR) Stool Campylobacter PCR Stool Cryptosporidium PCR Stl Sh Tox Pr E STEC PCR Stool E coli O157 PCR Stl Enterotoxigenic E PCR Stool EPEC (PCR) Stool EAEC (PCR) Stl E. histolytica PCR Stool Giardia Lamblia PCR Stl P. shigelloides PCR Stool Salmonella PCR Stool Sapovirus (PCR) Stl Shigella/EIEC PCR St Y.enterocolitica PCR Stool Vibrio (PCR) Stl Vibrio cholerae PCR Stl Norovirus GI/GII PCR Microbiology Microbiology Results: Microbiology 06/02/23 06:06 Blood Culture - Preliminary Blood - Venous No growth after 24 hours. 06/02/23 06:06 Blood Culture - Preliminary Blood - Venous No growth after 24 hours. Assessment and Plan (1) Acute respiratory failure with hypoxia: Status: Acute (2) COPD (chronic obstructive pulmonary disease): Status: Acute Plan 50-year-old female with severe COPD not on home O2, paroxysmal atrial fibrillation anticoagulated with Xarelto, insulin-dependent type 2 diabetes, congestive heart failure, hypothyroidism, SLE, chronic low back pain s/p lumbar fusion admitted to general surgery with consult placed to hospitalist service for medical management. #Acute appendicitis -management per General surgery # near syncope question orthostasis versus vasovagal, will check orthostatic blood pressures, blood sugars stable noted to be hypoxic, will place on tele monitor, continuous oxygen monitoring minimize antihypertensive medications, on multiple medications causing sedation and hypotension, adjust home medications. # acute hypoxic respiratory failure Noted to have significant hypoxia requiring high-flow oxygen, CTA chest and chest x-ray showed no PE, but showed bilateral diffuse nonspecific reticular interstitial changes new since November 2022 differential include edema versus infiltrate question fibrosis -continue supplemental O2 to maintain oximetry greater than 90% Placed on DuoNeb q.i.d., IV Lasix, IV doxycycline obtained pulmonology consult Dr. Mosqueda agreed with above treatment plan strongly recommend to abstain from nicotine, continue nicotine patch -encourage IS # Acute hypokalemia will replete and follow labs # COPD -no acute exacerbation -continue maintenance inhalers, scheduled DuoNeb and albuterol p.r.n. -not on home o2 #HFpEF -no acute exacerbation -not on p.o. diuretics # paroxysmal atrial fibrillation -resume Xarelto today -continue flecainide, atenolol will decrease dose of atenolol to 25 b.i.d. due to soft blood pressures # insulin-dependent type 2 diabetes -low blood sugars will DC Lantus continue diabetic diet and Humalog sliding scale # hypertension -blood pressure soft, continue atenolol dose reduced from 50 b.i.d. to 25 b.i.d. and follow BP closely # SLE -no acute flare-up -continue hydroxychloroquine #Chronic low back pain -pain meds per general surgery on IV Dilaudid and hydrocodone prn. -continue flexeril prn # mood disorder -continue home meds Will continue following. Time Spent With Patient Time: Total time managing care of this patient today ____ minutes. Quality Stroke Does the patient have a stroke diagnosis?: No VTE Prior VTE?: No VTE Risk Level:: Surgical - low VTE Device Contraindication: N/A - Device Ordered VTE Drug Contraindication: Treatment Not Indicated
[2023-06-03] MEDS: Albuterol/Iprat 2.5/0.5MG 3 ML AMPUL.NEB INHALE ×3 (13:21→20:31)
--- NOTE | 2023-06-03 14:53 | HO.POSTANES ---
Post Anesthesia Evaluation Post Anesthesia Evaluation Date of Service: 06/03/23 Vital Signs: Vital Signs Temp Pulse Resp BP Pulse Ox O2 Del Method O2 Flow Rate 06/03/23 13:51 High Flow Nasal Cannula 06/03/23 13:50 High Flow Nasal Cannula 06/03/23 13:22 88 24 H 06/03/23 12:30 24 H 06/03/23 07:49 86 18 06/03/23 07:07 98 F 88 18 115/56 L 90 L Nasal Cannula 3 06/03/23 04:00 96.8 F 87 18 120/56 L 89 L Nasal Cannula 2 Anesthesia: General Endotracheal-GETA Mental Status: Awake Pain Control: Satisfactory Nausea/Vomiting: None Hydration: Adequate Anesthesia-Related Issues: No Anes. Related Issues
[2023-06-03] MEDS: Loperamide HCl 2 MG CAPSULE 4 MG PO (15:03)
[2023-06-03 16:38] LABS: Glucose, Whole Blood 229 mg/dL (60-115)
[2023-06-03] MEDS: Insulin Lispro 100 UNIT/ML 3 ML VIAL SUBCUT ×2 (17:54→20:57)
[2023-06-03] MEDS: Rivaroxaban 20 MG TABLET PO (17:56)
--- NOTE | 2023-06-03 18:09 | PC.NURSE ---
At ~1200 pt ambulated to bathroom with [employer]. this nurse was called into room as pt became very SOB and was de-sating to the 70s. Rapid called and Respiratory immediately came in and placed pt on non re-breather and pt was transferred back into bed in w/c. Dr Munoz at bedside. Pt then placed on Hi-mo and has since been maintaining sats 88-92%
[2023-06-03] MEDS: Cyclobenzaprine HCl 10 MG TABLET 20 MG PO (19:43)
[2023-06-03] MEDS: atenoloL 25 MG TABLET PO (19:44)
[2023-06-03] MEDS: traZODone HCL 100 MG TABLET PO (19:44)
[2023-06-03 20:56] LABS: Glucose, Whole Blood 251 mg/dL (60-115)
[2023-06-03] MEDS: Doxycycline Hyclate 100 MG in 0.9 % Sodium Chloride 250 ML IV (22:10)
[2023-06-04] VITALS (23 sets, daily range): BP systolic 107–129; BP diastolic 52–73; PULSE 82–133; RESP 16–28; TEMP 36.3–36.9; O2SAT 87–97
--- NOTE | 2023-06-04 | ECG_ITS ---
Test Reason : chest tightness Blood Pressure : / mmHG Vent. Rate : 086 BPM Atrial Rate : 086 BPM P-R Int : 200 ms QRS Dur : 100 ms QT Int : 436 ms P-R-T Axes : 038 -19 048 degrees QTc Int : 521 ms Normal sinus rhythm Prolonged QT Abnormal ECG When compared with ECG of 04-JUN-2023 12:02, No significant change was found Referred By: Juana Munoz Electronically Signed By:MEL HERNANDEZ
[2023-06-04 00:31] LABS: ABG Base Excess 2.3 mmol/L; ABG HCO3 24 mmol/L (22-26); ABG pCO2 29 mmHg (32-45); ABG pH 7.52 (7.35-7.45); ABG pO2 56 mmHg (83-108)
--- NOTE | 2023-06-04 01:23 | PC.NURSE ---
Addendum entered by Neha Cleveland RN 06/04/23 03:29: Pt became more confused. She tried to rip her O2 off making her O2 sats dropped to the 70's. Hospitalist notified. Ordered Zyprexa. Original Note: Acquired care at 1900. Pt was drowsy but oriented able to make needs known. SR/ST on tele monitor. Pt intermittently desatting to the 80's. Very dyspniec with exertion. Lung sound dim with crackles. notified. RT called to adjust the HFNC. Pt started on 40L 40% FiO2 HFNC. HFNC settings adjusted to 50% 50L O2. ABG drawn. Results forwarded to Hospitalist. 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 Pt gets more confused this time. Tried to pull out her O2.
[2023-06-04 01:32] LABS: ABG Refer to POC result
[2023-06-04] MEDS: OLANZapine 10 MG VIAL 5 MG IM (03:36)
[2023-06-04] MEDS: HYDROcodone Bit/Acetam 5/325 TABLET 1 TAB PO ×2 (04:20→20:07)
[2023-06-04] MEDS: Levothyroxine Sodium 100 MCG TABLET PO (05:01)
[2023-06-04 07:27] LABS: Hematocrit 34.4 % (37.0-47.0); Hemoglobin 11.6 g/dl (12.0-16.0); Mean Corpuscular HGB Conc 33.7 g/dl (31.0-35.0); Mean Corpuscular Hemoglobin 33.5 pg (27.0-33.0); Mean Corpuscular Volume 99.4 fL (80.0-98.0); Mean Platelet Volume 10.5 fL (9.4-12.3); Platelet Count 233 X10*3/uL (160-400); Red Blood Count 3.46 X10*6/uL (4.20-5.50); Red Cell Distribution Width 13.5 % (11.0-16.0); White Blood Count 11.5 X10*3/uL (4.8-10.8)
[2023-06-04 07:43] LABS: Glucose, Whole Blood 75 mg/dL (60-115)
[2023-06-04] MEDS: Albuterol/Iprat 2.5/0.5MG 3 ML AMPUL.NEB INHALE ×4 (07:44→19:10)
[2023-06-04] MEDS: Furosemide 40 MG/4 ML VIAL IVPUSH (07:54)
[2023-06-04] MEDS: HYDROmorphone HCl 1 MG/ML SYRINGE 0.5 MG IVPUSH ×3 (07:54→17:11)
[2023-06-04] MEDS: Nicotine 21 MG PATCH.TD24 TRANSDERMA (07:56)
[2023-06-04] MEDS: 0.9 % Sodium Chloride Flush 3 ML SYRINGE IVFLUSH ×3 (07:56→22:14)
[2023-06-04] MEDS: buPROPion HCl XL 300 MG TAB.ER.24H PO (07:57)
[2023-06-04] MEDS: Hydroxychloroquine Sulfate 200 MG TABLET PO ×2 (07:57→20:07)
[2023-06-04] MEDS: Famotidine 20 MG TABLET PO ×2 (07:57→20:06)
[2023-06-04] MEDS: Escitalopram Oxalate 20 MG TABLET PO (07:57)
[2023-06-04] MEDS: Flecainide Acetate 50 MG TABLET 100 MG PO ×2 (07:57→19:54)
[2023-06-04] MEDS: Potassium Chloride ER 20 MEQ TAB.ER.PRT 40 MEQ PO (07:58)
[2023-06-04] MEDS: Potassium Chloride ER 20 MEQ TAB.ER.PRT PO (07:58)
[2023-06-04] MEDS: atenoloL 25 MG TABLET PO ×3 (07:58→20:07)
[2023-06-04 08:03] LABS: Anion Gap 13 (12-20); Blood Urea Nitrogen 5 mg/dL (9-16); Calcium 8.6 mg/dL (8.4-10.2); Carbon Dioxide 23 mmol/L (22-29); Chloride 106 mmol/L (96-108); Creatinine Clr Calc Pharmacy 101.2; Estimated Glomerular Filt Rate > 60; Glucose Random 79 mg/dL (60-115); Potassium 3.1 mmol/L (3.3-5.1); Sodium 139 mmol/L (135-145)
[2023-06-04 08:08] LABS: Thyroid Stimulating Hormone 1.94 uIU/mL (0.32-4.0)
[2023-06-04 09:03] LABS: ABG Base Excess 1.8 mmol/L; ABG HCO3 23 mmol/L (22-26); ABG pCO2 28 mmHg (32-45); ABG pH 7.52 (7.35-7.45); ABG pO2 61 mmHg (83-108)
[2023-06-04] MEDS: Fluticasone/Umeclidinium/Vilanterol 100/62.5/25 BLST.W.DEV 1 PUFF INHALE (09:11)
[2023-06-04] MEDS: methylPREDNISolone Sod Succ 125 MG/2 ML VIAL IVPUSH (09:22)
[2023-06-04] MEDS: Doxycycline Hyclate 100 MG in 0.9 % Sodium Chloride 250 ML 166.67 MG IV ×2 (11:12→22:12)
[2023-06-04 11:20] LABS: Glucose, Whole Blood 156 mg/dL (60-115)
[2023-06-04 11:34] LABS: ABG Refer to POC result
--- NOTE | 2023-06-04 12:48 | HO.PM.IMPN ---
Subjective Subjective Date of Service: 06/04/23 Interval History: Awake alert complaining of shortness of breath, and anterior chest wall discomfort with breathing, denies fever, no chills, no orthopnea no nausea no vomiting, ABGs from last night showed significant hypoxia, Review of Systems All other system reviewed and negative. Physical Exam Vital Signs: Vital Signs: Last Vital Signs Temp 98.2 F 06/04/23 10:57 Pulse 82 06/04/23 12:11 Resp 22 H 06/04/23 12:11 BP 112/52 L 06/04/23 10:57 Pulse Ox 92 06/04/23 10:57 O2 Del Method High Flow Nasal C annula 06/04/23 10:57 O2 Flow Rate 50 06/04/23 10:57 FiO2 59 06/04/23 10:57 BMI result Body Mass Index 27.9 Const: Other: General awake alert, tachypneic, in mild respiratory distress. Neck supple, no JVD. CVS regular rate rhythm, Respiratory lungs bibasilar dry crackles, mild respiratory distress, no wheeze Gastrointestinal abdomen soft, non tender, bowel sounds audible, no no guarding , no rigidity. Extremities no clubbing cyanosis or edema. Neuro nonfocal patient moving all 4 extremity speech clear. Skin no rash Psych appropriate affect Objective Data Active Medications Acetaminophen (Acetaminophen 325 Mg Tablet) 650 mg PO Q6H PRN PRN Reason: Pain, Mild (Pain Scale 1-3) Last Admin: 06/03/23 10:26 Dose: 650 mg Documented By: ALEXIS Hydrocodone Bitart/Acetaminophen (Hydrocodone Bit/Acetam 5/325 Tablet) 1 tab PO Q4H PRN PRN Reason: Pain, Moderate(Pain Scale 4-6) Last Admin: 06/04/23 04:20 Dose: 1 tab Documented By: MINA Al Hydroxide/Mg Hydroxide (Magnesium Hydrox/Alum Hydrox 30 Ml Oral.Susp) 30 ml PO Q4H PRN PRN Reason: Heartburn/Nausea Albuterol Sulfate (Albuterol Sulfate 90 Mcg 8 Gm Inhaler) 1 puff INHALE QID PRN PRN Reason: wheezing Albuterol/Ipratropium (Albuterol/Iprat 2.5/0.5mg 3 Ml Ampul.Neb) 3 ml INHALE QID [facility] Last Admin: 06/04/23 12:10 Dose: 3 ml Documented By: MARIANA Atenolol (Atenolol 25 Mg Tablet) 25 mg PO BID [facility]; Protocol Last Admin: 06/04/23 07:58 Dose: 25 mg Documented By: ELAINE Bupropion HCl (Bupropion Hcl Xl 300 Mg Tab.Er.24h) 300 mg PO DAILY [facility] Last Admin: 06/04/23 07:57 Dose: 300 mg Documented By: ELAINE Cyclobenzaprine HCl (Cyclobenzaprine Hcl 10 Mg Tablet) 20 mg PO BEDTIME PRN PRN Reason: muscle spasm Last Admin: 06/03/23 19:43 Dose: 20 mg Documented By: MINA Dextrose (Dextrose 50 % 25 Gm/50 Ml Syringe) 25 gm IVPUSH Q15M PRN; Protocol PRN Reason: per Hypoglycemia Standing Ord. Escitalopram Oxalate (Escitalopram Oxalate 20 Mg Tablet) 20 mg PO DAILY [facility] Last Admin: 06/04/23 07:57 Dose: 20 mg Documented By: ELAINE Famotidine (Famotidine 20 Mg Tablet) 20 mg PO BID [facility] Last Admin: 06/04/23 07:57 Dose: 20 mg Documented By: ELAINE Flecainide Acetate (Flecainide Acetate 50 Mg Tablet) 100 mg PO Q12H [facility] Last Admin: 06/04/23 07:57 Dose: 100 mg Documented By: ELAINE Fluticasone/Umeclidinium/Vilanterol (Fluticasone/Umeclidinium/Vilanterol 100/62.5/25 Blst.W.Dev) 1 puff INHALE RDAILY [facility] Last Admin: 06/04/23 09:11 Dose: 1 puff Documented By: MARIANA Furosemide (Furosemide 40 Mg/4 Ml Vial) 40 mg IVPUSH DAILY [facility]; Protocol Last Admin: 06/04/23 07:54 Dose: 40 mg Documented By: ELAINE Glucose (Glucose Gel 15 Gm Gel..Gram.) 15 gm PO Q15M PRN; Protocol PRN Reason: per Hypoglycemia Standing Ord. Hydromorphone HCl (Hydromorphone Hcl 1 Mg/Ml Syringe) 0.5 mg IVPUSH Q4H PRN; Protocol PRN Reason: Pain, Severe (Pain Scale 7-10) Last Admin: 06/04/23 12:33 Dose: 0.5 mg Documented By: ELAINE Comments: Hydroxychloroquine Sulfate (Hydroxychloroquine Sulfate 200 Mg Tablet) 200 mg PO BID [facility] Last Admin: 06/04/23 07:57 Dose: 200 mg Documented By: ELAINE Doxycycline Hyclate 100 mg/ (Sodium Chloride) 250 mls @ 166.67 mls/hr IV Q12H [facility] Last Infusion: 06/04/23 11:30 Dose: 0 mls/hr Documented By: ELAINE Insulin Human Lispro (Insulin Lispro 100 Unit/Ml 3 Ml Vial) 0 unit SUBCUT QIDACHS [facility]; Protocol Last Admin: 06/04/23 11:27 Dose: Not Given Documented By: ELAINE Non-Admin Reason: NPO Levothyroxine Sodium (Levothyroxine Sodium 100 Mcg Tablet) 100 mcg PO DAILY@0600 [facility] Last Admin: 06/04/23 05:01 Dose: 100 mcg Documented By: MINA Loperamide HCl (Loperamide Hcl 2 Mg Capsule) 4 mg PO Q4H PRN PRN Reason: diarrhea Last Admin: 06/03/23 15:03 Dose: 4 mg Documented By: ALEXIS Lorazepam (Lorazepam 1 Mg Tablet) 1 mg PO TID PRN PRN Reason: anxiety Last Admin: 06/03/23 23:33 Dose: 1 mg Documented By: MINA Nicotine (Nicotine 21 Mg Patch.Td24) 21 mg TRANSDERMA DAILY [facility] Last Admin: 06/04/23 07:56 Dose: 21 mg Documented By: ELAINE Non-Formulary Medication (Colestipol) 1 gm PO TID [facility] Ondansetron HCl (Ondansetron Hcl 4 Mg/2 Ml Vial) 4 mg IVPUSH ONCE PRN PRN Reason: Nausea and Vomiting Ondansetron HCl (Ondansetron Hcl 4 Mg/2 Ml Vial) 4 mg IVPUSH Q8H PRN PRN Reason: Nausea and Vomiting Potassium Chloride (Potassium Chloride Er 20 Meq Tab.Er.Prt) 20 meq PO DAILY [facility] Last Admin: 06/04/23 07:58 Dose: 20 meq Documented By: ELAINE Potassium Chloride (Potassium Chloride Er 20 Meq Tab.Er.Prt) 40 meq PO DAILY [facility] Last Admin: 06/04/23 07:58 Dose: 40 meq Documented By: ELAINE Rivaroxaban (Rivaroxaban 20 Mg Tablet) 20 mg PO DAILY@1700 [facility] Last Admin: 06/03/23 17:56 Dose: 20 mg Documented By: ALEXIS Sodium Chloride (0.9 % Sodium Chloride Flush 3 Ml Syringe) 3 ml IVFLUSH QSHIFT [facility] Last Admin: 06/04/23 07:56 Dose: 3 ml Documented By: ELAINE Trazodone HCl (Trazodone Hcl 100 Mg Tablet) 100 mg PO BEDTIME [facility] Last Admin: 06/03/23 19:44 Dose: 100 mg Documented By: MINA Zolpidem Tartrate (Zolpidem Tartrate 5 Mg Tablet) 5 mg PO BEDTIME PRN PRN Reason: Insomnia Labs 06/04/23 06:56 06/04/23 06:56 Labs: Laboratory Results - last 24 hr 06/03/23 06/03/23 06/04/23 16:33 20:46 00:22 MCV MCH MCHC RDW Plt Count MPV Absolute Nucleated RBC Nucleated RBC % (auto) O2 Saturation 87.0 ABG pH at Pt Temp 7.52 H ABG pCO2 at Pt Temp 29 L ABG pO2 at Pt Temp 56 L ABG HCO3 24 ABG Base Excess (Actual) 2.3 Anion Gap Estim Creat Clear Calc Estimated GFR POC Glucose 229 H 251 H Random Glucose Calcium TSH 06/04/23 06/04/23 06/04/23 06:56 07:21 08:59 MCV 99.4 H MCH 33.5 H MCHC 33.7 RDW 13.5 Plt Count 233 MPV 10.5 Absolute Nucleated RBC 0.000 Nucleated RBC % (auto) 0.0 O2 Saturation 90.0 ABG pH at Pt Temp 7.52 H ABG pCO2 at Pt Temp 28 L ABG pO2 at Pt Temp 61 L ABG HCO3 23 ABG Base Excess (Actual) 1.8 Anion Gap 13 Estim Creat Clear Calc 101.2 Estimated GFR > 60 POC Glucose 75 Random Glucose 79 Calcium 8.6 D TSH 1.94 06/04/23 11:03 MCV MCH MCHC RDW Plt Count MPV Absolute Nucleated RBC Nucleated RBC % (auto) O2 Saturation ABG pH at Pt Temp ABG pCO2 at Pt Temp ABG pO2 at Pt Temp ABG HCO3 ABG Base Excess (Actual) Anion Gap Estim Creat Clear Calc Estimated GFR POC Glucose 156 H Random Glucose Calcium TSH Microbiology Microbiology Results: Microbiology 06/02/23 06:06 Blood Culture - Preliminary Blood - Venous No growth after 48 hours. 06/02/23 06:06 Blood Culture - Preliminary Blood - Venous No growth after 48 hours. 06/02/23 Unknown Urine Culture - Final Urine clean catch - Clean Catch Midstream Assessment and Plan (1) Acute respiratory failure with hypoxia: Status: Acute (2) COPD (chronic obstructive pulmonary disease): Status: Acute Plan 50-year-old female with severe COPD not on home O2, paroxysmal atrial fibrillation anticoagulated with Xarelto, insulin-dependent type 2 diabetes, congestive heart failure, hypothyroidism, SLE, chronic low back pain s/p lumbar fusion admitted to general surgery with consult placed to hospitalist service for medical management. #Acute appendicitis -management per General surgery # near syncope question orthostasis versus vasovagal, hypoxic, cont. tele monitor, continuous oxygen monitoring ,avoid hypotension, minimize sedatives. # acute hypoxic respiratory failure Concern multifactorial related to underlying COPD, interstitial lung disease, chf Noted to have significant hypoxia requiring high-flow oxygen, CTA chest and chest x-ray showed no PE,on 06/02 but showed bilateral diffuse nonspecific reticular interstitial changes new since November 2022 differential include edema versus infiltrate question fibrosis -continue high flow O2 to maintain oximetry greater than 90% on DuoNeb q.i.d., IV Lasix, IV doxycycline this am noted to be tachypneic requiring more oxygen now on high-flow 59% Will repeat CTA chest, obtain echocardiogram check troponin, BNP, CRP Give IV Solu-Medrol 125 mg and continue IV 60 mg Q 8 hours , continue supportive care case discussed with Dr. Olsen he agrees with above management strongly recommend to abstain from nicotine, continue nicotine patch -encourage IS # Acute hypokalemia will replete and follow labs # COPD -no acute exacerbation -continue maintenance inhalers, scheduled DuoNeb and albuterol p.r.n. -not on home o2 #HFpEF -not on p.o. diuretics, follow echo # paroxysmal atrial fibrillation -on Xarelto -continue flecainide, atenolol 25 b.i.d. dose rate dose from 50 b.i.d. # insulin-dependent type 2 diabetes -low blood sugars will DC Lantus continue diabetic diet and Humalog sliding scale # hypertension -blood pressure soft, continue atenolol 25 b.i.d. and follow BP closely # SLE -no acute flare-up -continue hydroxychloroquine #Chronic low back pain -pain meds per general surgery on IV Dilaudid and hydrocodone prn. -continue flexeril prn # mood disorder -continue home meds Will continue following patient due to acute hypoxic respiratory failure on high-flow oxygen requiring IV steroids, IV antibiotics and further testing.. Time Spent With Patient Time: Total time managing care of this patient today ____ minutes. Quality Stroke Does the patient have a stroke diagnosis?: No VTE Prior VTE?: No VTE Risk Level:: Surgical - low VTE Device Contraindication: N/A - Device Ordered VTE Drug Contraindication: Treatment Not Indicated
--- NOTE | 2023-06-04 13:06 | P.PNGS_ITS ---
Subjective Subjective Date of Service: 06/04/23 Interval history: Had near syncopal episode yesterday. Found to be significantly hypoxic, CTA performed and negtaive for PE. Continues to c/o shortness of breath. Mild incisional pain. Physical Exam 2 Vital Signs: Vital Signs: Last Vital Signs Temp 98.2 F 06/04/23 10:57 Pulse 82 06/04/23 12:11 Resp 22 H 06/04/23 12:11 BP 112/52 L 06/04/23 10:57 Pulse Ox 92 06/04/23 10:57 O2 Del Method High Flow Nasal C annula 06/04/23 10:57 O2 Flow Rate 50 06/04/23 10:57 FiO2 59 06/04/23 10:57 BMI result Body Mass Index 27.9 Const: General: comfortable and alert Orientation/consciousness: patient oriented x3 GI: Inspection: No distended and Yes incision (clean) Palpation (GI): Soft to palpation, Tenderness to palpation present (GI) (mild incisional), no guarding and not rigid Skin: General skin exam: no rashes or lesions noted Neuro: General: patient oriented x3 Objective Data Active Medications Acetaminophen (Acetaminophen 325 Mg Tablet) 650 mg PO Q6H PRN PRN Reason: Pain, Mild (Pain Scale 1-3) Last Admin: 06/03/23 10:26 Dose: 650 mg Documented By: ALEXIS Hydrocodone Bitart/Acetaminophen (Hydrocodone Bit/Acetam 5/325 Tablet) 1 tab PO Q4H PRN PRN Reason: Pain, Moderate(Pain Scale 4-6) Last Admin: 06/04/23 04:20 Dose: 1 tab Documented By: MINA Al Hydroxide/Mg Hydroxide (Magnesium Hydrox/Alum Hydrox 30 Ml Oral.Susp) 30 ml PO Q4H PRN PRN Reason: Heartburn/Nausea Albuterol Sulfate (Albuterol Sulfate 90 Mcg 8 Gm Inhaler) 1 puff INHALE QID PRN PRN Reason: wheezing Albuterol/Ipratropium (Albuterol/Iprat 2.5/0.5mg 3 Ml Ampul.Neb) 3 ml INHALE QID [facility] Last Admin: 06/04/23 12:10 Dose: 3 ml Documented By: MARIANA Atenolol (Atenolol 25 Mg Tablet) 25 mg PO BID [facility]; Protocol Last Admin: 06/04/23 07:58 Dose: 25 mg Documented By: ELAINE Bupropion HCl (Bupropion Hcl Xl 300 Mg Tab.Er.24h) 300 mg PO DAILY [facility] Last Admin: 06/04/23 07:57 Dose: 300 mg Documented By: ELAINE Cyclobenzaprine HCl (Cyclobenzaprine Hcl 10 Mg Tablet) 20 mg PO BEDTIME PRN PRN Reason: muscle spasm Last Admin: 06/03/23 19:43 Dose: 20 mg Documented By: MINA Dextrose (Dextrose 50 % 25 Gm/50 Ml Syringe) 25 gm IVPUSH Q15M PRN; Protocol PRN Reason: per Hypoglycemia Standing Ord. Escitalopram Oxalate (Escitalopram Oxalate 20 Mg Tablet) 20 mg PO DAILY [facility] Last Admin: 06/04/23 07:57 Dose: 20 mg Documented By: ELAINE Famotidine (Famotidine 20 Mg Tablet) 20 mg PO BID [facility] Last Admin: 06/04/23 07:57 Dose: 20 mg Documented By: ELAINE Flecainide Acetate (Flecainide Acetate 50 Mg Tablet) 100 mg PO Q12H [facility] Last Admin: 06/04/23 07:57 Dose: 100 mg Documented By: ELAINE Fluticasone/Umeclidinium/Vilanterol (Fluticasone/Umeclidinium/Vilanterol 100/62.5/25 Blst.W.Dev) 1 puff INHALE RDAILY [facility] Last Admin: 06/04/23 09:11 Dose: 1 puff Documented By: MARIANA Furosemide (Furosemide 40 Mg/4 Ml Vial) 40 mg IVPUSH DAILY [facility]; Protocol Last Admin: 06/04/23 07:54 Dose: 40 mg Documented By: ELAINE Glucose (Glucose Gel 15 Gm Gel..Gram.) 15 gm PO Q15M PRN; Protocol PRN Reason: per Hypoglycemia Standing Ord. Hydromorphone HCl (Hydromorphone Hcl 1 Mg/Ml Syringe) 0.5 mg IVPUSH Q4H PRN; Protocol PRN Reason: Pain, Severe (Pain Scale 7-10) Last Admin: 06/04/23 12:33 Dose: 0.5 mg Documented By: ELAINE Comments: Hydroxychloroquine Sulfate (Hydroxychloroquine Sulfate 200 Mg Tablet) 200 mg PO BID [facility] Last Admin: 06/04/23 07:57 Dose: 200 mg Documented By: ELAINE Doxycycline Hyclate 100 mg/ (Sodium Chloride) 250 mls @ 166.67 mls/hr IV Q12H [facility] Last Infusion: 06/04/23 11:30 Dose: 0 mls/hr Documented By: ELAINE Insulin Human Lispro (Insulin Lispro 100 Unit/Ml 3 Ml Vial) 0 unit SUBCUT QIDACHS [facility]; Protocol Last Admin: 06/04/23 11:27 Dose: Not Given Documented By: ELAINE Non-Admin Reason: NPO Levothyroxine Sodium (Levothyroxine Sodium 100 Mcg Tablet) 100 mcg PO DAILY@0600 [facility] Last Admin: 06/04/23 05:01 Dose: 100 mcg Documented By: MINA Loperamide HCl (Loperamide Hcl 2 Mg Capsule) 4 mg PO Q4H PRN PRN Reason: diarrhea Last Admin: 06/03/23 15:03 Dose: 4 mg Documented By: ALEXIS Lorazepam (Lorazepam 1 Mg Tablet) 1 mg PO TID PRN PRN Reason: anxiety Last Admin: 06/03/23 23:33 Dose: 1 mg Documented By: MINA Nicotine (Nicotine 21 Mg Patch.Td24) 21 mg TRANSDERMA DAILY [facility] Last Admin: 06/04/23 07:56 Dose: 21 mg Documented By: ELAINE Non-Formulary Medication (Colestipol) 1 gm PO TID [facility] Ondansetron HCl (Ondansetron Hcl 4 Mg/2 Ml Vial) 4 mg IVPUSH ONCE PRN PRN Reason: Nausea and Vomiting Ondansetron HCl (Ondansetron Hcl 4 Mg/2 Ml Vial) 4 mg IVPUSH Q8H PRN PRN Reason: Nausea and Vomiting Potassium Chloride (Potassium Chloride Er 20 Meq Tab.Er.Prt) 20 meq PO DAILY [facility] Last Admin: 06/04/23 07:58 Dose: 20 meq Documented By: ELAINE Potassium Chloride (Potassium Chloride Er 20 Meq Tab.Er.Prt) 40 meq PO DAILY [facility] Last Admin: 09/19/23 07:58 Dose: 40 meq Documented By: ELAINE Rivaroxaban (Rivaroxaban 20 Mg Tablet) 20 mg PO DAILY@1700 [facility] Last Admin: 06/03/23 17:56 Dose: 20 mg Documented By: ALEXIS Sodium Chloride (0.9 % Sodium Chloride Flush 3 Ml Syringe) 3 ml IVFLUSH QSHIFT [facility] Last Admin: 06/04/23 07:56 Dose: 3 ml Documented By: ELAINE Trazodone HCl (Trazodone Hcl 100 Mg Tablet) 100 mg PO BEDTIME [facility] Last Admin: 06/03/23 19:44 Dose: 100 mg Documented By: MINA Zolpidem Tartrate (Zolpidem Tartrate 5 Mg Tablet) 5 mg PO BEDTIME PRN PRN Reason: Insomnia Labs 06/04/23 06:56 06/04/23 06:56 Labs: Laboratory Results - last 24 hr 06/03/23 06/03/23 06/04/23 16:33 20:46 00:22 MCV MCH MCHC RDW Plt Count MPV Absolute Nucleated RBC Nucleated RBC % (auto) O2 Saturation 87.0 ABG pH at Pt Temp 7.52 H ABG pCO2 at Pt Temp 29 L ABG pO2 at Pt Temp 56 L ABG HCO3 24 ABG Base Excess (Actual) 2.3 Anion Gap Estim Creat Clear Calc Estimated GFR POC Glucose 229 H 251 H Random Glucose Calcium TSH 06/04/23 06/04/23 06/04/23 06:56 07:21 08:59 MCV 99.4 H MCH 33.5 H MCHC 33.7 RDW 13.5 Plt Count 233 MPV 10.5 Absolute Nucleated RBC 0.000 Nucleated RBC % (auto) 0.0 O2 Saturation 90.0 ABG pH at Pt Temp 7.52 H ABG pCO2 at Pt Temp 28 L ABG pO2 at Pt Temp 61 L ABG HCO3 23 ABG Base Excess (Actual) 1.8 Anion Gap 13 Estim Creat Clear Calc 101.2 Estimated GFR > 60 POC Glucose 75 Random Glucose 79 Calcium 8.6 D TSH 1.94 06/04/23 11:03 MCV MCH MCHC RDW Plt Count MPV Absolute Nucleated RBC Nucleated RBC % (auto) O2 Saturation ABG pH at Pt Temp ABG pCO2 at Pt Temp ABG pO2 at Pt Temp ABG HCO3 ABG Base Excess (Actual) Anion Gap Estim Creat Clear Calc Estimated GFR POC Glucose 156 H Random Glucose Calcium TSH Microbiology Microbiology Results: Microbiology 06/02/23 06:06 Blood Culture - Preliminary Blood - Venous No growth after 48 hours. 06/02/23 06:06 Blood Culture - Preliminary Blood - Venous No growth after 48 hours. 06/02/23 Unknown Urine Culture - Final Urine clean catch - Clean Catch Midstream Procedures Date of Service Date of Service: 06/04/23 Progress Note: A&P Assessment and plan (1) Acute respiratory failure with hypoxia: Status: Acute (2) COPD (chronic obstructive pulmonary disease): Status: Acute (3) Acute appendicitis: Status: Acute Plan 58 year old female readmitted for persistent progressive right lower quadrant pain with CT scan showing acute appendicitis. Now POD #2 s/p lap appy. Intraoperative findings demonstrated an inflamed phlegmonous appendix, with a mass at the base of the appendix with miliary type seeding of almost the entire peritoneal cavity and some of the small bowel. Highly suggestive of pseudomyxoma peritonei. Pathology pending. No acute surgical issues. Has multiple active medical issues, severe hypoxia. CTA negative for PE yesterday. Abd is benign with clean incisions. Appreciate medical management. Diet as tolerated. OOB as tolerated. Awaiting pathology. Time Spent With Patient Time: Total time managing care of this patient today ____ minutes. Quality Stroke Does the patient have a stroke diagnosis?: No VTE Prior VTE?: No VTE Risk Level:: Surgical - low VTE Device Contraindication: N/A - Device Ordered VTE Drug Contraindication: Treatment Not Indicated
[2023-06-04 13:26] LABS: B Type Natriuretic Peptide 167 pg/mL (<100); B Type Natriuretic Peptide 182 pg/mL (<100)
[2023-06-04 13:34] LABS: Troponin-I High Sensitivity < 2.7 ng/L (<3.5-17.0)
[2023-06-04] MEDS: iohexoL 350 MG/ML 100 ML INFUS..BTL IV (14:14)
[2023-06-04] MEDS: methylPREDNISolone Sod Succ 125 MG/2 ML VIAL 60 MG IVPUSH (14:21)
[2023-06-04 14:48] LABS: Glucose, Whole Blood 315 mg/dL (60-115)
[2023-06-04 16:52] LABS: Glucose, Whole Blood 390 mg/dL (60-115)
[2023-06-04] MEDS: Insulin Lispro 100 UNIT/ML 3 ML VIAL SUBCUT ×2 (17:05→21:58)
[2023-06-04] MEDS: Rivaroxaban 20 MG TABLET PO (17:05)
[2023-06-04] MEDS: Furosemide 200 MG in 0.9 % Sodium Chloride 80 ML IVCONT (17:34)
[2023-06-04] MEDS: Cyclobenzaprine HCl 10 MG TABLET 20 MG PO (20:06)
[2023-06-04] MEDS: traZODone HCL 100 MG TABLET PO (20:07)
[2023-06-04] MEDS: LORazepam 1 MG TABLET PO (20:07)
[2023-06-04 20:35] LABS: Glucose, Whole Blood 316 mg/dL (60-115)
[2023-06-04] MEDS: Insulin Glargine,Hum.rec.anlog 100 UNIT/ML 10 ML VIAL 20 UNIT SUBCUT (21:58)
[2023-06-05] VITALS (18 sets, daily range): BP systolic 90–118; BP diastolic 48–80; PULSE 62–92; RESP 16–28; TEMP 36.1–37; O2SAT 90–95
[2023-06-05] MEDS: methylPREDNISolone Sod Succ 125 MG/2 ML VIAL 60 MG IVPUSH ×2 (00:44→13:12)
[2023-06-05] MEDS: OLANZapine 10 MG VIAL 5 MG IM (00:44)
[2023-06-05] MEDS: HYDROmorphone HCl 1 MG/ML SYRINGE 0.5 MG IVPUSH ×4 (02:10→16:57)
[2023-06-05] MEDS: LORazepam 1 MG TABLET PO ×3 (02:17→21:04)
[2023-06-05] MEDS: Haloperidol Lactate 5 MG/ML VIAL 1 MG IM (04:58)
--- NOTE | 2023-06-05 05:22 | PC.NURSE ---
During the night patient was frequently redirected to keep high flow oxygen on. Pt was given IM Zyprexa and then later PO Ativan without good effect. Pt later grew increasing agitated and removed both high flow and oxy mask which resulted with her dipping into the high 30s. was informed and IM Haldol ordered and given. Pt was also placed with sitter to be able to help redirect.Pt started being verbally abusive to sitter. Plan of care continuing
[2023-06-05] MEDS: Levothyroxine Sodium 100 MCG TABLET PO (05:32)
--- NOTE | 2023-06-05 07:00 | CA_ITS ---
Transthoracic Echocardiogram Patient (Last, First, Middle): Debra Gaines, Gender: Female Date of : 1965 Age: 58 Procedure Date: 06/05/2023 Procedure Type: Transthoracic Echocardiogram Location: [facility] – [place], [place] Height: 167.64 cm Weight: 78.02 kg BSA: 1.88 m2 Heart Rate: 85 bpm BP: 112 / 52 mmHg Billet Straightener: TERESE/STEVE Referring MD: Juana Munoz MD Symptoms: hypoxia Study Quality: Adequate w contrast ECG Rhythm: Sinus Conclusions: - Normal left ventricular size and systolic function. There is mildly increased left ventricular wall thickness. The visually estimated ejection fraction is between 60-65%. - E/E prime ratio is between 8 and 15 consistent with indeterminate filling pressures. - Normal right ventricular cavity size and systolic function. Findings Procedure Information Contrast agent, definity, is being given per protocol without apparent complications. The quality of the study was technically difficult. The study quality is limited by lung artifact. Left Ventricle Normal left ventricular size and systolic function. There is mildly increased left ventricular wall thickness. The visually estimated ejection fraction is between 60-65%. There is no evidence of regional wall motion abnormalities. Abnormal diastolic function is noted. Spectral Doppler is indicative of an impaired relaxation filling pattern. E/E prime ratio is between 8 and 15 consistent with indeterminate filling pressures. Right Ventricle Normal right ventricular cavity size and systolic function. Atria The left atrium is normal in size. The right atrium is normal in size. Aortic Valve Normal aortic valve structure and function. There is no aortic valve stenosis. There is no aortic valve regurgitation. Mitral Valve The mitral valve appears normal. There is no mitral valve regurgitation. There is no mitral valve stenosis. Pulmonic Valve The pulmonic valve is likely normal. Tricuspid Valve Likely normal tricuspid valve structure and function. Tricuspid regurgitation envelope is inadequate for calculation of right ventricular systolic pressure. Normal right atrial pressure. Great Vessels All visible segments of the aorta are normal in size. Venous The inferior vena cava is normal in size and collapses greater than 50% with inspiration. Pericardium/Pleural There is no evidence of pericardial effusion. Prior Study Comparison No significant change compared to prior study dated: 07/11/2022. Measurements 2D Linear Measurements IVSd: 0.91 0.6-0.9/0.6-1.0 cm LVIDd: 4.63 3.9-5.3/4.2-5.9 cm LVIDd Index: 2.46 2.4-3.2/2.2-3.1 cm/m2 LVIDs: 3.34 2.0-3.6 cm LVPWd: 0.86 0.7-1.1 cm LA Diam: 2.50 2.7-3.8/3.0-4.0 cm LAIDs Index: 1.33 1.5-2.3 cm/m2 LV Mass: 169.28 67-162/88-224 g LV Mass Index: 90.04 43-95/49-115 g/m2 LVOT Diam: 2.40 3.0+(-)1.3 cm 2D Systolic Function EF 4C: 58.80 >55% EF 2C: 70.90 >55% EF BiP: 65.30 >55% Mitral Valve MV Pk E: 0.60 MV PK A: 0.75 MV Decel Time: 144.00 E/A: 0.80 E'Lateral: 5.00 E'Medial: 6.31 E/E' Med: 9.60 E/E' Lat: 12.10 PHT: 42.00 MVA PHT: 5.24 Decel [place]: 4.18 Aortic Valve AoV Pk Garry: 1.13 AoV Pk Grad: 5.00 TOMAS: 3.25 LVOT LVOT Pk Garry: 0.86 LVOT Mn Garry: 0.63 LVOT VTI: 0.17 LVOT Pk Grad: 3.00 LVOT Mn Grad: 2.00 LVOT Diam: 2.40 LVOT Area: 4.52 Diastolic Function MV Pk E: 0.60 MV Pk A: 0.75 E/A: 0.80 E'Medial: 6.31 E/E' Med: 9.60 E' Laterial: 5.00 E/E' Lat: 12.10 Right Ventricle TAPSE (mm): 16.60 TVS' Garry: 11.10 Tricuspid Valve TR Pk Garry: 2.18 TR Pk Grad: 19.00 RA Press: 3.00 Great Vessels Aorta Sinus of Valsalva: 3.10 2.0-3.5 cm Ao Asc: 3.20 2.1-3.4 cm Ao Arch: 2.50 Pulmonary Valve PV Pk Garry: 0.81 Peak PV Grad: 3.00 Updated in Other Vendor System with Status of Final Robb Morales MD electronically signed on 06/05/2023 11:52:22 AM with status of Final
[2023-06-05] MEDS: Fluticasone/Umeclidinium/Vilanterol 100/62.5/25 BLST.W.DEV 1 PUFF INHALE (07:33)
[2023-06-05] MEDS: Albuterol/Iprat 2.5/0.5MG 3 ML AMPUL.NEB INHALE ×4 (07:33→19:04)
[2023-06-05 07:41] LABS: Glucose, Whole Blood 233 mg/dL (60-115)
[2023-06-05 07:51] LABS: Mean Corpuscular HGB Conc 34.3 g/dl (31.0-35.0); Mean Corpuscular Hemoglobin 33.9 pg (27.0-33.0); Mean Corpuscular Volume 98.9 fL (80.0-98.0); Mean Platelet Volume 10.7 fL (9.4-12.3); Platelet Count 275 X10*3/uL (160-400); Red Blood Count 3.54 X10*6/uL (4.20-5.50); Red Cell Distribution Width 13.3 % (11.0-16.0); White Blood Count 16.6 X10*3/uL (4.8-10.8)
[2023-06-05] MEDS: Insulin Lispro 100 UNIT/ML 3 ML VIAL SUBCUT ×4 (08:01→21:05)
[2023-06-05] MEDS: Nicotine 21 MG PATCH.TD24 TRANSDERMA (08:01)
[2023-06-05 08:02] LABS: Anion Gap 16 (12-20); Blood Urea Nitrogen 15 mg/dL (9-16); Calcium 8.7 mg/dL (8.4-10.2); Carbon Dioxide 23 mmol/L (22-29); Chloride 103 mmol/L (96-108); Creatinine Clr Calc Pharmacy 89.9; Estimated Glomerular Filt Rate > 60; Glucose Random 261 mg/dL (60-115); Potassium 3.1 mmol/L (3.3-5.1); Sodium 139 mmol/L (135-145)
[2023-06-05] MEDS: Potassium Chloride ER 20 MEQ TAB.ER.PRT 40 MEQ PO (08:02)
[2023-06-05] MEDS: Famotidine 20 MG TABLET PO ×2 (08:02→21:05)
[2023-06-05] MEDS: Escitalopram Oxalate 20 MG TABLET PO (08:02)
[2023-06-05] MEDS: Potassium Chloride ER 20 MEQ TAB.ER.PRT PO (08:02)
[2023-06-05] MEDS: atenoloL 25 MG TABLET PO ×2 (08:02→21:04)
[2023-06-05] MEDS: Flecainide Acetate 50 MG TABLET 100 MG PO ×2 (08:02→21:04)
[2023-06-05] MEDS: Hydroxychloroquine Sulfate 200 MG TABLET PO ×2 (08:02→21:04)
[2023-06-05] MEDS: 0.9 % Sodium Chloride Flush 3 ML SYRINGE IVFLUSH ×3 (08:03→21:06)
[2023-06-05] MEDS: buPROPion HCl XL 300 MG TAB.ER.24H PO (08:06)
[2023-06-05] MEDS: ondansetron HCL 4 MG/2 ML VIAL IVPUSH (08:15)
--- NOTE | 2023-06-05 09:21 | P.PNGS_ITS ---
Subjective Subjective Date of Service: 06/05/23 Interval history: Still short of breath, on non rebreather. Continues to have persistent RLQ abd pain, mild incisional pain. Physical Exam 2 Vital Signs: Vital Signs: Last Vital Signs Temp 98.6 F 06/05/23 07:53 Pulse 83 06/05/23 07:53 Resp 21 H 06/05/23 07:53 BP 110/80 06/05/23 07:53 Pulse Ox 95 06/05/23 07:53 O2 Del Method High Flow Nasal C annula, Oxymask 06/05/23 07:53 O2 Flow Rate 55 06/05/23 07:53 FiO2 90 06/05/23 07:53 Oxygen Flow Rate 15 06/04/23 14:00 BMI result Body Mass Index 27.9 Const: General: comfortable, no acute distress and alert O rientation/consciousness: patient oriented x3 Resp: Effort & Inspection: not able to speak in complete sentences and tachypneic GI: Inspection: Yes incision (clean, surrounding ecchymosis ) Palpation (GI): Soft to palpation, Tenderness to palpation present (GI) in the RLQ, no guarding and not rigid Skin: General skin exam: no rashes or lesions noted Neuro: General: patient oriented x3 Objective Data Active Medications Acetaminophen (Acetaminophen 325 Mg Tablet) 650 mg PO Q6H PRN PRN Reason: Pain, Mild (Pain Scale 1-3) Last Admin: 06/03/23 10:26 Dose: 650 mg Documented By: ALEXIS Hydrocodone Bitart/Acetaminophen (Hydrocodone Bit/Acetam 5/325 Tablet) 1 tab PO Q4H PRN PRN Reason: Pain, Moderate(Pain Scale 4-6) Last Admin: 06/04/23 20:07 Dose: 1 tab Documented By: MINA Al Hydroxide/Mg Hydroxide (Magnesium Hydrox/Alum Hydrox 30 Ml Oral.Susp) 30 ml PO Q4H PRN PRN Reason: Heartburn/Nausea Albuterol Sulfate (Albuterol Sulfate 90 Mcg 8 Gm Inhaler) 1 puff INHALE QID PRN PRN Reason: wheezing Albuterol/Ipratropium (Albuterol/Iprat 2.5/0.5mg 3 Ml Ampul.Neb) 3 ml INHALE QID [facility] Last Admin: 09/20/23 07:33 Dose: 3 ml Documented By: MARIANA Atenolol (Atenolol 25 Mg Tablet) 25 mg PO BID [facility]; Protocol Last Admin: 06/05/23 08:02 Dose: 25 mg Documented By: ELAINE Bupropion HCl (Bupropion Hcl Xl 300 Mg Tab.Er.24h) 300 mg PO DAILY [facility] Last Admin: 06/05/23 08:06 Dose: 300 mg Documented By: ELAINE Cyclobenzaprine HCl (Cyclobenzaprine Hcl 10 Mg Tablet) 20 mg PO BEDTIME PRN PRN Reason: muscle spasm Last Admin: 06/04/23 20:06 Dose: 20 mg Documented By: NURYYESAJorge Dextrose (Dextrose 50 % 25 Gm/50 Ml Syringe) 25 gm IVPUSH Q15M PRN; Protocol PRN Reason: per Hypoglycemia Standing Ord. Escitalopram Oxalate (Escitalopram Oxalate 20 Mg Tablet) 20 mg PO DAILY [facility] Last Admin: 06/05/23 08:02 Dose: 20 mg Documented By: ELAINE Famotidine (Famotidine 20 Mg Tablet) 20 mg PO BID [facility] Last Admin: 06/05/23 08:02 Dose: 20 mg Documented By: ELAINE Flecainide Acetate (Flecainide Acetate 50 Mg Tablet) 100 mg PO Q12H [facility] Last Admin: 06/05/23 08:02 Dose: 100 mg Documented By: ELAINE Fluticasone/Umeclidinium/Vilanterol (Fluticasone/Umeclidinium/Vilanterol 100/62.5/25 Blst.W.Dev) 1 puff INHALE RDAILY [facility] Last Admin: 06/05/23 07:33 Dose: 1 puff Documented By: MARIANA Glucose (Glucose Gel 15 Gm Gel..Gram.) 15 gm PO Q15M PRN; Protocol PRN Reason: per Hypoglycemia Standing Ord. Hydromorphone HCl (Hydromorphone Hcl 1 Mg/Ml Syringe) 0.5 mg IVPUSH Q4H PRN; Protocol PRN Reason: Pain, Severe (Pain Scale 7-10) Last Admin: 06/05/23 08:01 Dose: 0.5 mg Documented By: ELAINE Hydroxychloroquine Sulfate (Hydroxychloroquine Sulfate 200 Mg Tablet) 200 mg PO BID [facility] Last Admin: 06/05/23 08:02 Dose: 200 mg Documented By: ELAINE Doxycycline Hyclate 100 mg/ (Sodium Chloride) 250 mls @ 166.67 mls/hr IV Q12H [facility] Last Infusion: 06/05/23 00:48 Dose: Infused Documented By: KATH Furosemide 200 mg/ Sodium (Chloride) 100 mls @ 2.5 mls/hr IVCONT .Q24H [facility] Last Admin: 06/04/23 17:34 Dose: 5 mg/hr, 2.5 mls/hr Documented By: ELAINE Insulin Glargine (Insulin Glargine,Hum.Rec.Anlog 100 Unit/Ml 10 Ml Vial) 20 unit SUBCUT BEDTIME [facility] Last Admin: 06/04/23 21:58 Dose: 20 unit Documented By: KATH Insulin Human Lispro (Insulin Lispro 100 Unit/Ml 3 Ml Vial) 0 unit SUBCUT QIDACHS [facility]; Protocol Last Admin: 06/05/23 08:01 Dose: 8 unit Documented By: ELAINE Levothyroxine Sodium (Levothyroxine Sodium 100 Mcg Tablet) 100 mcg PO DAILY@0600 [facility] Last Admin: 06/05/23 05:32 Dose: 100 mcg Documented By: KATH Loperamide HCl (Loperamide Hcl 2 Mg Capsule) 4 mg PO Q4H PRN PRN Reason: diarrhea Last Admin: 06/03/23 15:03 Dose: 4 mg Documented By: ALEXIS Lorazepam (Lorazepam 1 Mg Tablet) 1 mg PO TID PRN PRN Reason: anxiety Last Admin: 06/05/23 02:17 Dose: 1 mg Documented By: KATH Comments: discussed with and guadalupe to give Methylprednisolone Sodium Succinate (Methylprednisolone Sod Succ 125 Mg/2 Ml Vial) 60 mg IVPUSH Q12H [facility] Last Admin: 06/05/23 00:44 Dose: 60 mg Documented By: KATH Nicotine (Nicotine 21 Mg Patch.Td24) 21 mg TRANSDERMA DAILY [facility] Last Admin: 06/05/23 08:01 Dose: 21 mg Documented By: ELAINE Non-Formulary Medication (Colestipol) 1 gm PO TID [facility] Ondansetron HCl (Ondansetron Hcl 4 Mg/2 Ml Vial) 4 mg IVPUSH ONCE PRN PRN Reason: Nausea and Vomiting Ondansetron HCl (Ondansetron Hcl 4 Mg/2 Ml Vial) 4 mg IVPUSH Q8H PRN PRN Reason: Nausea and Vomiting Last Admin: 06/05/23 08:15 Dose: 4 mg Documented By: CTORRToni Potassium Chloride (Potassium Chloride Er 20 Meq Tab.Er.Prt) 20 meq PO DAILY [facility] Last Admin: 06/05/23 08:02 Dose: 20 meq Documented By: CTORRToni Potassium Chloride (Potassium Chloride Er 20 Meq Tab.Er.Prt) 40 meq PO DAILY [facility] Last Admin: 06/05/23 08:02 Dose: 40 meq Documented By: CTORRToni Rivaroxaban (Rivaroxaban 20 Mg Tablet) 20 mg PO DAILY@1700 [facility] Last Admin: 06/04/23 17:05 Dose: 20 mg Documented By: CTLARRY Sodium Chloride (0.9 % Sodium Chloride Flush 3 Ml Syringe) 3 ml IVFLUSH QSHIFT [facility] Last Admin: 06/05/23 08:03 Dose: 3 ml Documented By: ELAINE Trazodone HCl (Trazodone Hcl 100 Mg Tablet) 100 mg PO BEDTIME [facility] Last Admin: 06/04/23 20:07 Dose: 100 mg Documented By: MINA Zolpidem Tartrate (Zolpidem Tartrate 5 Mg Tablet) 5 mg PO BEDTIME PRN PRN Reason: Insomnia Labs 06/05/23 06:40 06/05/23 06:40 Labs: Laboratory Results - last 24 hr 06/04/23 06/04/23 06/04/23 11:03 12:52 12:52 MCV MCH MCHC RDW Plt Count MPV Absolute Nucleated RBC Nucleated RBC % (auto) Anion Gap Estim Creat Clear Calc Estimated GFR POC Glucose 156 H Random Glucose Calcium C-Reactive Protein 28.00 H B-Natriuretic Peptide 167 H 182 H 06/04/23 06/04/23 06/04/23 14:44 16:38 20:21 MCV MCH MCHC RDW Plt Count MPV Absolute Nucleated RBC Nucleated RBC % (auto) Anion Gap Estim Creat Clear Calc Estimated GFR POC Glucose 315 H 390 H* 316 H Random Glucose Calcium C-Reactive Protein B-Natriuretic Peptide 06/05/23 06/05/23 06:40 07:36 MCV 98.9 H MCH 33.9 H MCHC 34.3 RDW 13.3 Plt Count 275 MPV 10.7 Absolute Nucleated RBC 0.000 Nucleated RBC % (auto) 0.0 Anion Gap 16 Estim Creat Clear Calc 89.9 Estimated GFR > 60 POC Glucose 233 H Random Glucose 261 H Calcium 8.7 C-Reactive Protein B-Natriuretic Peptide Microbiology Microbiology Results: Microbiology 06/02/23 06:06 Blood Culture - Preliminary Blood - Venous No growth after 48 hours. 06/02/23 06:06 Blood Culture - Preliminary Blood - Venous No growth after 48 hours. Procedures Date of Service Date of Service: 06/05/23 Progress Note: A&P Assessment and plan (1) Acute respiratory failure with hypoxia: Status: Acute (2) COPD (chronic obstructive pulmonary disease): Status: Acute (3) Acute appendicitis: Status: Acute Plan 58 year old female with multiple medical comorbidities s/p lap appy, developed post op respiratory failure. Preliminary path reveals metatstatic appendiceal CA. Will obtain heme/onc consult. Her abdomen is overall benign. ?RLQ pain from peritoneal seeding. Will adjust analgesics. Transfer to hospitalists service for management of the respiratory failure. Time Spent With Patient Time: Total time managing care of this patient today ____ minutes. Quality Stroke Does the patient have a stroke diagnosis?: No VTE Prior VTE?: No VTE Risk Level:: Surgical - low VTE Device Contraindication: N/A - Device Ordered VTE Drug Contraindication: Treatment Not Indicated
[2023-06-05] MEDS: Doxycycline Hyclate 100 MG in 0.9 % Sodium Chloride 250 ML 166.67 MG IV ×2 (11:04→23:09)
--- NOTE | 2023-06-05 11:32 | MHC.CM.PN ---
Per rounds discussion, Pt is not medically cleared for d/c r/t high flow O2: home is the goal and CM will continue to follow.
[2023-06-05 11:51] LABS: Glucose, Whole Blood 197 mg/dL (60-115)
--- NOTE | 2023-06-05 14:19 | MHC.CM.PN ---
CM informed that Pt is inpatient status now, IMM given 06/05, original with Pt, copy placed in chart.
[2023-06-05 16:47] LABS: Glucose, Whole Blood 275 mg/dL (60-115)
[2023-06-05] MEDS: Rivaroxaban 20 MG TABLET PO (16:58)
[2023-06-05] MEDS: Furosemide 200 MG in 0.9 % Sodium Chloride 80 ML IVCONT (16:58)
--- NOTE | 2023-06-05 18:03 | P.PNIM_ITS ---
Subjective Subjective Date of Service: 06/06/23 Interval History: Last night Patient noted to be restless pulling facial mask and oxygen therefore sitter at bedside, patient this morning feeling a little better, less shortness of breath denies PND, no orthopnea, no fevers, no chills, denies palpitations no chest pain, complaining of right lower quadrant abdominal pain, at site of surgery. Review of Systems all other system reviewed and negative Physical Exam 2 Vital Signs: Vital Signs: Last Vital Signs Temp 97.1 F 06/05/23 15:23 Pulse 82 06/05/23 16:05 Resp 22 H 06/05/23 16:11 BP 100/80 06/05/23 15:23 Pulse Ox 94 06/05/23 15:23 O2 Del Method Nasal Cannula 06/05/23 15:23 O2 Flow Rate 5 06/05/23 15:23 FiO2 85 06/05/23 11:51 Oxygen Flow Rate 5 06/05/23 14:00 BMI result Body Mass Index 27.9 Objective Data Active Medications Acetaminophen (Acetaminophen 325 Mg Tablet) 650 mg PO Q6H PRN PRN Reason: Pain, Mild (Pain Scale 1-3) Last Admin: 06/03/23 10:26 Dose: 650 mg Documented By: ALEXIS Al Hydroxide/Mg Hydroxide (Magnesium Hydrox/Alum Hydrox 30 Ml Oral.Susp) 30 ml PO Q4H PRN PRN Reason: Heartburn/Nausea Albuterol Sulfate (Albuterol Sulfate 90 Mcg 8 Gm Inhaler) 1 puff INHALE QID PRN PRN Reason: wheezing Albuterol/Ipratropium (Albuterol/Iprat 2.5/0.5mg 3 Ml Ampul.Neb) 3 ml INHALE QID [facility] Last Admin: 06/05/23 16:04 Dose: 3 ml Documented By: MARIANA Atenolol (Atenolol 25 Mg Tablet) 25 mg PO BID [facility]; Protocol Last Admin: 06/05/23 08:02 Dose: 25 mg Documented By: ELAINE Bupropion HCl (Bupropion Hcl Xl 300 Mg Tab.Er.24h) 300 mg PO DAILY [facility] Last Admin: 06/05/23 08:06 Dose: 300 mg Documented By: ELAINE Cyclobenzaprine HCl (Cyclobenzaprine Hcl 10 Mg Tablet) 20 mg PO BEDTIME PRN PRN Reason: muscle spasm Last Admin: 06/04/23 20:06 Dose: 20 mg Documented By: MINA Dextrose (Dextrose 50 % 25 Gm/50 Ml Syringe) 25 gm IVPUSH Q15M PRN; Protocol PRN Reason: per Hypoglycemia Standing Ord. Escitalopram Oxalate (Escitalopram Oxalate 20 Mg Tablet) 20 mg PO DAILY [facility] Last Admin: 06/05/23 08:02 Dose: 20 mg Documented By: ELAINE Famotidine (Famotidine 20 Mg Tablet) 20 mg PO BID [facility] Last Admin: 06/05/23 08:02 Dose: 20 mg Documented By: ELAINE Flecainide Acetate (Flecainide Acetate 50 Mg Tablet) 100 mg PO Q12H [facility] Last Admin: 06/05/23 08:02 Dose: 100 mg Documented By: ELAINE Fluticasone/Umeclidinium/Vilanterol (Fluticasone/Umeclidinium/Vilanterol 100/62.5/25 Blst.W.Dev) 1 puff INHALE RDAILY [facility] Last Admin: 06/05/23 07:33 Dose: 1 puff Documented By: MARIANA Glucose (Glucose Gel 15 Gm Gel..Gram.) 15 gm PO Q15M PRN; Protocol PRN Reason: per Hypoglycemia Standing Ord. Hydromorphone HCl (Hydromorphone Hcl 1 Mg/Ml Syringe) 0.5 mg IVPUSH Q3H PRN; Protocol PRN Reason: Pain, Severe (Pain Scale 7-10) Last Admin: 06/05/23 16:57 Dose: 0.5 mg Documented By: ELAINE Hydroxychloroquine Sulfate (Hydroxychloroquine Sulfate 200 Mg Tablet) 200 mg PO BID [facility] Last Admin: 06/05/23 08:02 Dose: 200 mg Documented By: ELAINE Doxycycline Hyclate 100 mg/ (Sodium Chloride) 250 mls @ 166.67 mls/hr IV Q12H [facility] Last Infusion: 06/05/23 12:50 Dose: Infused Documented By: ELAINE Furosemide 200 mg/ Sodium (Chloride) 100 mls @ 2.5 mls/hr IVCONT .Q24H [facility] Last Admin: 06/05/23 16:58 Dose: 5 mg/hr, 2.5 mls/hr Documented By: ELAINE Insulin Glargine (Insulin Glargine,Hum.Rec.Anlog 100 Unit/Ml 10 Ml Vial) 20 unit SUBCUT BEDTIME [facility] Last Admin: 06/04/23 21:58 Dose: 20 unit Documented By: KATH Insulin Human Lispro (Insulin Lispro 100 Unit/Ml 3 Ml Vial) 0 unit SUBCUT QIDACHS [facility]; Protocol Last Admin: 06/05/23 16:58 Dose: 10 unit Documented By: ELAINE Levothyroxine Sodium (Levothyroxine Sodium 100 Mcg Tablet) 100 mcg PO DAILY@0600 [facility] Last Admin: 06/05/23 05:32 Dose: 100 mcg Documented By: KATH Loperamide HCl (Loperamide Hcl 2 Mg Capsule) 4 mg PO Q4H PRN PRN Reason: diarrhea Last Admin: 06/03/23 15:03 Dose: 4 mg Documented By: ALEXIS Lorazepam (Lorazepam 1 Mg Tablet) 1 mg PO TID PRN PRN Reason: anxiety Last Admin: 06/05/23 14:27 Dose: 1 mg Documented By: ELAINE Methylprednisolone Sodium Succinate (Methylprednisolone Sod Succ 125 Mg/2 Ml Vial) 60 mg IVPUSH Q12H [facility] Last Admin: 06/05/23 13:12 Dose: 60 mg Documented By: CTLARRY Nicotine (Nicotine 21 Mg Patch.Td24) 21 mg TRANSDERMA DAILY [facility] Last Admin: 06/05/23 08:01 Dose: 21 mg Documented By: CTLARRY Non-Formulary Medication (Colestipol) 1 gm PO TID [facility] Ondansetron HCl (Ondansetron Hcl 4 Mg/2 Ml Vial) 4 mg IVPUSH ONCE PRN PRN Reason: Nausea and Vomiting Ondansetron HCl (Ondansetron Hcl 4 Mg/2 Ml Vial) 4 mg IVPUSH Q8H PRN PRN Reason: Nausea and Vomiting Last Admin: 06/05/23 08:15 Dose: 4 mg Documented By: CTLARRY Oxycodone HCl (Oxycodone Hcl Immed Release 5 Mg Tablet) 5 mg PO Q4H PRN PRN Reason: Pain, Moderate(Pain Scale 4-6) Oxycodone HCl (Oxycodone Hcl Immed Release 5 Mg Tablet) 10 mg PO Q4H PRN PRN Reason: Pain, Severe (Pain Scale 7-10) Potassium Chloride (Potassium Chloride Er 20 Meq Tab.Er.Prt) 20 meq PO DAILY [facility] Last Admin: 06/05/23 08:02 Dose: 20 meq Documented By: ELAINE Potassium Chloride (Potassium Chloride Er 20 Meq Tab.Er.Prt) 40 meq PO DAILY [facility] Last Admin: 06/05/23 08:02 Dose: 40 meq Documented By: ELAINE Rivaroxaban (Rivaroxaban 20 Mg Tablet) 20 mg PO DAILY@1700 [facility] Last Admin: 06/05/23 16:58 Dose: 20 mg Documented By: ELAINE Sodium Chloride (0.9 % Sodium Chloride Flush 3 Ml Syringe) 3 ml IVFLUSH QSHIFT [facility] Last Admin: 06/05/23 17:01 Dose: 3 ml Documented By: ELAINE Trazodone HCl (Trazodone Hcl 100 Mg Tablet) 100 mg PO BEDTIME [facility] Last Admin: 06/04/23 20:07 Dose: 100 mg Documented By: MINA Zolpidem Tartrate (Zolpidem Tartrate 5 Mg Tablet) 5 mg PO BEDTIME PRN PRN Reason: Insomnia Labs 06/05/23 06:40 06/05/23 06:40 Labs: Laboratory Results - last 24 hr 06/04/23 06/05/23 06/05/23 20:21 06:40 07:36 MCV 98.9 H MCH 33.9 H MCHC 34.3 RDW 13.3 Plt Count 275 MPV 10.7 Absolute Nucleated RBC 0.000 Nucleated RBC % (auto) 0.0 Anion Gap 16 Estim Creat Clear Calc 89.9 Estimated GFR > 60 POC Glucose 316 H 233 H Random Glucose 261 H Calcium 8.7 06/05/23 06/05/23 11:47 16:43 MCV MCH MCHC RDW Plt Count MPV Absolute Nucleated RBC Nucleated RBC % (auto) Anion Gap Estim Creat Clear Calc Estimated GFR POC Glucose 197 H 275 H Random Glucose Calcium Assessment and Plan (1) Acute respiratory failure with hypoxia: Status: Acute (2) COPD (chronic obstructive pulmonary disease): Status: Acute Plan 50-year-old female with severe COPD not on home O2, paroxysmal atrial fibrillation anticoagulated with Xarelto, insulin-dependent type 2 diabetes, congestive heart failure, hypothyroidism, SLE, chronic low back pain s/p lumbar fusion admitted to general surgery with consult placed to hospitalist service for medical management. #Acute appendicitis - being followed by General surgery as per preliminary pathology patient has metastatic appendiceal cancer surgery consulted heme-oncology. pain management per General surgery, final pathology pending # near syncope on 06/03 noted to be hypoxic finger oximetry in 70s, light headedness resolved after place in bed ,question orthostasis versus vasovagal, no recurrent lightheadedness dizziness on high-flow will maintain oxygen around 90 # acute hypoxic respiratory failure Concern multifactorial related to underlying COPD, interstitial lung disease, chf echo showed preserved EF, interstitial spread of neoplasm Noted to have significant hypoxia requiring high-flow oxygen, CTA chest and chest x-ray showed no PE,on 06/02 but showed bilateral diffuse nonspecific reticular interstitial changes new since November 2022 repeat CTA 06/04 again neg. for PE -continue high flow O2 to maintain oximetry around 90% on DuoNeb q.i.d., IV Lasix drip, IV doxycycline and IV Solu Medrol echocardiogram showed EF 60-65% no evidence of regional wall motion abnormality, abnormal diastolic function is noted, normal troponin, BNP 182, CRP [address] [place] catheter maintain strict I/Os seen and evaluated by pulmonology they agree with above management, patient unstable to undergo bronchoscopy. strongly recommend to abstain from nicotine, continue nicotine patch # Acute hypokalemia will replete and follow labs # COPD -no acute exacerbation -continue maintenance inhalers, scheduled DuoNeb and albuterol p.r.n. -not on home o2 #HFpEF -not on home diuretics, echo as above # paroxysmal atrial fibrillation -on Xarelto -continue flecainide, atenolol 25 b.i.d. dose reduced from 50 b.i.d. # insulin-dependent type 2 diabetes -low blood sugars will DC Lantus continue diabetic diet and Humalog sliding scale # hypertension -blood pressure soft, continue atenolol 25 b.i.d. and follow BP closely # SLE -no acute flare-up -continue hydroxychloroquine #Chronic low back pain -pain meds per general surgery on IV Dilaudid prn. -continue flexeril prn # mood disorder -continue home meds ,dose of trazodone reduced to 100 to avoid sedation. Will continue following patient due to acute hypoxic respiratory failure on high-flow oxygen requiring IV steroids, IV antibiotics and close clinical monitoring and further expert consultation. Time Spent With Patient Time: Total time managing care of this patient today ____ minutes. Quality Stroke Does the patient have a stroke diagnosis?: No VTE Prior VTE?: No VTE Risk Level:: Surgical - low VTE Device Contraindication: N/A - Device Ordered VTE Drug Contraindication: Treatment Not Indicated
[2023-06-05] MEDS: oxyCODONE HCl Immed Release 5 MG TABLET 10 MG PO (18:25)
[2023-06-05 20:39] LABS: Glucose, Whole Blood 335 mg/dL (60-115)
[2023-06-05] MEDS: Cyclobenzaprine HCl 10 MG TABLET 20 MG PO (21:04)
[2023-06-05] MEDS: Acetaminophen 325 MG TABLET 650 MG PO (21:04)
[2023-06-05] MEDS: traZODone HCL 100 MG TABLET PO (21:04)
[2023-06-05] MEDS: Insulin Glargine,Hum.rec.anlog 100 UNIT/ML 10 ML VIAL 20 UNIT SUBCUT (21:05)
[2023-06-05] MEDS: Albuterol Sulfate 90 MCG 8 GM INHALER 1 PUFF INHALE (21:05)
[2023-06-05] MEDS: Zolpidem Tartrate 5 MG TABLET PO (23:18)
[2023-06-06] VITALS (35 sets, daily range): BP systolic 97–197; BP diastolic 25–150; PULSE 67–112; RESP 20–32; TEMP 34.9–36.9; O2SAT 88–98
[2023-06-06] MEDS: LORazepam 2 MG/ML VIAL IVPUSH ×2 (01:02→02:54)
[2023-06-06 01:59] LABS: ABG Base Excess 1.6 mmol/L; ABG HCO3 23 mmol/L (22-26); ABG pCO2 30 mmHg (32-45); ABG pO2 61 mmHg (83-108)
[2023-06-06] MEDS: OLANZapine 10 MG VIAL IM (02:06)
[2023-06-06] MEDS: methylPREDNISolone Sod Succ 125 MG/2 ML VIAL 60 MG IVPUSH (02:07)
[2023-06-06 02:16] LABS: ABG Refer to POC result
[2023-06-06] MEDS: Morphine Sulfate 4 MG/ML CARTRIDGE IVPUSH ×2 (02:47→20:29)
--- NOTE | 2023-06-06 05:49 | PM.EVENT ---
Event Note Date of Service: 06/06/23 Event Note: Was notified by the nurse that patient was with hypoxemia. She was on 55 L high-flow nasal cannula and through the night was put on 15 L O2 mask in addition to the high-flow nasal cannula. Previous ABG with respiratory alkalosis. Patient agitated through the night despite 4 mg IV Ativan, 10 mg IM Zyprexa, morphine and Dilaudid. She was restrained but continued to be hypoxemic on high-flow nasal cannula and O2 mask with sats below 85%. Was switched to non-rebreather. Patient visibly dyspneic and tachypneic. Discussed with Dr. Olsen and will transfer the patient to ICU for management of acute hypoxemic respiratory failure. Chest x-ray pending at the time of transfer Time Spent With Patient Time: Total time managing care of this patient today ____ minutes.
--- NOTE | 2023-06-06 06:16 | PC.NURSE ---
Assumed care of patient at 19:00, 06/05. Patient initially on HFNC 80%/55LPM with spo2 ranging 92-94%. Lasix gtt inusing as ordered. As night progressed patient became increasingly confused, disoriented, and agitated despite 1:[address] for entirety of shift. Dr. Browne notified of this chief writer's assessment and concerns for hypoxia. Pt later required 15L oxymask in addition to HFNC to maintain spo2 at MD written goal of min 88% (pt hx ILD, copd). ABG obtained and MD made aware and to bedside. Pt given a total of 4mg IV ativan, 10mg IM zyprexa, 4mg IV morphine in addition to scheduled evening meds with little to no effect. Discussed benadryl and haldol with MD though unable to give for last documented prolonged QTc; unable to obtain new EKG due to agitation/pt inability to sit still. Patient required switch this morning to non-rebreather 15L over HFNC. Dr. Browne again presented to bedside. ICU consulted and level of care escalated. Patient transported to ICU at ~06:00. Please see assessments and MAR for full details.
[2023-06-06 06:37] LABS: VBG Base Excess 2.1 mmol/L; VBG HCO3 25 mmol/L (22-26); VBG pCO2 33 mmHg; VBG pH 7.47 (7.32-7.43); VBG pO2 65 mmHg
[2023-06-06 06:38] LABS: Venous Blood Gas Refer to POC result
--- NOTE | 2023-06-06 06:57 | PC.NURSE ---
PATIENT TRANSFERRED FROM [facility] TO [facility]...AWAKE..CONFUSED....PICKING AT LINES AND O2..PINEDA....1:1 SITTER AT BEDSIDE...O2 100% NRB MASK AND 15 L/M CANNULA...RR 32-36...SAO2 88-89%...LUNGS DIFFUSE CRACKLES..STAT CXR DONE AND REVIEWED BY ICU MEDICAL RECORDS LIBRARY PROFESSOR....VBG DRAWN...PLACED ON CPA POST-TRANSFER...CPAP 12 CM WEANED TO 10 CM AND FIO2 100% TO 60% BY RT AND MEDICAL RECORDS LIBRARY PROFESSOR...CURRENTLY SAO2 95-96% AND DECREASED WORK OF BREATHING....LASIX DRIP 5 MG/HR HELD PER VERBAL ORDER FROM ICU MEDICAL RECORDS LIBRARY PROFESSOR...PATIENT DENIED PAIN...NSR..NO ECTOPY
[2023-06-06] MEDS: Norepinephrine Bitartrate/D5W 8 MG/250 ML PLAST..BAG 7.34 MG IV (07:10)
[2023-06-06] MEDS: dexmedeTOMIDidine HCL/NS 400 MCG/100 ML INFUS..BTL 19.58 MCG IVCONT (07:27)
--- NOTE | 2023-06-06 07:29 | PC.NURSE ---
initial pt contact, pt agitated, distressed, moving, grasping, sitter at bedside to redirect constantly, pt tolerates c pap. coarse inhail bilat lower crackles. no peripheral edema. levo titrated from .05 to .03 at 0710 and 0720 respectively.
[2023-06-06 07:32] LABS: Glucose, Whole Blood 198 mg/dL (60-115)
[2023-06-06 08:42] LABS: VBG Base Excess 0.2 mmol/L; VBG HCO3 23 mmol/L (22-26); VBG pCO2 32 mmHg; VBG pH 7.46 (7.32-7.43); VBG pO2 100 mmHg
[2023-06-06] MEDS: Nicotine 21 MG PATCH.TD24 TRANSDERMA (09:03)
[2023-06-06 09:16] LABS: Basophils Percent Auto 0.1 % (0-2); Hematocrit 35.8 % (37.0-47.0); Hemoglobin 12.1 g/dl (12.0-16.0); Imm Gran Pct Auto 0.7 % (0.0-0.4); Lymphocytes Absolute Auto 0.7 X10*3/uL (1.2-4.9); Lymphocytes Percent Auto 4.3 % (20-40); MANUAL DIFF FLAG SCAN; Mean Corpuscular HGB Conc 33.8 g/dl (31.0-35.0); Mean Corpuscular Hemoglobin 33.5 pg (27.0-33.0); Mean Corpuscular Volume 99.2 fL (80.0-98.0); Mean Platelet Volume 10.5 fL (9.4-12.3); Monocytes Absolute Auto 0.6 X10*3/uL (0.1-1.2); Monocytes Percent Auto 4.1 % (2-11); Neutrophils Absolute Auto 13.7 x10*3/uL (2.0-8.3); Neutrophils Percent Auto 90.8 % (45-73); Platelet Count 284 X10*3/uL (160-400); Red Blood Count 3.61 X10*6/uL (4.20-5.50); Red Cell Distribution Width 13.6 % (11.0-16.0); SCAN SMEAR FLAG 1; White Blood Count 15.1 X10*3/uL (4.8-10.8)
[2023-06-06 09:31] LABS: Alanine Aminotransferase 15 U/L (0-31); Albumin Level 2.9 g/dL (3.5-5.0); Alkaline Phosphatase 59 U/L (39-117); Anion Gap 16 (12-20); Aspartate Amino Transferase 31 U/L (5-31); Bilirubin Total 0.3 mg/dL (0.0-1.0); Blood Urea Nitrogen 21 mg/dL (9-16); Calcium 8.7 mg/dL (8.4-10.2); Carbon Dioxide 24 mmol/L (22-29); Chloride 107 mmol/L (96-108); Creatinine Clr Calc Pharmacy 89.9; Estimated Glomerular Filt Rate > 60; Glucose Random 213 mg/dL (60-115); Phosphorus 3.5 mg/dL (2.7-4.5); Potassium 3.6 mmol/L (3.3-5.1); Sodium 143 mmol/L (135-145); Total Protein 6.8 g/dL (6.5-8.0)
[2023-06-06 09:34] LABS: B Type Natriuretic Peptide 87 pg/mL (<100)
[2023-06-06 09:37] LABS: SLIDE REVIEW VERIFIED
[2023-06-06 09:42] LABS: Troponin-I High Sensitivity < 2.7 ng/L (<3.5-17.0)
[2023-06-06] MEDS: Doxycycline Hyclate 100 MG in 0.9 % Sodium Chloride 250 ML 166.67 MG IV (10:05)
[2023-06-06] MEDS: Heparin Sodium,Porcine 5,000 UNIT/ML VIAL 5000 UNIT SUBCUT ×2 (10:09→19:22)
[2023-06-06] MEDS: dexmedeTOMIDidine HCL/NS 400 MCG/100 ML INFUS..BTL 15.66 MCG IVCONT (10:54)
--- NOTE | 2023-06-06 11:16 | PM.CCPN ---
Subjective Subjective Date of Service: 06/06/23 Interval History: 58-year-old lady, active 40+ pack-year smoker, with advanced COPD followed by [facility] pulmonary, normally on Trelegy/albuterol MDI/ duo nebs, and not on home oxygen, also SLE, AFib, and congestive heart failure readmitted on 06/02/2023 with acute appendicitis, now status post laparoscopic appendectomy with hospital course further complicated by acute hypoxic respiratory failure, now on 4-6 L of supplemental oxygen, with CT chest showing upper lobe predominant emphysema and ground-glass opacities. Hospital course significant for progressive dyspnea. Patient with no response to diuresis on empiric systemic glucocorticoids. Overnight with development of agitation and further hypoxia, transferred to intensive care unit for close monitoring. Appendiceal and peritoneal pathology positive for carcinoma. Critical Care Time (minutes): 45 Physical Exam Vital Signs: Vital Signs: Last Vital Signs Temp 96.2 F L 06/06/23 11:09 Pulse 71 06/06/23 11:09 Resp 26 H 06/06/23 11:09 BP 111/59 L 06/06/23 11:09 Pulse Ox 98 06/06/23 10:41 O2 Del Method CPAP 06/06/23 11:09 O2 Flow Rate 55 06/06/23 03:30 FiO2 60 06/06/23 11:09 Oxygen Flow Rate 5 06/05/23 14:00 BMI result Body Mass Index 27.9 Const: General: no acute distress and lethargic ( arousable, confused) Orientation/consciousness: lethargic ( arousable, confused) Eyes: Sclerae: sclerae normal EOM: EOMs intact bilaterally Neck: Neck: Yes no lymphadenopathy, Yes trachea midline and Yes supple Resp: Effort & Inspection: tachypneic Auscultation: crackles ( diffuse bilateral) Cardio: Rate: regular rate Rhythm: regular rhythm Heart sounds: no gallops, no murmurs and no rubs GI: Palpation (GI): Soft to palpation and Other GI palpation findings present ( Nontender) Auscultation: normal bowel sounds Extrem: General: No clubbing, No cyanosis and Yes edema ( trace bilateral) Objective Data Labs 06/06/23 08:33 06/06/23 08:33 Labs: Laboratory Results - last 24 hr 06/05/23 06/05/23 06/05/23 11:47 16:43 20:30 WBC RBC Hgb Hct MCV MCH MCHC RDW Plt Count MPV Immature Gran % (Auto) Neut % (Auto) Lymph % (Auto) [place] % (Auto) Eos % (Auto) Baso % (Auto) Lymph # (Auto) [place] # (Auto) Eos # (Auto) Baso # (Auto) Abs Immat Gran (auto) Absolute Neuts (auto) Absolute Nucleated RBC Nucleated RBC % (auto) Smear Tech's Comments O2 Saturation ABG pH at Pt Temp ABG pCO2 at Pt Temp ABG pO2 at Pt Temp ABG HCO3 ABG Base Excess (Actual) VBG pH VBG pCO2 VBG pO2 VBG HCO3 VBG O2 Saturation VBG Base Excess Sodium Potassium Chloride Carbon Dioxide Anion Gap BUN Creatinine Estim Creat Clear Calc Estimated GFR POC Glucose 197 H 275 H 335 H Random Glucose Calcium Phosphorus Magnesium Total Bilirubin AST ALT Alkaline Phosphatase Troponin I High Sens B-Natriuretic Peptide Total Protein Albumin 06/06/23 06/06/23 06/06/23 01:53 06:32 07:28 WBC RBC Hgb Hct MCV MCH MCHC RDW Plt Count MPV Immature Gran % (Auto) Neut % (Auto) Lymph % (Auto) [place] % (Auto) Eos % (Auto) Baso % (Auto) Lymph # (Auto) [place] # (Auto) Eos # (Auto) Baso # (Auto) Abs Immat Gran (auto) Absolute Neuts (auto) Absolute Nucleated RBC Nucleated RBC % (auto) Smear Tech's Comments O2 Saturation 88.0 ABG pH at Pt Temp 7.50 H ABG pCO2 at Pt Temp 30 L ABG pO2 at Pt Temp 61 L ABG HCO3 23 ABG Base Excess (Actual) 1.6 VBG pH 7.47 H VBG pCO2 33 VBG pO2 65 VBG HCO3 25 VBG O2 Saturation 88.0 VBG Base Excess 2.1 Sodium Potassium Chloride Carbon Dioxide Anion Gap BUN Creatinine Estim Creat Clear Calc Estimated GFR POC Glucose 198 H Random Glucose Calcium Phosphorus Magnesium Total Bilirubin AST ALT Alkaline Phosphatase Troponin I High Sens B-Natriuretic Peptide Total Protein Albumin 06/06/23 06/06/23 08:33 08:37 WBC 15.1 H RBC 3.61 L Hgb 12.1 Hct 35.8 L MCV 99.2 H MCH 33.5 H MCHC 33.8 RDW 13.6 Plt Count 284 MPV 10.5 Immature Gran % (Auto) 0.7 H Neut % (Auto) 90.8 H Lymph % (Auto) 4.3 L [place] % (Auto) 4.1 Eos % (Auto) 0.0 Baso % (Auto) 0.1 Lymph # (Auto) 0.7 L [place] # (Auto) 0.6 Eos # (Auto) 0.0 Baso # (Auto) 0.0 Abs Immat Gran (auto) 0.10 H Absolute Neuts (auto) 13.7 H Absolute Nucleated RBC 0.000 Nucleated RBC % (auto) 0.0 Smear Tech's Comments VERIFIED O2 Saturation ABG pH at Pt Temp ABG pCO2 at Pt Temp ABG pO2 at Pt Temp ABG HCO3 ABG Base Excess (Actual) VBG pH 7.46 H VBG pCO2 32 VBG pO2 100 VBG HCO3 23 VBG O2 Saturation 98.0 VBG Base Excess 0.2 Sodium 143 Potassium 3.6 Chloride 107 Carbon Dioxide 24 Anion Gap 16 BUN 21 H Creatinine 0.72 Estim Creat Clear Calc 89.9 Estimated GFR > 60 POC Glucose Random Glucose 213 H Calcium 8.7 Phosphorus 3.5 Magnesium 2.0 Total Bilirubin 0.3 AST 31 ALT 15 Alkaline Phosphatase 59 Troponin I High Sens < 2.7 B-Natriuretic Peptide 87 Total Protein 6.8 Albumin 2.9 L Microbiology Microbiology Results: Microbiology 06/02/23 06:06 Blood - Venous Blood Culture - Preliminary No growth after 48 hours. 06/02/23 06:06 Blood - Venous Blood Culture - Preliminary No growth after 48 hours. 06/02/23 Unknown Urine clean catch - Clean Catch Midstream Urine Culture - Final Progress Note: A&P Assessment and plan (1) Acute respiratory failure with hypoxia: Status: Acute (2) Peritoneal carcinomatosis: Status: Acute (3) SLE (systemic lupus erythematosus): Status: Acute (4) Congestive heart failure: Status: Acute (5) Diabetes: Status: Acute (6) PAF (paroxysmal atrial fibrillation): Status: Acute Plan Assessment: 58-year-old lady readmitted with abdominal pain secondary to appendicitis with pathology positive for appendiceal carcinoma and, unfortunately peritoneal carcinomatosis, now with progressive hypoxemia, with suspicion of pulmonary metastatic infiltration. Plan: Neuro: No acute issues. Cardiac: No acute issues. Pulmonary: Acute hypoxic respiratory failure ARDS versus metastatic infiltrative processes. Will obtain sputum cytology. Not a candidate for bronchoscopic biopsy at this time secondary to high FiO2 requirements. Continue to titrate off oxygen support as tolerated. No response to diuretic or systemic glucocrticods, will discontinue at this time. Renal: No acute issues. Endo: No acute issues. GI: No acute issues. ID: No acute issues Heme/Onc: No acute issues. Psych: No acute issues. Miscellaneous: No acute issues. Prophylaxis: Heparin Diet: NPO Critical care time spent: 45 minutes Quality Stroke Does the patient have a stroke diagnosis?: No VTE Prior VTE?: No VTE Risk Level:: Surgical - low VTE Device Contraindication: N/A - Device Ordered VTE Drug Contraindication: Treatment Not Indicated
--- NOTE | 2023-06-06 11:29 | PC.NURSE ---
pt transitioned to nasal high flow. resp at bedside.
[2023-06-06 11:33] LABS: Glucose, Whole Blood 258 mg/dL (60-115)
--- NOTE | 2023-06-06 12:50 | MHC.CM.PN ---
Pt continuing care in ICU d/t respiratory impairment necessitating high O2. Pt w/new finding of peritoneal carcinoma w/possible lung mets. D/C plan initially supported home with private services: unsure if pt will need placement d/t respiratory management needs: CM to follow for changes to d/c plan.
[2023-06-06 13:05] LABS: Venous Blood Gas Refer to POC result
--- NOTE | 2023-06-06 13:36 | PM.PNGS ---
Subjective Subjective Date of Service: 06/06/23 Interval history: Transferred to ICU. On CPAP. Physical Exam Vital Signs: Vital Signs: Last Vital Signs Temp 96.2 F L 06/06/23 12:07 Pulse 69 06/06/23 13:00 Resp 23 H 06/06/23 13:00 BP 139/54 L 06/06/23 13:00 Pulse Ox 90 L 06/06/23 13:00 O2 Del Method High Flow Nasal C annula 06/06/23 13:00 O2 Flow Rate 50 06/06/23 13:00 FiO2 70 06/06/23 13:00 Oxygen Flow Rate 5 06/05/23 14:00 BMI result Body Mass Index 27.9 Const: General: comfortable and patient obtunded Orientation/consciousness: patient obtunded GI: Inspection: No distended and Yes incision (clean) Palpation (GI): Soft to palpation, Tenderness to palpation present (GI) in the RLQ, no guarding and not rigid Skin: General skin exam: no rashes or lesions noted Neuro: General: patient obtunded Objective Data Active Medications Albuterol Sulfate (Albuterol Sulfate 90 Mcg 8 Gm Inhaler) 1 puff INHALE QID PRN PRN Reason: wheezing Last Admin: 06/05/23 21:05 Dose: 1 puff Documented By: STEPH Glucose (Glucose Gel 15 Gm Gel..Gram.) 15 gm PO Q15M PRN; Protocol PRN Reason: per Hypoglycemia Standing Ord. Heparin Sodium (Porcine) (Heparin Sodium,Porcine 5,000 Unit/Ml Vial) 5,000 unit SUBCUT Q8H MARINO Last Admin: 06/06/23 10:09 Dose: 5,000 unit Documented By: VIVI Norepinephrine Bitartrate (Levophed) 8 mg in 250 mls @ 0 mls/hr IV .Q0M MARINO; Protocol Last Titration: 06/06/23 08:03 Dose: 0 mcg/kg/min, 0 mls/hr Documented By: VIVI Dexmedetomidine HCl (Precedex) 400 mcg in 100 mls @ 0 mls/hr IVCONT .Q0M MARINO; Protocol Last Titration: 06/06/23 13:29 Dose: 0.2 mcg/kg/hr, 3.92 mls/hr Documented By: DORA Nicotine (Nicotine 21 Mg Patch.Td24) 21 mg TRANSDERMA DAILY MARINO Last Admin: 06/06/23 09:03 Dose: 21 mg Documented By: VIVI Ondansetron HCl (Ondansetron Hcl 4 Mg/2 Ml Vial) 4 mg IVPUSH ONCE PRN PRN Reason: Nausea and Vomiting Ondansetron HCl (Ondansetron Hcl 4 Mg/2 Ml Vial) 4 mg IVPUSH Q8H PRN PRN Reason: Nausea and Vomiting Last Admin: 06/05/23 08:15 Dose: 4 mg Documented By: ELAINE Labs 06/06/23 08:33 06/06/23 08:33 Labs: Laboratory Results - last 24 hr 06/05/23 06/05/23 06/06/23 16:43 20:30 01:53 MCV MCH MCHC RDW Plt Count MPV Immature Gran % (Auto) Neut % (Auto) Lymph % (Auto) [place] % (Auto) Eos % (Auto) Baso % (Auto) Lymph # (Auto) [place] # (Auto) Eos # (Auto) Baso # (Auto) Abs Immat Gran (auto) Absolute Neuts (auto) Absolute Nucleated RBC Nucleated RBC % (auto) Smear Tech's Comments O2 Saturation 88.0 ABG pH at Pt Temp 7.50 H ABG pCO2 at Pt Temp 30 L ABG pO2 at Pt Temp 61 L ABG HCO3 23 ABG Base Excess (Actual) 1.6 VBG pH VBG pCO2 VBG pO2 VBG HCO3 VBG O2 Saturation VBG Base Excess Anion Gap Estim Creat Clear Calc Estimated GFR POC Glucose 275 H 335 H Random Glucose Calcium Phosphorus Magnesium Total Bilirubin AST ALT Alkaline Phosphatase B-Natriuretic Peptide Total Protein Albumin 06/06/23 06/06/23 06/06/23 06:32 07:28 08:33 MCV 99.2 H MCH 33.5 H MCHC 33.8 RDW 13.6 Plt Count 284 MPV 10.5 Immature Gran % (Auto) 0.7 H Neut % (Auto) 90.8 H Lymph % (Auto) 4.3 L [place] % (Auto) 4.1 Eos % (Auto) 0.0 Baso % (Auto) 0.1 Lymph # (Auto) 0.7 L [place] # (Auto) 0.6 Eos # (Auto) 0.0 Baso # (Auto) 0.0 Abs Immat Gran (auto) 0.10 H Absolute Neuts (auto) 13.7 H Absolute Nucleated RBC 0.000 Nucleated RBC % (auto) 0.0 Smear Tech's Comments VERIFIED O2 Saturation ABG pH at Pt Temp ABG pCO2 at Pt Temp ABG pO2 at Pt Temp ABG HCO3 ABG Base Excess (Actual) VBG pH 7.47 H VBG pCO2 33 VBG pO2 65 VBG HCO3 25 VBG O2 Saturation 88.0 VBG Base Excess 2.1 Anion Gap 16 Estim Creat Clear Calc 89.9 Estimated GFR > 60 POC Glucose 198 H Random Glucose 213 H Calcium 8.7 Phosphorus 3.5 Magnesium 2.0 Total Bilirubin 0.3 AST 31 ALT 15 Alkaline Phosphatase 59 B-Natriuretic Peptide 87 Total Protein 6.8 Albumin 2.9 L 06/06/23 06/06/23 08:37 11:28 MCV MCH MCHC RDW Plt Count MPV Immature Gran % (Auto) Neut % (Auto) Lymph % (Auto) [place] % (Auto) Eos % (Auto) Baso % (Auto) Lymph # (Auto) [place] # (Auto) Eos # (Auto) Baso # (Auto) Abs Immat Gran (auto) Absolute Neuts (auto) Absolute Nucleated RBC Nucleated RBC % (auto) Smear Tech's Comments O2 Saturation ABG pH at Pt Temp ABG pCO2 at Pt Temp ABG pO2 at Pt Temp ABG HCO3 ABG Base Excess (Actual) VBG pH 7.46 H VBG pCO2 32 VBG pO2 100 VBG HCO3 23 VBG O2 Saturation 98.0 VBG Base Excess 0.2 Anion Gap Estim Creat Clear Calc Estimated GFR POC Glucose 258 H Random Glucose Calcium Phosphorus Magnesium Total Bilirubin AST ALT Alkaline Phosphatase B-Natriuretic Peptide Total Protein Albumin Procedures Date of Service Date of Service: 06/06/23 Progress Note: A&P Assessment and plan (1) Peritoneal carcinomatosis: Status: Acute (2) Acute respiratory failure with hypoxia: Status: Acute (3) COPD (chronic obstructive pulmonary disease): Status: Acute Plan 58 year old female with multiple medical comorbidities s/p lap appy, developed post op respiratory failure requiring ICU level care and CPAP. No acute surgical issues, abdomen is benign with clean incisions. Await final path, preliminary appendiceal CA. Management as per ICU. Will follow as needed. Time Spent With Patient Time: Total time managing care of this patient today ____ minutes. Quality Stroke Does the patient have a stroke diagnosis?: No VTE Prior VTE?: No VTE Risk Level:: Surgical - low VTE Device Contraindication: N/A - Device Ordered VTE Drug Contraindication: Treatment Not Indicated
[2023-06-06 14:55] LABS: COVID-19 Test Positive (Negative); IDNOW Serial# 08D9AD1C
[2023-06-06 16:51] LABS: Glucose, Whole Blood 222 mg/dL (60-115)
[2023-06-06] MEDS: Remdesivir 200 MG in 0.9 % Sodium Chloride 210 ML 105 MG IV (21:05)
[2023-06-06] MEDS: Albumin Human 25 % 100 ML IV ×2 (21:33→23:19)
[2023-06-06 23:55] LABS: Glucose, Whole Blood 103 mg/dL (60-115)
[2023-06-07] VITALS (38 sets, daily range): BP systolic 120–177; BP diastolic 43–82; PULSE 66–88; RESP 24–36; TEMP 34.9–38.2; O2SAT 86–96; BMI 28.3
[2023-06-07] MEDS: dexmedeTOMIDidine HCL/NS 400 MCG/100 ML INFUS..BTL 19.58 MCG IVCONT ×2 (00:23→05:07)
[2023-06-07] MEDS: Heparin Sodium,Porcine 5,000 UNIT/ML VIAL 5000 UNIT SUBCUT ×3 (01:45→17:06)
[2023-06-07] MEDS: HYDROmorphone HCl 0.5 MG/0.5 ML SYRINGE IVPUSH ×7 (03:42→23:33)
[2023-06-07 05:14] LABS: VBG Base Excess 1.9 mmol/L; VBG HCO3 24 mmol/L (22-26); VBG pCO2 30 mmHg; VBG pO2 87 mmHg
[2023-06-07 05:15] LABS: Venous Blood Gas Refer to POC result
[2023-06-07 05:21] LABS: MANUAL DIFF FLAG NO
[2023-06-07 05:25] LABS: Basophils Percent Auto 0.1 % (0-2); Eosinophils Percent Auto 0.1 % (0-4); Hematocrit 34.7 % (37.0-47.0); Hemoglobin 11.8 g/dl (12.0-16.0); Imm Gran Abs Auto 0.03 X10*3/uL (0.00-0.03); Imm Gran Pct Auto 0.4 % (0.0-0.4); Lymphocytes Absolute Auto 1.1 X10*3/uL (1.2-4.9); Lymphocytes Percent Auto 12.8 % (20-40); Mean Corpuscular Hemoglobin 34.6 pg (27.0-33.0); Mean Corpuscular Volume 101.8 fL (80.0-98.0); Mean Platelet Volume 10.5 fL (9.4-12.3); Monocytes Absolute Auto 0.4 X10*3/uL (0.1-1.2); Monocytes Percent Auto 4.7 % (2-11); Neutrophils Absolute Auto 6.8 x10*3/uL (2.0-8.3); Neutrophils Percent Auto 81.9 % (45-73); Platelet Count 279 X10*3/uL (160-400); Red Blood Count 3.41 X10*6/uL (4.20-5.50); Red Cell Distribution Width 13.6 % (11.0-16.0); White Blood Count 8.3 X10*3/uL (4.8-10.8)
[2023-06-07 05:40] LABS: Albumin Level 3.6 g/dL (3.5-5.0); Anion Gap 14 (12-20); Blood Urea Nitrogen 21 mg/dL (9-16); Calcium 9.1 mg/dL (8.4-10.2); Carbon Dioxide 23 mmol/L (22-29); Chloride 112 mmol/L (96-108); Creatinine Clr Calc Pharmacy 81.9; Estimated Glomerular Filt Rate > 60; Glucose Random 135 mg/dL (60-115); Magnesium 2.1 mg/dL (1.6-2.6); Phosphorus 2.8 mg/dL (2.7-4.5); Potassium 3.7 mmol/L (3.3-5.1); Sodium 145 mmol/L (135-145)
--- NOTE | 2023-06-07 06:42 | PC.NURSE ---
Patient seen in ICU. Care assumed 19:00 (06/06). Continues on airborne/contact precautions for +covid. Consistently disoriented to event despite frequent reorientation. Pt agitation/restless/anxious in evening. Precedex gtt restarted per provider verbal order, reinitiated per protocol with +effect. See RASS assessments and vitals for full details. NSR 70-80's on tele, can become sinus tachy to low 100's with care and repositioning, improves to baseline with rest. +pp/cms. Denies acute complaints. Initially on HFNC 55LPM/80% thogh patient did desats to low 80's and require temporary placement of NRB over HFNC with gradual improvement back to 88-92% parameters given by [employer]. RT and [employer] notified, RT to bedside and cpap placed per by RT per [employer] order. Patient currently on cpap peep 5 and 60% FIO2 which she has been tolerating with precedex (had previously been agitated and removing cpap). NPO maintained for cpap. Q6hr POCs. PO care provided. Breathing is even and unlabored without distress. Pt spontaneously expectorated sputum which was sent for cytology as previously ordered. Midline abdominal lap sites x3 with steris remain c/d/i without drainage or redness. Pt medicated with 4mg morphine x1, 0.5mg dilaudid x2 for abdominal pain with +effect. F/c remains patent of cyu. Given albumin x2 doses for low UOP in evening per [employer], +effect/improved UOP and color. Bed alarm on and safety measures in place. Handoff report given.
[2023-06-07] MEDS: Nicotine 21 MG PATCH.TD24 TRANSDERMA (08:36)
--- NOTE | 2023-06-07 08:50 | P.PNCC_ITS ---
Subjective Subjective Date of Service: 06/07/23 Interval History: 58-year-old lady, active 40+ pack-year smoker, with advanced COPD followed by [facility] pulmonary, normally on Trelegy/albuterol MDI/ duo nebs, and not on home oxygen, also SLE, AFib, and congestive heart failure readmitted on 06/02/2023 with acute appendicitis, now status post laparoscopic appendectomy with hospital course further complicated by acute hypoxic respiratory failure, now on 4-6 L of supplemental oxygen, with CT chest showing upper lobe predominant emphysema and ground-glass opacities. Hospital course significant for progressive dyspnea. Patient with no response to diuresis on empiric systemic glucocorticoids. Also COVID-19 positive. Secondary to high FiO2 requirements, now high flow 80%, transferred to intensive care unit for close monitoring. 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 No events overnight. Critical Care Time (minutes): 45 Physical Exam 2 Vital Signs: Vital Signs: Last Vital Signs Temp 98.5 F 06/07/23 08:00 Pulse 78 06/07/23 08:00 Resp 24 H 06/07/23 08:10 BP 136/61 06/07/23 08:00 Pulse Ox 86 L 06/07/23 08:00 O2 Del Method CPAP 06/07/23 08:00 O2 Flow Rate 94 06/06/23 21:00 FiO2 60 06/07/23 08:00 Oxygen Flow Rate 60 06/06/23 14:00 BMI result Body Mass Index 28.3 Const: General: no acute distress, alert and awake Eyes: Sclerae: sclerae normal EOM: EOMs intact bilaterally Neck: Neck: Yes no lymphadenopathy, Yes trachea midline and Yes supple Resp: Effort & Inspection: normal respiratory effort ( On CPAP or high-flow) Auscultation: crackles ( diffuse bilateral) Cardio: Rate: regular rate Rhythm: regular rhythm Heart sounds: no gallops, no murmurs and no rubs GI: Palpation (GI): Soft to palpation and Other GI palpation findings present ( Nontender) Auscultation: normal bowel sounds Extrem: General: No clubbing, No cyanosis and Yes edema ( trace bilateral) Objective Data Labs 06/07/23 05:02 06/07/23 05:02 Labs: Laboratory Results - last 24 hr 06/06/23 06/06/23 06/06/23 08:33 11:28 14:29 WBC 15.1 H RBC 3.61 L Hgb 12.1 Hct 35.8 L MCV 99.2 H MCH 33.5 H MCHC 33.8 RDW 13.6 Plt Count 284 MPV 10.5 Immature Gran % (Auto) 0.7 H Neut % (Auto) 90.8 H Lymph % (Auto) 4.[address] [place] % (Auto) 4.1 Eos % (Auto) 0.0 Baso % (Auto) 0.1 Lymph # (Auto) 0.[address] [place] # (Auto) 0.6 Eos # (Auto) 0.0 Baso # (Auto) 0.0 Abs Immat Gran (auto) 0.10 H Absolute Neuts (auto) 13.7 H Absolute Nucleated RBC 0.000 Nucleated RBC % (auto) 0.0 Smear Tech's Comments VERIFIED VBG pH VBG pCO2 VBG pO2 VBG HCO3 VBG O2 Saturation VBG Base Excess Sodium 143 Potassium 3.6 Chloride 107 Carbon Dioxide 24 Anion Gap 16 BUN 21 H Creatinine 0.72 Estim Creat Clear Calc 89.9 Estimated GFR > 60 POC Glucose 258 H Random Glucose 213 H Calcium 8.7 Phosphorus 3.5 Magnesium 2.0 Total Bilirubin 0.3 AST 31 ALT 15 Alkaline Phosphatase 59 Troponin I High Sens < 2.7 B-Natriuretic Peptide 87 Total Protein 6.8 Albumin 2.9 L COVID-19 (GIRISH) Positive A COVID-19 Clin Com See Note 06/06/23 06/06/23 06/07/23 16:46 23:30 05:02 WBC 8.3 RBC 3.41 L Hgb 11.8 L Hct 34.7 L MCV 101.8 H MCH 34.6 H MCHC 34.0 RDW 13.6 Plt Count 279 MPV 10.5 Immature Gran % (Auto) 0.4 Neut % (Auto) 81.9 H Lymph % (Auto) 12.[address] [place] % (Auto) 4.7 Eos % (Auto) 0.1 Baso % (Auto) 0.1 Lymph # (Auto) 1.[address] [place] # (Auto) 0.4 Eos # (Auto) 0.0 Baso # (Auto) 0.0 Abs Immat Gran (auto) 0.03 Absolute Neuts (auto) 6.8 Absolute Nucleated RBC 0.000 Nucleated RBC % (auto) 0.0 Smear Tech's Comments VBG pH VBG pCO2 VBG pO2 VBG HCO3 VBG O2 Saturation VBG Base Excess Sodium 145 Potassium 3.7 Chloride 112 H Carbon Dioxide 23 Anion Gap 14 BUN 21 H Creatinine 0.79 Estim Creat Clear Calc 81.9 Estimated GFR > 60 POC Glucose 222 H 103 Random Glucose 135 H Calcium 9.1 Phosphorus 2.8 Magnesium 2.1 Total Bilirubin AST ALT Alkaline Phosphatase Troponin I High Sens B-Natriuretic Peptide Total Protein Albumin 3.6 COVID-19 (GIRISH) COVID-19 Clin Com 06/07/23 05:09 WBC RBC Hgb Hct MCV MCH MCHC RDW Plt Count MPV Immature Gran % (Auto) Neut % (Auto) Lymph % (Auto) [place] % (Auto) Eos % (Auto) Baso % (Auto) Lymph # (Auto) [place] # (Auto) Eos # (Auto) Baso # (Auto) Abs Immat Gran (auto) Absolute Neuts (auto) Absolute Nucleated RBC Nucleated RBC % (auto) Smear Tech's Comments VBG pH 7.50 H VBG pCO2 30 VBG pO2 87 VBG HCO3 24 VBG O2 Saturation 97.0 VBG Base Excess 1.9 Sodium Potassium Chloride Carbon Dioxide Anion Gap BUN Creatinine Estim Creat Clear Calc Estimated GFR POC Glucose Random Glucose Calcium Phosphorus Magnesium Total Bilirubin AST ALT Alkaline Phosphatase Troponin I High Sens B-Natriuretic Peptide Total Protein Albumin COVID-19 (GIRISH) COVID-19 Clin Com Microbiology Microbiology Results: Microbiology 06/02/23 06:06 Blood - Venous Blood Culture - Final No growth after 5 days. 06/02/23 06:06 Blood - Venous Blood Culture - Final No growth after 5 days. 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 (2) Peritoneal carcinomatosis: Status: Acute (3) Acute respiratory failure with hypoxia: Status: Acute (4) COPD (chronic obstructive pulmonary disease): Status: Acute (5) COVID-19: Status: Acute (6) Acute appendicitis: Status: Acute (7) SLE (systemic lupus erythematosus): Status: Acute (8) Congestive heart failure: Status: Acute (9) Diabetes: Status: Acute (10) PAF (paroxysmal atrial fibrillation): Status: Acute Plan Assessment: 58-year-old lady readmitted with abdominal pain secondary to appendicitis with 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 Plan: Neuro: No acute issues. Cardiac: No acute issues. Pulmonary: Acute hypoxic respiratory failure COVID-19 ARDS versus metastatic infiltrative processes. Not a candidate for bronchoscopic biopsy at this time secondary to high FiO2 requirements. Sputum cytology is pending. Continue to titrate off oxygen support as tolerated. No response to diuretic or systemic glucocrticods, will discontinue at this time. Renal: No acute issues. Endo: No acute issues. GI: No acute issues. ID: COVID-19, now on remdesivir. Heme/Onc: No acute issues. Psych: No acute issues. Miscellaneous: No acute issues. Prophylaxis: Heparin Diet: Regular Critical care time spent: 45 minutes Quality Stroke Does the patient have a stroke diagnosis?: No VTE Prior VTE?: No VTE Risk Level:: Surgical - low VTE Device Contraindication: N/A - Device Ordered VTE Drug Contraindication: Treatment Not Indicated
[2023-06-07] MEDS: dexmedeTOMIDidine HCL/NS 400 MCG/100 ML INFUS..BTL 7.83 MCG IVCONT ×2 (10:27→23:00)
--- NOTE | 2023-06-07 10:56 | PM.HEMONCCN ---
Subjective - Subjective Chief complaint: Weakness Patient: new to practice Consult date: 06/07/23 Primary Care Provider: Renetta Chew MD HPI - Consult Narrative Reason for consult: Appendiceal carcinoma Narrative: Debra Gaines is a 58 year old female with severe COPD, paroxysmal atrial fibrillation, type 2 diabetes mellitus, congestive heart failure, hypothyroidism and SLE who presented with abdominal pain to the hospital on 06/02/[address] scan showed inflammatory changes in the right side of her abdomen, changes of acute appendicitis, trace free fluid in pelvis. She underwent laparoscopic appendectomy and peritoneal biopsies on 06/02/2023. Pathology revealed malignancy. Her postoperative course was complicated by hypoxic respiratory failure, CT chest showed emphysema in ground-glass opacities. She then tested positive for COVID-19. She is being monitored in the ICU because of high FiO2 requirements. Last EGD/colonoscopy 2019 (Dr. Marvin) Iron deficiency anemia: Hiatal hernia, esophagitis, gastritis, duodenitis, x2 tubular adenoma including a 12 mm polyp, diverticulosis. No H pylori. No Bales's. At this time because of her generalized weakness and difficulty talking, I was unable to obtain much of past history or review of systems. Review of Systems - Constitutional Reports as per HPI - Neurologic Denies memory loss, Denies seizure-like activity [facility] Medical History: Medical History (Last Updated 06/03/23 @ 12:13 by Roosevelt Olsen MD) Abdominal pain Congestive heart failure COPD (chronic obstructive pulmonary disease) Depression Diabetes PAF (paroxysmal atrial fibrillation) SLE (systemic lupus erythematosus) Thyroid disease Family History: Family History (Last Reviewed 06/02/23 @ 18:28 by ADRYAN Louis) Father No problems noted. Mother CVD (cardiovascular disease) Surgical History: Surgical History (Last Reviewed 06/02/23 @ 18:28 by ADRYAN Louis) History of back surgery History of radiofrequency ablation (RFA) procedure for cardiac arrhythmia Social History: Social History (Last Reviewed 06/02/23 @ 18:28 by ADRYAN Louis) Living Situation History: Household Members: Family Housing: House Do you presently have visiting nurse or other home services: No Alcohol History Details: 1. How often do you have a drink containing alcohol?: a. Never AUDIT-C Alcohol total score: 0 Currently Displaying Signs/Symptoms of Alcohol Withdrawal: No Tobacco History: Patient Tobacco Use Status: Current everyday Tobacco Cigarette Packs Per Day: 1 Smoked in Last 30 Days: Yes Substance Use History: Use of substances other than those prescribed or required for medical reasons: No Currently Displaying Signs/Symptoms of Drug Intoxication Withdrawal: No Domestic Abuse History: Have you been hit, kicked, punched, or otherwise hurt by someone within the past year? If so, by whom?: No Do you feel safe in your current relationship?: Yes Is there a partner from a previous relationship who is making you feel unsafe now?: No Are you made to feel afraid or neglected: No Advance Directives: Advance Directives: Yes Advance Directives on File: Yes Advance Directives Date on File: 05/27/23 Homicidal Assessment: Do you have thoughts of harming others: None Do you have a plan to hurt others: No Plan Nutrition Assessment: Recently lost weight without trying: No Nutrition Risks: Difficulty chewing Patient : No : No Poor oral hygiene: No Occupation Assessmet: service: No Current occupational status: disabled Home Medications and Allergies Current Medications: Current Medications Albuterol Sulfate (Albuterol Sulfate 90 Mcg 8 Gm Inhaler) 1 puff INHALE QID PRN PRN Reason: wheezing Last Admin: 06/05/23 21:05 Dose: 1 puff Dextrose (Dextrose 50 % 25 Gm/50 Ml Syringe) 25 gm IVPUSH Q15M PRN; Protocol PRN Reason: per Hypoglycemia Standing Ord. Glucose (Glucose Gel 15 Gm Gel..Gram.) 15 gm PO Q15M PRN; Protocol PRN Reason: per Hypoglycemia Standing Ord. Heparin Sodium (Porcine) (Heparin Sodium,Porcine 5,000 Unit/Ml Vial) 5,000 unit SUBCUT Q8H [facility] Last Admin: 06/07/23 08:36 Dose: 5,000 unit Hydromorphone HCl (Hydromorphone Hcl 0.5 Mg/0.5 Ml Syringe) 0.5 mg IVPUSH Q2H PRN; Protocol PRN Reason: Pain, Severe (Pain Scale 7-10) Last Admin: 06/07/23 06:15 Dose: 0.5 mg Norepinephrine Bitartrate (Levophed) 8 mg in 250 mls @ 0 mls/hr IV .Q0M [facility]; Protocol Last Titration: 06/06/23 08:03 Dose: 0 mcg/kg/min, 0 mls/hr Dexmedetomidine HCl (Precedex) 400 mcg in 100 mls @ 0 mls/hr IVCONT .Q0M [facility]; Protocol Last Admin: 06/07/23 10:27 Dose: 0.4 mcg/kg/hr, 7.83 mls/hr Remdesivir 100 mg/ Sodium (Chloride) 230 mls @ 115 mls/hr IV Q24H [facility] Stop: 06/10/23 22:29 Insulin Human Lispro (Insulin Lispro 100 Unit/Ml 3 Ml Vial) 0 unit SUBCUT Q6H [facility]; Protocol Last Admin: 06/07/23 05:50 Dose: Not Given Nicotine (Nicotine 21 Mg Patch.Td24) 21 mg TRANSDERMA DAILY [facility] Last Admin: 06/07/23 08:36 Dose: 21 mg Ondansetron HCl (Ondansetron Hcl 4 Mg/2 Ml Vial) 4 mg IVPUSH ONCE PRN PRN Reason: Nausea and Vomiting Ondansetron HCl (Ondansetron Hcl 4 Mg/2 Ml Vial) 4 mg IVPUSH Q8H PRN PRN Reason: Nausea and Vomiting Last Admin: 06/05/23 08:15 Dose: 4 mg Home Medications Medication Instructions Recorded Confirmed Type bupropion HCl 300 mg 24 hr tablet, 300 mg PO DAILY 12/12/20 06/02/23 History extended release citalopram 40 mg tablet 40 mg PO DAILY 12/12/20 06/02/23 History famotidine 20 mg tablet 20 mg PO BID 12/12/20 06/02/23 History levothyroxine 100 mcg tablet 100 mcg PO DAILY 12/12/20 06/02/23 History lorazepam 1 mg tablet 1 mg PO TID PRN anxiety 12/12/20 06/02/23 History trazodone 50 mg tablet 150 mg PO BEDTIME 12/12/20 06/02/23 History cyclobenzaprine 10 mg tablet 20 mg PO BEDTIME PRN muscle spasm 05/16/22 06/02/23 History oxycodone 10 mg tablet 10 mg PO Q4H PRN Pain, Moderate 05/16/22 06/02/23 History blood sugar diagnostic (OneTouch #10 ea 06/11/22 06/02/23 History Verio test strips) insulin glargine 100 unit/mL (3 26 unit subcut BID 06/11/22 06/02/23 History mL) subcutaneous pen (Lantus Solostar U-100 Insulin) lancets 30 gauge (OneTouch Delica #100 ea 06/11/22 06/02/23 History Plus Lancet) rivaroxaban 20 mg tablet (Xarelto) 20 mg PO DAILY@1700 05/07/23 06/02/23 History acetaminophen 325 mg tablet 975 mg PO TID 05/27/23 06/02/23 History albuterol sulfate 90 mcg/actuation 1 puff inhalation QID PRN wheezing 05/27/23 06/02/23 History aerosol inhaler colestipol 1 gram tablet 1 g PO TID 05/27/23 06/02/23 History dulaglutide 0.75 mg/0.5 mL 0.75 mg subcut WHITE 05/27/23 06/02/23 History subcutaneous pen injector (Trulicity) fluticasone fur. 100 mcg-umeclid 1 ea inhalation DAILY 05/27/23 06/02/23 History 62.5 mcg-vilant 25 mcg inhalat.powder (Trelegy Ellipta) hydroxychloroquine 200 mg tablet 200 mg PO BID 05/27/23 06/02/23 History insulin lispro 100 unit/mL 1 sliding scale dose subcut 05/27/23 06/02/23 History subcutaneous solution (Humalog USEASDIRECTD U-100 Insulin) potassium chloride 10 mEq 20 meq PO DAILY 05/27/23 06/02/23 History capsule,extended release Allergies Allergy/AdvReac Type Severity Reaction Status Date / Time amoxicillin [From AUGMENTIN] Allergy Mild SWELLING Verified 05/26/23 22:47 clavulanic acid Allergy Mild SWELLING Verified 05/26/23 22:47 [From AUGMENTIN] etodolac [From LODINE] Allergy Mild SWELLING Verified 05/26/23 22:47 gabapentin [GABAPENTIN] Allergy Mild SWELLING Verified 05/26/23 22:47 pregabalin [From LYRICA] Allergy Mild SWELLING Verified 05/26/23 22:47 clarithromycin [From Biaxin] Allergy Unknown ANGIOEDEMA Verified 05/26/23 22:47 Penicillins Allergy Unknown UNKNOWN Verified 05/26/23 22:47 sulfamethoxazole Allergy Unknown ANAPHYLAXIS Verified 05/26/23 22:47 [From Bactrim] piperacillin [From Zosyn] Allergy Itching Verified 05/27/23 05:06 tazobactam [From Zosyn] Allergy Itching Verified 05/27/23 05:06 fluticasone AdvReac Mild MUSCLE PAIN Verified 05/26/23 22:47 [From FLOVENT DISKUS] Physical Exam Vital signs: Vital Signs Temp 98.5 F 06/07/23 08:00 Pulse 67 06/07/23 10:00 Resp 33 H 06/07/23 10:00 BP 137/43 L 06/07/23 10:00 Pulse Ox 91 L 06/07/23 10:00 O2 Del Method High Flow Nasal Cannula 06/07/23 10:00 O2 Flow Rate 55 06/07/23 10:00 FiO2 70 06/07/23 10:00 Intake & Output 06/06/23 06/07/23 06/07/23 18:59 06:59 18:59 Intake Total 363.401 / 919.272 555.871 / 919.272 96.004 / 96.004 Output Total 355 / 1009 587 / 1009 241 / 241 Balance 8.401 / -89.728 -31.129 / -89.728 -144.996 / -144.996 Urine Output (Average ml/kg/hr) 0.38 0.61 0.25 Intake: Intake, IV Amount 363.401 / 919.272 555.871 / 919.272 96.004 / 96.004 Albumin Human 25 % 100 ml @ 100 200 / 200 mls/hr IV Q1H [facility] Rx#: [id number] Doxycycline Hyclate 100 mg In 0 250 / 250 .9 % Sodium Chloride 250 ml @ 166.67 mls/hr IV Q12H [facility] Rx#: [id number] Norepinephrine Bitartrate/D5W 8 5.897 / 5.897 mg In 250 ml @ Per Protocol IV .Q0M [facility] Rx#:[id number] Remdesivir 200 mg In 0.9 % 210 / 210 Sodium Chloride 210 ml @ 105 mls/hr IV ONCE ONE Rx#: [id number] Furosemide 200 mg In 0.9 % 0 / 0 Sodium Chloride 80 ml @ 5 MG/HR 2.5 mls/hr IVCONT .Q24H [facility] Rx #:[id number] dexmedeTOMIDidine HCL/NS 400 107.504 / 253.375 145.871 / 253.375 96.004 / 96.004 mcg In 100 ml @ Per Protocol IVCONT .Q0M [facility] Rx#:[id number] Output: Output, Urine Amount (Catheter) 355 / 1009 587 / 1009 241 / 241 Urethral 355 / 1009 587 / 1009 241 / 241 Other: NPO Yes Yes Number of Bowel Movements 0 Urine Color Sheyla Pale Yellow Last Bowel Movement 06/04/23 Weight 79.6 kg [place] Weight in Grams 27773 Weight 79.6 kg - Constitutional Present: mild distress, chronically ill appearing - Routine HEENT Exam Eye: Present: PERRL - Routine Neck Exam Present: trachea midline. Absent: lymphadenopathy - Routine Respiratory Exam Present: accessory muscle use, decreased breath sounds - Routine Cardiovascular Exam Cardiovascular: Present: S1, S2 - Routine Abdominal Exam Present: soft - Routine Extremities Exam Present: pulses intact - Routine Neurological Exam Present: alert, oriented X3 Hem/Onc Consult Result - Labs CBC & Chem 7: 06/07/23 05:02 06/07/23 05:02 Labs: Short CBC 06/07/23 Range/Units 05:02 WBC 8.3 (4.8-10.8) X10*3/uL Hgb 11.8 L (12.0-16.0) g/dl Hct 34.7 L (37.0-47.0) % Plt Count 279 (160-400) X10*3/uL BMP 06/07/23 05:02 Sodium 145 Potassium 3.7 Chloride 112 H Carbon Dioxide 23 BUN 21 H Creatinine 0.79 Calcium 9.1 Liver Function 06/07/23 Range/Units 05:02 Albumin 3.6 (3.5-5.0) g/dL Assessment and Plan Patient Active problem list reviewed?: Yes (1) Appendix carcinoma Status: Acute Assessment and plan: 1. 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 On 06/02/2023 she underwent appendectomy and peritoneal biopsy which revealed poorly differentiated adenocarcinoma with metastatic adenocarcinoma involving the peritoneum. Stage pT4a NX M1 B. CT angiogram performed on 06/02/2023 showed bronchial wall thickening, bilateral upper lobe multifocal opacities and mediastinal lymphadenopathy. CEA is elevated 69.8 NG/mL. She now has acute hypoxic respiratory failure and probable COVID pneumonia. She is being treated in the intensive care unit. I discussed with the patient that she has advanced or stage IV appendiceal carcinoma. Treatment would involve palliative chemotherapy. Further details will be discussed upon discharge. Overall prognosis is guarded. I thank you for this consultation. - Time Spent With Patient Time Spent with Patient (in minutes): 15
--- NOTE | 2023-06-07 11:25 | MHC.CLN ---
PT WITH INCREASED NUTRITION RISK R/T PRESSURE INJURY PT IS CURRENTLY NPO WHEN DIET TO ADVANCE; RECOMMEND ADDING ENSURE MAX BID TO PROMOTE WOUND HEALING SUPP TO PROVIDE 300KCALS, 60G PROTEIN MONITOR PO INTAKE CLOSELY SEE ALSO FULL CLINICAL NUTRITION ASSESSMENT
[2023-06-07 11:53] LABS: Glucose, Whole Blood 230 mg/dL (60-115)
--- NOTE | 2023-06-07 14:56 | MHC.CM.PN ---
Patient remains in ICU, CM will continue to follow for any d/c planning needs.
--- NOTE | 2023-06-07 17:40 | PC.NURSE ---
Stage II Left buttock with peeling skin 2.0cm x 2.0cm . Large coccyx foam applied to area with barrier cream.
[2023-06-07 18:07] LABS: Glucose, Whole Blood 239 mg/dL (60-115)
[2023-06-07] MEDS: Remdesivir 100 MG in 0.9 % Sodium Chloride 230 ML 115 MG IV (20:46)
[2023-06-07 23:46] LABS: Glucose, Whole Blood 208 mg/dL (60-115)
[2023-06-07] MEDS: Insulin Lispro 100 UNIT/ML 3 ML VIAL SUBCUT (23:46)
[2023-06-08] VITALS (29 sets, daily range): BP systolic 96–147; BP diastolic 44–70; PULSE 62–81; RESP 22–33; TEMP 34.7–36.7; O2SAT 88–95
[2023-06-08] MEDS: Heparin Sodium,Porcine 5,000 UNIT/ML VIAL 5000 UNIT SUBCUT ×3 (02:02→16:53)
[2023-06-08] MEDS: HYDROmorphone HCl 0.5 MG/0.5 ML SYRINGE IVPUSH ×6 (02:03→21:17)
[2023-06-08 05:53] LABS: VBG Base Excess 0.2 mmol/L; VBG HCO3 21 mmol/L (22-26); VBG pCO2 27 mmHg; VBG pH 7.51 (7.32-7.43); VBG pO2 74 mmHg
[2023-06-08 06:09] LABS: MANUAL DIFF FLAG NO
[2023-06-08 06:11] LABS: Basophils Percent Auto 0.1 % (0-2); Eosinophils Absolute Auto 0.1 X10*3/uL (0.0-0.4); Eosinophils Percent Auto 0.8 % (0-4); Hematocrit 37.4 % (37.0-47.0); Hemoglobin 12.4 g/dl (12.0-16.0); Imm Gran Abs Auto 0.06 X10*3/uL (0.00-0.03); Imm Gran Pct Auto 0.6 % (0.0-0.4); Lymphocytes Absolute Auto 1.1 X10*3/uL (1.2-4.9); Lymphocytes Percent Auto 10.4 % (20-40); Mean Corpuscular HGB Conc 33.2 g/dl (31.0-35.0); Mean Corpuscular Hemoglobin 33.7 pg (27.0-33.0); Mean Corpuscular Volume 101.6 fL (80.0-98.0); Mean Platelet Volume 10.7 fL (9.4-12.3); Monocytes Absolute Auto 0.3 X10*3/uL (0.1-1.2); Monocytes Percent Auto 3.1 % (2-11); Neutrophils Absolute Auto 8.9 x10*3/uL (2.0-8.3); Platelet Count 276 X10*3/uL (160-400); Red Blood Count 3.68 X10*6/uL (4.20-5.50); Red Cell Distribution Width 13.5 % (11.0-16.0); White Blood Count 10.5 X10*3/uL (4.8-10.8)
[2023-06-08 06:26] LABS: Albumin Level 3.4 g/dL (3.5-5.0); Anion Gap 19 (12-20); Blood Urea Nitrogen 19 mg/dL (9-16); Carbon Dioxide 19 mmol/L (22-29); Chloride 112 mmol/L (96-108); Estimated Glomerular Filt Rate > 60; Glucose Random 203 mg/dL (60-115); Magnesium 2.3 mg/dL (1.6-2.6); Phosphorus 2.8 mg/dL (2.7-4.5); Potassium 3.9 mmol/L (3.3-5.1); Sodium 146 mmol/L (135-145)
[2023-06-08 06:28] LABS: Glucose, Whole Blood 203 mg/dL (60-115)
[2023-06-08] MEDS: Insulin Lispro 100 UNIT/ML 3 ML VIAL SUBCUT ×3 (06:31→17:53)
[2023-06-08 07:02] LABS: Venous Blood Gas Refer to POC result
--- NOTE | 2023-06-08 09:21 | PM.CCPN ---
Subjective Subjective Date of Service: 06/08/23 Interval History: 58-year-old lady, active 40+ pack-year smoker, with advanced COPD followed by [facility] pulmonary, normally on Trelegy/albuterol MDI/ duo nebs, and not on home oxygen, also SLE, AFib, and congestive heart failure readmitted on 06/02/2023 with acute appendicitis, now status post laparoscopic appendectomy with hospital course further complicated by acute hypoxic respiratory failure, now on 4-6 L of supplemental oxygen, with CT chest showing upper lobe predominant emphysema and ground-glass opacities. Hospital course significant for progressive dyspnea. Patient with no response to diuresis on empiric systemic glucocorticoids. Also COVID-19 positive. Secondary to high FiO2 requirements, now high flow 80%, transferred to intensive care unit for close monitoring. 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 No events overnight. FiO2 requirements remain high. Critical Care Time (minutes): 45 Physical Exam Vital Signs: Vital Signs: Last Vital Signs Temp 97.8 F 06/08/23 08:00 Pulse 72 06/08/23 09:00 Resp 29 H 06/08/23 09:00 BP 113/46 L 06/08/23 09:00 Pulse Ox 89 L 06/08/23 09:00 O2 Del Method CPAP 06/08/23 09:00 O2 Flow Rate 8 06/08/23 09:00 FiO2 70 06/08/23 08:00 Oxygen Flow Rate 55 06/07/23 14:00 BMI result Body Mass Index 28.3 Const: General: no acute distress, alert and awake Eyes: Sclerae: sclerae normal EOM: EOMs intact bilaterally Neck: Neck: Yes no lymphadenopathy, Yes trachea midline and Yes supple Resp: Effort & Inspection: normal respiratory effort (On CPAP) Auscultation: crackles (Bilateral) Cardio: Rate: regular rate Rhythm: regular rhythm Heart sounds: no gallops, no murmurs and no rubs GI: Palpation (GI): Soft to palpation and Other GI palpation findings present ( Nontender) Auscultation: normal bowel sounds Extrem: General: Yes no pedal edema, No clubbing and No cyanosis Objective Data Labs 06/08/23 05:43 06/08/23 05:43 Labs: Laboratory Results - last 24 hr 06/07/23 06/07/23 06/07/23 05:02 11:49 17:58 WBC RBC Hgb Hct MCV MCH MCHC RDW Plt Count MPV Immature Gran % (Auto) Neut % (Auto) Lymph % (Auto) [place] % (Auto) Eos % (Auto) Baso % (Auto) Lymph # (Auto) [place] # (Auto) Eos # (Auto) Baso # (Auto) Abs Immat Gran (auto) Absolute Neuts (auto) Absolute Nucleated RBC Nucleated RBC % (auto) VBG pH VBG pCO2 VBG pO2 VBG HCO3 VBG O2 Saturation VBG Base Excess Sodium Potassium Chloride Carbon Dioxide Anion Gap BUN Creatinine Estim Creat Clear Calc Estimated GFR POC Glucose 230 H 239 H Random Glucose Calcium Phosphorus Magnesium Albumin Carcinoembryonic Ag 69.80 06/07/23 06/08/23 06/08/23 23:34 05:43 05:47 WBC 10.5 RBC 3.68 L Hgb 12.4 Hct 37.4 MCV 101.6 H MCH 33.7 H MCHC 33.2 RDW 13.5 Plt Count 276 MPV 10.7 Immature Gran % (Auto) 0.6 H Neut % (Auto) 85.0 H Lymph % (Auto) 10.4 L [place] % (Auto) 3.1 Eos % (Auto) 0.8 Baso % (Auto) 0.1 Lymph # (Auto) 1.1 L [place] # (Auto) 0.3 Eos # (Auto) 0.1 Baso # (Auto) 0.0 Abs Immat Gran (auto) 0.06 H Absolute Neuts (auto) 8.9 H Absolute Nucleated RBC 0.000 Nucleated RBC % (auto) 0.0 VBG pH 7.51 H VBG pCO2 27 VBG pO2 74 VBG HCO3 21 L VBG O2 Saturation 94.0 VBG Base Excess 0.2 Sodium 146 H Potassium 3.9 Chloride 112 H Carbon Dioxide 19 L Anion Gap 19 BUN 19 H Creatinine 0.75 Estim Creat Clear Calc 87.0 Estimated GFR > 60 POC Glucose 208 H Random Glucose 203 H Calcium 9.0 Phosphorus 2.8 Magnesium 2.3 Albumin 3.4 L Carcinoembryonic Ag 06/08/23 06:19 WBC RBC Hgb Hct MCV MCH MCHC RDW Plt Count MPV Immature Gran % (Auto) Neut % (Auto) Lymph % (Auto) [place] % (Auto) Eos % (Auto) Baso % (Auto) Lymph # (Auto) [place] # (Auto) Eos # (Auto) Baso # (Auto) Abs Immat Gran (auto) Absolute Neuts (auto) Absolute Nucleated RBC Nucleated RBC % (auto) VBG pH VBG pCO2 VBG pO2 VBG HCO3 VBG O2 Saturation VBG Base Excess Sodium Potassium Chloride Carbon Dioxide Anion Gap BUN Creatinine Estim Creat Clear Calc Estimated GFR POC Glucose 203 H Random Glucose Calcium Phosphorus Magnesium Albumin Carcinoembryonic Ag Microbiology Microbiology Results: Microbiology 06/02/23 06:06 Blood - Venous Blood Culture - Final No growth after 5 days. 06/02/23 06:06 Blood - Venous Blood Culture - Final No growth after 5 days. 06/02/23 Unknown Urine clean catch - Clean Catch Midstream Urine Culture - Final Progress Note: A&P Assessment and plan (1) Appendix carcinoma: Status: Acute (2) COVID-19: Status: Acute (3) Signet ring cell carcinoma: Status: Acute (4) Peritoneal carcinomatosis: Status: Acute (5) Acute respiratory failure with hypoxia: Status: Acute (6) COPD (chronic obstructive pulmonary disease): Status: Acute (7) SLE (systemic lupus erythematosus): Status: Acute (8) Congestive heart failure: Status: Acute (9) Diabetes: Status: Acute (10) PAF (paroxysmal atrial fibrillation): Status: Acute Plan Assessment: 58-year-old lady readmitted with abdominal pain secondary to appendicitis with 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 Plan: Neuro: No acute issues. Cardiac: No acute issues. Pulmonary: Acute hypoxic respiratory failure COVID-19 ARDS versus metastatic infiltrative processes. Not a candidate for bronchoscopic biopsy at this time secondary to high FiO2 requirements. Sputum cytology is pending. Continue to titrate off oxygen support as tolerated. No response to diuretic or systemic glucocrticods. Renal: No acute issues. Endo: No acute issues. GI: No acute issues. ID: COVID-[id number], now on remdesivir. Heme/Onc: Signet ring cell appendiceal cancer with peritoneal carcinomatosis with possible lung involvement. Oncology service care appreciated. Psych: No acute issues. Miscellaneous: No acute issues. Prophylaxis: Heparin Diet: Full liquid Critical care time spent: 45 minutes Quality Stroke Does the patient have a stroke diagnosis?: No VTE Prior VTE?: No VTE Risk Level:: Surgical - low VTE Device Contraindication: N/A - Device Ordered VTE Drug Contraindication: Treatment Not Indicated
[2023-06-08] MEDS: Nicotine 21 MG PATCH.TD24 TRANSDERMA (10:03)
[2023-06-08] MEDS: dexmedeTOMIDidine HCL/NS 400 MCG/100 ML INFUS..BTL 11.75 MCG IVCONT (10:03)
[2023-06-08 12:14] LABS: Glucose, Whole Blood 233 mg/dL (60-115)
[2023-06-08] MEDS: Acetaminophen 325 MG TABLET 650 MG PO (13:54)
[2023-06-08] MEDS: dexmedeTOMIDidine HCL/NS 400 MCG/100 ML INFUS..BTL 15.66 MCG IVCONT (16:52)
[2023-06-08 17:52] LABS: Glucose, Whole Blood 283 mg/dL (60-115)
[2023-06-08] MEDS: Remdesivir 100 MG in 0.9 % Sodium Chloride 230 ML 115 MG IV (20:10)
[2023-06-09] VITALS (38 sets, daily range): BP systolic 98–172; BP diastolic 35–73; PULSE 58–89; RESP 24–31; TEMP 35–37.1; O2SAT 85–95; BMI 27.5
[2023-06-09] LABS: Glucose, Whole Blood 202 mg/dL (60-115)
[2023-06-09] MEDS: Insulin Lispro 100 UNIT/ML 3 ML VIAL SUBCUT ×4 (00:36→20:28)
[2023-06-09] MEDS: Heparin Sodium,Porcine 5,000 UNIT/ML VIAL 5000 UNIT SUBCUT ×3 (00:36→17:25)
[2023-06-09] MEDS: HYDROmorphone HCl 0.5 MG/0.5 ML SYRINGE IVPUSH ×9 (00:37→23:09)
[2023-06-09] MEDS: dexmedeTOMIDidine HCL/NS 400 MCG/100 ML INFUS..BTL 15.66 MCG IVCONT (00:45)
[2023-06-09] MEDS: Lidocaine 4 % Patch ADH..PATCH 1 PATCH TRANSDERMA ×2 (01:56→11:38)
[2023-06-09 05:24] LABS: VBG Base Excess 1.7 mmol/L; VBG HCO3 23 mmol/L (22-26); VBG pCO2 27 mmHg; VBG pH 7.53 (7.32-7.43); VBG pO2 74 mmHg
[2023-06-09 05:30] LABS: Venous Blood Gas Refer to POC result
[2023-06-09 05:39] LABS: Glucose, Whole Blood 173 mg/dL (60-115)
[2023-06-09] MEDS: dexmedeTOMIDidine HCL/NS 400 MCG/100 ML INFUS..BTL 19.58 MCG IVCONT ×2 (05:41→10:58)
[2023-06-09 05:53] LABS: MANUAL DIFF FLAG NO
[2023-06-09 05:58] LABS: Basophils Percent Auto 0.2 % (0-2); Eosinophils Absolute Auto 0.3 X10*3/uL (0.0-0.4); Eosinophils Percent Auto 2.3 % (0-4); Hematocrit 37.1 % (37.0-47.0); Hemoglobin 12.3 g/dl (12.0-16.0); Imm Gran Abs Auto 0.11 X10*3/uL (0.00-0.03); Imm Gran Pct Auto 0.7 % (0.0-0.4); Lymphocytes Absolute Auto 1.7 X10*3/uL (1.2-4.9); Lymphocytes Percent Auto 11.4 % (20-40); Mean Corpuscular HGB Conc 33.2 g/dl (31.0-35.0); Mean Corpuscular Hemoglobin 33.3 pg (27.0-33.0); Mean Corpuscular Volume 100.5 fL (80.0-98.0); Mean Platelet Volume 11.1 fL (9.4-12.3); Monocytes Absolute Auto 0.3 X10*3/uL (0.1-1.2); Monocytes Percent Auto 2.2 % (2-11); Neutrophils Absolute Auto 12.4 x10*3/uL (2.0-8.3); Neutrophils Percent Auto 83.2 % (45-73); Platelet Count 263 X10*3/uL (160-400); Red Blood Count 3.69 X10*6/uL (4.20-5.50); Red Cell Distribution Width 13.4 % (11.0-16.0); White Blood Count 14.9 X10*3/uL (4.8-10.8)
[2023-06-09 06:16] LABS: Alanine Aminotransferase 23 U/L (0-31); Albumin Level 3.1 g/dL (3.5-5.0); Alkaline Phosphatase 110 U/L (39-117); Anion Gap 16 (12-20); Aspartate Amino Transferase 27 U/L (5-31); Bilirubin Total 0.4 mg/dL (0.0-1.0); Blood Urea Nitrogen 13 mg/dL (9-16); Calcium 8.7 mg/dL (8.4-10.2); Carbon Dioxide 20 mmol/L (22-29); Chloride 111 mmol/L (96-108); Creatinine Clr Calc Pharmacy 100.4; Estimated Glomerular Filt Rate > 60; Glucose Random 168 mg/dL (60-115); Phosphorus 2.7 mg/dL (2.7-4.5); Potassium 3.4 mmol/L (3.3-5.1); Sodium 144 mmol/L (135-145); Total Protein 6.5 g/dL (6.5-8.0)
[2023-06-09] MEDS: Nicotine 21 MG PATCH.TD24 TRANSDERMA (08:37)
--- NOTE | 2023-06-09 09:06 | P.PNCC_ITS ---
Subjective Subjective Date of Service: 06/09/23 Interval History: 58-year-old lady, active 40+ pack-year smoker, with advanced COPD followed by [facility] pulmonary, normally on Trelegy/albuterol MDI/ duo nebs, and not on home oxygen, also SLE, AFib, and congestive heart failure readmitted on 06/02/2023 with acute appendicitis, now status post laparoscopic appendectomy with hospital course further complicated by acute hypoxic respiratory failure, now on 4-6 L of supplemental oxygen, with CT chest showing upper lobe predominant emphysema and ground-glass opacities. Hospital course significant for progressive dyspnea. Patient with no response to diuresis on empiric systemic glucocorticoids. Also COVID-19 positive. Secondary to high FiO2 requirements, now high flow 80%, transferred to intensive care unit for close monitoring. 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 No events overnight. FiO2 requirements continue to remain high. Critical Care Time (minutes): 45 Physical Exam 2 Vital Signs: Vital Signs: Last Vital Signs Temp 98.4 F 06/09/23 08:00 Pulse 75 06/09/23 09:00 Resp 28 H 06/09/23 09:00 BP 120/48 L 06/09/23 09:00 Pulse Ox 90 L 06/09/23 09:00 O2 Del Method High Flow Nasal C annula 06/09/23 09:00 O2 Flow Rate 60 06/09/23 09:00 FiO2 90 06/09/23 09:00 Oxygen Flow Rate 55 06/08/23 14:00 BMI result Body Mass Index 27.5 Const: General: no acute distress, alert and awake Eyes: Sclerae: sclerae normal EOM: EOMs intact bilaterally Neck: Neck: Yes no lymphadenopathy, Yes trachea midline and Yes supple Resp: Effort & Inspection: normal respiratory effort and no respiratory distress Auscultation: crackles ( diffuse bilateral) Cardio: Rate: regular rate Rhythm: regular rhythm Heart sounds: no gallops, no murmurs and no rubs GI: Palpation (GI): Soft to palpation and Other GI palpation findings present ( Nontender) Auscultation: normal bowel sounds Extrem: General: No clubbing, No cyanosis and Yes edema (1+ bilateral) Objective Data Labs 06/09/23 05:18 06/09/23 05:18 Labs: Laboratory Results - last 24 hr 06/08/23 06/08/23 06/08/23 12:10 17:48 23:55 WBC RBC Hgb Hct MCV MCH MCHC RDW Plt Count MPV Immature Gran % (Auto) Neut % (Auto) Lymph % (Auto) [place] % (Auto) Eos % (Auto) Baso % (Auto) Lymph # (Auto) [place] # (Auto) Eos # (Auto) Baso # (Auto) Abs Immat Gran (auto) Absolute Neuts (auto) Absolute Nucleated RBC Nucleated RBC % (auto) VBG pH VBG pCO2 VBG pO2 VBG HCO3 VBG O2 Saturation VBG Base Excess Sodium Potassium Chloride Carbon Dioxide Anion Gap BUN Creatinine Estim Creat Clear Calc Estimated GFR POC Glucose 233 H 283 H 202 H Random Glucose Calcium Phosphorus Magnesium Total Bilirubin AST ALT Alkaline Phosphatase Total Protein Albumin 06/09/23 06/09/23 05:18 05:33 WBC 14.9 H RBC 3.69 L Hgb 12.3 Hct 37.1 MCV 100.5 H MCH 33.3 H MCHC 33.2 RDW 13.4 Plt Count 263 MPV 11.1 Immature Gran % (Auto) 0.7 H Neut % (Auto) 83.2 H Lymph % (Auto) 11.4 L [place] % (Auto) 2.2 Eos % (Auto) 2.3 Baso % (Auto) 0.2 Lymph # (Auto) 1.7 [place] # (Auto) 0.3 Eos # (Auto) 0.3 Baso # (Auto) 0.0 Abs Immat Gran (auto) 0.11 H Absolute Neuts (auto) 12.4 H Absolute Nucleated RBC 0.000 Nucleated RBC % (auto) 0.0 VBG pH 7.53 H VBG pCO2 27 VBG pO2 74 VBG HCO3 23 VBG O2 Saturation 95.0 VBG Base Excess 1.7 Sodium 144 Potassium 3.4 Chloride 111 H Carbon Dioxide 20 L Anion Gap 16 BUN 13 Creatinine 0.65 Estim Creat Clear Calc 100.4 Estimated GFR > 60 POC Glucose 173 H Random Glucose 168 H Calcium 8.7 Phosphorus 2.7 Magnesium 2.0 Total Bilirubin 0.4 AST 27 ALT 23 Alkaline Phosphatase 110 Total Protein 6.5 Albumin 3.1 L Microbiology Microbiology Results: Microbiology 06/02/23 06:06 Blood - Venous Blood Culture - Final No growth after 5 days. 06/02/23 06:06 Blood - Venous Blood Culture - Final No growth after 5 days. 06/02/23 Unknown Urine clean catch - Clean Catch Midstream Urine Culture - Final Progress Note: A&P Assessment and plan (1) Appendix carcinoma: Status: Acute (2) COVID-19: Status: Acute (3) Signet ring cell carcinoma: Status: Acute (4) Peritoneal carcinomatosis: Status: Acute (5) Acute respiratory failure with hypoxia: Status: Acute (6) COPD (chronic obstructive pulmonary disease): Status: Acute (7) SLE (systemic lupus erythematosus): Status: Acute (8) Congestive heart failure: Status: Acute (9) Diabetes: Status: Acute (10) PAF (paroxysmal atrial fibrillation): Status: Acute Plan Assessment: 58-year-old lady readmitted with abdominal pain secondary to appendicitis with 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 Plan: Neuro: No acute issues. Cardiac: No acute issues. underlying congestive AFib. Pulmonary: Acute hypoxic respiratory failure COVID-19 ARDS versus metastatic infiltrative processes. Not a candidate for bronchoscopic biopsy at this time secondary to high FiO2 requirements. Sputum cytology is pending. Continue to titrate off oxygen support as tolerated. No response to diuretic or systemic glucocrticods. Renal: No acute issues. Endo: No acute issues. GI: No acute issues. ID: COVID-19, now on remdesivir. Heme/Onc: Signet ring cell appendiceal cancer with peritoneal carcinomatosis with possible lung involvement. Oncology service care appreciated. Psych: No acute issues. Miscellaneous: No acute issues. Prophylaxis: Heparin Diet: Full liquid Critical care time spent: 45 minutes Quality Stroke Does the patient have a stroke diagnosis?: No VTE Prior VTE?: No VTE Risk Level:: Surgical - low VTE Device Contraindication: N/A - Device Ordered VTE Drug Contraindication: Treatment Not Indicated
[2023-06-09] MEDS: Acetaminophen 325 MG TABLET 650 MG PO ×2 (10:27→19:08)
[2023-06-09 11:56] LABS: Glucose, Whole Blood 393 mg/dL (60-115)
[2023-06-09] MEDS: Norepinephrine Bitartrate/D5W 8 MG/250 ML PLAST..BAG 7.34 MG IV (14:00)
[2023-06-09] MEDS: dexmedeTOMIDidine HCL/NS 400 MCG/100 ML INFUS..BTL 29.36 MCG IVCONT ×3 (15:27→21:53)
[2023-06-09 16:03] LABS: Glucose, Whole Blood 165 mg/dL (60-115)
--- NOTE | 2023-06-09 17:43 | PC.NURSE ---
At approximately 1400, pt reported feeling lightheadedness and having a major anxiety episode, during this time, pt's BP was low, restarted IV Levophed gtt, IV Precedex gtt titrated up per policy, O2 Sat in the mid 80s, titrated HFNC from 90% to 100%. Pt's HR stable otherwise. MD aware of this. RT made aware and at bedside, trialled back on CPAP as well as BiPAP with no comfort however for the pt. Pt back on the HFNC on 60L at 100%. Pt is currently resting in bed with no acute distress. IV Levophed is paused for the time being, BP and MAP stable. Pt bathed this shift, skin care provided, and repositioned every 2 hrs and as needed. Bed alarm on, call mabry within reach. On Enhanced respiratory precaution for COVID+. Will continue with plan of care.
[2023-06-09] MEDS: Remdesivir 100 MG in 0.9 % Sodium Chloride 230 ML 115 MG IV (20:17)
[2023-06-09 20:27] LABS: Glucose, Whole Blood 328 mg/dL (60-115)
[2023-06-09] MEDS: LORazepam 2 MG/ML VIAL 0.25 MG IVPUSH (22:12)
[2023-06-09] MEDS: LORazepam 2 MG/ML VIAL 0.5 MG IVPUSH (23:00)
[2023-06-09] MEDS: Haloperidol Lactate 5 MG/ML VIAL IVPUSH (23:32)
[2023-06-10] VITALS (34 sets, daily range): BP systolic 108–166; BP diastolic 40–70; PULSE 68–111; RESP 21–32; TEMP 35–38.8; O2SAT 88–95; BMI 27.8
--- NOTE | 2023-06-10 | ECG_ITS ---
Test Reason : tachy prolonged qt Blood Pressure : / mmHG Vent. Rate : 086 BPM Atrial Rate : 086 BPM P-R Int : 142 ms QRS Dur : 080 ms QT Int : 418 ms P-R-T Axes : 059 -03 018 degrees QTc Int : 500 ms Normal sinus rhythm Nonspecific ST abnormality Abnormal ECG When compared with ECG of 04-JUN-2023 12:03, QRS duration has decreased Referred By: Yumiko Jacob Electronically Signed By:MEL HERNANDEZ
[2023-06-10] MEDS: dexmedeTOMIDidine HCL/NS 400 MCG/100 ML INFUS..BTL 29.36 MCG IVCONT ×7 (01:07→19:49)
[2023-06-10] MEDS: Heparin Sodium,Porcine 5,000 UNIT/ML VIAL 5000 UNIT SUBCUT ×3 (01:07→17:43)
[2023-06-10] MEDS: HYDROmorphone HCl 0.5 MG/0.5 ML SYRINGE IVPUSH ×9 (02:08→22:22)
[2023-06-10 04:47] LABS: VBG Base Excess 0.1 mmol/L; VBG HCO3 21 mmol/L (22-26); VBG pCO2 25 mmHg; VBG pH 7.53 (7.32-7.43); VBG pO2 60 mmHg
[2023-06-10 04:51] LABS: Venous Blood Gas Refer to POC result
[2023-06-10 04:59] LABS: MANUAL DIFF FLAG NO
[2023-06-10 05:00] LABS: Basophils Percent Auto 0.1 % (0-2); Eosinophils Absolute Auto 0.3 X10*3/uL (0.0-0.4); Eosinophils Percent Auto 2.2 % (0-4); Hematocrit 36.5 % (37.0-47.0); Hemoglobin 12.5 g/dl (12.0-16.0); Imm Gran Abs Auto 0.13 X10*3/uL (0.00-0.03); Lymphocytes Absolute Auto 1.3 X10*3/uL (1.2-4.9); Mean Corpuscular HGB Conc 34.2 g/dl (31.0-35.0); Mean Corpuscular Hemoglobin 33.7 pg (27.0-33.0); Mean Corpuscular Volume 98.4 fL (80.0-98.0); Mean Platelet Volume 10.8 fL (9.4-12.3); Monocytes Absolute Auto 0.3 X10*3/uL (0.1-1.2); Monocytes Percent Auto 2.1 % (2-11); Neutrophils Absolute Auto 11.3 x10*3/uL (2.0-8.3); Neutrophils Percent Auto 84.6 % (45-73); Platelet Count 228 X10*3/uL (160-400); Red Blood Count 3.71 X10*6/uL (4.20-5.50); Red Cell Distribution Width 13.4 % (11.0-16.0); White Blood Count 13.4 X10*3/uL (4.8-10.8)
[2023-06-10 05:14] LABS: Alanine Aminotransferase 17 U/L (0-31); Albumin Level 2.7 g/dL (3.5-5.0); Alkaline Phosphatase 154 U/L (39-117); Anion Gap 17 (12-20); Aspartate Amino Transferase 21 U/L (5-31); Bilirubin Total 0.5 mg/dL (0.0-1.0); Blood Urea Nitrogen 8 mg/dL (9-16); Calcium 8.2 mg/dL (8.4-10.2); Carbon Dioxide 17 mmol/L (22-29); Chloride 110 mmol/L (96-108); Creatinine Clr Calc Pharmacy 103.7; Estimated Glomerular Filt Rate > 60; Glucose Random 235 mg/dL (60-115); Magnesium 1.7 mg/dL (1.6-2.6); Phosphorus 2.4 mg/dL (2.7-4.5); Potassium 3.9 mmol/L (3.3-5.1); Sodium 140 mmol/L (135-145); Total Protein 6.1 g/dL (6.5-8.0)
[2023-06-10] MEDS: Albumin Human 25 % 100 ML IV ×2 (05:36→06:36)
--- NOTE | 2023-06-10 07:34 | P.PNCC_ITS ---
Subjective Subjective Date of Service: 06/10/23 Interval History: no significant interval events; continues to have high oxygen requirement Critical Care Time (minutes): 90 Physical Exam 2 Vital Signs: Vital Signs: Last Vital Signs Temp 101.8 F H 06/10/23 07:00 Pulse 80 06/10/23 07:00 Resp 26 H 06/10/23 07:00 BP 140/56 H 06/10/23 07:00 Pulse Ox 92 06/10/23 07:00 O2 Del Method CPAP 06/10/23 07:00 O2 Flow Rate 60 06/09/23 19:49 FiO2 75 06/10/23 07:00 Oxygen Flow Rate 60 06/09/23 14:00 BMI result Body Mass Index 27.8 Const: General: cooperative, well developed, alert and awake O rientation/consciousness: oriented to person, oriented to place and oriented to time HEENT: Head: Yes normal to inspection, Yes normocephalic and Yes atraumatic Eyes: General: appearance normal, both eyes and all related structures P upils: Equal, round and reactive pupils present Neck: Neck: Yes normal visual inspection and Yes full ROM Chest: Chest palpation & inspection: normal inspection of the chest Resp: Effort & Inspection: labored and tachypneic Auscultation: rhonchi Cardio: Rate: regular rate Rhythm: regular rhythm GI: Palpation (GI): Soft to palpation, no guarding, not rigid and No Rebound tenderness present Skin: General skin exam: no rashes or lesions noted Neuro: General: oriented to person, oriented to place and oriented to time Cranial nerves: Yes Equal, round and reactive pupils present Cognition (Neuro): normal cognition Extrem: General: Yes normal to inspection Psych: Affect: Sad affect present Objective Data Labs 06/10/23 04:39 06/10/23 04:39 Labs: Laboratory Results - last 24 hr 06/09/23 06/09/23 06/09/23 11:52 15:58 20:21 WBC RBC Hgb Hct MCV MCH MCHC RDW Plt Count MPV Immature Gran % (Auto) Neut % (Auto) Lymph % (Auto) [place] % (Auto) Eos % (Auto) Baso % (Auto) Lymph # (Auto) [place] # (Auto) Eos # (Auto) Baso # (Auto) Abs Immat Gran (auto) Absolute Neuts (auto) Absolute Nucleated RBC Nucleated RBC % (auto) VBG pH VBG pCO2 VBG pO2 VBG HCO3 VBG O2 Saturation VBG Base Excess Sodium Potassium Chloride Carbon Dioxide Anion Gap BUN Creatinine Estim Creat Clear Calc Estimated GFR POC Glucose 393 H* 165 H 328 H Random Glucose Calcium Phosphorus Magnesium Total Bilirubin AST ALT Alkaline Phosphatase Total Protein Albumin 06/10/23 06/10/23 04:39 04:41 WBC 13.4 H RBC 3.71 L Hgb 12.5 Hct 36.5 L MCV 98.4 H MCH 33.7 H MCHC 34.2 RDW 13.4 Plt Count 228 MPV 10.8 Immature Gran % (Auto) 1.0 H Neut % (Auto) 84.6 H Lymph % (Auto) 10.0 L [place] % (Auto) 2.1 Eos % (Auto) 2.2 Baso % (Auto) 0.1 Lymph # (Auto) 1.3 [place] # (Auto) 0.3 Eos # (Auto) 0.3 Baso # (Auto) 0.0 Abs Immat Gran (auto) 0.13 H Absolute Neuts (auto) 11.3 H Absolute Nucleated RBC 0.000 Nucleated RBC % (auto) 0.0 VBG pH 7.53 H VBG pCO2 25 VBG pO2 60 VBG HCO3 21 L VBG O2 Saturation 89.0 VBG Base Excess 0.1 Sodium 140 Potassium 3.9 Chloride 110 H Carbon Dioxide 17 L Anion Gap 17 BUN 8 L Creatinine 0.62 Estim Creat Clear Calc 103.7 Estimated GFR > 60 POC Glucose Random Glucose 235 H Calcium 8.2 L Phosphorus 2.4 L Magnesium 1.7 Total Bilirubin 0.5 AST 21 ALT 17 Alkaline Phosphatase 154 H Total Protein 6.1 L Albumin 2.7 L Microbiology Microbiology Results: Microbiology 06/02/23 06:06 Blood - Venous Blood Culture - Final No growth after 5 days. 06/02/23 06:06 Blood - Venous Blood Culture - Final No growth after 5 days. 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 (4) Peritoneal carcinomatosis: Status: Acute (5) Acute respiratory failure with hypoxia: Status: Acute (6) COPD (chronic obstructive pulmonary disease): Status: Acute Plan Assessment: Patient is a 58 Y F with severe COPD, followed by pulmonology at [facility], type 2 diabetes mellitus, paraoxysmal atrial fibrillation, congestive heart failure, and SLE, initially presenting on 06/02 with abdominal pain, concerning for acute appendicitis, status post laparoscopic appendectomy on 06/02 with biopsy concerning for signet cell carcinoma, 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; hospital course complicated by acute hypoxic respiratory failure, found to have COVID pneumonia, admitted ICU given oxygen requirement of high flow nasal cannula Plan: N: anxiety, dexmedetomidine gtt, haloperidol PRN; to monitor QTc closely CV: hemodynamically stable; paroxysmal atrial fibrillation, currently sinus rhythm R: acute hypoxic respiratory failure, likely multifactorial, due to COVID pneumonia, COPD; to continue remdesivir GI: appendicitis, found to have 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
[2023-06-10] MEDS: Acetaminophen 325 MG TABLET 650 MG PO (07:37)
[2023-06-10] MEDS: Insulin Lispro 100 UNIT/ML 3 ML VIAL SUBCUT ×2 (07:38→22:07)
[2023-06-10 07:51] LABS: Glucose, Whole Blood 205 mg/dL (60-115)
[2023-06-10] MEDS: Lidocaine 4 % Patch ADH..PATCH 1 PATCH TRANSDERMA (07:56)
[2023-06-10] MEDS: Nicotine 21 MG PATCH.TD24 TRANSDERMA (08:21)
--- NOTE | 2023-06-10 08:34 | PC.NURSE ---
pt removed from c pap around 0730 this am to nasal high flow with the addition of non rebreather at 15L to maintain a stat in mid 80s. tylenol given for temp 102. provider and myslef at bedside speak to pt about code status and confirm dnr/ dni status. pt is asking for pain and anxiety medication, medicated. pt then cleased for incont. pt does not tolerate moving well and is now at 77% for several minutes, increased anxiety, hear rate, increased work of breathing. pt is asking for c pap back.
--- NOTE | 2023-06-10 09:22 | W.MHC.ACPN ---
Advanced Care Planning Note Advanced Care Planning Note Discussed with: patient Time spent (in minutes): 30 Narrative: I introduced myself to Ms. Gaines this morning. She was alert and oriented to person, place, time, and situation. I offered her any clarification to her hospital course and clinical status. I re-iterated her unfortunate new diagnosis of metastatic cancer. We discussed intubation/ventilation and cardiopulmonary resuscitation. Given her diagnosis of metastatic cancer, Ms. Gaines questioned the utility of intubation/ventilation and cardiopulmonary resuscitation. After further discussion of her wishes, Ms. Gaines decided to change her code status to DNI/DNR. However, Ms. Gaines would be willing to continue her current oxygen support, including high-flow nasal cannula and CPAP. I offered to discuss possible next steps, including comfort-focused care, at a later time, which Ms. Gaines was receptive to. Ms. Gaines would like to me update her later today. Problems Discussed (1) COVID-19: (2) Appendix carcinoma: (3) Signet ring cell carcinoma: (4) Peritoneal carcinomatosis: (5) Acute respiratory failure with hypoxia: (6) COPD (chronic obstructive pulmonary disease):
--- NOTE | 2023-06-10 09:53 | MHC.CLN ---
F/U PT WITH INCREASED NUTRITION RISK R/T PRESSURE INJURY DIET ADVANCED TO REGULAR RECOMMEND ADDING ENSURE MAX BID TO PROMOTE WOUND HEALING SUPP TO PROVIDE 300KCALS, 60G PROTEIN MONITOR PO INTAKE CLOSELY
[2023-06-10] MEDS: Potassium Phosphate/NS 15 MMOL/250 ML PLAST..BAG 62.5 MMOL IV (10:28)
[2023-06-10] MEDS: Acetaminophen 1,000 MG/100 ML PIGGYBACK 400 MG IV ×2 (10:31→18:10)
[2023-06-10 11:29] LABS: Glucose, Whole Blood 221 mg/dL (60-115)
--- NOTE | 2023-06-10 12:35 | PC.NURSE ---
pt has poor tolerance of any movement with significant increase in work of breathing and de saturation with jaylen levels of anxiety. respiratory at bedside takes her off bipap and on to cpcp however pt does not tolerate well. moved to bipap again with insp pressure of 13 peep 8 with good effect. sat 93%
[2023-06-10] MEDS: LORazepam 2 MG/ML VIAL 1 MG IVPUSH (15:43)
[2023-06-10 16:37] LABS: Glucose, Whole Blood 225 mg/dL (60-115)
[2023-06-10] MEDS: Remdesivir 100 MG in 0.9 % Sodium Chloride 230 ML 115 MG IV (19:48)
[2023-06-10 20:11] LABS: MANUAL DIFF FLAG NO
[2023-06-10 20:13] LABS: Basophils Percent Auto 0.2 % (0-2); Eosinophils Absolute Auto 0.3 X10*3/uL (0.0-0.4); Hematocrit 36.3 % (37.0-47.0); Hemoglobin 12.2 g/dl (12.0-16.0); Imm Gran Abs Auto 0.13 X10*3/uL (0.00-0.03); Imm Gran Pct Auto 0.9 % (0.0-0.4); Lymphocytes Absolute Auto 1.3 X10*3/uL (1.2-4.9); Lymphocytes Percent Auto 8.7 % (20-40); Mean Corpuscular HGB Conc 33.6 g/dl (31.0-35.0); Mean Corpuscular Hemoglobin 33.3 pg (27.0-33.0); Mean Corpuscular Volume 99.2 fL (80.0-98.0); Mean Platelet Volume 11.1 fL (9.4-12.3); Monocytes Absolute Auto 0.4 X10*3/uL (0.1-1.2); Monocytes Percent Auto 2.5 % (2-11); Neutrophils Absolute Auto 12.5 x10*3/uL (2.0-8.3); Neutrophils Percent Auto 85.7 % (45-73); Platelet Count 202 X10*3/uL (160-400); Red Blood Count 3.66 X10*6/uL (4.20-5.50); Red Cell Distribution Width 13.3 % (11.0-16.0); White Blood Count 14.6 X10*3/uL (4.8-10.8)
[2023-06-10 20:15] LABS: VBG Base Excess 0.6 mmol/L; VBG HCO3 21 mmol/L (22-26); VBG pCO2 23 mmHg; VBG pH 7.56 (7.32-7.43); VBG pO2 136 mmHg
[2023-06-10 20:20] LABS: Venous Blood Gas Refer to POC result
[2023-06-10 20:29] LABS: Alanine Aminotransferase 11 U/L (0-31); Albumin Level 3.4 g/dL (3.5-5.0); Alkaline Phosphatase 160 U/L (39-117); Anion Gap 19 (12-20); Aspartate Amino Transferase 20 U/L (5-31); Bilirubin Total 0.7 mg/dL (0.0-1.0); Blood Urea Nitrogen 8 mg/dL (9-16); Calcium 8.5 mg/dL (8.4-10.2); Carbon Dioxide 19 mmol/L (22-29); Chloride 106 mmol/L (96-108); Estimated Glomerular Filt Rate > 60; Glucose Random 246 mg/dL (60-115); Potassium 3.8 mmol/L (3.3-5.1); Sodium 140 mmol/L (135-145); Total Protein 6.5 g/dL (6.5-8.0)
[2023-06-10 21:18] LABS: Glucose, Whole Blood 221 mg/dL (60-115)
[2023-06-10] MEDS: Haloperidol Lactate 5 MG/ML VIAL 1 MG IVPUSH (21:19)
[2023-06-11] VITALS (31 sets, daily range): BP systolic 114–175; BP diastolic 48–92; PULSE 74–136; RESP 21–34; TEMP 35–39.3; O2SAT 71–94; BMI 27.6
[2023-06-11] MEDS: Acetaminophen 1,000 MG/100 ML PIGGYBACK 400 MG IV ×4 (00:46→23:31)
[2023-06-11] MEDS: HYDROmorphone HCl 0.5 MG/0.5 ML SYRINGE IVPUSH ×3 (00:47→05:13)
[2023-06-11] MEDS: Heparin Sodium,Porcine 5,000 UNIT/ML VIAL 5000 UNIT SUBCUT ×3 (00:47→16:39)
[2023-06-11] MEDS: LORazepam 2 MG/ML VIAL 1 MG IVPUSH ×5 (03:46→21:16)
[2023-06-11] MEDS: dexmedeTOMIDidine HCL/NS 400 MCG/100 ML INFUS..BTL 23.49 MCG IVCONT ×2 (03:55)
[2023-06-11 04:48] LABS: VBG Base Excess -1.2 mmol/L; VBG HCO3 20 mmol/L (22-26); VBG pCO2 26 mmHg; VBG pO2 71 mmHg
[2023-06-11 04:53] LABS: Venous Blood Gas Refer to POC result
[2023-06-11 05:09] LABS: MANUAL DIFF FLAG NO
[2023-06-11 05:13] LABS: Basophils Percent Auto 0.1 % (0-2); Eosinophils Absolute Auto 0.3 X10*3/uL (0.0-0.4); Eosinophils Percent Auto 1.8 % (0-4); Hematocrit 35.4 % (37.0-47.0); Hemoglobin 11.9 g/dl (12.0-16.0); Imm Gran Abs Auto 0.11 X10*3/uL (0.00-0.03); Imm Gran Pct Auto 0.8 % (0.0-0.4); Lymphocytes Absolute Auto 1.7 X10*3/uL (1.2-4.9); Lymphocytes Percent Auto 11.9 % (20-40); Mean Corpuscular HGB Conc 33.6 g/dl (31.0-35.0); Mean Corpuscular Hemoglobin 33.1 pg (27.0-33.0); Mean Corpuscular Volume 98.6 fL (80.0-98.0); Monocytes Absolute Auto 0.3 X10*3/uL (0.1-1.2); Monocytes Percent Auto 2.4 % (2-11); Neutrophils Absolute Auto 11.5 x10*3/uL (2.0-8.3); Platelet Count 200 X10*3/uL (160-400); Red Blood Count 3.59 X10*6/uL (4.20-5.50); Red Cell Distribution Width 13.2 % (11.0-16.0); White Blood Count 13.9 X10*3/uL (4.8-10.8)
[2023-06-11 05:29] LABS: Alanine Aminotransferase 13 U/L (0-31); Albumin Level 3.1 g/dL (3.5-5.0); Alkaline Phosphatase 164 U/L (39-117); Anion Gap 17 (12-20); Aspartate Amino Transferase 19 U/L (5-31); Bilirubin Total 0.6 mg/dL (0.0-1.0); Blood Urea Nitrogen 8 mg/dL (9-16); Calcium 8.4 mg/dL (8.4-10.2); Carbon Dioxide 18 mmol/L (22-29); Chloride 108 mmol/L (96-108); Creatinine Clr Calc Pharmacy 107.8; Estimated Glomerular Filt Rate > 60; Glucose Random 167 mg/dL (60-115); Magnesium 1.8 mg/dL (1.6-2.6); Phosphorus 2.6 mg/dL (2.7-4.5); Potassium 3.3 mmol/L (3.3-5.1); Sodium 140 mmol/L (135-145); Total Protein 6.3 g/dL (6.5-8.0)
[2023-06-11] MEDS: HYDROmorphone HCl 1 MG/ML SYRINGE IVPUSH ×7 (05:49→23:32)
[2023-06-11] MEDS: Potassium Phosphate/NS 15 MMOL/250 ML PLAST..BAG 62.5 MMOL IV ×2 (07:48→12:19)
[2023-06-11] MEDS: Haloperidol Lactate 5 MG/ML VIAL 1 MG IVPUSH ×2 (07:48→12:53)
[2023-06-11] MEDS: dexmedeTOMIDidine HCL/NS 400 MCG/100 ML INFUS..BTL 29.36 MCG IVCONT ×5 (07:48→21:17)
[2023-06-11] MEDS: Nicotine 21 MG PATCH.TD24 TRANSDERMA (07:48)
[2023-06-11] MEDS: Lidocaine 4 % Patch ADH..PATCH 1 PATCH TRANSDERMA (07:48)
[2023-06-11] MEDS: Insulin Lispro 100 UNIT/ML 3 ML VIAL SUBCUT (07:48)
[2023-06-11 08:05] LABS: Glucose, Whole Blood 195 mg/dL (60-115)
--- NOTE | 2023-06-11 08:36 | P.PNCC_ITS ---
Subjective Subjective Date of Service: 06/11/23 Interval History: no acute overnight events Critical Care Time (minutes): 90 Physical Exam 2 Vital Signs: Vital Signs: Last Vital Signs Temp 102.2 F H 06/11/23 08:00 Pulse 115 H 06/11/23 08:00 Resp 34 H 06/11/23 08:00 BP 152/84 H 06/11/23 08:00 Pulse Ox 84 L 06/11/23 08:00 O2 Del Method CPAP 06/11/23 08:00 O2 Flow Rate 60 06/10/23 12:00 FiO2 100 06/11/23 08:11 Oxygen Flow Rate 60 06/09/23 14:00 BMI result Body Mass Index 27.6 Const: Other: intermittently anxious General: cooperative, alert, awake and Physically active O rientation/consciousness: patient oriented x3 HEENT: Head: Yes normal to inspection, Yes normocephalic and Yes atraumatic Eyes: General: appearance normal, both eyes and all related structures P upils: Equal, round and reactive pupils present Neck: Neck: Yes normal visual inspection and Yes full ROM Chest: Chest palpation & inspection: normal inspection of the chest Resp: Other: appreciable rhonchi and mild wheezing, left greater than right Effort & Inspection: labored Cardio: Rate: tachycardic Rhythm: regular rhythm GI: Inspection: Yes normal to inspection and No distended Palpation (GI): S oft to palpation, not firm, nontender, no guarding and not rigid Skin: General skin exam: no rashes or lesions noted Neuro: General: patient oriented x3 Cranial nerves: Yes Equal, round and reactive pupils present Extrem: General: Yes normal to inspection, Yes full ROM and Yes capillary refill normal Psych: Other: intermittently anxious and tearful Objective Data Labs 06/11/23 04:34 06/11/23 04:34 Labs: Laboratory Results - last 24 hr 06/10/23 06/10/23 06/10/23 11:26 16:31 19:59 WBC 14.6 H RBC 3.66 L Hgb 12.2 Hct 36.3 L MCV 99.2 H MCH 33.3 H MCHC 33.6 RDW 13.3 Plt Count 202 MPV 11.1 Immature Gran % (Auto) 0.9 H Neut % (Auto) 85.7 H Lymph % (Auto) 8.7 L [place] % (Auto) 2.5 Eos % (Auto) 2.0 Baso % (Auto) 0.2 Lymph # (Auto) 1.3 [place] # (Auto) 0.4 Eos # (Auto) 0.3 Baso # (Auto) 0.0 Abs Immat Gran (auto) 0.13 H Absolute Neuts (auto) 12.5 H Absolute Nucleated RBC 0.000 Nucleated RBC % (auto) 0.0 VBG pH VBG pCO2 VBG pO2 VBG HCO3 VBG O2 Saturation VBG Base Excess Sodium 140 Potassium 3.8 Chloride 106 Carbon Dioxide 19 L Anion Gap 19 BUN 8 L Creatinine 0.61 Estim Creat Clear Calc 106.0 Estimated GFR > 60 POC Glucose 221 H 225 H Random Glucose 246 H Calcium 8.5 Phosphorus Magnesium Total Bilirubin 0.7 AST 20 ALT 11 Alkaline Phosphatase 160 H Total Protein 6.5 Albumin 3.4 L 06/10/23 06/10/23 06/11/23 20:08 21:14 04:34 WBC 13.9 H RBC 3.59 L Hgb 11.9 L Hct 35.4 L MCV 98.6 H MCH 33.1 H MCHC 33.6 RDW 13.2 Plt Count 200 MPV 11.0 Immature Gran % (Auto) 0.8 H Neut % (Auto) 83.0 H Lymph % (Auto) 11.9 L [place] % (Auto) 2.4 Eos % (Auto) 1.8 Baso % (Auto) 0.1 Lymph # (Auto) 1.7 [place] # (Auto) 0.3 Eos # (Auto) 0.3 Baso # (Auto) 0.0 Abs Immat Gran (auto) 0.11 H Absolute Neuts (auto) 11.5 H Absolute Nucleated RBC 0.000 Nucleated RBC % (auto) 0.0 VBG pH 7.56 H VBG pCO2 23 VBG pO2 136 VBG HCO3 21 L VBG O2 Saturation 99.0 VBG Base Excess 0.6 Sodium 140 Potassium 3.3 Chloride 108 Carbon Dioxide 18 L Anion Gap 17 BUN 8 L Creatinine 0.60 Estim Creat Clear Calc 107.8 Estimated GFR > 60 POC Glucose 221 H Random Glucose 167 H Calcium 8.4 Phosphorus 2.6 L Magnesium 1.8 Total Bilirubin 0.6 AST 19 ALT 13 Alkaline Phosphatase 164 H Total Protein 6.3 L Albumin 3.1 L 06/11/23 06/11/23 04:44 07:32 WBC RBC Hgb Hct MCV MCH MCHC RDW Plt Count MPV Immature Gran % (Auto) Neut % (Auto) Lymph % (Auto) [place] % (Auto) Eos % (Auto) Baso % (Auto) Lymph # (Auto) [place] # (Auto) Eos # (Auto) Baso # (Auto) Abs Immat Gran (auto) Absolute Neuts (auto) Absolute Nucleated RBC Nucleated RBC % (auto) VBG pH 7.50 H VBG pCO2 26 VBG pO2 71 VBG HCO3 20 L VBG O2 Saturation 94.0 VBG Base Excess -1.2 Sodium Potassium Chloride Carbon Dioxide Anion Gap BUN Creatinine Estim Creat Clear Calc Estimated GFR POC Glucose 195 H Random Glucose Calcium Phosphorus Magnesium Total Bilirubin AST ALT Alkaline Phosphatase Total Protein Albumin Microbiology Microbiology Results: Microbiology 06/02/23 06:06 Blood - Venous Blood Culture - Final No growth after 5 days. 06/02/23 06:06 Blood - Venous Blood Culture - Final No growth after 5 days. 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 (2) Peritoneal carcinomatosis: Status: Acute (3) Acute respiratory failure with hypoxia: Status: Acute (4) COPD (chronic obstructive pulmonary disease): Status: Acute (5) SLE (systemic lupus erythematosus): Status: Acute Plan Assessment: Patient is a 58 Y F with severe COPD, followed by pulmonology at [facility], type 2 diabetes mellitus, paraoxysmal atrial fibrillation, congestive heart failure, and SLE, initially presenting on 06/02 with abdominal pain, concerning for acute appendicitis, status post laparoscopic appendectomy on 06/02 with biopsy concerning for signet cell carcinoma, 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; hospital course complicated by acute hypoxic respiratory failure, found to have COVID pneumonia Plan: N: anxiety, dexmedetomidine gtt, haloperidol and lorazepam PRN; to monitor QTc closely CV: hemodynamically stable; paroxysmal atrial fibrillation, currently sinus tachycardia R: acute hypoxic respiratory failure, likely multifactorial, due to COVID pneumonia, COPD; s/p remdesivir GI: appendicitis, 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
--- NOTE | 2023-06-11 11:26 | W.MHC.ACPN ---
Advanced Care Planning Note Advanced Care Planning Note Discussed with: patient Time spent (in minutes): 30 Narrative: Ms. Gaines was alert, oriented to person, place, and time. With nursing and respiratory therapy in the room, we removed Ms. Gaines's BiPAP mask to speak with her about next steps in her care. I offered her updates and clarifications about her current clinical status, which unfortunately remains critical and guarded. I described comfort-focused care, which focuses on her symptom management and avoidance of interventions that case discomfort, including the BiPAP. However, I expressed that without the BiPAP, Ms. Gaines will likely . Ms. Gaines expressed understanding of this. In response, she expressed that she was tired of these interventions. I offered to call her to encourage him to visit her in the ICU despite his known COVID. Immediately after my conversation with Ms. Gaines, I updated Mr. Gaines of this conversation and encouraged him to visit her in the ICU. In the interim, Ms. Gaines has expressed she no longer wants the BiPAP on. Without the BiPAP, her oxygen saturation falls to 65%. I made Mr. Gaines aware of this, and he plans to come to the hospital as soon as possible. I have discontinued unnecessary laboratories and increased her hydromorphone, haloperidol, and lorazepam per Ms. Gaines's request. Problems Discussed (1) Signet ring cell carcinoma: (2) Peritoneal carcinomatosis: (3) Acute respiratory failure with hypoxia: (4) COPD (chronic obstructive pulmonary disease): (5) SLE (systemic lupus erythematosus):
--- NOTE | 2023-06-11 11:30 | PC.NURSE ---
This RN, MD and RT at bedside assessing and speaking with pt. Pt stated she wants to be comfortable and no longer wants to stay on the bipap despite her respiratory status. Pt compliant with hi-flow and non-rebreather. updated by MD. Sister at bedside. pt requesting anxiety and pain meds, per md ok to administer meds early. Md adjusted meds. pt stated she just wants to be comfortable.
--- NOTE | 2023-06-11 12:40 | MHC.CM.PN ---
Pt continues care in ICU: goals of care discussion held today w/MD and respiratory: pt opting for a more comfort focused care plan including no more BiPap: pt agrees to plan and will begin non aggressive management. Spouse contacted and will be in to see pt as her condition will rapidly deteriorate without Bipap. CM to follow for assistance with d/c planning.
[2023-06-11 17:56] LABS: Glucose, Whole Blood 208 mg/dL (60-115)
[2023-06-12] VITALS (22 sets, daily range): BP systolic 108–187; BP diastolic 35–126; PULSE 96–128; RESP 14–40; TEMP 34.9–39.3; O2SAT 76–93; BMI 25.9
[2023-06-12 00:08] LABS: Glucose, Whole Blood 190 mg/dL (60-115)
[2023-06-12] MEDS: Heparin Sodium,Porcine 5,000 UNIT/ML VIAL 5000 UNIT SUBCUT ×2 (00:50→07:56)
[2023-06-12] MEDS: dexmedeTOMIDidine HCL/NS 400 MCG/100 ML INFUS..BTL 25.45 MCG IVCONT ×4 (00:51→11:33)
[2023-06-12] MEDS: HYDROmorphone HCl 1 MG/ML SYRINGE IVPUSH ×5 (02:24→14:16)
[2023-06-12] MEDS: LORazepam 2 MG/ML VIAL 1 MG IVPUSH ×5 (04:48→15:23)
[2023-06-12 05:20] LABS: VBG Base Excess -6.6 mmol/L; VBG HCO3 16 mmol/L (22-26); VBG pCO2 25 mmHg; VBG pH 7.41 (7.32-7.43); VBG pO2 72 mmHg
[2023-06-12 05:24] LABS: Venous Blood Gas Refer to POC result
[2023-06-12 05:34] LABS: MANUAL DIFF FLAG NO
[2023-06-12 05:36] LABS: Basophils Percent Auto 0.2 % (0-2); Eosinophils Absolute Auto 0.2 X10*3/uL (0.0-0.4); Hematocrit 36.6 % (37.0-47.0); Hemoglobin 11.8 g/dl (12.0-16.0); Imm Gran Abs Auto 0.18 X10*3/uL (0.00-0.03); Lymphocytes Absolute Auto 1.4 X10*3/uL (1.2-4.9); Lymphocytes Percent Auto 7.9 % (20-40); Mean Corpuscular HGB Conc 32.2 g/dl (31.0-35.0); Mean Corpuscular Hemoglobin 33.1 pg (27.0-33.0); Mean Corpuscular Volume 102.5 fL (80.0-98.0); Mean Platelet Volume 11.6 fL (9.4-12.3); Monocytes Absolute Auto 0.5 X10*3/uL (0.1-1.2); Monocytes Percent Auto 2.8 % (2-11); Neutrophils Absolute Auto 15.6 x10*3/uL (2.0-8.3); Neutrophils Percent Auto 87.1 % (45-73); Platelet Count 184 X10*3/uL (160-400); Red Blood Count 3.57 X10*6/uL (4.20-5.50); Red Cell Distribution Width 13.7 % (11.0-16.0)
[2023-06-12 05:55] LABS: Anion Gap 21 (12-20); Blood Urea Nitrogen 10 mg/dL (9-16); Calcium 8.7 mg/dL (8.4-10.2); Carbon Dioxide 15 mmol/L (22-29); Chloride 113 mmol/L (96-108); Creatinine Clr Calc Pharmacy 92.1; Estimated Glomerular Filt Rate > 60; Glucose Random 207 mg/dL (60-115); Potassium 4.6 mmol/L (3.3-5.1); Sodium 144 mmol/L (135-145)
[2023-06-12] MEDS: Insulin Lispro 100 UNIT/ML 3 ML VIAL SUBCUT ×2 (06:40→11:50)
[2023-06-12] MEDS: Haloperidol Lactate 5 MG/ML VIAL 1 MG IVPUSH (07:57)
[2023-06-12] MEDS: Nicotine 21 MG PATCH.TD24 TRANSDERMA (07:57)
[2023-06-12] MEDS: Lidocaine 4 % Patch ADH..PATCH 1 PATCH TRANSDERMA (07:57)
--- NOTE | 2023-06-12 09:54 | MHC.CLN ---
F/U PT WITH INCREASED NUTRITION RISK R/T PRESSURE INJURY DIET RX: REGULAR PT WITH VERY POOR PO INTAKE R/T BIPAP MASK PT RECEIVING ENSURE MAX BID TO PROMOTE WOUND HEALING PT TRANSITIONING TO COMFORT CARE AT THIS TIME CAN CHANGE DIET TO FEED FROM FLOOR R/T PACKING MACHINE FEEDER WILL D/C SUPPLEMENT AT THIS TIME EXPECT DECLINE IN ALL PARAMETERS WILL FOLLOW WITH TEAM AND PROVIDE SUPPORT NEEDED
[2023-06-12] MEDS: Acetaminophen 1,000 MG/100 ML PIGGYBACK 400 MG IV (10:12)
--- NOTE | 2023-06-12 10:25 | PM.CCPN ---
Subjective Subjective Date of Service: 06/12/23 Interval History: remains hypoxic; clinical status guarded Critical Care Time (minutes): 90 Physical Exam Vital Signs: Vital Signs: Last Vital Signs Temp 102.6 F H 06/12/23 10:00 Pulse 98 06/12/23 10:00 Resp 22 H 06/12/23 10:00 BP 131/60 06/12/23 10:00 Pulse Ox 93 06/12/23 10:00 O2 Del Method BiPAP 06/12/23 10:00 O2 Flow Rate 60 06/10/23 12:00 FiO2 100 06/12/23 10:00 Oxygen Flow Rate 60 06/09/23 14:00 BMI result Body Mass Index 25.9 Const: Other: appears more lethargic today, less responsive to verbal stimulus HEENT: Head: Yes normal to inspection, Yes normocephalic and Yes atraumatic Eyes: General: appearance normal, both eyes and all related structures Neck: Neck: Yes normal visual inspection and Yes full ROM Chest: Chest palpation & inspection: normal inspection of the chest Resp: Other: diffuse rhonchi throughout Effort & Inspection: labored, tachypneic and uses accessory muscles Cardio: Rate: regular rate Rhythm: regular rhythm GI: Palpation (GI): Soft to palpation, not firm, nontender, no guarding and not rigid Skin: General skin exam: no rashes or lesions noted Neuro: Other: appears more lethargic today; unable to answer questions nor follow commands General: no focal motor deficits Extrem: General: Yes normal to inspection and Yes no pedal edema Objective Data Labs 06/12/23 05:09 06/12/23 05:09 Labs: Laboratory Results - last 24 hr 06/11/23 06/11/23 06/12/23 17:50 23:34 05:09 WBC 18.0 H RBC 3.57 L Hgb 11.8 L Hct 36.6 L MCV 102.5 H MCH 33.1 H MCHC 32.2 RDW 13.7 Plt Count 184 MPV 11.6 Immature Gran % (Auto) 1.0 H Neut % (Auto) 87.1 H Lymph % (Auto) 7.9 L [place] % (Auto) 2.8 Eos % (Auto) 1.0 Baso % (Auto) 0.2 Lymph # (Auto) 1.4 [place] # (Auto) 0.5 Eos # (Auto) 0.2 Baso # (Auto) 0.0 Abs Immat Gran (auto) 0.18 H Absolute Neuts (auto) 15.6 H Absolute Nucleated RBC 0.000 Nucleated RBC % (auto) 0.0 VBG pH VBG pCO2 VBG pO2 VBG HCO3 VBG O2 Saturation VBG Base Excess Sodium 144 Potassium 4.6 D Chloride 113 H Carbon Dioxide 15 L Anion Gap 21 H BUN 10 Creatinine 0.70 Estim Creat Clear Calc 92.1 Estimated GFR > 60 POC Glucose 208 H 190 H Random Glucose 207 H Calcium 8.7 06/12/23 05:15 WBC RBC Hgb Hct MCV MCH MCHC RDW Plt Count MPV Immature Gran % (Auto) Neut % (Auto) Lymph % (Auto) [place] % (Auto) Eos % (Auto) Baso % (Auto) Lymph # (Auto) [place] # (Auto) Eos # (Auto) Baso # (Auto) Abs Immat Gran (auto) Absolute Neuts (auto) Absolute Nucleated RBC Nucleated RBC % (auto) VBG pH 7.41 VBG pCO2 25 VBG pO2 72 VBG HCO3 16 L VBG O2 Saturation 95.0 VBG Base Excess -6.6 Sodium Potassium Chloride Carbon Dioxide Anion Gap BUN Creatinine Estim Creat Clear Calc Estimated GFR POC Glucose Random Glucose Calcium Microbiology Microbiology Results: Microbiology 06/02/23 06:06 Blood - Venous Blood Culture - Final No growth after 5 days. 06/02/23 06:06 Blood - Venous Blood Culture - Final No growth after 5 days. 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 (2) Peritoneal carcinomatosis: Status: Acute (3) Acute respiratory failure with hypoxia: Status: Acute (4) COPD (chronic obstructive pulmonary disease): Status: Acute (5) SLE (systemic lupus erythematosus): Status: Acute Plan Assessment: Patient is a 58 Y F with severe COPD, followed by pulmonology at [facility], type 2 diabetes mellitus, paraoxysmal atrial fibrillation, congestive heart failure, and SLE, initially presenting on 06/02 with abdominal pain, concerning for acute appendicitis, status post laparoscopic appendectomy on 06/02 with biopsy concerning for signet cell carcinoma, 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; hospital course complicated by acute hypoxic respiratory failure, found to have COVID pneumonia Plan: N: anxiety, dexmedetomidine gtt, haloperidol and lorazepam PRN; to monitor QTc closely CV: hemodynamically stable; paroxysmal atrial fibrillation, currently sinus tachycardia R: acute hypoxic respiratory failure, likely multifactorial, due to COVID pneumonia, COPD; s/p remdesivir; necessitating BiPAP AM and PM GI: appendicitis, 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
[2023-06-12 11:43] LABS: Glucose, Whole Blood 174 mg/dL (60-115)
[2023-06-12 13:46] LABS: Procalcitonin 0.43 ng/mL
--- NOTE | 2023-06-12 14:36 | W.MHC.ACPN ---
Advanced Care Planning Note Advanced Care Planning Note Discussed with: patient and family member(s) Time spent (in minutes): 30 Narrative: Ms. Gaines was fatigued, but oriented to person, place, time, and situation. Her , brother, and [id number] were present in the room, along with myself and her nurse, Jose Antonio. Ms. Gaines continued to express to us and her loved ones that she no longer wants the BiPAP on, knowing that without oxygen supplementation, her oxygen will continue to fall and she will likely . Ms. Gaines expressed understanding of this. Furthermore, she continued to express that she would like to be comfortable. Her understandably is having a difficult time with this, but is understanding of her decisions. Her code status was changed to comfort measures, and medications for symptom control were ordered. Problems Discussed (1) Signet ring cell carcinoma: (2) Peritoneal carcinomatosis: (3) Acute respiratory failure with hypoxia: (4) COPD (chronic obstructive pulmonary disease): (5) SLE (systemic lupus erythematosus):
[2023-06-12] MEDS: HYDROmorphone HCl 1 MG/ML SYRINGE 2 MG IVPUSH (14:47)
[2023-06-12] MEDS: Morphine Sulfate 4 MG/ML CARTRIDGE IVPUSH (15:02)
[2023-06-12] MEDS: Morphine Sulfate/NS 100 MG/100 ML PLAST..BAG IVCONT (15:13)
[2023-06-12] MEDS: HYDROmorphone HCl 2 MG/ML VIAL 1 MG IVPUSH (15:23)
--- NOTE | 2023-06-12 15:24 | PC.NURSE ---
and this rn speaking with pt and family at bedside. per pt pt would like to be made [employer] and taken off all O2 and be comfortable. morphine drip started as ordered and IVP meds given per MD verbal order. family at bedside. pt comfort maintained
--- NOTE | 2023-06-12 15:42 | PM.DDS ---
Discharge Sum: Prov Provider Primary care physician: Renetta Chew MD Admitting clinician: Kirill Colmenares Attending physician on admission: Kirill Colmenares Pronouncing clinician: Yumiko Jacob Discharge Sum: Diag PCOD Cause of : Respiratory failure with hypoxia Contributing Factors (1) COVID-19: (2) COPD (chronic obstructive pulmonary disease): (3) Signet ring cell carcinoma: (4) Peritoneal carcinomatosis: Discharge Sum: Summary Date and Time Date of admission: 06/05/23 14:17 Date of : 06/12/23 Time of : 15:39 Summary Details: Ms. 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; her hospital course was complicated by acute hypoxic respiratory failure, and she was found to have COVID pneumonia; she was admitted to the ICU on 06/06; her ICU course was complicated by persistent and worsening hypoxic respiratory failure necessitating near constant HFNC and BiPAP; on 06/12, she was alert and oriented, and made the decision to transition to comfort-focused care Additional Data Confirmation of as documented by pronouncing clinician: no pulse, no respirations, no heart sounds and pupils fixed and dilated Family: at bedside Attending/PCP notified?: Yes Attending physician: Yumiko Jacob MD Was code activated?: No Autopsy requested?: No legal instruments examiner notified?: No Organ bank notified?: No Advance directives: Yes Hospice patient?: No
== END 2023-06-12 17:13 | disposition expired | DRG 338 ==
LOC: HO.ED 06-02 12:01 → HO.SSS 06-02 12:49 → HO.S3 06-02 17:21 → HO.IMC 06-04 06:16 → HO.ICU 06-06 06:37
PROVIDERS: Emergency Medicine Emergency Medical Services; Hospitalist; Internal Medicine; Internal Medicine Pulmonary Disease; Nurse Practitioner Family; Physician Assistant; Physician Assistant Medical; Student in an Organized Health Care Education/Training Program; Admitting Provider Surgery; Emergency Provider Student in an Organized Health Care Education/Training Program; PCP Internal Medicine; Visit Provider Internal Medicine Critical Care Medicine
PROC: 0DTJ4ZZ Resection of Appendix, Percutaneous Endoscopic Approach (ICD-10-PCS; CPT 44970; principal; 2023-06-02 13:30)
DX: C18.1 Malignant neoplasm of appendix (principal); J12.82 Pneumonia due to coronavirus disease 2019; U07.1 COVID-19; J96.01 Acute respiratory failure with hypoxia; C78.6 Secondary malignant neoplasm of retroperitoneum and peritoneum; I50.32 Chronic diastolic (congestive) heart failure; Z51.5 Encounter for palliative care; E87.6 Hypokalemia; I48.0 Paroxysmal atrial fibrillation; D50.9 Iron deficiency anemia, unspecified; D63.0 Anemia in neoplastic disease; M32.9 Systemic lupus erythematosus, unspecified; E03.9 Hypothyroidism, unspecified; F17.210 Nicotine dependence, cigarettes, uncomplicated; M54.59 Other low back pain; J43.9 Emphysema, unspecified; F39 Unspecified mood [affective] disorder; G89.29 Other chronic pain; Z71.6 Tobacco abuse counseling; Z79.4 Long term (current) use of insulin; Z79.01 Long term (current) use of anticoagulants; Z79.85 Long-term (current) use of injectable non-insulin antidiabetic drugs; Z79.890 Hormone replacement therapy; Z79.899 Other long term (current) drug therapy
CPT/HCPCS: 36415; 36600; 71045; 71275; 74177; 80048; 80053; 81001; 82040; 82378; 82803; 82947; 83605; 83690; 83735; 83880; 84100; 84145; 84443; 84484; 85025; 85027; 85610; 85730; 86140; 87040; 87086; 87507; 87635; 88112; 88304; 88305; 88341; 88342; 88360; 92950; 93005; 93306; 94003; 94640; 94660; 99215; 99221; 99285; C1758; J0131; J0248; J1100; J1170; J1643; J1940; J1956; J2060; J2250; J2270; J2371; J2405; J2930; J3010; J7168; P9047; Q9957; Q9967

== ENCOUNTER 2023-06-02 17:06 | Outpatient (BNV) | payer MEDICARE, MEDICAID, SELFPAY | END 2023-06-05 07:00 | PROVIDERS: Admitting Provider Surgery; Emergency Provider Student in an Organized Health Care Education/Training Program; PCP Internal Medicine; Visit Provider Internal Medicine Cardiovascular Disease | DX: R94.31 Abnormal electrocardiogram [ECG] [EKG] (principal) | CPT/HCPCS: 93306 ==

== ENCOUNTER → 2023-06-02 17:06 | Outpatient (BNV) | payer MEDICARE, MEDICAID, SELFPAY | PROVIDERS: Admitting Provider Surgery; Emergency Provider Student in an Organized Health Care Education/Training Program; Visit Provider Internal Medicine Pulmonary Disease | DX: C18.1 Malignant neoplasm of appendix (principal); U07.1 COVID-19; C78.6 Secondary malignant neoplasm of retroperitoneum and peritoneum; J96.01 Acute respiratory failure with hypoxia; M32.9 Systemic lupus erythematosus, unspecified; I50.9 Heart failure, unspecified; E11.9 Type 2 diabetes mellitus without complications; I48.0 Paroxysmal atrial fibrillation | CPT/HCPCS: 99222; 99291 ==

== ENCOUNTER → 2023-06-02 17:06 | Outpatient (BNV) | payer MEDICARE, MEDICAID, SELFPAY | PROVIDERS: Admitting Provider Surgery; Emergency Provider Student in an Organized Health Care Education/Training Program; Visit Provider Physician Assistant | DX: J96.01 Acute respiratory failure with hypoxia (principal); J44.9 Chronic obstructive pulmonary disease, unspecified | CPT/HCPCS: 99222; 99233 ==

== ENCOUNTER → 2023-06-02 17:06 | Outpatient (BNV) | payer MEDICARE, MEDICAID, SELFPAY | PROVIDERS: Admitting Provider Surgery; Emergency Provider Student in an Organized Health Care Education/Training Program; Visit Provider Physician Assistant Surgical | DX: J96.01 Acute respiratory failure with hypoxia (principal); J44.9 Chronic obstructive pulmonary disease, unspecified; K35.80 Unspecified acute appendicitis; C78.6 Secondary malignant neoplasm of retroperitoneum and peritoneum | CPT/HCPCS: 44970; 99024 ==

== ENCOUNTER → 2023-06-05 14:17 | Outpatient (BNV) | payer MEDICARE, MEDICAID, SELFPAY | PROVIDERS: Admitting Provider Surgery; Emergency Provider Student in an Organized Health Care Education/Training Program; PCP Internal Medicine; Visit Provider Internal Medicine Critical Care Medicine | DX: C80.1 Malignant (primary) neoplasm, unspecified (principal); C78.6 Secondary malignant neoplasm of retroperitoneum and peritoneum; J96.01 Acute respiratory failure with hypoxia; J44.9 Chronic obstructive pulmonary disease, unspecified; M32.9 Systemic lupus erythematosus, unspecified; U07.1 COVID-19; J12.82 Pneumonia due to coronavirus disease 2019 | CPT/HCPCS: 99239; 99291; 99292 ==

== ENCOUNTER → 2023-06-05 14:17 | Outpatient (BNV) | payer MEDICARE, MEDICAID, SELFPAY | PROVIDERS: Admitting Provider Surgery; Emergency Provider Student in an Organized Health Care Education/Training Program; PCP Internal Medicine; Visit Provider Internal Medicine | DX: C18.1 Malignant neoplasm of appendix (principal); C78.6 Secondary malignant neoplasm of retroperitoneum and peritoneum | CPT/HCPCS: 99222 ==